=== PATIENT | male | born 1940 | race Two or more races ===

== ENCOUNTER → 2024-05-02 | Outpatient (CLI) | payer OTHER, SELFPAY ==
[2024-05-02 12:16] LABS: Basophils # (Auto) 0.1 Thou/mm3 (0.0-0.2); Basophils % (Auto) 1 % (0-2.5); Eosinophils # (Auto) 0.7 Thou/mm3 (0.0-0.5); Eosinophils % (Auto) 7 % (0-10); Hematocrit 36.4 % (41.0-53.0); Hemoglobin 11.6 g/dL (13.5-16.0); Immature Granulocytes % (Auto) 1 % (0-0); Immature Granulocytes Auto 0.13 Thou/mm3 (0.00-0.00); Lymphocytes # (Auto) 1.7 Thou/mm3 (1.0-4.8); Lymphocytes % (Auto) 17 % (10-50); Mean Corpuscular HGB Conc 31.9 g/dl (31.0-37.0); Mean Corpuscular Volume 91 fL (80-100); Monocytes # (Auto) 0.9 Thou/mm3 (0.0-0.8); Monocytes % (Auto) 9 % (0-12); Neutrophils # (Auto) 6.4 Thou/mm3 (1.8-7.7); Neutrophils % (Auto) 65 % (37-80); Nucleated Red Blood Cell % 0 /100 WBC (0); Platelet Count 256 Thou/mm3 (140-440); RDW Standard Deviation 45.5 fL (35.1-43.9); White Blood Count 9.9 Thou/mm3 (3.8-10.6)
[2024-05-02 12:27] LABS: Glucose Estimated Average 111 mg/dL (80-131); Hemoglobin A1C 5.5 % Hgb (4.8-6.0)
[2024-05-02 12:31] LABS: Albumin, Serum 4.1 gm/dL (3.4-4.8); Anion Gap 7 (7-16); BUN/Creatinine Ratio 12 Ratio (12-20); Blood Urea Nitrogen 46 mg/dL (9-23); Calcium 8.9 mg/dL (8.3-10.6); Calcium (Corrected) 8.9 mg/dL (8.5-10.1); Chloride 112 mMol/L (98-107); Creatinine (Component) 3.8 mg/dL (0.6-1.3); Glucose 121 mg/dL (74-106); Osmolality,Calculated 292 (275-295); Phosphorous 3.7 mg/dL (2.4-5.1); Potassium 5.6 mMol/L (3.4-5.1); Sodium 140 mMol/L (136-145); eGFR 15 See Note
[2024-05-02 13:41] LABS: Collection Type, Urine Clean Catch
[2024-05-02 14:00] LABS: Bacteria,Urine Rare; Bilirubin,Urine Negative (Negative); Blood,Urine Negative (Negative); Clarity,Urine Clear (Clear/Hazy); Color,Urine Lt-Yellow (Lt Yel-Yel); Glucose, Urine Negative (Negative); Ketones,Urine Negative (Negative); Leukocyte Esterase,Urine Positive (Negative); Nitrite,Urine Negative (Negative); PH,Urine 5.5 (5.0-7.0); Protein,Urine 2+ (Neg - Trace); RBC,Urine 10 /hpf (0-3); Squamous Epithelial Cell,Urine < 1 /hpf (0-5); Urobilinogen,Urine Negative mg/dL (0.0-1.0); WBC,Urine 5 /hpf (0-5)
== END | disposition home or self-care (01) ==
LOC: COPL 11:33
PROVIDERS: PCP Family Medicine; Referring Provider Internal Medicine Nephrology; Visit Provider Internal Medicine Nephrology
DX: N18.5 Chronic kidney disease, stage 5 (principal); E11.9 Type 2 diabetes mellitus without complications
CPT/HCPCS: 36415; 80069; 81001; 83036; 85025

== ENCOUNTER → 2024-08-13 | Outpatient (CLI) | payer OTHER, SELFPAY ==
[2024-08-13 09:57] LABS: Collection Type, Urine Clean Catch; Squamous Epithelial Cell,Urine 0 /hpf (0-5)
[2024-08-13 10:54] LABS: Bilirubin,Urine Negative (Negative); Blood,Urine Negative (Negative); Clarity,Urine Clear (Clear/Hazy); Color,Urine Colorless (Lt Yel-Yel); Glucose, Urine Negative (Negative); Ketones,Urine Negative (Negative); Leukocyte Esterase,Urine Negative (Negative); Nitrite,Urine Negative (Negative); Protein,Urine 1+ (Neg - Trace); RBC,Urine 1 /hpf (0-3); Specific Gravity,Urine 1.015 (1.001-1.035); Urobilinogen,Urine Negative mg/dL (0.0-1.0); WBC,Urine 3 /hpf (0-5)
[2024-08-13 10:56] LABS: Basophils # (Auto) 0.1 Thou/mm3 (0.0-0.2); Basophils % (Auto) 1 % (0-2.5); Eosinophils # (Auto) 0.8 Thou/mm3 (0.0-0.5); Eosinophils % (Auto) 7 % (0-10); Hemoglobin 12.2 g/dL (13.5-16.0); Immature Granulocytes % (Auto) 1 % (0-0); Immature Granulocytes Auto 0.14 Thou/mm3 (0.00-0.00); Lymphocytes # (Auto) 1.4 Thou/mm3 (1.0-4.8); Lymphocytes % (Auto) 13 % (10-50); Mean Corpuscular Hemoglobin 29.5 pg (25.0-35.0); Mean Corpuscular Volume 90 fL (80-100); Monocytes # (Auto) 0.9 Thou/mm3 (0.0-0.8); Monocytes % (Auto) 8 % (0-12); Neutrophils # (Auto) 8.1 Thou/mm3 (1.8-7.7); Neutrophils % (Auto) 71 % (37-80); Nucleated Red Blood Cell % 0 /100 WBC (0); Platelet Count 268 Thou/mm3 (140-440); RDW Standard Deviation 44.8 fL (35.1-43.9); Red Blood Count 4.13 Miln/mm3 (4.50-5.90); White Blood Count 11.4 Thou/mm3 (3.8-10.6)
[2024-08-13 11:11] LABS: Anion Gap 10 (7-16); BUN/Creatinine Ratio 14 Ratio (12-20); Blood Urea Nitrogen 53 mg/dL (9-23); Calcium 8.6 mg/dL (8.3-10.6); Calcium (Corrected) 8.6 mg/dL (8.5-10.1); Carbon Dioxide 20.8 mMol/L (20.0-31.0); Chloride 114 mMol/L (98-107); Creatinine (Component) 3.8 mg/dL (0.6-1.3); Glucose 127 mg/dL (74-106); Osmolality,Calculated 305 (275-295); Phosphorous 4.3 mg/dL (2.4-5.1); Potassium 5.4 mMol/L (3.4-5.1); Sodium 145 mMol/L (136-145); eGFR 15 See Note
[2024-08-13 11:13] LABS: Vitamin D 25 Hydroxy Total 18.9 ng/mL (7.3-40.2)
== END | disposition home or self-care (01) ==
LOC: COPL 09:27
PROVIDERS: PCP Family Medicine; Referring Provider Internal Medicine Nephrology; Visit Provider Internal Medicine Nephrology
DX: I12.9 Hypertensive chronic kidney disease with stage 1 through stage 4 chronic kidney disease, or unspecified chronic kidney disease (principal); N18.4 Chronic kidney disease, stage 4 (severe); E55.9 Vitamin D deficiency, unspecified
CPT/HCPCS: 36415; 80069; 81001; 82306; 83970; 85025

== ENCOUNTER 2024-11-08 18:10 | Inpatient (IN) | payer OTHER, SELFPAY ==
[2024-11-08 18:11] VITALS: BMI 21.7
--- NOTE | 2024-11-08 18:15 | EKG_ITS ---
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
[2024-11-08 18:33] VITALS: BP 148/77; PULSE 106; RESP 18; TEMP 36.9; O2SAT 97
--- NOTE | 2024-11-08 19:16 | XR_ITS ---
Examination: PA chest single view Technique upright PA chest single view Date and time: 11/08/2024 1924 hours INDICATIONS: Chest pain 3 days. FINDINGS: Normal heart size. Lungs are clear. Osseous structures are intact IMPRESSION: No active disease
--- NOTE | 2024-11-08 19:17 | PD.EDCHEST ---
ED Chest Pain RME/HPI General Chief Complaint: Chest Pain Stated Complaint: CHEST PAIN X3DAYS, ABN EKG, ELEVATED TROP Time Seen by Provider: 11/08/24 19:16 Arrival date/time: 11/08/24 18:10 84M with history of HTN and CKD presents to ED with 3 days of intermittent chest pressure. Patient denies SOB and URI symptoms. Patient had outpatient trop done about 3 hours ago, which was around a 2. Patient was prescribed nitro and he picked it up, but has not taken any. Limitations: no limitations Related Data Home Medications ?Medication ?Instructions ?Recorded ?Confirmed amlodipine 10 mg tablet 10 mg PO QDAY 02/04/20 11/08/24 losartan 100 mg tablet 100 mg PO QDAY 02/04/20 11/08/24 Held on 01/26/23. Instructions: F/u with PCP tamsulosin 0.4 mg capsule 0.4 mg PO BID 11/08/24 11/08/24 Allergies Allergy/AdvReac Type Severity Reaction Status Date / Time codeine Allergy Vomiting Verified 11/08/24 18:13 Review of Systems Review of Systems Systems Reviewed: All systems reviewed, normal except as documented Constitutional Constitutional: Reports system reviewed and no additional complaints, except as documented, Denies fever(s) and Denies headache(s) ENT Ears, Nose, Mouth, and Throat: Denies disequilibrium and Denies headache(s) Cardiovascular Cardiovascular: Reports system reviewed and no additional complaints, except as documented, Reports as per HPI, Reports chest pain and Denies dyspnea Respiratory Respiratory: Reports system reviewed and no additional complaints, except as documented, Denies cough and Denies dyspnea Gastrointestinal Gastrointestinal: Reports system reviewed and no additional complaints, except as documented, Denies abdominal pain, Denies nausea and Denies vomiting Neurologic Neurologic: Reports system reviewed and no additional complaints, except as documented, Denies confusion, Denies disequilibrium and Denies headache(s) Psychiatric Psychiatric: Denies confusion Past Medical History Past Medical History NEUROLOGIC: Negative Neurological Disorders or Seizures CARDIAC: Positive Cardiac Disorders, Hypercholesterolemia and Hypertension; Negative Congestive Heart Failure RESPIRATORY: Negative Chronic Obstructive Pulmonary Disease (COPD) GASTROINTESTINAL: Negative Gastrointestinal Disorders, Hepatitis, Colitis or Colorectal Cancer GENITOURINARY: Positive Chronic Kidney Disease and Benign Prostatic Hyperplasia; Negative Genitourinary Disorders, Renal Disease, Kidney Stones, Polycystic Kidney Disease, Neurogenic Bladder, Inguinal Hernia or Dialysis REPRODUCTIVE: Negative Breast Cancer MUSCULOSKELETAL: Positive Musculoskeletal Disorders and Arthritis ENT: Positive Cataracts, Macular Degeneration and Deafness (kotlik) ENDOCRINE: Positive Endocrine Disorders and Diabetes Mellitus Type 2; Negative Diabetes Mellitus Type 1 HEMATOLOGIC: Negative Blood Disorders OTHER HISTORY: Negative Hospitalization, Autoimmune Disease, Down Syndrome, Developmental Delay, Shingles, Falls, Blood Transfusions, Blood Transfusion Reaction, Anesthesia Reactions, Organ Transplant, MRSA, VRSA, Vancomycin-Resistant Enterococci, Human Immunodeficiency Virus (HIV), Chicken Pox, Measles, Mumps, Rubella (M[place]ese Measles), Pertussis, Clostridium Difficile, Cancer, Breast Cancer, Cervical Cancer, Colorectal Cancer or Lung Cancer Family History FAMILY HISTORY: Negative Family Psychiatric Problems, Family Respiratory Disorders, Family Cardiac Disorders, Family Gastrointestinal Problems, Family Cancer, Family Surgery or Family Anesthesia Reaction Surgical History SURGICAL: Positive Eye Surgery (cataracts); Negative Cardiac Surgery, Open Heart Surgery, Endocrine Surgery, Ear Surgery, Tympanostomy Tube, Abdominal Surgery, Nephrectomy, Joint Replacement, Neurologic Surgery, Mastectomy, Vasectomy or Organ Transplant Social History SMOKING STATUS: Former smoker SECOND HAND EXPOSURE: No Past Medical History Comments PMH COMMENT: PMH: Patient reports possible stroke several years ago. Hypertension, CKD. PSH: None SH: Quit smoking a few years ago, approximately [id number] history. Denies alcohol or illicit drug use. Allergies:?Codeine Medications: Flomax, amiodarone ED Exam General Limitations: Present no limitations General appearance: Present alert and in no apparent distress Head Head exam: Present atraumatic Eye Eye exam: Present normal appearance, PERRL and EOMI ENT ENT exam: Present normal exam, normal oropharynx and mucous membranes moist Neck Neck exam: Present normal inspection, full ROM and trachea midline Chest Chest inspection: Present normal inspection and symmetric chest wall rise Respiratory Respiratory exam: Present normal lung sounds bilaterally Cardiovascular Cardiovascular exam: Present regular rate, normal rhythm and normal heart sounds Abdominal Exam Abdominal exam: Present soft and normal bowel sounds Extremities Exam Extremities exam: Present normal inspection and full ROM Back Exam Back exam: Present normal inspection and full ROM Neurological Exam Neurological exam: Present alert, oriented X3 and CN II-XII intact Psychiatric Psychiatric exam: Present normal affect and normal mood Skin Skin exam: Present warm, dry, intact and normal color Course Quality Measures none Orders Category Date Time Status COVID-19 Screening Questionnaire NOW Care 11/08/24 19:26 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 Care 11/08/24 20:15 Active Decision to Admit X1 Care 11/08/24 19:25 Completed EKG (ED ONLY) *Do not use* NOW Care 11/08/24 18:15 Completed Insert IV NOW Care 11/08/24 19:16 Active Consult to Cardiology Stat Cons 11/08/24 19:25 Ordered CA echo doppler complete Stat Exams 11/08/24 19:38 Completed EKG (ED Only) Stat Exams 11/08/24 18:15 Draft XR chest 1V portable Stat Exams 11/08/24 19:16 Completed B-Type Natriuretic Peptide Stat Lab 11/08/24 20:10 Completed CBC Stat Lab 11/08/24 20:10 Completed Comprehensive Metabolic Panel Stat Lab 11/08/24 20:10 Completed Magnesium Stat Lab 11/08/24 20:10 Completed Partial Thromboplastin Time Stat Lab 11/08/24 20:10 Completed Prothrombin Time with INR Stat Lab 11/08/24 20:10 Completed Troponin I Stat Lab 11/08/24 20:10 Completed Aspirin Med 11/08/24 19:16 Discontinued 325 mg PO X1 ONE Vital Signs Vital signs: Vital Signs Temperature 98.4 F 11/08/24 18:33 Pulse Rate 106 H 11/08/24 18:33 Respiratory Rate 18 11/08/24 18:33 Blood Pressure 148/77 H 11/08/24 18:33 Pulse Oximetry (%) 97 11/08/24 18:33 Oxygen Delivery Method Room Air 11/08/24 18:33 O2 at 97% on RA and WNLs Chest Pain MDM Narrative MDM Narrative:: 84M with history of HTN and CKD presents to ED with 3 days of intermittent chest pressure. Patient denies SOB and URI symptoms. Patient had outpatient trop done about 3 hours ago, which was around a 2. Patient was prescribed nitro and he picked it up, but has not taken any. Physical exam reveals clear lungs. Normal WOB. Patient is afebrile, calm, and alert. EKG is NSR with 1s degree heart block (seen in last EKG), but has new PVC w/ bigeminy pattern. Trop went down from 2 to 1.9, so patient's late-stage CKD is likely playing a part. Spoke to Dr. Ann cards, who recommends heparin bolus/drop and echo; he will consult. Spoke to Dr. Benson, IM, who will admit. Patient data External records reviewed:: [facility] previous records Clinical information provided by:: patient Social determinants that could affect healthcare access:: none Patient has the following chronic illnesses:: CKD and HTN How is presenting disease/condition affected by chronic disease/condition?: exacerbated by Evaluation data The following diagnostics were reviewed and interpreted by me:: lab results, radiology exam(s) and EKG tracing(s) Lab and/or radiology exams considered but not ordered:: ordered Interpretation Summary: above Medications / Prescriptions Medications or Prescriptions considered but not ordered:: ordered Medication administrations:: Medication Administration History Acetaminophen (Acetaminophen 325 Mg Tablet) 650 mg PO Q6H PRN PRN Reason: Fever >100.4 or pain Stop: 12/08/24 20:20 Aspirin (Aspirin Ec 81 Mg Tabec) 81 mg PO QDAY NAHED Stop: 12/09/24 08:59 Atorvastatin Calcium (Atorvastatin Calcium 20 Mg Tablet) 80 mg PO HS NAHED Stop: 12/09/24 20:59 Docusate Sodium (Docusate Sod 100 Mg Capsule) 100 mg PO QDAY PRN; Protocol PRN Reason: CONSTIPATION Stop: 12/08/24 20:20 Heparin Sodium/Dextrose (Heparin In D5w Ivpb) 25,000 unit in 250 mls @ 8.709 mls/hr IV .Q24H NAHED; Protocol Stop: 11/22/24 20:29 Last Admin: 11/08/24 21:28 Dose: 12 units/kg/hr, 8.709 mls/hr Documented By: CG Co-signed By: JASKARAN Metoprolol Tartrate (Metoprolol Tartrate 25 Mg Tablet) 25 mg PO BID NAHED Stop: 12/09/24 08:59 Nitroglycerin (Nitroglycerin 0.4 Mg Subl Btl #25) 0.4 mg SL Q5MIN PRN PRN Reason: CHEST PAIN Ondansetron HCl (Ondansetron Inj 2 Mg/Ml Inj 2 Ml) 4 mg IVP Q6H PRN; Protocol PRN Reason: NAUSEA OR VOMITING Stop: 12/08/24 20:20 Sennosides (Senna Tablet) 1 tab PO QDAY PRN; Protocol PRN Reason: constipation Stop: 12/08/24 20:20 Discontinued Medications Aspirin (Aspirin 325 Mg Tablet) 325 mg PO X1 ONE Stop: 11/08/24 19:17 Last Admin: 11/08/24 19:24 Dose: 325 mg Documented By: CVL Heparin Sodium (Porcine) (Heparin Sod Inj 5000 Unit/Ml Vial) 4,000 unit IV X1 ONE; Protocol Stop: 11/08/24 20:24 Last Admin: 11/08/24 21:25 Dose: 4,000 unit Documented By: CG Co-signed By: JASKARAN Metoprolol Tartrate (Metoprolol Tartrate 25 Mg Tablet) 25 mg PO X1 ONE Stop: 11/08/24 22:04 Last Admin: 11/08/24 23:28 Dose: 25 mg Documented By: COCO above Consultations Consultation(s) initiated? (list below): Yes Diagnosis Chest Pain Differential Diagnosis: fracture of rib, pneumothorax, stable angina, unstable angina pectoris, st elevation myocardial infarction, costochondritis, chest pain and biliary colic Most likely diagnosis given after review of the tests above:: NSTEMI Admission Indicated Admission indicated?: indicated Admission Request Was there a request for admission?: Yes Admission Attestation Admission request attestation: Discussed case with [Dr. Benson] from Hospitalist service regarding admission. Discussed patients ED course, exam findings, labs, and radiology results. The Hospitalist [agrees] to accept the patient for admission. Disposition Plan Disposition Plan: Admit Discharge Plan Plan Patient Disposition: Admit Acute Care w/in Hospital Problem List Clinical Impression: Non-ST elevation UT (NSTEMI)
[2024-11-08] MEDS: Aspirin 325 MG TABLET PO (19:24)
--- NOTE | 2024-11-08 19:38 | ECHO_ITS ---
Transthoracic Echo Report Ht (in): 72 Wt (lb): 160 Exam Location: Echo Lab Status: Preadmit Speaking Unit Assembler: Shantal Barreto Indications: Procedure Performed: BP: 148 / 77 HR: 106 MEASUREMENTS (Male / Female) Normal Values 2D ECHO LV Diastolic Diameter PLAX 4.6 cm 4.2 - 5.9 / 3.9 - 5.3 cm LV Systolic Diameter PLAX 3.3 cm IVS Diastolic Thickness 1.0 cm 0.6 - 1.0 / 0.6 - 0.9 cm LVPW Diastolic Thickness 1.0 cm 0.6 - 1.0 / 0.6 - 0.9 cm LV Relative Wall Thickness 0.4 LV Ejection Fraction MOD BP 51.4 % >= 55 % LV Cardiac Index MOD BP 3186.4 cm?/min?m? LV Ejection Fraction MOD 4C 46.8 % LV Cardiac Index MOD 4C 2771.5 cm?/min?m? LV Ejection Fraction 4C AL 48.4 % LV Cardiac Index 4C AL 2993.9 cm?/min?m? LV Ejection Fraction MOD 2C 57.1 % LV Cardiac Index MOD 2C 3540.4 cm?/min?m? LV Ejection Fraction 2C AL 56.6 % LV Cardiac Index 2C AL 3533.9 cm?/min?m? LA Volume Index 49.4 cm?/m? 16 - 28 cm?/m? DOPPLER AV Peak Velocity 136.0 cm/s AV Peak Gradient 7.4 mmHg AV Mean Gradient 4.0 mmHg AV Velocity Time Integral 32.6 cm LVOT Peak Velocity 97.5 cm/s LVOT Peak Gradient 3.8 mmHg LVOT Velocity Time Integral 27.0 cm MV Area PHT 5.9 cm? MR Peak Velocity 565.0 cm/s MR Peak Gradient 127.7 mmHg Mitral E Point Velocity 90.7 cm/s Mitral A Point Velocity 121.0 cm/s Mitral E to A Ratio 0.7 LV E' Lateral Velocity 8.8 cm/s Mitral E to LV E' Lateral Ratio 10.3 LV E' Septal Velocity 7.2 cm/s Mitral E to LV E' Septal Ratio 12.6 FINDINGS Left Ventricle Normal left ventricular size, wall thickness, systolic function with no obvious regional wall motion abnormalities. There is grade I diastolic dysfunction of the left ventricle (impaired relaxation pattern). The ejection fraction is visually estimated at 50-55%. Right Ventricle The right ventricle is normal in size and systolic function. Left Atrium The left atrium is normal by two-dimensional, color flow and Doppler imaging with no structural abnormalities, no thrombus formation present. Moderately increased left atrial volume 49.4 mL/m?. Right Atrium The right atrium is normal by two-dimensional imaging, color flow and Doppler imaging with no structural abnormalities, no thrombus formation present. Atrial Septum The interatrial septum appears normal with no evidence of a shunt. Aorta The aorta is normal by two-dimensional, color flow and Doppler interrogation. Mitral Valve [id number] mitral regurgitation. Aortic Valve The aortic valve is trileaflet and normal by two-dimensional, color flow and Doppler interrogation. There is no significant aortic valve regurgitation. Tricuspid Valve The tricuspid valve is normal by two-dimensional, color flow and Doppler interrogation. There is no significant tricuspid valve regurgitation. Pulmonic Valve The pulmonic valve is not well visualized. There is no significant pulmonic valve regurgitation. Vessels Inferior vena cava not well visualized. Pericardium The pericardium is normal by two-dimensional imaging. There is no significant pericardial effusion. CONCLUSIONS Indication: NSTEMI Normal LV size and function. Estimated LVEF is 55 to 60%. Grade 1 diastolic dysfunction. Normal RV size and function. Insufficient TR to measure RVSP. Mild MR trace TR. IVC not well-visualized. Karlo Ann (Electronically Signed) Final Date: 08 Nov 2024 23:56
[2024-11-08 20:13] VITALS: BP 168/76; PULSE 71; RESP 16; O2SAT 99
[2024-11-08 20:16] VITALS: PULSE 76
[2024-11-08 20:20] LABS: Basophils # (Auto) 0.1 Thou/mm3 (0.0-0.2); Basophils % (Auto) 1 % (0-2.5); Eosinophils # (Auto) 0.6 Thou/mm3 (0.0-0.5); Eosinophils % (Auto) 5 % (0-10); Hematocrit 33.8 % (41.0-53.0); Hemoglobin 11.4 g/dL (13.5-16.0); Immature Granulocytes % (Auto) 1 % (0-0); Immature Granulocytes Auto 0.08 Thou/mm3 (0.00-0.00); Lymphocytes # (Auto) 1.7 Thou/mm3 (1.0-4.8); Lymphocytes % (Auto) 13 % (10-50); Mean Corpuscular HGB Conc 33.7 g/dl (31.0-37.0); Mean Corpuscular Hemoglobin 29.4 pg (25.0-35.0); Mean Corpuscular Volume 87 fL (80-100); Monocytes # (Auto) 1.1 Thou/mm3 (0.0-0.8); Monocytes % (Auto) 9 % (0-12); Neutrophils # (Auto) 8.8 Thou/mm3 (1.8-7.7); Neutrophils % (Auto) 72 % (37-80); Nucleated Red Blood Cell % 0 /100 WBC (0); Platelet Count 243 Thou/mm3 (140-440); RDW Standard Deviation 44.8 fL (35.1-43.9); Red Blood Count 3.88 Miln/mm3 (4.50-5.90); White Blood Count 12.3 Thou/mm3 (3.8-10.6)
--- NOTE | 2024-11-08 20:30 | ESCONSULT_ITS ---
HPI Data of Consult Consult date: 11/08/24 Requesting Physician: Emergency department Consult Narrative Reason for consult: Chest pain and elevated troponins History of present illness: 84-year-old male with a past medical history of CKD stage IV baseline creatinine around 3.5-4, mostly secondary to longstanding essential hypertension as well as type 2 diabetes mellitus, diabetic nephropathy, hyperlipidemia,, osteoarthritis, history of TIA versus stroke few years ago, chronic smoker with more than 54-86-lhgc-year smoking history, BPH, mild chronic anemia secondary to CKD presented to the emergency department for further evaluation of chest pain and an elevated troponin that was sent by the primary doctor. Patient apparently has been having chest pain or chest pressure which is substernal and radiating to the neck for the last 3 days and he could not even sleep properly. At the peak it was around 10 out of 10 intensity but is improved has been better now but still has around 5-6/10 in intensity. He never had similar kind of chest pain or chest pressure. Complains of some accompanying shortness of breath but denied any kind of orthopnea or PND. Had some palpitations also. Denied any kind of nausea vomiting or dizziness or syncope or fall. Denies any kind of fever or chills. Given type of symptoms patient did go to his primary care doctor who did order his troponins and sent him to the emergency department for further evaluation. The troponins came back at 2.072 and emergency department call me for further evaluation. Labs sent by the PCP revealed WBC of 12.8 and hemoglobin was 11 point troponin 2.072 and BUN was 53 and creatinine of zero 4.0. Patient baseline creatinine is around 3.5-4.0. Chest x-ray did not show any acute pathology. EKG showed normal sinus rhythm with frequent PACs first-degree AV block. Patient lives alone and is ADL/IADL independent. Still drives around. Quit smoking a few years ago after almost 50 to 60 pack of smoking history. Denies any kind of alcohol or drug abuse. 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 Endorses that he has hypertension and diabetes for many years along with a smoking. Diagnosed chronic kidney disease few years ago and follows with Dr Parra. His kidney function is 14 to 15% as per the patient. Family history significant for heart disease siblings and possibly father. Surgical history not significant. Allergies codeine cc:: cc: Review of Systems Review of Systems Systems Reviewed: All systems reviewed, normal except as documented Narrative Review of Systems: All other 2 systems apart from HPI are reviewed and are Meds Home Medications and Allergies Home Medications ?Medication ?Instructions ?Recorded ?Confirmed ?Type amlodipine 10 mg tablet 10 mg PO QDAY 02/04/2011/08 History losartan 100 mg tablet 100 mg PO QDAY 02/04/2010/12 History Held on 01/26/23. Instructions: F/u with PCP tamsulosin 0.4 mg capsule 0.4 mg PO BID 11/08/2411/08 History Allergies Allergy/AdvReac Type Severity Reaction Status Date / Time codeine Allergy Vomiting Verified 11/08/24 18:13 Exam Vital Signs Temp Pulse Resp BP Pulse Ox O2 Del Method 98.4 F 76 16 168/76 H 99 Room Air 11/08/24 18:33 11/08/24 20:16 11/08/24 20:13 11/08/24 20:13 11/08/24 20:13 11/08/24 20:13 Narrative Exam General: Alert and oriented x3. In no acute distress. Eyes: Pupils are equal and reactive to light bilaterally. HEENT: Atraumatic, normocephalic. No JVD noted. Mucosa moist. Cardiovascular: Normal S1 and S2. Normal rate and regular rhythm. 2/6 systolic murmur heard in the aortic area. No peripheral pitting edema noted. Respiratory: No respiratory distress. Lungs are clear to auscultation bilaterally. No wheezing or crackles heard. Abdomen: Soft, nontender, nondistended. Skin: No rash. Warm to touch. Musculoskeletal: No gross injuries. Able to move all 4 extremities. Neuro: Alert and oriented x3. No focal neuro deficits. Psych: Normal affect and mood Results Labs 11/09/24 03:25 11/09/24 03:25 Assessment and Plan Additional Assessment & Plan Additional Plan: 84-year-old male with a past medical history of CKD stage IV baseline creatinine around 3.5-4, mostly secondary to longstanding essential hypertension as well as type 2 diabetes mellitus, diabetic nephropathy, hyperlipidemia,, osteoarthritis, history of TIA versus stroke few years ago, chronic smoker with more than 04-05-gihb-year smoking history, BPH, mild chronic anemia secondary to CKD presented to the emergency department for further evaluation of chest pain and an elevated troponin that was sent by the primary doctor. Troponin before coming to the hospital was 2.0 so cardiology was consulted for further evaluation Assessment and plan: 1. NSTEMI type I>II -possible late presenting PA given his chest pain for 2 to 3 days. 2. Angina pectoris-rule out acute coronary syndrome 3. CKD stage IV baseline creatinine around 3.5-4, GFR around 14-15 4. Essential hypertension 5. Type 2 diabetes mellitus 6. Diabetic nephropathy 7. Hyperlipidemia 8. Osteoarthritis 9. BPH 10. Former smoker with 50 to 60 pack years smoking history. 11. History of possible TIA in stroke Patient presented with chest pain of 2 to 3 days duration which was not relieved with medications that has typical chest pain symptoms. EKG showed a sinus rhythm with first-degree AV block, frequent PACs and nonspecific ST changes. Troponin was elevated at 2.07. Patient mostly presenting with NSTEMI type I and less likely type II versus late presenting PA given his delayed presentation after 2 to 3 days. Continue to trend troponins every 6 hours Repeat EKG Aspirin 325 mg x 1 and aspirin 81 mg once daily. Heparin bolus with heparin drip as per ACS protocol. High intensity statin Lipitor 80 mg once daily. Stat echocardiogram ordered for the patient to rule out any regional wall motion abnormalities check a LV function RV function as well as diastolic function. Patient continues to complain of pain and will require some pain control. Nitroglycerin sublingual given here in the ED Beta-pardeep if blood pressure is permissible. Patient is increased risk for CAD given his history of longstanding hypertension, diabetes, CKD, age, history of smoking of more than 50 pack years, family history and hence will need further ischemic evaluation with cardiac catheterization. Patient explained clearly the risks benefits and alternatives of performing a left heart cardiac catheter including the risk of bleeding, heart attack, stroke and . Patient also explained that he has CKD stage IV with a creatinine of 3.5-4 and this procedure could lead patient into possible dialysis but could be done with the lower contrast told also. Patient wants to avoid dialysis as much as he can. Discussed with the patient that we will consult his undercutter operator Dr. Shultz and we can further discuss the next course of action over the weekend prior to planning for a cardiac cath on Monday as we do not have the Residential Designer available over the weekend here. Recommend to check A1c TSH and lipid profile for further cardiac restratification. Recommend strict hypertension and diabetes management. Nephrology consult given his CKD stage IV and the need of possible cardiac catheterization. Management of rest of the medical conditions as per primary team and other consultants. Thank you for the consult and allowing me to participate in the care of the patient. Cardiology will continue to follow. Karlo Ann M.D. Interventional Cardiology
[2024-11-08 20:39] LABS: Partial Thromboplastin Time 30.2 Seconds (22.0-36.0); Prothrombin Time 10.9 Seconds (9.0-12.2)
[2024-11-08 20:50] LABS: Albumin, Serum 3.8 gm/dL (3.4-4.8); Albumin/Globulin Ratio 1.4 (1.2-2.2); Alkaline Phosphatase 86 U/L (46-116); Anion Gap 13 (7-16); Aspartate Amino Transferase 16 U/L (0-34); BUN/Creatinine Ratio 13 Ratio (12-20); Bilirubin,Total 0.2 mg/dL (0.3-1.2); Blood Urea Nitrogen 55 mg/dL (9-23); Calcium 8.1 mg/dL (8.3-10.6); Calcium (Corrected) 8.3 mg/dL (8.5-10.1); Carbon Dioxide 20.9 mMol/L (20.0-31.0); Chloride 110 mMol/L (98-107); Creatinine (Component) 4.1 mg/dL (0.6-1.3); Estimated Creatinine Clearance 13.5 mL/min (>60); Globulin 2.8 gm/dL (2.3-3.5); Glucose 237 mg/dL (74-106); Magnesium 2.2 mg/dL (1.6-2.6); Osmolality,Calculated 309 (275-295); Potassium 5.1 mMol/L (3.4-5.1); Sodium 144 mMol/L (136-145); Total Protein 6.6 gm/dL (5.7-8.2); eGFR 14 See Note
[2024-11-08 20:56] LABS: Alanine Aminotransferase < 7 U/L (10-49)
--- NOTE | 2024-11-08 20:57 | PC.NURSE ---
Night Time Nanny assumes care of patient at this time, pt is A/O x 3 with no c/o chest pain at this time, pt reports pressure to chest that started 3 days ago, no report of N/V or S.O.B
[2024-11-08 21:00] VITALS: BP 164/80; PULSE 72; RESP 16; TEMP 37; O2SAT 97
[2024-11-08 21:05] LABS: B-Type Natriuretic Peptide 885 pg/mL (0-100)
[2024-11-08] MEDS: HEPARIN SOD INJ 5000 UNIT/ML VIAL 4000 UNIT IV (21:25)
--- NOTE | 2024-11-08 21:25 | PC.NURSE ---
4000 units of Heparin given over 1 minute to Left forearm IV site, pt tolerated well
--- NOTE | 2024-11-08 21:26 | PD.RESHP ---
Documentation for date of: 11/08/24 HPI History of Present Illness Chief complaint: Chest pain History of present illness: 84 y/o M with PMHx significant for HTN, CKD, possible history of previous stroke presents with chief complaint of chest pain for 3 days. Patient states that he developed pressure-like substernal chest pain without radiation, 3 out of 10, while laying in bed. Pain has been intermittent without progression for past 3 days. Patient saw his primary doctor who reportedly ordered troponin that came back as 2 prior to admission, and sent patient to ED. Patient denies fever, chills, nausea, vomiting, shortness of breath. Patient denies history of similar symptoms in the past. ED COURSE: Labs significant for: WBC 12.8, hemoglobin 12.1, troponin 2.072 downtrended to 1.9, BNP 885. BUN 53, creatinine 4.0, EGFR 14. Imaging significant for: Chest x-ray unremarkable. EKG showed no ST elevations, possible AV block. Patient started on heparin drip with bolus, given loading dose of aspirin in the ED. Cardiology was consulted. PMH: Patient reports possible stroke several years ago. Hypertension, CKD. PSH: None SH: Quit smoking a few years ago, approximately [id number] history. Denies alcohol or illicit drug use. Allergies:?Codeine Medications: Flomax, amiodarone Review of Systems Review of Systems Systems Reviewed: All systems reviewed, normal except as documented Past Medical History Past Medical History Comments PMH COMMENT: PMH: Patient reports possible stroke several years ago. Hypertension, CKD. PSH: None SH: Quit smoking a few years ago, approximately [id number] history. Denies alcohol or illicit drug use. Allergies:?Codeine Medications: Flomax, amiodarone Exam Vital Signs Temp Pulse Resp BP Pulse Ox O2 Del Method 98.4 F 76 16 168/76 H 99 Room Air 11/08/24 18:33 11/08/24 20:16 11/08/24 20:13 11/08/24 20:13 11/08/24 20:13 11/08/24 20:13 Narrative Exam PE: Gen: Well-developed and well-nourished. HEENT: NCAT, PERRLA, EOMI, MMM, anicteric conjunctivae. CVS: normal S1 and S2. RRR. No M/R/G. Resp: CTA B/L. No rhonchi, rales, crackles or wheezing. Abd: soft, non-tender, non-distended. MSK: Good ROM in BUE & BLE. No edema or rash. Neuro: CN II-XII grossly intact. Strength 5/5 in BUE & BLE. Alert and oriented x3. Psych: appropriate mood and affect. Results: Labs 11/08/24 20:10 11/08/24 20:10 Labs: Short CBC 11/08/24 Range/Units 20:10 WBC 12.3 H (3.8-10.6) Thou/mm3 Hgb 11.4 L (13.5-16.0) g/dL Hct 33.8 L (41.0-53.0) % Plt Count 243 (140-440) Thou/mm3 BMP 11/08/24 20:10 Sodium 144 Potassium 5.1 Chloride 110 H Carbon Dioxide 20.9 BUN 55 H Creatinine 4.1 H* Glucose 237 H D Calcium 8.1 L Cardiac Enzymes 11/08/24 Range/Units 20:10 Troponin I 1.900 H* (0.0-0.045) ng/mL Liver Function 11/08/24 Range/Units 20:10 Total Bilirubin 0.2 L (0.3-1.2) mg/dL AST 16 (0-34) U/L ALT < 7 L (10-49) U/L Alkaline Phosphatase 86 (46-116) U/L Albumin 3.8 (3.4-4.8) gm/dL Quality Measures Quality Measures VTE prophylaxis Advance care planning discussed with:: patient Medications Home Medications and Allergies Home Medications ?Medication ?Instructions ?Recorded ?Confirmed ?Type amlodipine 10 mg tablet 10 mg PO QDAY 02/04/20 11/08/24 History losartan 100 mg tablet 100 mg PO QDAY 02/04/20 11/08/24 History Held on 01/26/23. Instructions: F/u with PCP tamsulosin 0.4 mg capsule 0.4 mg PO BID 11/08/24 11/08/24 History Allergies Allergy/AdvReac Type Severity Reaction Status Date / Time codeine Allergy Vomiting Verified 11/08/24 18:13 Visit Medications Acetaminophen (Acetaminophen 325 Mg Tablet) 650 mg PO Q6H PRN PRN Reason: Fever >100.4 or pain Stop: 06/29/25 20:20 Aspirin (Aspirin Ec 81 Mg Tabec) 81 mg PO QDAY NAHED Stop: 12/09/24 08:59 Docusate Sodium (Docusate Sod 100 Mg Capsule) 100 mg PO QDAY PRN; Protocol PRN Reason: CONSTIPATION Stop: 12/08/24 20:20 Heparin Sodium/Dextrose (Heparin In D5w Ivpb) 25,000 unit in 250 mls @ 8.709 mls/hr IV .Q24H NAHED; Protocol Stop: 11/22/24 20:29 Ondansetron HCl (Ondansetron Inj 2 Mg/Ml Inj 2 Ml) 4 mg IVP Q6H PRN; Protocol PRN Reason: NAUSEA OR VOMITING Stop: 12/08/24 20:20 Sennosides (Senna Tablet) 1 tab PO QDAY PRN; Protocol PRN Reason: constipation Stop: 12/08/24 20:20 Discontinued Medications Aspirin (Aspirin 325 Mg Tablet) 325 mg PO X1 ONE Stop: 11/08/24 19:17 Last Admin: 11/08/24 19:24 Dose: 325 mg Heparin Sodium (Porcine) (Heparin Sod Inj 5000 Unit/Ml Vial) 4,000 unit IV X1 ONE; Protocol Stop: 11/08/24 20:24 Assessment & Plan Plan 84 y/o M with PMHx significant for HTN, CKD, possible history of previous stroke presents with chief complaint of chest pain for 3 days, admitted for unstable angina. #Unstable angina #Troponinemia Patient presented with chief complaint of chest pain x [address] elevations on EKG. Troponin 2.0, down trended to 1.9. Possibly related to CKD. Patient states chest pain is been intermittent, present at rest. Has never had similar symptoms in the past. Cardiology consulted by ED. Patient started on heparin drip with bolus, loading dose aspirin. - Echo ordered, follow-up - Telemonitoring - Aspirin 81 mg p.o. daily - Heparin GTT - Cardiology consulted, appreciate recommendations - Metoprolol tartrate 25 mg p.o. twice daily - Atorvastatin 80 mg p.o. at bedtime - Sublingual nitro as needed for chest pain 3 doses max #HTN #CKD Patient history as stated. Patient does not recall his medications at this time. Follows with car whacker Dr. Parra. - Med rec's pending, consider resuming home meds - Renally dose medications - Avoid nephrotoxins - Security Specialist Dr Parra consulted, patient potentially receiving cardiac cath DVT prophylaxis: Heparin GTT GI prophylaxis: None Diet: Cardiac, renal Lines: Peripheral IV Code status: DNR Plan of care discussed with attending Dr. Benson. Zev Drake MD PGY?1 Attending Provider Attestation/Addendum I have examined the patient, reviewed labs and imaging findings, discussed the case with the resident(s), and reviewed entered orders. I agree with the plan of care as outlined in this note, with these additional summaries/recommendations: After examination of the patient and review of the clinical data, I feel that this patient needs admission to the hospital for further treatment and evaluation. Patient is a 84-year-old male with a medical history of primary hypertension, diabetes mellitus type 2, CKD stage IV, renal osteodystrophy, chronic lower back pain, BPH, and dyslipidemia presents to [facility] emergency department on 11/08/2024 with chief complaint of chest pain. Patient seen at bedside. Patient diagnosed with NSTEMI most likely type I versus less likely type II. Presented with chest pain and typical features which is concerning for NSTEMI from ACS or plaque rupture. PADDY score 4 points indicating 20% risk at 14 days of all cause mortality. Andie score 158 points indicating 26% probability of from admission to 6 months. Troponin elevated to 2.072 and EKG demonstrated sinus rhythm with first-degree AV block and nonspecific ST changes, rate 89. Cardiology consulted, recommendations appreciated. Patient will be admitted to telemetry, troponin until downtrending, EKG as needed if chest pain returns, and echocardiogram. CAD risk factor screening with A1c, lipid panel, and TSH. Titrate O2 as needed for symptoms. Patient received antiplatelet loading dose of aspirin 325 mg p.o. x 1. Start aspirin 81 mg p.o. daily. For anticoagulation start heparin gtt and target APTT of 60 to 80 seconds. For plaque stabilization start atorvastatin 80 mg p.o. nightly. For cardiac remodeling prevention we will defer BEN/ARB for now given underlying CKD and start metoprolol. As needed morphine if chest pain returns or nitroglycerin. Patient also has severe underlying CKD stage IV. Will monitor urinary output although no indication for hemodialysis at this time. Mild hypocalcemia present and replacement given. Repeat level in AM. If renal function worsens we will consider cardiology consultation. Patient apparently has history of diabetes mellitus type 2 although has not taken oral hypoglycemics for this. A1c 5.6% leukocytosis present although most likely reactive and no evidence of infection at this time. Repeat hematology panel in AM. Patient updated on the plan and in agreement. All questions answered to satisfaction. Please see residents note for additional details and management. Dr. Marcelino MD
[2024-11-08] MEDS: Heparin/D5w 25K 250 ML Ivpb 25,000 UNIT/250 ML BAG 8.709 UNIT IV (21:28)
--- NOTE | 2024-11-08 22:27 | PC.NURSE ---
Report given to floor nurse, Irma EVANS.
[2024-11-08 23:28] VITALS: BP 158/76; PULSE 69
[2024-11-08] MEDS: METOPROLOL TARTRATE 25 MG TABLET PO (23:28)
[2024-11-09] VITALS (13 sets, daily range): BP systolic 136–165; BP diastolic 52–92; PULSE 52–100; RESP 14–18; TEMP 36.3–36.7; O2SAT 94–99; BMI 21.7
[2024-11-09 03:53] LABS: Basophils # (Auto) 0.1 Thou/mm3 (0.0-0.2); Basophils % (Auto) 1 % (0-2.5); Eosinophils % (Auto) 9 % (0-10); Hematocrit 31.8 % (41.0-53.0); Hemoglobin 10.6 g/dL (13.5-16.0); Immature Granulocytes % (Auto) 1 % (0-0); Immature Granulocytes Auto 0.08 Thou/mm3 (0.00-0.00); Lymphocytes # (Auto) 2.3 Thou/mm3 (1.0-4.8); Lymphocytes % (Auto) 21 % (10-50); Mean Corpuscular HGB Conc 33.3 g/dl (31.0-37.0); Mean Corpuscular Hemoglobin 29.3 pg (25.0-35.0); Mean Corpuscular Volume 88 fL (80-100); Monocytes # (Auto) 1.1 Thou/mm3 (0.0-0.8); Monocytes % (Auto) 10 % (0-12); Neutrophils # (Auto) 6.6 Thou/mm3 (1.8-7.7); Neutrophils % (Auto) 59 % (37-80); Nucleated Red Blood Cell % 0 /100 WBC (0); Platelet Count 246 Thou/mm3 (140-440); RDW Standard Deviation 45.3 fL (35.1-43.9); Red Blood Count 3.62 Miln/mm3 (4.50-5.90); White Blood Count 11.2 Thou/mm3 (3.8-10.6)
[2024-11-09 04:17] LABS: Albumin, Serum 3.5 gm/dL (3.4-4.8); Albumin/Globulin Ratio 1.5 (1.2-2.2); Alkaline Phosphatase 78 U/L (46-116); Anion Gap 9 (7-16); Aspartate Amino Transferase 17 U/L (0-34); BUN/Creatinine Ratio 14 Ratio (12-20); Bilirubin,Total 0.3 mg/dL (0.3-1.2); Blood Urea Nitrogen 54 mg/dL (9-23); Calcium (Corrected) 8.4 mg/dL (8.5-10.1); Carbon Dioxide 21.6 mMol/L (20.0-31.0); Cardiac Risk Estimate 5.1 RATIO (4.0-6.7); Chloride 114 mMol/L (98-107); Cholesterol 142 mg/dL (132-200); Estimated Creatinine Clearance 13.9 mL/min (>60); Globulin 2.3 gm/dL (2.3-3.5); Glucose 93 mg/dL (74-106); HDL Cholesterol 28 mg/dL (40-60); LDL Cholesterol,Calculated 96 mg/dL (0-130); Magnesium 2.2 mg/dL (1.6-2.6); Osmolality,Calculated 303 (275-295); Phosphorous 3.9 mg/dL (2.4-5.1); Potassium 5.2 mMol/L (3.4-5.1); Sodium 145 mMol/L (136-145); Total Protein 5.8 gm/dL (5.7-8.2); Triglycerides 88 mg/dL (30-150); eGFR 14 See Note
[2024-11-09 04:24] LABS: Partial Thromboplastin Time 53.9 Seconds (22.0-36.0)
[2024-11-09 04:25] LABS: Alanine Aminotransferase < 7 U/L (10-49)
--- NOTE | 2024-11-09 05:57 | PC.NURSE ---
notified Dr. Drake of patients heart rhythm going 2nd degree type 2 heart block for 2 short runs. I will monitor patient closely
[2024-11-09] MEDS: ASPIRIN EC 81 MG TABEC PO (09:29)
[2024-11-09] MEDS: METOPROLOL TARTRATE 25 MG TABLET PO ×2 (09:29→20:33)
[2024-11-09] MEDS: LOSARTAN POTASSIUM 25 MG TABLET 50 MG PO (09:59)
[2024-11-09 10:42] LABS: Partial Thromboplastin Time 45.8 Seconds (22.0-36.0)
--- NOTE | 2024-11-09 11:13 | ESPR_ITS ---
Documentation for date of: 11/09/24 Subjective Subjective Interval history: 11/09/2024: Overnight admission for 84-year-old male with past medical history of CKD stage V, hypertension who presented with typical chest pain found to have NSTEMI type I started on heparin drip and admitted for cardiology consultation. Patient seen and assessed in hospital bed reporting improvement in presenting symptoms and denies having any concerning cardiac symptoms at this time such as chest pain, shortness of breath, palpitations, dizziness or new headaches. Patient has tentatively scheduled left heart catheterization possibly on 11/09 versus 11/11; will contact head baggage porter regarding scheduling. Will also contact patient's video game creator, Dr Parra regarding patient's worsening kidney function and need for contrast during left heart catheterization. Exam Vital Signs Temp Pulse Resp BP Pulse Ox O2 Del Method 97.4 F 60 14 151/92 H 98 Room Air 11/09/24 08:00 11/09/24 09:59 11/09/24 08:00 11/09/24 09:59 11/09/24 08:00 11/09/24 08:00 Narrative Exam Physical Exam: GENERAL: Awake, answering questions appropriately, appears stated age, frail appearing HEENT: NC/AT. Moist mucosa. PERRLA/EOMI. CARDIO: Heart RRR but distant, no obvious murmurs, no JVD. PULM: No coughing or visible SOB. Lungs CTA B/L. GI: Abdomen soft, NT/ND, +BS. SKIN/MSK/EXT: No wounds/discoloration/rashes/edema/amputations. +Pedal pulses present B/L. NEURO: Oriented x3, Moves extremities x4, No focal neurologic deficits noted Objective Labs 11/09/24 03:25 11/09/24 03:25 Labs: Laboratory Results - last 24 hr 11/08/24 11/09/24 11/09/24 20:10 03:25 09:42 WBC 12.3 H 11.2 H RBC 3.88 L 3.62 L Hgb 11.4 L 10.6 L Hct 33.8 L 31.8 L MCV 87 88 MCH 29.4 29.3 MCHC 33.7 33.3 RDW Std Deviation 44.8 H 45.3 H Plt Count 243 246 Neut % (Auto) 72 59 Lymph % (Auto) 13 21 Rich % (Auto) 9 10 Eos % (Auto) 5 9 Baso % (Auto) 1 1 Neut # (Auto) 8.8 H 6.6 Lymph # (Auto) 1.7 2.3 Rich # (Auto) 1.1 H 1.1 H Eos # (Auto) 0.6 H 1.0 H Baso # (Auto) 0.1 0.1 Immature Gran # (Auto) 0.08 H 0.08 H Absolute Nucleated RBC 0.00 0.00 Immature Gran % 1 H 1 H Nucleated RBC % 0 0 PT 10.9 INR 1.0 APTT 30.2 53.9 H D 45.8 H Sodium 144 145 Potassium 5.1 5.2 H Chloride 110 H 114 H Carbon Dioxide 20.9 21.6 Anion Gap 13 9 BUN 55 H 54 H Creatinine 4.1 H* 4.0 H Estim Creat Clear Calc 13.5 L 13.9 L eGFR 14 L* 14 L* BUN/Creatinine Ratio 13 14 Glucose 237 H D 93 D Calculated Osmolality 309 H 303 H Calcium 8.1 L 8.0 L Corrected Calcium 8.3 L 8.4 L Phosphorus 3.9 Magnesium 2.2 2.2 Total Bilirubin 0.2 L 0.3 AST 16 17 ALT < 7 L < 7 L Alkaline Phosphatase 86 78 Troponin I 1.900 H* B-Natriuretic Peptide 885 H* Total Protein 6.6 5.8 Albumin 3.8 3.5 Globulin 2.8 2.3 Albumin/Globulin Ratio 1.4 1.5 Triglycerides 88 Cholesterol 142 LDL Cholesterol, Calc 96 HDL Cholesterol 28 L Cholesterol/HDL Ratio 5.1 Quality Measures Quality Measures none Advance care planning discussed with:: patient Assessment & Plan Assessment Current Active Medications: Generic Name Dose Route Start Last Admin Trade Name Freq PRN Reason Stop Dose Admin Acetaminophen 650 mg 11/08/24 20:21 Acetaminophen 325 Mg Tablet PO 12/08/24 20:20 Q6H PRN Fever >100.4 or pain Aspirin 81 mg 11/09/24 09:00 11/09/24 09:29 Aspirin Ec 81 Mg Tabec PO 12/09/24 08:59 81 mg QDAY NAHED Administration Atorvastatin Calcium 80 mg 11/09/24 21:00 Atorvastatin Calcium 20 Mg Tablet PO 12/09/24 20:59 HS NAHED Docusate Sodium 100 mg 11/08/24 20:21 Docusate Sod 100 Mg Capsule PO 12/08/24 20:20 QDAY PRN CONSTIPATION Protocol Heparin Sodium/Dextrose 25,000 unit in 250 mls @ 8.709 mls/hr 11/08/24 20:30 11/09/24 04:49 Heparin In D5w Ivpb IV 11/22/24 20:29 12 units/kg/hr .Q24H NAHED 8.709 mls/hr Titration Protocol 12 UNITS/KG/HR Losartan Potassium 50 mg 11/09/24 09:45 11/09/24 09:59 Losartan Potassium 25 Mg Tablet PO 12/09/24 09:44 50 mg QDAY NAHED Administration Metoprolol Tartrate 25 mg 11/09/24 09:00 11/09/24 09:29 Metoprolol Tartrate 25 Mg Tablet PO 12/09/24 08:59 25 mg BID NAHED Administration Nitroglycerin 0.4 mg 11/08/24 22:03 Nitroglycerin 0.4 Mg Subl Btl #25 SL Q5MIN PRN CHEST PAIN Ondansetron HCl 4 mg 11/08/24 20:21 Ondansetron Inj 2 Mg/Ml Inj 2 Ml IVP 12/08/24 20:20 Q6H PRN NAUSEA OR VOMITING Protocol Sennosides 1 tab 11/08/24 20:21 Senna Tablet PO 12/08/24 20:20 QDAY PRN constipation Protocol Plan 84 y/o M with PMHx significant for HTN, CKD, possible history of previous stroke presents with chief complaint of chest pain for 3 days, admitted for unstable angina. #NSTEMI type I Patient presented with chief complaint of chest pain x 3 days. Typical presentation with substernal pressure radiating to left arm No ST elevations on EKG. Troponin 2.0, down trended to 1.9. Patient states chest pain is been intermittent, present at rest. Has never had similar symptoms in the past. Cardiology consulted by ED. Patient started on heparin drip with bolus, loading dose aspirin. Plan: Left heart catheterization is tentatively planned Echo ordered, follow-up Telemonitoring Aspirin 81 mg p.o. daily Heparin GTT Cardiology consulted, appreciate recommendations Metoprolol tartrate 25 mg p.o. twice daily Atorvastatin 80 mg p.o. at bedtime Sublingual nitro as needed for chest pain 3 doses max #Hypertension #CKD stage V Patient history as stated. Patient does not recall his medications at this time. Follows with video game creator Dr. Parra. States that CKD has been stable for the past 6 months - 1 year with a GFR in the 14?15 range Plan: Resume patient's losartan but at 50 mg p.o. daily Renally dose medications Avoid nephrotoxins District Plant Superintendent Dr Parra consulted, patient potentially receiving cardiac cath Will discuss need for contrast during left heart catheterization and possible need for dialysis #Leukocytosis Likely reactive in the setting of NSTEMI type I Patient denies having any signs of cough, sick contacts, abdominal symptoms (nausea/vomiting/diarrhea), urinary symptoms Chest x-ray showed no active disease Urinalysis largely negative On exam patient does not have any new skin rashes or wounds Plan: Will monitor with morning labs #Normocytic anemia #Likely anemia of chronic disease Patient does have history of CKD stage V which could be contributing factor to his anemia Other differentials include iron deficiency anemia, vitamin deficiency, less likely to be myelosuppression or hemolytic anemia Plan: Follow-up on iron panel in the morning along with ferritin and reticulocyte count #BPH Chronic medical condition, patient appears to be on tamsulosin 0.4 mg p.o. twice daily Plan: Will restart home medication Health Maintenance: Lines: PIV Diet: Cardiac, renal Bowel: Senna as needed GI prophylaxis: Not needed DVT prophylaxis: On heparin drip Dispo: Pending left heart catheterization with cardiology, on heparin drip Code: DNR Patient seen and assessed with attending Dr. Peter Desir, PGY-1 Internal Medicine - GME Attending Provider Attestation/Addendum I attest that I was physically present for the evaluation, physical examination, lab and imaging review of the patient with the residents. I discussed the case with the residents and agree with the findings and plans of care as documented above. Patient is an 84 years old male with past medical history of hypertension, CKD, possible stroke who presented to the ED with complaint of chest pain for 3 days. He was found to have elevated troponin but no ST elevation, BNP was also 885, advanced CKD and was admitted overnight for management of unstable angina/NSTEMI. At bedside today, patient is states that his chest pain has resolved. He denies any shortness of breath or palpitation. Blood pressure noted to be on the higher side, we will resume his home losartan. Continues to be on heparin drip, aspirin and metoprolol. WBC improved to 11.2 today. Patient has BUN/creatinine of 54/4.0 today. Potassium went up to 5.2, we will obtain follow-up renal panel in the afternoon. Nephrology has been consulted. Cardiology Following, patient is planned for cardiac catheterization likely on Monday. Skyler Green MD
[2024-11-09] MEDS: HEPARIN SOD INJ 5000 UNIT/ML VIAL 2000 UNIT IV (11:26)
--- NOTE | 2024-11-09 14:24 | ESPR_ITS ---
Documentation for date of: 11/09/24 Subjective Subjective Interval history: Patient was seen and examined at bedside. No acute overnight events. He remains on heparin drip. His troponin last reading showed 1.9 down from 2.072. Will repeat another troponin I today. Echo from yesterday showed Normal LV size and function. Estimated LVEF is 55 to 60%. Grade 1 diastolic dysfunction. Normal RV size and function. Insufficient TR to measure RVSP. Mild MR trace TR. IVC not well-visualized. Continue current management on heparin drip, anticipate cardiac catheterization on Monday. Exam Vital Signs Temp Pulse Resp BP Pulse Ox O2 Del Method 97.8 F 62 16 152/72 H 97 Room Air 11/09/24 12:00 11/09/24 12:11/09/24 12:11/09/24 12:11/09/24 12:11/09/24 12:00 Narrative Exam Gen: Well-developed and well-nourished. HEENT: NCAT, PERRLA, EOMI, MMM, anicteric conjunctivae. CVS: normal S1 and S2. RRR. Mild systolic murmur over aortic area. Resp: CTA B/L. No rhonchi, rales, crackles or wheezing. Abd: soft, non-tender, non-distended. BS+ in all 4 quadrants. MSK: Good ROM in BUE & BLE. No edema or rash. Neuro: CN II-XII grossly intact. Strength 5/5 in BUE & BLE. Alert and oriented x3. Psych: appropriate mood and affect. Objective Labs 11/09/24 03:25 11/09/24 14:10 Labs: Laboratory Results - last 24 hr 11/08/24 11/09/24 11/09/24 20:10 03: 09:42 WBC 12.3 H 11.2 H RBC 3.88 L 3.62 L Hgb 11.4 L 10.6 L Hct 33.8 L 31.8 L MCV 87 88 MCH 29.4 29.3 MCHC 33.7 33.3 RDW Std Deviation 44.8 H 45.3 H Plt Count 243 246 Neut % (Auto) 72 59 Lymph % (Auto) 13 21 [place] % (Auto) 9 10 Eos % (Auto) 5 9 Baso % (Auto) 1 1 Neut # (Auto) 8.8 H 6.6 Lymph # (Auto) 1.7 2.3 [place] # (Auto) 1.1 H 1.1 H Eos # (Auto) 0.6 H 1.0 H Baso # (Auto) 0.1 0.1 Immature Gran # (Auto) 0.08 H 0.08 H Absolute Nucleated RBC 0.00 0.00 Immature Gran % 1 H 1 H Nucleated RBC % 0 0 PT 10.9 INR 1.0 APTT 30.2 53.9 H D 45.8 H Sodium 144 145 Potassium 5.1 5.2 H Chloride 110 H 114 H Carbon Dioxide 20.9 21.6 Anion Gap 13 9 BUN 55 H 54 H Creatinine 4.1 H* 4.0 H Estim Creat Clear Calc 13.5 L 13.9 L eGFR 14 L* 14 L* BUN/Creatinine Ratio 13 14 Glucose 237 H D 93 D Calculated Osmolality 309 H 303 H Calcium 8.1 L 8.0 L Corrected Calcium 8.3 L 8.4 L Phosphorus 3.9 Magnesium 2.2 2.2 Total Bilirubin 0.2 L 0.3 AST 16 17 ALT < 7 L < 7 L Alkaline Phosphatase 86 78 Troponin I 1.900 H* B-Natriuretic Peptide 885 H* Total Protein 6.6 5.8 Albumin 3.8 3.5 Globulin 2.8 2.3 Albumin/Globulin Ratio 1.4 1.5 Triglycerides 88 Cholesterol 142 LDL Cholesterol, Calc 96 HDL Cholesterol 28 L Cholesterol/HDL Ratio 5.1 Quality Measures Quality Measures none Advance care planning discussed with:: patient Assessment & Plan Assessment Current Active Medications: Generic Name Dose Route Start Last Admin Trade Name Freq PRN Reason Stop Dose Admin Acetaminophen 650 mg 11/08/24 20:21 Acetaminophen 325 Mg Tablet PO 12/08/24 20:20 Q6H PRN Fever >100.4 or pain Aspirin 81 mg 11/09/24 09:00 11/09/24 09:29 Aspirin Ec 81 Mg Tabec PO 12/09/24 08:59 81 mg QDAY NAHED Administration Atorvastatin Calcium 80 mg 11/09/24 21:00 Atorvastatin Calcium 20 Mg Tablet PO 12/09/24 20:59 HS NAHED Docusate Sodium 100 mg 11/08/24 20:21 Docusate Sod 100 Mg Capsule PO 12/08/24 20:20 QDAY PRN CONSTIPATION Protocol Heparin Sodium/Dextrose 25,000 unit in 250 mls @ 8.709 mls/hr 11/08/24 20:30 11/09/24 11:27 Heparin In D5w Ivpb IV 11/22/24 20:29 14 units/kg/hr .Q24H NAHED 10.161 mls/hr Titration Protocol 12 UNITS/KG/HR Losartan Potassium 50 mg 11/09/24 09:45 11/09/24 09:59 Losartan Potassium 25 Mg Tablet PO 12/09/24 09:44 50 mg QDAY NAHED Administration Metoprolol Tartrate 25 mg 11/09/24 09:00 11/09/24 09:29 Metoprolol Tartrate 25 Mg Tablet PO 12/09/24 08:59 25 mg BID NAHED Administration Nitroglycerin 0.4 mg 11/08/24 22:03 Nitroglycerin 0.4 Mg Subl Btl #25 SL Q5MIN PRN CHEST PAIN Ondansetron HCl 4 mg 11/08/24 20:21 Ondansetron Inj 2 Mg/Ml Inj 2 Ml IVP 12/08/24 20:20 Q6H PRN NAUSEA OR VOMITING Protocol Sennosides 1 tab 11/08/24 20:21 Senna Tablet PO 12/08/24 20:20 QDAY PRN constipation Protocol Tamsulosin HCl 0.4 mg 11/09/24 21:00 Tamsulosin Hcl 0.4 Mg Capsule PO 12/09/24 20:59 BID NAHED Plan 84-year-old male with a past medical history of CKD stage IV baseline creatinine around 3.5-4, mostly secondary to longstanding essential hypertension as well as type 2 diabetes mellitus, diabetic nephropathy, hyperlipidemia,, osteoarthritis, history of TIA versus stroke few years ago, chronic smoker with more than 60-84-ieun-year smoking history, BPH, mild chronic anemia secondary to CKD presented to the emergency department for further evaluation of chest pain and an elevated troponin that was sent by the primary doctor. Troponin before coming to the hospital was 2.0 so cardiology was consulted for further evaluation. Assessment and plan: 1. NSTEMI type I>II -possible late presenting AL given his chest pain for 2 to 3 days. 2. Angina pectoris-rule out acute coronary syndrome 3. CKD stage IV baseline creatinine around 3.5-4, GFR around 14-15 4. Essential hypertension 5. Type 2 diabetes mellitus 6. Diabetic nephropathy 7. Hyperlipidemia 8. Osteoarthritis 9. BPH 10. Former smoker with 50 to 60 pack years smoking history. 11. History of possible TIA in stroke Patient presented with chest pain of 2 to 3 days duration which was not relieved with medications that has typical chest pain symptoms. EKG showed a sinus rhythm with first-degree AV block, frequent PACs and nonspecific ST changes. Troponin was elevated at 2.07. Patient mostly presenting with NSTEMI type I and less likely type II versus late presenting AL given his delayed presentation after 2 to 3 days. Continue to trend troponins every 6 hours. Repeat EKG Aspirin 325 mg x 1 and aspirin 81 mg once daily. Heparin bolus with heparin drip as per ACS protocol. High intensity statin Lipitor 80 mg once daily. Patient continues to complain of pain and will require some pain control. Nitroglycerin sublingual given here in the ED Beta-pardeep if blood pressure is permissible. Patient is increased risk for CAD given his history of longstanding hypertension, diabetes, CKD, age, history of smoking of more than 50 pack years, family history and hence will need further ischemic evaluation with cardiac catheterization. Echo showed Normal LV size and function. Estimated LVEF is 55 to 60%. Grade 1 diastolic dysfunction. Normal RV size and function. Insufficient TR to measure RVSP. Mild MR trace TR. IVC not well-visualized. Patient explained clearly the risks benefits and alternatives of performing a left heart cardiac catheter including the risk of bleeding, heart attack, stroke and . Patient also explained that he has CKD stage IV with a creatinine of 3.5-4 and this procedure could lead patient into possible dialysis but could be done with the lower contrast told also. Patient wants to avoid dialysis as much as he can. Called his international tax manager Dr. Fields but apparently she is on vacation but was able to discuss about the patient with me and she apparently had full length conversation with him multiple times regarding the dialysis but patient did not appear to be interested at that point of time and CAROLEE CKD stage V with a creatinine clearance of 10 to 15 only. She agrees that the patient does need cardiac catheterization first and if he needs hemodialysis then he should be able to get with the help of a tunneled dialysis catheter for now and recommended not to stop the cardiac workup given the high risk of cardiac for this patient given his comorbidities. On-call international tax manager Dr. Dimas was consulted today by the primary team Plan for a cardiac cath on Prakash morning as we do not have the Cart[employer] Machine Operator available over the weekend here. Recommend strict hypertension and diabetes management. Nephrology consult given his CKD stage IV and the need of possible cardiac catheterization. Management of rest of the medical conditions as per primary team and other consultants. Thank you for the consult and allowing me to participate in the care of the patient. Cardiology will continue to follow. Karlo Ann M.D. Interventional Cardiology
[2024-11-09 14:49] LABS: Albumin, Serum 3.4 gm/dL (3.4-4.8); Anion Gap 9 (7-16); BUN/Creatinine Ratio 14 Ratio (12-20); Blood Urea Nitrogen 50 mg/dL (9-23); Calcium (Corrected) 8.5 mg/dL (8.5-10.1); Carbon Dioxide 22.6 mMol/L (20.0-31.0); Chloride 109 mMol/L (98-107); Creatinine (Component) 3.7 mg/dL (0.6-1.3); Glucose 146 mg/dL (74-106); Osmolality,Calculated 297 (275-295); Phosphorous 3.6 mg/dL (2.4-5.1); Potassium 4.9 mMol/L (3.4-5.1); Sodium 141 mMol/L (136-145); eGFR 15 See Note
[2024-11-09 14:52] LABS: Troponin I 2.774 ng/mL (0.0-0.045)
--- NOTE | 2024-11-09 15:24 | PD.NEPHCONS ---
History of Present Illness Data of Consult Consult date: 11/09/24 Requesting Physician: Adiel Benson MD Primary Care Provider: Physician No Primary/Family Consult Narrative Reason for consult: FERDINAND on CKD History of present illness: Covering Dr Parra. Mr. Fall is a 84 y/o gentleman with PMHx significant for HTN, CKD IV (under Dr Parra), possible history of previous stroke, anemia, BPH presented to the emergency department with 3-day history of chest pain associated with shortness of breath. Patient stated that pressure is like substernal without any radiation 3 out of 10 especially while lying in bed. Has been intermittent. Primary care physician dated troponin and was elevated and sent him to the emergency department. Patient currently seen in telemetry. Dr. Cheng Fan saw the patient and recommended angiogram on Monday. Renal consultation requested for clearance prior to cardiac catheterization as patient has CKD stage IV. The emergency department WBC 12.8, hemoglobin 12.1, troponin 1.9, BNP 885, BUN 53, creatinine 4, GFR 14, chest x-ray negative, EKG mild AV block. Patient was started on heparin drip, aspirin and was transferred to telemetry. Medications: Flomax, amlodipine, tamsulosin cc:: cc: Adiel Benson MD Review of Systems Review of Systems Narrative Review of Systems: CONSTITUTIONAL: Patient denies any fever, chills. HEENT: Denies any visual disturbances or hearing problems. CARDIOVASCULAR: Patient complaining chest pain.denies any shortness of breath, swelling in the lower extremities. PULMONARY: Patient denies any shortness of breath, cough. GASTROINTESTINAL: Patient denies any abdominal pain, constipation, nausea, vomiting, diarrhea. Patient complaining of acid reflux GENITOURINARY: Patient denies any urinary symptoms of burning or frequency or hematuria, denies any form in the urine. SKIN: Denies any rash. MUSCULOSKELETAL: Denies any muscular skeletal problems of joint pains. NEUROLOGICAL: Denies any neurological problems of strokes, seizures or confusion. Denies any memory problems. PSYCHIATRIC: Denies any depression or anxiety. LYMPHATICS : No lymphadenopathy Past Medical History Past Medical History NEUROLOGIC: Negative Neurological Disorders or Seizures CARDIAC: Positive Cardiac Disorders, Hypercholesterolemia and Hypertension; Negative Congestive Heart Failure RESPIRATORY: Negative Chronic Obstructive Pulmonary Disease (COPD) GASTROINTESTINAL: Negative Gastrointestinal Disorders, Hepatitis, Colitis or Colorectal Cancer GENITOURINARY: Positive Chronic Kidney Disease and Benign Prostatic Hyperplasia; Negative Genitourinary Disorders, Renal Disease, Kidney Stones, Polycystic Kidney Disease, Neurogenic Bladder, Inguinal Hernia or Dialysis REPRODUCTIVE: Negative Breast Cancer MUSCULOSKELETAL: Positive Musculoskeletal Disorders and Arthritis ENT: Positive Cataracts, Macular Degeneration and Deafness ([place]) ENDOCRINE: Positive Endocrine Disorders and Diabetes Mellitus Type 2; Negative Diabetes Mellitus Type 1 HEMATOLOGIC: Negative Blood Disorders OTHER HISTORY: Negative Hospitalization, Autoimmune Disease, Down Syndrome, Developmental Delay, Shingles, Falls, Blood Transfusions, Blood Transfusion Reaction, Anesthesia Reactions, Organ Transplant, MRSA, VRSA, Vancomycin-Resistant Enterococci, Human Immunodeficiency Virus (HIV), Chicken Pox, Measles, Mumps, Rubella ([place] Measles), Pertussis, Clostridium Difficile, Cancer, Breast Cancer, Cervical Cancer, Colorectal Cancer or Lung Cancer Family History FAMILY HISTORY: Negative Family Psychiatric Problems, Family Respiratory Disorders, Family Cardiac Disorders, Family Gastrointestinal Problems, Family Cancer, Family Surgery or Family Anesthesia Reaction Surgical History SURGICAL: Positive Eye Surgery (cataracts); Negative Cardiac Surgery, Open Heart Surgery, Endocrine Surgery, Ear Surgery, Tympanostomy Tube, Abdominal Surgery, Nephrectomy, Joint Replacement, Neurologic Surgery, Mastectomy, Vasectomy or Organ Transplant Social History SMOKING STATUS: Former smoker SECOND HAND EXPOSURE: No Past Medical History Comments PMH COMMENT: PMH: Patient reports possible stroke several years ago. Hypertension, CKD. PSH: None SH: Quit smoking a few years ago, approximately [id number] history. Denies alcohol or illicit drug use. Allergies:?Codeine Medications: Flomax, amiodarone Meds Home Medications and Allergies Home Medications ?Medication ?Instructions ?Recorded ?Confirmed ?Type amlodipine 10 mg tablet 10 mg PO QDAY 02/04/20 11/08/24 History losartan 100 mg tablet 100 mg PO QDAY 02/04/20 11/08/24 History Held on 01/26/23. Instructions: F/u with PCP tamsulosin 0.4 mg capsule 0.4 mg PO BID 11/08/24 11/08/24 History Allergies Allergy/AdvReac Type Severity Reaction Status Date / Time codeine Allergy Vomiting Verified 11/08/24 18:13 Exam Vital Signs Temp Pulse Resp BP Pulse Ox O2 Del Method 36.6 C 62 16 152/72 H 97 Room Air 11/09/24 12:00 11/09/24 12:00 11/09/24 12:00 11/09/24 12:00 11/09/24 12:00 11/09/24 12:00 Narrative Exam GENERAL APPEARANCE: Patient seems to be comfortable, adequately hydrated and nourished. HEENT: EOMI, PERRLA NECK: Neck supple, no JVD or bruit CARDIOVASCULAR: Heart regular, no murmurs LUNGS/CHEST: Chest clear to auscultation. No rales, rhonchi, wheezing ABDOMEN: Soft, nontender, nondistended. No masses. Normal bowel sounds. EXTREMITIES: No edema, clubbing or cyanosis. SKIN: Skin exam normal without any rashes MUSCULOSKELETAL: Musculoskeletal exam normal PSYCHIATRIC: Normal mood, affect LYMPHATICS: No lymphadenopathy noted NEUROLOGICAL : No neurological deficits Results Labs 11/10/24 05:07 11/10/24 05:07 Labs: Short CBC 11/08/24 11/09/24 Range/Units 20:10 03:25 WBC 12.3 H 11.2 H (3.8-10.6) Thou/mm3 Hgb 11.4 L 10.6 L (13.5-16.0) g/dL Hct 33.8 L 31.8 L (41.0-53.0) % Plt Count 243 246 (140-440) Thou/mm3 BMP 11/08/24 11/09/24 11/09/24 20:10 03: 14:10 Sodium 144 145 141 Potassium 5.1 5.2 H 4.9 Chloride 110 H 114 H 109 H Carbon Dioxide 20.9 21.6 22.6 BUN 55 H 54 H 50 H Creatinine 4.1 H* 4.0 H 3.7 H Glucose 237 H D 93 D 146 H D Calcium 8.1 L 8.0 L 8.0 L Cardiac Enzymes 11/08/24 11/09/24 11/09/24 Range/Units 20:10 14:10 14:10 Troponin I 1.900 H* 2.774 H* D Cancelled (0.0-0.045) ng/mL Liver Function 11/08/24 11/09/24 11/09/24 Range/Units 20:10 03:25 14:10 Total Bilirubin 0.2 L 0.3 (0.3-1.2) mg/dL AST 16 17 (0-34) U/L ALT < 7 L < 7 L (10-49) U/L Alkaline Phosphatase 86 78 (46-116) U/L Albumin 3.8 3.5 3.4 (3.4-4.8) gm/dL Assessment & Plan Assessment and plan (1) Acute kidney injury: Status: Acute Assessment and plan: Acute renal failure secondary to prerenal azotemia. Patient presented with chest pain and decreased p.o. intake. Clinically looks rather dehydrated. Will give him 1 L of fluids and follow the creatinine closely. Renal ultrasound ordered. Urinalysis was completely bland. Had a long conversation with patient regarding the need for angiogram due to his angina and risk of contrast nephropathy and decline in the kidney function and possible need for dialysis. Patient absolutely declines dialysis. Stated his family was on dialysis and did not have a good outcome. Will continue with gentle IV fluids. 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 Renal ultrasound ordered to look for the size of the kidneys/rule out hydro (3) Non-ST elevation MO (NSTEMI): Status: Acute Assessment and plan: Patient with NSTE MO-currently on aspirin, heparin, beta-pardeep.Losartan held due to worsening renal function. (4) Anemia: Status: Acute Assessment and plan: Iron, Procrit ordered suspect patient has anemia of chronic kidney disease (5) Hypertension: Status: Acute Assessment and plan: On metoprolol. Losartan held for now. Add amlodipine Additional Assessment & Plan Additional Plan: Thank you Skyler for allowing me to participate in the care of Mr. Fall..
--- NOTE | 2024-11-09 15:27 | XR_ITS ---
Examination: Retroperitoneal ultrasound, complete Technique: Multiple high resolution grayscale images of the retroperitoneum obtained, including kidneys and bladder. Exam date and time:November 09, 2024, 1555 hours INDICATIONS: Acute renal insufficiency on laboratory examination this week FINDINGS: Right kidney 9.5 cm cortex 1.0 cm Lower pole 16 mm cyst Left kidney 8.9 cm cortex 1.3 cm Lateral 13 mm cyst Multiple left renal calculi, the largest in the mid left kidney 5 mm Moderate renal parenchymal scar formation No hydronephrosis No bladder mass or bladder calculi Bladder prevoid volume 164 cc Prostate 3.5 x 3.6 x 4.6 cm no prostate nodules IMPRESSION: Small kidneys with bilateral renal cortical thinning Moderate bilateral renal parenchymal scar formation Multiple left renal calculi, the largest 5 mm
[2024-11-09] MEDS: RINGERS LACTATED 1000 ML 1,000 ML 90 ML IV (15:53)
[2024-11-09] MEDS: NITROGLYCERIN 0.4 MG SUBL BTL #25 SL ×2 (18:35→18:40)
[2024-11-09 19:03] LABS: Partial Thromboplastin Time 56.3 Seconds (22.0-36.0)
--- NOTE | 2024-11-09 19:07 | PC.NURSE ---
Resident doctor was made aware of pt having chest pressure, was relieved with nitro x2 and 4 L oxygen NC. Pt stated that he felt better, VSS. Pt aware to notify nurse immediately if pressure comes back.
[2024-11-09] MEDS: ATORVASTATIN CALCIUM 20 MG TABLET 80 MG PO (20:32)
[2024-11-09] MEDS: Heparin/D5w 25K 250 ML Ivpb 25,000 UNIT/250 ML BAG 10.161 UNIT IV (20:33)
[2024-11-09] MEDS: TAMSULOSIN HCL 0.4 MG CAPSULE PO (20:33)
--- NOTE | 2024-11-09 20:40 | PC.NURSE ---
patient feeling some substernal chest pressure mildly relieved by pushing on area, notified Dr Wahl and he will come see patient
[2024-11-09] MEDS: MELATONIN 3 MG TABLET 6 MG PO (21:09)
[2024-11-09] MEDS: PANTOPRAZOLE INJ 40 MG VIAL IVP (21:09)
[2024-11-09] MEDS: MG HYD/AL HYD/SIME (Maalox Reg) SUSP 30 ML UDC PO (21:09)
[2024-11-10 01:18] LABS: Partial Thromboplastin Time 62.6 Seconds (22.0-36.0)
[2024-11-10 04:00] VITALS: BP 130/59; PULSE 52; RESP 19; TEMP 36.6; O2SAT 97
[2024-11-10 06:00] VITALS: BMI 21.7
[2024-11-10 06:27] LABS: Collection Type, Urine Catheter
[2024-11-10 06:34] LABS: Basophils # (Auto) 0.1 Thou/mm3 (0.0-0.2); Basophils % (Auto) 1 % (0-2.5); Eosinophils # (Auto) 0.9 Thou/mm3 (0.0-0.5); Eosinophils % (Auto) 8 % (0-10); Hematocrit 30.3 % (41.0-53.0); Hemoglobin 9.8 g/dL (13.5-16.0); Immature Granulocytes % (Auto) 1 % (0-0); Immature Granulocytes Auto 0.08 Thou/mm3 (0.00-0.00); Immature Reticulocyte Fraction 13.3 % (2.3-13.4); Lymphocytes # (Auto) 2.1 Thou/mm3 (1.0-4.8); Lymphocytes % (Auto) 20 % (10-50); Mean Corpuscular HGB Conc 32.3 g/dl (31.0-37.0); Mean Corpuscular Hemoglobin 29.2 pg (25.0-35.0); Mean Corpuscular Volume 90 fL (80-100); Monocytes % (Auto) 9 % (0-12); Neutrophils # (Auto) 6.6 Thou/mm3 (1.8-7.7); Neutrophils % (Auto) 61 % (37-80); Nucleated Red Blood Cell % 0 /100 WBC (0); Platelet Count 213 Thou/mm3 (140-440); RDW Standard Deviation 45.8 fL (35.1-43.9); Red Blood Count 3.36 Miln/mm3 (4.50-5.90); Reticulocyte % (Auto) 1.6 % (0.5-1.5); Reticulocyte Absolute Auto 54.4 Biln/L (25.0-75.0); Reticulocyte Hgb Content 31.3 pg (28.0-35.0); White Blood Count 10.7 Thou/mm3 (3.8-10.6)
[2024-11-10 06:59] LABS: Partial Thromboplastin Time 61.2 Seconds (22.0-36.0); Prothrombin Time 11.2 Seconds (9.0-12.2)
[2024-11-10 07:13] LABS: Bilirubin,Urine Negative (Negative); Blood,Urine Negative (Negative); Clarity,Urine Clear (Clear/Hazy); Color,Urine Colorless (Lt Yel-Yel); Glucose, Urine Negative (Negative); Ketones,Urine Negative (Negative); Leukocyte Esterase,Urine Positive (Negative); Nitrite,Urine Negative (Negative); Protein,Urine Negative (Neg - Trace); RBC,Urine 3 /hpf (0-3); Specific Gravity,Urine 1.008 (1.001-1.035); Squamous Epithelial Cell,Urine < 1 /hpf (0-5); Urobilinogen,Urine Negative mg/dL (0.0-1.0); WBC,Urine 2 /hpf (0-5)
[2024-11-10 07:16] LABS: Ferritin 111 ng/mL (10.5-307.3); Iron 56 mcg/dL (65-175); Percent Iron Saturation 26 % (20-55); Total Iron Binding Capacity 209 mcg/dL (250-425); Unsaturated Iron Binding 153 (225-295)
[2024-11-10 07:16] LABS: Sperm,Urine Present
[2024-11-10 07:18] LABS: Alanine Aminotransferase < 7 U/L (10-49); Albumin, Serum 3.1 gm/dL (3.4-4.8); Albumin/Globulin Ratio 1.4 (1.2-2.2); Alkaline Phosphatase 69 U/L (46-116); Anion Gap 12 (7-16); Aspartate Amino Transferase 14 U/L (0-34); BUN/Creatinine Ratio 13 Ratio (12-20); Bilirubin,Total 0.4 mg/dL (0.3-1.2); Blood Urea Nitrogen 49 mg/dL (9-23); Calcium 7.9 mg/dL (8.3-10.6); Calcium (Corrected) 8.6 mg/dL (8.5-10.1); Carbon Dioxide 21.3 mMol/L (20.0-31.0); Chloride 108 mMol/L (98-107); Creatinine (Component) 3.7 mg/dL (0.6-1.3); Globulin 2.2 gm/dL (2.3-3.5); Glucose 96 mg/dL (74-106); Magnesium 2.2 mg/dL (1.6-2.6); Osmolality,Calculated 294 (275-295); Phosphorous 3.5 mg/dL (2.4-5.1); Potassium 4.9 mMol/L (3.4-5.1); Sodium 141 mMol/L (136-145); Total Protein 5.3 gm/dL (5.7-8.2); eGFR 15 See Note
--- NOTE | 2024-11-10 07:38 | ESPR_ITS ---
<Statement entered by Josue Bauer MD - 11/11/24 07:26> I discussed with and supervised the healthcare administration internship physician involved in the care of this patient. Patient assessment and plan was discussed with entire medicine team, including my attending. I agree with the assessment and plan as documented by healthcare administration internship doctor. Patient care was discussed with my attending physician Dr.Bishwakarma Josue Bauer, PGY-2 Documentation for date of: 11/10/24 Subjective Subjective Interval history: No acute overnight events. Examined at bedside. Feels well today. Denies fever, chills, headaches, chest pain, sob, cough, GI or urinary symptoms. Able to walk to the bathroom without chest pain, shortness of breath or dizziness. Troponins uptrending 2.7 > 2.9, continued on HEPARIN drip, ASPIRIN, METOPROLOL, remains asymptomatic without chest pain. Cardiology following closely, planning cath tomorrow 11/11/24. BP slightly elevated, HR 64. Creatinine remains elevated at 3.7, BUN 49, nephrology following closely, recommended additional 1 L LR at 80 cc. Exam Vital Signs Temp Pulse Resp BP Pulse Ox O2 Del Method O2 Flow Rate 97.8 F 52 L 19 130/59 L 97 Room Air 3 11/10/24 04:00 11/10/24 04:00 11/10/24 04:00 11/10/24 04:00 11/10/24 04:00 11/10/24 04:00 11/09/24 20:00 Narrative Exam GENERAL * Normal appearing adult male, NAD. HEENT * NCAT.?[place]ON[place]A. Oral mucosa is moist. Patent Nares NECK * Supple, nontender, no thyromegaly, no meningismus, no JVD, no step offs CHEST * RRR, no m/g/r * CTAB, no w/r/r. Symmetrical chest rise. No intercostal subcostal retraction * Atraumatic, nontender, no crepitus, symmetrical expansion. ABDOMEN * Soft, flat, nontender. No guarding/rebound tenderness/masses. * Bowel sounds presents EXTREMITIES * No edema/cyanosis.? SKIN * Warm and dry, no jaundice/rashes. NEUROMUSCULAR * No lumbar or midline, no CVA, no paraspinal muscle spasm or tenderness. * Moves all 4 extremities well, with full ROM and good CSM. * RIZVI x4, CN II-XII grossly intact. * No focal neurologic deficits. PSYCHIATRY * Normal mood and affect, cooperative, no SI or HI or hallucinations. Objective Labs 11/10/24 05:07 11/10/24 05:07 Labs: Laboratory Results - last 24 hr 11/09/24 11/09/24 11/09/24 09:42 14:10 14:10 WBC RBC Hgb Hct MCV MCH MCHC RDW Std Deviation Plt Count Neut % (Auto) Lymph % (Auto) [place] % (Auto) Eos % (Auto) Baso % (Auto) Neut # (Auto) Lymph # (Auto) [place] # (Auto) Eos # (Auto) Baso # (Auto) Immature Gran # (Auto) Absolute Nucleated RBC Immature Gran % Nucleated RBC % Retic Count (auto) Absolute Retic Immature Retic Fraction Retic Hgb Content CHr PT INR APTT 45.8 H Sodium 141 Potassium 4.9 Chloride 109 H Carbon Dioxide 22.6 Anion Gap 9 BUN 50 H Creatinine 3.7 H Estim Creat Clear Calc 15.0 L eGFR 15 L BUN/Creatinine Ratio 14 Glucose 146 H D Calculated Osmolality 297 H Calcium 8.0 L Corrected Calcium 8.5 Phosphorus 3.6 Magnesium Iron TIBC Iron Saturation Unsat Iron Binding Ferritin Total Bilirubin AST ALT Alkaline Phosphatase Troponin I 2.774 H* D Cancelled Total Protein Albumin 3.4 Globulin Albumin/Globulin Ratio Ur Collection Type Urine Color Urine Clarity Urine pH Ur Specific [place] Urine Protein Urine Glucose (UA) Urine Ketones Urine Blood Urine Nitrite Urine Bilirubin Urine Urobilinogen (Auto) Ur Leukocyte Esterase Urine RBC Urine WBC Ur Squamous Epith Cells Urine Bacteria Urine Sperm 11/09/24 11/10/24 11/10/24 17:55 00:20 05:07 WBC 10.7 H RBC 3.36 L Hgb 9.8 L Hct 30.3 L MCV 90 MCH 29.2 MCHC 32.3 RDW Std Deviation 45.8 H Plt Count 213 D Neut % (Auto) 61 Lymph % (Auto) 20 [place] % (Auto) 9 Eos % (Auto) 8 Baso % (Auto) 1 Neut # (Auto) 6.6 Lymph # (Auto) 2.1 [place] # (Auto) 1.0 H Eos # (Auto) 0.9 H Baso # (Auto) 0.1 Immature Gran # (Auto) 0.08 H Absolute Nucleated RBC 0.00 Immature Gran % 1 H Nucleated RBC % 0 Retic Count (auto) 1.6 H Absolute Retic 54.4 Immature Retic Fraction 13.3 Retic Hgb Content CHr 31.3 PT 11.2 INR 1.0 APTT 56.3 H D 62.6 H 61.2 H Sodium 141 Potassium 4.9 Chloride 108 H Carbon Dioxide 21.3 Anion Gap 12 BUN 49 H Creatinine 3.7 H Estim Creat Clear Calc 15.0 L eGFR 15 L BUN/Creatinine Ratio 13 Glucose 96 D Calculated Osmolality 294 Calcium 7.9 L Corrected Calcium 8.6 Phosphorus 3.5 Magnesium 2.2 Iron 56 L TIBC 209 L Iron Saturation 26 Unsat Iron Binding 153 L Ferritin 111 Total Bilirubin 0.4 AST 14 ALT < 7 L Alkaline Phosphatase 69 Troponin I Total Protein 5.3 L Albumin 3.1 L Globulin 2.2 L Albumin/Globulin Ratio 1.4 Ur Collection Type Urine Color Urine Clarity Urine pH Ur Specific [place] Urine Protein Urine Glucose (UA) Urine Ketones Urine Blood Urine Nitrite Urine Bilirubin Urine Urobilinogen (Auto) Ur Leukocyte Esterase Urine RBC Urine WBC Ur Squamous Epith Cells Urine Bacteria Urine Sperm 11/10/24 06:00 WBC RBC Hgb Hct MCV MCH MCHC RDW Std Deviation Plt Count Neut % (Auto) Lymph % (Auto) [place] % (Auto) Eos % (Auto) Baso % (Auto) Neut # (Auto) Lymph # (Auto) [place] # (Auto) Eos # (Auto) Baso # (Auto) Immature Gran # (Auto) Absolute Nucleated RBC Immature Gran % Nucleated RBC % Retic Count (auto) Absolute Retic Immature Retic Fraction Retic Hgb Content CHr PT INR APTT Sodium Potassium Chloride Carbon Dioxide Anion Gap BUN Creatinine Estim Creat Clear Calc eGFR BUN/Creatinine Ratio Glucose Calculated Osmolality Calcium Corrected Calcium Phosphorus Magnesium Iron TIBC Iron Saturation Unsat Iron Binding Ferritin Total Bilirubin AST ALT Alkaline Phosphatase Troponin I Total Protein Albumin Globulin Albumin/Globulin Ratio Ur Collection Type Catheter Urine Color Colorless A Urine Clarity Clear Urine pH 6.0 Ur Specific [place] 1.008 Urine Protein Negative Urine Glucose (UA) Negative Urine Ketones Negative Urine Blood Negative Urine Nitrite Negative Urine Bilirubin Negative Urine Urobilinogen (Auto) Negative Ur Leukocyte Esterase Positive Urine RBC 3 Urine WBC 2 Ur Squamous Epith Cells < 1 Urine Bacteria None Urine Sperm Present A Quality Measures Quality Measures none Advance care planning discussed with:: patient Assessment & Plan Assessment Current Active Medications: Generic Name Dose Route Start Last Admin Trade Name Freq PRN Reason Stop Dose Admin Acetaminophen 650 mg 11/08/24 20:21 Acetaminophen 325 Mg Tablet PO 12/08/24 20:20 Q6H PRN Fever >100.4 or pain Aspirin 81 mg 11/09/24 09:00 11/09/24 09:29 Aspirin Ec 81 Mg Tabec PO 12/09/24 08:59 81 mg QDAY NAHED Administration Atorvastatin Calcium 80 mg 11/09/24 21:00 11/09/24 20:32 Atorvastatin Calcium 20 Mg Tablet PO 12/09/24 20:59 80 mg HS NAHED Administration Docusate Sodium 100 mg 11/08/24 20:21 Docusate Sod 100 Mg Capsule PO 12/08/24 20:20 QDAY PRN CONSTIPATION Protocol Heparin Sodium/Dextrose 25,000 unit in 250 mls @ 8.709 mls/hr 11/08/24 20:30 11/10/24 01:37 Heparin In D5w Ivpb IV 11/22/24 20:29 14 units/kg/hr .Q24H NAHED 10.161 mls/hr Titration Protocol 12 UNITS/KG/HR Losartan Potassium 50 mg 11/09/24 09:45 11/09/24 09:59 Losartan Potassium 25 Mg Tablet PO 12/09/24 09:44 50 mg QDAY NAHED Administration Melatonin 6 mg 11/09/24 21:00 11/09/24 21:09 Melatonin 3 Mg Tablet PO 12/09/24 20:59 6 mg HS NAHED Administration Metoprolol Tartrate 25 mg 11/09/24 09:00 11/09/24 20:33 Metoprolol Tartrate 25 Mg Tablet PO 12/09/24 08:59 25 mg BID NAHED Administration Nitroglycerin 0.4 mg 11/08/24 22:03 11/09/24 18:40 Nitroglycerin 0.4 Mg Subl Btl #25 SL 1 dose Q5MIN PRN Administration CHEST PAIN Ondansetron HCl 4 mg 11/08/24 20:21 Ondansetron Inj 2 Mg/Ml Inj 2 Ml IVP 12/08/24 20:20 Q6H PRN NAUSEA OR VOMITING Protocol Pantoprazole Sodium 40 mg 11/09/24 21:00 11/09/24 21:09 Pantoprazole Inj 40 Mg Vial IVP 12/09/24 20:59 40 mg QDAY NAHED Administration Sennosides 1 tab 11/08/24 20:21 Senna Tablet PO 12/08/24 20:20 QDAY PRN constipation Protocol Tamsulosin HCl 0.4 mg 11/09/24 21:00 11/09/24 20:33 Tamsulosin Hcl 0.4 Mg Capsule PO 12/09/24 20:59 0.4 mg BID NAHED Administration Plan 84 y/o M with PMHx significant for HTN, CKD, possible history of previous stroke presents with chief complaint of chest pain for 3 days, admitted for unstable angina and FERDINAND on CKD. NSTEMI type I Presented with typical substernal, radiating chest pain x 3 days. Admission troponin 2.0, initially down trended but uptrending again. EKG showed a sinus rhythm with first-degree AV block, frequent PACs and nonspecific ST changes. Continued on HEPARIN drip and ASPIRIN and METOPROLOL. Repeat EKG relatively unchanged, remains asymptomatic without chest pain or shortness of breath. ? Cardiology following closely, pending Cath tomorrow 11/11/24. ? Continue HEPARIN drip ? Continue ASPIRIN daily ? Continue METOPROLOL 25 mg BID ? Continue high-dose statin ? Sublingual NITRO on board HTN BP 142/65, HR 64. ? Holding home LOSARTAN 50 mg daily ? HYDRALAZINE PRN on board CKD stage V Admission CR 4.1, improved with fluids, currently 3.7. Urine output adequate. Follows with photogrammetrist Dr. Parra. Dr. Dimas following, recommended additional 1L LR prior to cath. Ultrasound showed small kidneys, moderate bilateral parenchymal scarring with cortical thinning. ? Renally dose meds, avoid overdiuresis and NEPHROTOXINS ? Daily CMP ? Started LR at 80 cc/80 Reactive leukocytosis (improving) Likely in settings of NSTEMI, asymptomatic, remains afebrile. No obvious source of infection, no history of previous illness or sick exposure ? Continue monitoring Anemia of chronic disease (CKD) Admission Hgb 10.6 around baseline. Low iron stores, iron 56, low, TIBC 209 low, iron saturation 26. Reticulocyte count 1.6 high, although low suspicion for active bleed. ? Started oral FERROUS SULFATE ? Transfuse if Hgb less than 8 BPH Renal calculi Renal ultrasound showed multiple left renal calculi, largest 5 mm ? Continue home TAMSULOSIN ? Follow-up with urology outpatient for renal stones Health maintenance Diet: Cardiorenal GI prophylaxis: PROTONIX DVT prophylaxis: HEPARIN GGT Antibiotics: Not indicated CODE STATUS: DNR Disposition: Pending manager lab 11/11/24 Case was discussed with attending physician and senior resident. Bill Mcconnell DO PGYI Attending Provider Attestation/Addendum I attest that I was physically present for the evaluation, physical examination, lab and imaging review of the patient with the residents. I discussed the case with the residents and agree with the findings and plans of care as documented above. At bedside today, patient is states he is feeling well and does not have any complaints. Denies any chest pain, shortness of breath or palpitations. Vital signs are stable except for mild hypertension. Lab results show downtrending WBC. Kidney function is stable, BUN/creatinine of 49/3.7 today. Discussed with nephrology, stated no indication for hemodialysis currently, will start patient on gentle IV hydration. Also started on iron tablets for level. Overnight, patient had an episode of chest pain which has now resolved. Troponins was trended, peaked at 2.951. Patient also noted to have renal calculi on ultrasound. Patient is planned for cardiac catheterization tomorrow. We will keep him n.p.o. after midnight. Continues to be on aspirin and atorvastatin along with heparin drip. Skyler Green MD
--- NOTE | 2024-11-10 07:39 | EKG_ITS ---
[facility] Test Date: 2024-11-10 Pat Name: SRINI STEPHENS [facility] Gender: Male Side Laster Tack: RAMYA : 1940 Requested By: Bill Mcconnell Order Number: [id number] Reading MD: Bill Mcconnell Measurements Intervals [place] Rate: 56 P: 29 VT: 256 QRS: 28 QRSD: 94 T: 218 QT: 469 QTc: 454 Interpretive Statements SINUS BRADYCARDIA WITH FIRST DEGREE AV BLOCK WITH OCCASIONAL SUPRAVENTRICULAR PREMATURE COMPLEXES ST DEVIATION AND MODERATE T-WAVE ABNORMALITY, CONSIDER INFERIOR ISCHEMIA Compared to ECG 11/08/2024 18:22:26 Possible ischemia now present Sinus rhythm no longer present T-wave abnormality still present /store/S0/[id number]
[2024-11-10 08:00] VITALS: BP 141/80; PULSE 60; PULSE 70; RESP 19; TEMP 36.5; O2SAT 96
[2024-11-10] MEDS: PANTOPRAZOLE INJ 40 MG VIAL IVP (08:00)
[2024-11-10] MEDS: ASPIRIN EC 81 MG TABEC PO (08:00)
[2024-11-10] MEDS: TAMSULOSIN HCL 0.4 MG CAPSULE PO ×2 (08:00→20:42)
[2024-11-10] MEDS: METOPROLOL TARTRATE 25 MG TABLET PO (08:00)
[2024-11-10 08:06] LABS: Troponin I 2.951 ng/mL (0.0-0.045)
--- NOTE | 2024-11-10 10:22 | PC.SS ---
ENT PHYSICIAN conducted bedside contact with the patient to conduct initial assessment and to discuss discharge planning.? Patient resides alone at home.? Patient is a [employer] .? Patient is aligned with [employer].? Patient does not utilize DME to assist with ambulation.? Patient does not utilize home oxygen.? Patient describes ability to complete ADL?s independently.? Patient identified brother, Kevin Osman ; as surrogate medical decision maker.? Patient?s PCP is Dr. Witt at [facility].? Dr. Parra is olericulture teacher.? Patient does not participate with dialysis.? Patient utilizes both [facility] and [facility]) for prescribed medications.? Plan is for the patient to return home at the time of discharge.? Family will provide transportation on behalf of the patient. ?No further discharge needs identified by the patient.? No further intervention required at this time, public health social worker will be available to address any further concerns.? Next of Kin: Kevin Dawson D/C Plan: Home
[2024-11-10] MEDS: FERROUS SULF 325 MG TABLET PO (10:38)
[2024-11-10] MEDS: RINGERS LACTATED 1000 ML 1,000 ML 80 ML IV (10:38)
[2024-11-10 12:00] VITALS: BP 142/65; PULSE 60; PULSE 64; RESP 16; TEMP 36.3; O2SAT 94
[2024-11-10 15:04] LABS: Troponin I 2.727 ng/mL (0.0-0.045)
--- NOTE | 2024-11-10 15:52 | PD.NEPHPROG ---
Documentation for date of: 11/10/24 Subjective Subjective Interval history: Covering Dr Parra. Mr. Fall is a 84 y/o gentleman with PMHx significant for HTN, CKD IV (under Dr Parra), possible history of previous stroke, anemia, BPH presented to the emergency department with 3-day history of chest pain associated with shortness of breath. Patient stated that pressure is like substernal without any radiation 3 out of 10 especially while lying in bed. Has been intermittent. Primary care physician dated troponin and was elevated and sent him to the emergency department. Patient currently seen in telemetry. Dr. Cheng Fan saw the patient and recommended angiogram on Monday. Renal consultation requested for clearance prior to cardiac catheterization as patient has CKD stage IV. The emergency department WBC 12.8, hemoglobin 12.1, troponin 1.9, BNP 885, BUN 53, creatinine 4, GFR 14, chest x-ray negative, EKG mild AV block. Patient was started on heparin drip, aspirin and was transferred to telemetry. Medications: Flomax, amlodipine, tamsulosin 11/10/2024 patient currently seen in telemetry. Had minimal chest pain while moving. Also complaining of acid reflux. Protonix did help. I gave him Maalox. Currently on lactated Ringer at 80 mL/h. Blood pressure 157/76, heart rate 61. WBC 10.7, hemoglobin 9.8, platelets 213. Sodium 141, potassium 4.9, bicarbonate 21.3, BUN 49, creatinine 3.7, GFR 15, calcium 8.6, phosphorus 3.5, magnesium 2.2, iron saturation 26, ferritin 111, LFTs normal, albumin 3.1, troponin 2.7, urinalysis completely bland. Renal ultrasound showed CKD changes with a significant cortical thinning. Echocardiogram showed ejection fraction 55 to 60% and diastolic dysfunction. Review of Systems Review of Systems Narrative Review of Systems: CONSTITUTIONAL: Patient denies any fever, chills. HEENT: Denies any visual disturbances or hearing problems. CARDIOVASCULAR: Patient complaining chest pain.denies any shortness of breath, swelling in the lower extremities. PULMONARY: Patient denies any shortness of breath, cough. GASTROINTESTINAL: Patient denies any abdominal pain, constipation, nausea, vomiting, diarrhea. Patient complaining of acid reflux GENITOURINARY: Patient denies any urinary symptoms of burning or frequency or hematuria, denies any form in the urine. SKIN: Denies any rash. MUSCULOSKELETAL: Denies any muscular skeletal problems of joint pains. NEUROLOGICAL: Denies any neurological problems of strokes, seizures or confusion. Denies any memory problems. PSYCHIATRIC: Denies any depression or anxiety. LYMPHATICS : No lymphadenopathy Exam Vital Signs Temp Pulse Resp BP Pulse Ox O2 Del Method O2 Flow Rate 36.4 C 61 19 157/76 H 95 Room Air 3 11/10/24 16:11/10/24 16:11/10/24 16:11/10/24 16:11/10/24 16:11/10/24 16:11/09/24 20:00 Narrative Exam GENERAL APPEARANCE: Patient seems to be comfortable, adequately hydrated and nourished. HEENT: EOMI, PERRLA NECK: Neck supple, no JVD or bruit CARDIOVASCULAR: Heart regular, no murmurs LUNGS/CHEST: Chest clear to auscultation. No rales, rhonchi, wheezing ABDOMEN: Soft, nontender, nondistended. No masses. Normal bowel sounds. EXTREMITIES: No edema, clubbing or cyanosis. SKIN: Skin exam normal without any rashes MUSCULOSKELETAL: Musculoskeletal exam normal PSYCHIATRIC: Normal mood, affect LYMPHATICS: No lymphadenopathy noted NEUROLOGICAL : No neurological deficits Objective Labs 11/10/24 05:07 11/10/24 05:07 Labs: Laboratory Results - last 24 hr 11/09/24 11/10/24 11/10/24 17:55 00:20 05:07 WBC 10.7 H RBC 3.36 L Hgb 9.8 L Hct 30.3 L MCV 90 MCH 29.2 MCHC 32.3 RDW Std Deviation 45.8 H Plt Count 213 D Neut % (Auto) 61 Lymph % (Auto) 20 [place] % (Auto) 9 Eos % (Auto) 8 Baso % (Auto) 1 Neut # (Auto) 6.6 Lymph # (Auto) 2.1 [place] # (Auto) 1.0 H Eos # (Auto) 0.9 H Baso # (Auto) 0.1 Immature Gran # (Auto) 0.08 H Absolute Nucleated RBC 0.00 Immature Gran % 1 H Nucleated RBC % 0 Retic Count (auto) 1.6 H Absolute Retic 54.4 Immature Retic Fraction 13.3 Retic Hgb Content CHr 31.3 PT 11.2 INR 1.0 APTT 56.3 H D 62.6 H 61.2 H Sodium 141 Potassium 4.9 Chloride 108 H Carbon Dioxide 21.3 Anion Gap 12 BUN 49 H Creatinine 3.7 H Estim Creat Clear Calc 15.0 L eGFR 15 L BUN/Creatinine Ratio 13 Glucose 96 D Calculated Osmolality 294 Calcium 7.9 L Corrected Calcium 8.6 Phosphorus 3.5 Magnesium 2.2 Iron 56 L TIBC 209 L Iron Saturation 26 Unsat Iron Binding 153 L Ferritin 111 Total Bilirubin 0.4 AST 14 ALT < 7 L Alkaline Phosphatase 69 Troponin I 2.951 H* Total Protein 5.3 L Albumin 3.1 L Globulin 2.2 L Albumin/Globulin Ratio 1.4 Ur Collection Type Urine Color Urine Clarity Urine pH Ur Specific [place] Urine Protein Urine Glucose (UA) Urine Ketones Urine Blood Urine Nitrite Urine Bilirubin Urine Urobilinogen (Auto) Ur Leukocyte Esterase Urine RBC Urine WBC Ur Squamous Epith Cells Urine Bacteria Urine Sperm 11/10/24 11/10/24 06:00 14:00 WBC RBC Hgb Hct MCV MCH MCHC RDW Std Deviation Plt Count Neut % (Auto) Lymph % (Auto) [place] % (Auto) Eos % (Auto) Baso % (Auto) Neut # (Auto) Lymph # (Auto) [place] # (Auto) Eos # (Auto) Baso # (Auto) Immature Gran # (Auto) Absolute Nucleated RBC Immature Gran % Nucleated RBC % Retic Count (auto) Absolute Retic Immature Retic Fraction Retic Hgb Content CHr PT INR APTT Sodium Potassium Chloride Carbon Dioxide Anion Gap BUN Creatinine Estim Creat Clear Calc eGFR BUN/Creatinine Ratio Glucose Calculated Osmolality Calcium Corrected Calcium Phosphorus Magnesium Iron TIBC Iron Saturation Unsat Iron Binding Ferritin Total Bilirubin AST ALT Alkaline Phosphatase Troponin I 2.727 H* D Total Protein Albumin Globulin Albumin/Globulin Ratio Ur Collection Type Catheter Urine Color Colorless A Urine Clarity Clear Urine pH 6.0 Ur Specific [place] 1.008 Urine Protein Negative Urine Glucose (UA) Negative Urine Ketones Negative Urine Blood Negative Urine Nitrite Negative Urine Bilirubin Negative Urine Urobilinogen (Auto) Negative Ur Leukocyte Esterase Positive Urine RBC 3 Urine WBC 2 Ur Squamous Epith Cells < 1 Urine Bacteria None Urine Sperm Present A Assessment & Plan Assessment and plan (1) Acute kidney injury: Status: Acute Assessment and plan: Acute renal failure secondary to prerenal azotemia. Patient presented with chest pain and decreased p.o. intake. Clinically looks rather dehydrated. Will give him 1 L of fluids and follow the creatinine closely. Renal ultrasound Showed advanced CKD with severe cortical thinning. Urinalysis was completely bland. Despite 1 L IV fluids-GFR 15. Had a long conversation with patient regarding the need for angiogram due to his angina and risk of contrast nephropathy and decline in the kidney function and possible need for dialysis. Patient absolutely declines dialysis. Stated his family was on dialysis and did not have a good outcome. Will continue with gentle IV fluids. Dr Parra will be taking over the care starting tomorrow. 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 Renal ultrasound Showed no hydronephrosis-cortical thinning (3) Non-ST elevation [place] (NSTEMI): Status: Acute Assessment and plan: Patient with NSTE [place]-currently on aspirin, heparin, beta-pardeep.Losartan held due to worsening renal function. (4) Anemia: Status: Acute Assessment and plan: Iron, Procrit ordered suspect patient has anemia of chronic kidney disease (5) Hypertension: Status: Acute Assessment and plan: On metoprolol. Losartan held for now. Add amlodipine Additional Assessment & Plan Additional Plan: Thank you Skyler for allowing me to participate in the care of Mr. Fall..
[2024-11-10 16:00] VITALS: BP 157/76; PULSE 61; PULSE 67; RESP 19; TEMP 36.4; O2SAT 95
--- NOTE | 2024-11-10 16:36 | ESPR_ITS ---
Documentation for date of: 11/10/24 Subjective Subjective Interval history: Patient is a 84 year old male with past medical history of hypertension, diabetes mellitus type II (no medication currently) CKD IV (GFR 15), and stroke who was admitted on 11/08/2024 for typical chest pain on 11/08/2024. 11/10/2024: Patient examined this morning at bedside. Patient denied chest pain. Patient denied shortness of breath. Denied history of lower pedal edema. Exam Vital Signs Temp Pulse Resp BP Pulse Ox O2 Del Method O2 Flow Rate 97.3 F 64 16 142/65 H 94 L Room Air 3 11/10/24 12:00 11/10/24 12:00 11/10/24 12:00 11/10/24 12:11/10/24 12:11/10/24 12:11/09/24 20:00 Narrative Exam General Appearance: Alert & Oriented X3, well-nourished male who is lying in bed in no acute distress HEENT: Skull symmetrical and atraumatic. Conjunctivae pin and moist. Pupils equal, round, reactive to light and accommodation (PERRL). External ear without lesion or discharge. Straight, nares patient, mucosa pink, no discharge. Cardio: Normal Rate and Rhythm with S1 and S2 heart sounds. No murmurs or extra heart sounds auscultated. No bruits on carotid auscultation. No peripheral edema or cyanosis. Lungs: Symmetric with good expansion. Chest and back non-tender. Breath sounds vesicular without crackles, wheezing or rhonchi Abdomen: Non-tender, Non-distended, Normal Reactive Bowel Sounds Neuro: Alert, cooperative, oriented to person, place, and time. Speech clear. CN grossly intact. Upper motor strength 5/5 and Lower motor strength 5/5. Sensation intact. Objective Labs 11/10/24 05:07 11/10/24 05:07 Labs: Laboratory Results - last 24 hr 11/09/24 11/10/24 11/10/24 17:55 00:20 05:07 WBC 10.7 H RBC 3.36 L Hgb 9.8 L Hct 30.3 L MCV 90 MCH 29.2 MCHC 32.3 RDW Std Deviation 45.8 H Plt Count 213 D Neut % (Auto) 61 Lymph % (Auto) 20 [place] % (Auto) 9 Eos % (Auto) 8 Baso % (Auto) 1 Neut # (Auto) 6.6 Lymph # (Auto) 2.1 [place] # (Auto) 1.0 H Eos # (Auto) 0.9 H Baso # (Auto) 0.1 Immature Gran # (Auto) 0.08 H Absolute Nucleated RBC 0.00 Immature Gran % 1 H Nucleated RBC % 0 Retic Count (auto) 1.6 H Absolute Retic 54.4 Immature Retic Fraction 13.3 Retic Hgb Content CHr 31.3 PT 11.2 INR 1.0 APTT 56.3 H D 62.6 H 61.2 H Sodium 141 Potassium 4.9 Chloride 108 H Carbon Dioxide 21.3 Anion Gap 12 BUN 49 H Creatinine 3.7 H Estim Creat Clear Calc 15.0 L eGFR 15 L BUN/Creatinine Ratio 13 Glucose 96 D Calculated Osmolality 294 Calcium 7.9 L Corrected Calcium 8.6 Phosphorus 3.5 Magnesium 2.2 Iron 56 L TIBC 209 L Iron Saturation 26 Unsat Iron Binding 153 L Ferritin 111 Total Bilirubin 0.4 AST 14 ALT < 7 L Alkaline Phosphatase 69 Troponin I 2.951 H* Total Protein 5.3 L Albumin 3.1 L Globulin 2.2 L Albumin/Globulin Ratio 1.4 Ur Collection Type Urine Color Urine Clarity Urine pH Ur Specific [place] Urine Protein Urine Glucose (UA) Urine Ketones Urine Blood Urine Nitrite Urine Bilirubin Urine Urobilinogen (Auto) Ur Leukocyte Esterase Urine RBC Urine WBC Ur Squamous Epith Cells Urine Bacteria Urine Sperm 11/10/24 11/10/24 06:00 14:00 WBC RBC Hgb Hct MCV MCH MCHC RDW Std Deviation Plt Count Neut % (Auto) Lymph % (Auto) [place] % (Auto) Eos % (Auto) Baso % (Auto) Neut # (Auto) Lymph # (Auto) [place] # (Auto) Eos # (Auto) Baso # (Auto) Immature Gran # (Auto) Absolute Nucleated RBC Immature Gran % Nucleated RBC % Retic Count (auto) Absolute Retic Immature Retic Fraction Retic Hgb Content CHr PT INR APTT Sodium Potassium Chloride Carbon Dioxide Anion Gap BUN Creatinine Estim Creat Clear Calc eGFR BUN/Creatinine Ratio Glucose Calculated Osmolality Calcium Corrected Calcium Phosphorus Magnesium Iron TIBC Iron Saturation Unsat Iron Binding Ferritin Total Bilirubin AST ALT Alkaline Phosphatase Troponin I 2.727 H* D Total Protein Albumin Globulin Albumin/Globulin Ratio Ur Collection Type Catheter Urine Color Colorless A Urine Clarity Clear Urine pH 6.0 Ur Specific [place] 1.008 Urine Protein Negative Urine Glucose (UA) Negative Urine Ketones Negative Urine Blood Negative Urine Nitrite Negative Urine Bilirubin Negative Urine Urobilinogen (Auto) Negative Ur Leukocyte Esterase Positive Urine RBC 3 Urine WBC 2 Ur Squamous Epith Cells < 1 Urine Bacteria None Urine Sperm Present A Quality Measures Quality Measures none Advance care planning discussed with:: significant other Assessment & Plan Assessment Current Active Medications: Generic Name Dose Route Start Last Admin Trade Name Freq PRN Reason Stop Dose Admin Acetaminophen 650 mg 11/08/24 20:21 Acetaminophen 325 Mg Tablet PO 12/08/24 20:20 Q6H PRN Fever >100.4 or pain Aspirin 81 mg 11/09/24 09:00 11/10/24 08:00 Aspirin Ec 81 Mg Tabec PO 12/09/24 08:59 81 mg QDAY NAHED Administration Atorvastatin Calcium 80 mg 11/09/24 21:00 11/09/24 20:32 Atorvastatin Calcium 20 Mg Tablet PO 12/09/24 20:59 80 mg HS NAHED Administration Docusate Sodium 100 mg 11/08/24 20:21 Docusate Sod 100 Mg Capsule PO 12/08/24 20:20 QDAY PRN CONSTIPATION Protocol Ferrous Sulfate 325 mg 11/10/24 10:00 11/10/24 10:38 Ferrous Sulf 325 Mg Tablet PO 12/10/24 09:59 325 mg QOD NAHED Administration Hydralazine HCl 10 mg 11/10/24 22:14 Hydralazine Inj 20 Mg/Ml Vial IVP 12/10/24 16:05 Q6H PRN SBP >170, hr<100 Heparin Sodium/Dextrose 25,000 unit in 250 mls @ 8.709 mls/hr 11/08/24 20:30 11/10/24 08:00 Heparin In D5w Ivpb IV 11/22/24 20:29 14 units/kg/hr .Q24H NAHED 10.161 mls/hr Titration Protocol 12 UNITS/KG/HR Lactated Ringer's 1,000 mls @ 80 mls/hr 11/10/24 10:01 11/10/24 10:38 Lactated Ringers IV 11/10/24 22:30 80 mls/hr .[id number] NAHED Administration Losartan Potassium 50 mg 11/09/24 09:45 11/09/24 09:59 Losartan Potassium 25 Mg Tablet PO 12/09/24 09:44 50 mg QDAY NAHED Administration Melatonin 6 mg 11/09/24 21:00 11/09/24 21:09 Melatonin 3 Mg Tablet PO 12/09/24 20:59 6 mg HS NAHED Administration Metoprolol Tartrate 25 mg 11/09/24 09:00 11/10/24 08:00 Metoprolol Tartrate 25 Mg Tablet PO 12/09/24 08:59 25 mg BID NAHED Administration Nitroglycerin 0.4 mg 11/08/24 22:03 11/09/24 18:40 Nitroglycerin 0.4 Mg Subl Btl #25 SL 1 dose Q5MIN PRN Administration CHEST PAIN Ondansetron HCl 4 mg 11/08/24 20:21 Ondansetron Inj 2 Mg/Ml Inj 2 Ml IVP 12/08/24 20:20 Q6H PRN NAUSEA OR VOMITING Protocol Pantoprazole Sodium 40 mg 11/09/24 21:00 11/10/24 08:00 Pantoprazole Inj 40 Mg Vial IVP 12/09/24 20:59 40 mg QDAY NAHED Administration Sennosides 1 tab 11/08/24 20:21 Senna Tablet PO 12/08/24 20:20 QDAY PRN constipation Protocol Tamsulosin HCl 0.4 mg 11/09/24 21:00 11/10/24 08:00 Tamsulosin Hcl 0.4 Mg Capsule PO 12/09/24 20:59 0.4 mg BID NAHED Administration Plan Patient is a 84 year old male with past medical history of hypertension, diabetes mellitus type II (no medication currentlY) CKD IV (GFR 15), and stroke who was admitted on 11/08/2024 for typical chest pain on 11/08/2024. #Troponemia #AV Block, type I NSTEMI type I with elevated troponin, typical chest pain, and no ST elveation noted on EKG vs NSTEMI II demand ischemia vs STEMI less likley. Plan for Cath on Monday. NPO aftermight. Metoprolol Tartrate discontinued on 11/10/2024. Echo: Normal LV size and function. Estimated LVEF is 55 to 60%. Grade 1 diastolic dysfunction. PADDY 4 points, 20% risk at 14 days of all cause mortality Plan -NPO after midnight -Cath Tomorrow -PT/PTT AM -Continue to trend Troponin -Coreg 3.125 mg PO BIDWM -Asprin 81 mg Qday -Atorvasting 80 mg HS -Heparin Drip Per ACS #Sinus Bradycardia, Asymptomatic Reported bradycardia overnight, continue to monitor given the use of Beta blockers #FERDINAND on CKD stage IV (GFR 15) Likely secondary to diabetic nephrophathy, GFR appears to range from 14-15 for the past several reads. On admission, worsening Cr greater than baseline at 3.8 which would be increase >0.3. Likely in the setting of pre-renal FERDINAND vs obstructive given history of BPH vs worsnening CKD Plan -LR 80 cc -Avoid nephrotoxins -Renally dose medicaiton -Monitor urine output and Cr -nephrology consulted, Dr. Dimas, appreciate recommendations. #Hypertension Past medical history of hypertension with home medication of Amlodipine 10 mg PO Qday and Losartan 100 mg QDay -Plan -Consider restarting home medication of Amlodpine -->Amlodipine 5 mg Qday -Losartan 100 mg qday, on hold #Diabetes Mellitus Type 2 Past medical history of diabetes, current a1c of 5.9 with fasting glucose of 96 and on admission glucose of 237. Plan -Consider sliding scale if fasting glucose worsens. #BNP Tamsulosin #Normocytic Anemia Likely secondary to anemia of chronic disease, consider Ferritin vs CKD low EPO vs iron deficiency Dx: Hgb 9.8 hct 30.3. MCV 90, Iron panel: iron 56, TIBC 209 (L), Iron saturation 26, and unsat iron binding 153 Plan -Ferrous Sulfate 325 PO QOD #Leukocytosis Likely reactive in the setting of NSTEMI vs less likely infectious cause as no pyrexia, no active disease noted on chest x-ray, and UA negative. Plan -Continue to monitor Health Maintenance: Disp: Pt is currently admitted to floors for further management of NSTEMI , awaiting Cath FEN: NPO after midnight DVT: Heparin ACS Code: DNR - The patient's plan was discussed with attending Dr. Seth Mcneil MD PGY1 Internal Medicine Attending Provider Attestation/Addendum 84-year-old male with a past medical history of CKD stage IV baseline creatinine around 3.5-4, mostly secondary to longstanding essential hypertension as well as type 2 diabetes mellitus, diabetic nephropathy, hyperlipidemia,, osteoarthritis, history of TIA versus stroke few years ago, chronic smoker with more than 08-24-frzt-year smoking history, BPH, mild chronic anemia secondary to CKD presented to the emergency department for further evaluation of chest pain and an elevated troponin that was sent by the primary doctor. Troponin before coming to the hospital was 2.0 so cardiology was consulted for further evaluation. Assessment and plan: 1. NSTEMI type I>II -possible late presenting MT given his chest pain for 2 to 3 days. 2. Angina pectoris-rule out acute coronary syndrome 3. CKD stage IV baseline creatinine around 3.5-4, GFR around 14-15 4. Essential hypertension 5. Type 2 diabetes mellitus 6. Diabetic nephropathy 7. Hyperlipidemia 8. Osteoarthritis 9. BPH 10. Former smoker with 50 to 60 pack years smoking history. 11. History of possible TIA in stroke Patient presented with chest pain of 2 to 3 days duration which was not relieved with medications that has typical chest pain symptoms. EKG showed a sinus rhythm with first-degree AV block, frequent PACs and nonspecific ST changes. Troponin was elevated at 2.07. Patient mostly presenting with NSTEMI type I and less likely type II versus late presenting MT given his delayed presentation after 2 to 3 days. Continue to trend troponins every 6 hours. Repeat EKG Aspirin 325 mg x 1 and aspirin 81 mg once daily. Heparin bolus with heparin drip as per ACS protocol. High intensity statin Lipitor 80 mg once daily. Patient continues to complain of pain and will require some pain control. Nitroglycerin sublingual given here in the ED Beta-pardeep if blood pressure is permissible. Patient is increased risk for CAD given his history of longstanding hypertension, diabetes, CKD, age, history of smoking of more than 50 pack years, family history and hence will need further ischemic evaluation with cardiac catheterization. Echo showed Normal LV size and function. Estimated LVEF is 55 to 60%. Grade 1 diastolic dysfunction. Normal RV size and function. Insufficient TR to measure RVSP. Mild MR trace TR. IVC not well-visualized. Patient explained clearly the risks benefits and alternatives of performing a left heart cardiac catheter including the risk of bleeding, heart attack, stroke and . Patient also explained that he has CKD stage IV with a creatinine of 3.5-4 and this procedure could lead patient into possible dialysis but could be done with the lower contrast told also. Patient wants to avoid dialysis as much as he can. Called his die lay out worker Dr. Fields but apparently she is on vacation but was able to discuss about the patient with me and she apparently had full length conversation with him multiple times regarding the dialysis but patient did not appear to be interested at that point of time and CAROLEE CKD stage V with a creatinine clearance of 10 to 15 only. She agrees that the patient does need cardiac catheterization first and if he needs hemodialysis then he should be able to get with the help of a tunneled dialysis catheter for now and recommended not to stop the cardiac workup given the high risk of cardiac for this patient given his comorbidities. On-call die lay out worker Dr. Dimas was consulted today by the primary team Plan for a cardiac cath tomorrow morning and will keep n.p.o. after midnight. Patient explained that his benefits and alternatives of performing a left heart catheterization including the risk of bleeding, heart rate, stroke and along with the risk of dialysis given CKD stage V. Patient understands that he might need dialysis and he is agreeable for the procedure and provided the consent for the same. Recommend strict hypertension and diabetes management. Amlodipine and Coreg for blood pressure control Nephrology consult given his CKD stage IV and the need of possible cardiac catheterization. Management of rest of the medical conditions as per primary team and other consultants. Thank you for the consult and allowing me to participate in the care of the patient. Cardiology will continue to follow. Karlo Ann M.D. Interventional Cardiology
[2024-11-10 17:22] LABS: Phosphorous 3.4 mg/dL (2.4-5.1); Uric Acid 7.7 mg/dL (3.7-9.2)
[2024-11-10 17:32] VITALS: BP 157/76; PULSE 61
[2024-11-10] MEDS: amLODIPine BESYLATE 5 MG TABLET PO (17:32)
[2024-11-10] MEDS: ferumoxytoL (NON-ESRD) 510 MG in SODIUM CHLORIDE 0.9% 100 ML 234 MG IV (17:39)
[2024-11-10] MEDS: EPOETIN ALFA-EPBX INJ 10,000 UNIT/ML VIAL (NON-ESRD) 10000 UNIT SC (17:39)
[2024-11-10 20:00] VITALS: BP 153/69; PULSE 60; RESP 19; TEMP 37.1; O2SAT 94
[2024-11-10 20:19] LABS: Troponin I 2.282 ng/mL (0.0-0.045)
[2024-11-10] MEDS: ATORVASTATIN CALCIUM 20 MG TABLET 80 MG PO (20:42)
[2024-11-10] MEDS: MELATONIN 3 MG TABLET 6 MG PO (20:42)
[2024-11-10] MEDS: Heparin/D5w 25K 250 ML Ivpb 25,000 UNIT/250 ML BAG 10.161 UNIT IV (20:42)
[2024-11-10] MEDS: MG HYD/AL HYD/SIME (Maalox Reg) SUSP 30 ML UDC PO (21:09)
[2024-11-10 23:14] LABS: Parathyroid Hormone Intact 204.7 pg/ml (18.5-88.0)
[2024-11-11] VITALS (22 sets, daily range): BP systolic 131–173; BP diastolic 63–99; PULSE 54–77; RESP 12–28; TEMP 36.2–36.9; O2SAT 93–99; BMI 23.1
[2024-11-11 05:26] LABS: Basophils # (Auto) 0.1 Thou/mm3 (0.0-0.2); Basophils % (Auto) 1 % (0-2.5); Eosinophils # (Auto) 0.6 Thou/mm3 (0.0-0.5); Eosinophils % (Auto) 6 % (0-10); Hematocrit 31.1 % (41.0-53.0); Hemoglobin 10.5 g/dL (13.5-16.0); Immature Granulocytes % (Auto) 1 % (0-0); Immature Granulocytes Auto 0.09 Thou/mm3 (0.00-0.00); Lymphocytes # (Auto) 1.6 Thou/mm3 (1.0-4.8); Lymphocytes % (Auto) 15 % (10-50); Mean Corpuscular HGB Conc 33.8 g/dl (31.0-37.0); Mean Corpuscular Hemoglobin 29.4 pg (25.0-35.0); Mean Corpuscular Volume 87 fL (80-100); Monocytes # (Auto) 1.1 Thou/mm3 (0.0-0.8); Monocytes % (Auto) 10 % (0-12); Neutrophils % (Auto) 67 % (37-80); Nucleated Red Blood Cell % 0 /100 WBC (0); Platelet Count 228 Thou/mm3 (140-440); Red Blood Count 3.57 Miln/mm3 (4.50-5.90); White Blood Count 10.4 Thou/mm3 (3.8-10.6)
[2024-11-11 05:55] LABS: Prothrombin Time 10.9 Seconds (9.0-12.2)
[2024-11-11 06:08] LABS: Alanine Aminotransferase < 7 U/L (10-49); Albumin, Serum 3.3 gm/dL (3.4-4.8); Albumin/Globulin Ratio 1.4 (1.2-2.2); Alkaline Phosphatase 75 U/L (46-116); Anion Gap 11 (7-16); Aspartate Amino Transferase 13 U/L (0-34); BUN/Creatinine Ratio 13 Ratio (12-20); Bilirubin,Total 0.3 mg/dL (0.3-1.2); Blood Urea Nitrogen 49 mg/dL (9-23); Calcium 8.3 mg/dL (8.3-10.6); Calcium (Corrected) 8.9 mg/dL (8.5-10.1); Carbon Dioxide 22.8 mMol/L (20.0-31.0); Chloride 109 mMol/L (98-107); Creatinine (Component) 3.7 mg/dL (0.6-1.3); Globulin 2.3 gm/dL (2.3-3.5); Glucose 104 mg/dL (74-106); Magnesium 2.2 mg/dL (1.6-2.6); Osmolality,Calculated 297 (275-295); Phosphorous 3.3 mg/dL (2.4-5.1); Potassium 5.4 mMol/L (3.4-5.1); Sodium 143 mMol/L (136-145); Total Protein 5.6 gm/dL (5.7-8.2); eGFR 15 See Note
[2024-11-11] MEDS: ASPIRIN EC 81 MG TABEC PO (07:46)
--- NOTE | 2024-11-11 07:51 | ESPR_ITS ---
<Statement entered by Josue Bauer MD - 11/12/24 07:24> I discussed with and supervised the physician internist physician involved in the care of this patient. Patient assessment and plan was discussed with entire medicine team, including my attending. I agree with the assessment and plan as documented by physician internist doctor. Patient care was discussed with my attending physician Dr. Shanna Bauer, PGY-2 Documentation for date of: 11/11/24 Subjective Subjective Interval history: No acute overnight events. Completed left heart cath today showing severe double vessel CAD significant stenosis, and successful PCI of mid LCx (see cath report reviewed). Denies fever, chills, headaches, chest pain, sob, cough, GI or urinary symptoms. Vitals are stable. Exam Vital Signs Temp Pulse Resp BP Pulse Ox O2 Del Method O2 Flow Rate 97.9 F 77 14 131/63 H 95 Room Air 3 11/11/24 04:00 11/11/24 04:00 11/11/24 04:00 11/11/24 04:00 11/11/24 04:00 11/11/24 04:00 11/09/24 20:00 Narrative Exam GENERAL * Normal appearing adult male, NAD. HEENT * NCAT.?LEONORA. Oral mucosa is moist. Patent Nares NECK * Supple, nontender, no thyromegaly, no meningismus, no JVD, no step offs CHEST * RRR, no m/g/r * CTAB, no w/r/r. Symmetrical chest rise. No intercostal subcostal retraction * Atraumatic, nontender, no crepitus, symmetrical expansion. ABDOMEN * Soft, flat, nontender. No guarding/rebound tenderness/masses. * Bowel sounds presents EXTREMITIES * No edema/cyanosis.? SKIN * Warm and dry, no jaundice/rashes. NEUROMUSCULAR * No lumbar or midline, no CVA, no paraspinal muscle spasm or tenderness. * Moves all 4 extremities well, with full ROM and good CSM. * RIZVI x4, CN II-XII grossly intact. * No focal neurologic deficits. PSYCHIATRY * Normal mood and affect, cooperative, no SI or HI or hallucinations. Objective Labs 11/11/24 04:58 11/11/24 15:27 Labs: Laboratory Results - last 24 hr 11/10/24 11/10/24 11/10/24 05:07 14:00 19:42 WBC RBC Hgb Hct MCV MCH MCHC RDW Std Deviation Plt Count Neut % (Auto) Lymph % (Auto) [place] % (Auto) Eos % (Auto) Baso % (Auto) Neut # (Auto) Lymph # (Auto) [place] # (Auto) Eos # (Auto) Baso # (Auto) Immature Gran # (Auto) Absolute Nucleated RBC Immature Gran % Nucleated RBC % PT INR APTT Sodium Potassium Chloride Carbon Dioxide Anion Gap BUN Creatinine Estim Creat Clear Calc eGFR BUN/Creatinine Ratio Glucose Calculated Osmolality Uric Acid 7.7 Calcium Corrected Calcium Phosphorus 3.4 Magnesium Total Bilirubin AST ALT Alkaline Phosphatase Troponin I 2.951 H* 2.727 H* D 2.282 H* D Total Protein Albumin Globulin Albumin/Globulin Ratio PTH Intact 204.7 H 11/11/24 04:58 WBC 10.4 RBC 3.57 L Hgb 10.5 L Hct 31.1 L MCV 87 MCH 29.4 MCHC 33.8 RDW Std Deviation 44.0 H Plt Count 228 Neut % (Auto) 67 Lymph % (Auto) 15 [place] % (Auto) 10 Eos % (Auto) 6 Baso % (Auto) 1 Neut # (Auto) 7.0 Lymph # (Auto) 1.6 [place] # (Auto) 1.1 H Eos # (Auto) 0.6 H Baso # (Auto) 0.1 Immature Gran # (Auto) 0.09 H Absolute Nucleated RBC 0.00 Immature Gran % 1 H Nucleated RBC % 0 PT 10.9 INR 1.0 APTT 62.0 H Sodium 143 Potassium 5.4 H D Chloride 109 H Carbon Dioxide 22.8 Anion Gap 11 BUN 49 H Creatinine 3.7 H Estim Creat Clear Calc 16.0 L eGFR 15 L BUN/Creatinine Ratio 13 Glucose 104 Calculated Osmolality 297 H Uric Acid Calcium 8.3 Corrected Calcium 8.9 Phosphorus 3.3 Magnesium 2.2 Total Bilirubin 0.3 AST 13 ALT < 7 L Alkaline Phosphatase 75 Troponin I Total Protein 5.6 L Albumin 3.3 L Globulin 2.3 Albumin/Globulin Ratio 1.4 PTH Intact Quality Measures Quality Measures none Advance care planning discussed with:: patient Assessment & Plan Assessment Current Active Medications: Generic Name Dose Route Start Last Admin Trade Name Freq PRN Reason Stop Dose Admin Acetaminophen 650 mg 11/08/24 20:21 Acetaminophen 325 Mg Tablet PO 12/08/24 20:20 Q6H PRN Fever >100.4 or pain Al Hydrox/Mg Hydrox/Simethicone 15 ml 11/10/24 16:46 Mg Hyd/Al Hyd/[place] (Maalox Reg) Susp 30 Ml Udc PO 12/10/24 16:45 QID PRN HEARTBURN Amlodipine Besylate 5 mg 11/10/24 17:00 11/10/24 17:32 Amlodipine Besylate 5 Mg Tablet PO 12/10/24 16:59 5 mg QDAY NAHED Administration Aspirin 81 mg 11/09/24 09:00 11/11/24 07:46 Aspirin Ec 81 Mg Tabec PO 12/09/24 08:59 81 mg QDAY NAHED Administration Atorvastatin Calcium 80 mg 11/09/24 21:00 11/10/24 20:42 Atorvastatin Calcium 20 Mg Tablet PO 12/09/24 20:59 80 mg HS NAHED Administration Carvedilol 3.125 mg 11/11/24 08:00 Carvedilol 3.125 Mg Tablet PO 12/11/24 07:59 BIDWM NAHED Docusate Sodium 100 mg 11/08/24 20:21 Docusate Sod 100 Mg Capsule PO 12/08/24 20:20 QDAY PRN CONSTIPATION Protocol Ferrous Sulfate 325 mg 11/10/24 10:00 11/10/24 10:38 Ferrous Sulf 325 Mg Tablet PO 12/10/24 09:59 325 mg QOD NAHED Administration Hydralazine HCl 10 mg 11/10/24 22:14 Hydralazine Inj 20 Mg/Ml Vial IVP 12/10/24 16:05 Q6H PRN SBP >170, hr<100 Heparin Sodium/Dextrose 25,000 unit in 250 mls @ 8.709 mls/hr 11/08/24 20:30 11/11/24 06:08 Heparin In D5w Ivpb IV 11/22/24 20:29 14 units/kg/hr .Q24H NAHED 10.161 mls/hr Titration Protocol 12 UNITS/KG/HR Losartan Potassium 50 mg 11/09/24 09:45 11/09/24 09:59 Losartan Potassium 25 Mg Tablet PO 12/09/24 09:44 50 mg QDAY NAHED Administration Melatonin 6 mg 11/09/24 21:00 11/10/24 20:42 Melatonin 3 Mg Tablet PO 12/09/24 20:59 6 mg HS NAHED Administration Nitroglycerin 0.4 mg 11/08/24 22:03 11/09/24 18:40 Nitroglycerin 0.4 Mg Subl Btl #25 SL 1 dose Q5MIN PRN Administration CHEST PAIN Ondansetron HCl 4 mg 11/08/24 20:21 Ondansetron Inj 2 Mg/Ml Inj 2 Ml IVP 12/08/24 20:20 Q6H PRN NAUSEA OR VOMITING Protocol Pantoprazole Sodium 40 mg 11/09/24 21:00 11/10/24 08:00 Pantoprazole Inj 40 Mg Vial IVP 12/09/24 20:59 40 mg QDAY NAHED Administration Sennosides 1 tab 11/08/24 20:21 Senna Tablet PO 12/08/24 20:20 QDAY PRN constipation Protocol Tamsulosin HCl 0.4 mg 11/09/24 21:00 11/10/24 20:42 Tamsulosin Hcl 0.4 Mg Capsule PO 12/09/24 20:59 0.4 mg BID NAHED Administration Plan 84 y/o M with PMHx significant for HTN, CKD, possible history of previous stroke presents with chief complaint of chest pain for 3 days, admitted for unstable angina and FERDINAND on CKD. Vitals ok, trops down, K 5.4, mag 2.2, renal function imporved slightly CR 3.7, NSTEMI type I Presented with typical substernal, radiating chest pain x 3 days. Admission troponin 2.0, initially down trended but uptrending again. EKG showed a sinus rhythm with first-degree AV block, frequent PACs and nonspecific ST changes. Initially on HEPARIN drip and ASPIRIN and METOPROLOL, and was discontinued after cath. Repeat EKG relatively unchanged, remains asymptomatic without chest pain or shortness of breath. LHC showed severe double vessel CAD with subtotal occlusion 99% stenosis of the mid LCx with PADDY II flow in the OM 2, severe diffuse disease from the proximal to the distal RCA with multiple tandem lesions, moderate 40 to 50% stenosis of the proximal LAD as well as the proximal LCx. Rest of the coronary artery segments) showed only mild disease. He underwent successful PCI of the mid LCx with 3.0 x 12 mm Jaylan CHERIE stent with excellent results, no complications and PADDY-3 flow. Cardiology recommendations as below: ? Continue COREG 3.125 mg BID ? Continue ASPIRIN 81 mg q. day ? Continue BRILINTA 90 mg BID ? Continue ATORVASTATIN 80 mg HS ? Maintain K > 4.0 and Mg > 2.0 ? NITROGLYCERIN PRN for pain HTN BP 142/65, HR 64. ? Holding home LOSARTAN 50 mg daily ? HYDRALAZINE PRN on board ? Continue AMLODIPINE 5 mg daily CKD stage V Admission CR 4.1, improved with fluids, currently 3.7. Urine output adequate. Follows with lode miner Dr. Parra. Dr. Dimas following, recommended additional 1L LR prior to cath. Ultrasound showed small kidneys, moderate bilateral parenchymal scarring with cortical thinning. Continue on IV fluids, had 2.2 L urine output, creatinine currently at baseline of 3.7. ? Renally dose meds, avoid overdiuresis and NEPHROTOXINS ? Daily CMP ? Monitor for worsening renal function after angiogram Mild hyperkalemia (resolved) Likely 2/2, potassium supplement ? Daily labs Reactive leukocytosis (resolved) Likely in settings of NSTEMI, asymptomatic, remains afebrile. No obvious source of infection, no history of previous illness or sick exposure ? Continue monitoring Anemia of chronic disease (CKD) Admission Hgb 10.6 around baseline. Low iron stores, iron 56, low, TIBC 209 low, iron saturation 26. Reticulocyte count 1.6 high, although low suspicion for active bleed. ? Holding oral FERROUS SULFATE ? Transfuse if Hgb less than 8 BPH Renal calculi Renal ultrasound showed multiple left renal calculi, largest 5 mm ? Continue home TAMSULOSIN ? Follow-up with urology outpatient for renal stones Health maintenance Diet: Cardiorenal GI prophylaxis: PROTONIX DVT prophylaxis: HEPARIN GGT Antibiotics: Not indicated CODE STATUS: DNR Disposition: Pending micro lab analyst 11/11/24 Case was discussed with attending physician and senior resident. Bill Mcconnell DO PGYI Attending Provider Attestation/Addendum I have discussed and was present for the essential components of the history, physical examination, diagnosis, and treatment plan with the resident. I agree with the patient's care as documented by the resident and amended herein by me. Nicholas Otero DO. Although this document has been carefully reviewed, there may still be some phonetic and other typographical errors. These errors are purely grammatical due to imperfections in the software program and should not be construed in any way to compromise the substance of the patient's medical care during this visit.
--- NOTE | 2024-11-11 09:29 | ESPR_ITS ---
Documentation for date of: 11/11/24 Subjective Subjective Interval history: Interval history: Covering Dr Parra. Mr. Fall is a 84 y/o gentleman with PMHx significant for HTN, CKD IV (under Dr Parra), possible history of previous stroke, anemia, BPH presented to the emergency department with 3-day history of chest pain associated with shortness of breath. Patient stated that pressure is like substernal without any radiation 3 out of 10 especially while lying in bed. Has been intermittent. Primary care physician dated troponin and was elevated and sent him to the emergency department. Patient currently seen in telemetry. Dr. Cheng Fan saw the patient and recommended angiogram on Monday. Renal consultation requested for clearance prior to cardiac catheterization as patient has CKD stage IV. The emergency department WBC 12.8, hemoglobin 12.1, troponin 1.9, BNP 885, BUN 53, creatinine 4, GFR 14, chest x-ray negative, EKG mild AV block. Patient was started on heparin drip, aspirin and was transferred to telemetry. Medications: Flomax, amlodipine, tamsulosin 11/10/2024 patient currently seen in telemetry. Had minimal chest pain while moving. Also complaining of acid reflux. Protonix did help. I gave him Maalox. Currently on lactated Ringer at 80 mL/h. Blood pressure 157/76, heart rate 61. WBC 10.7, hemoglobin 9.8, platelets 213. Sodium 141, potassium 4.9, bicarbonate 21.3, BUN 49, creatinine 3.7, GFR 15, calcium 8.6, phosphorus 3.5, magnesium 2.2, iron saturation 26, ferritin 111, LFTs normal, albumin 3.1, troponin 2.7, urinalysis completely bland. Renal ultrasound showed CKD changes with a significant cortical thinning. Echocardiogram showed ejection fraction 55 to 60% and diastolic dysfunction. 11/11/2024 patient currently seen in [employer], pending scheduled coronary angiogram. Reported no acute discomfort, vitally stable, patient had refused hemodialysis during previous discussion. Current labs sodium 143, potassium 5.4, BUN 49, creatinine 3.7, EGFR 15. Exam Vital Signs Temp Pulse Resp BP Pulse Ox O2 Del Method O2 Flow Rate 98.5 F 66 19 158/85 H 95 Room Air 3 11/11/24 07:47 11/11/24 07:47 11/11/24 07:47 11/11/24 07:47 11/11/24 07:47 11/11/24 07:47 11/09/24 20:00 Narrative Exam GENERAL APPEARANCE: Patient seen in [employer] prior to procedure, patient seems to be comfortable, adequately hydrated and nourished. HEENT: EOMI, PERRLA NECK: Neck supple, no JVD or bruit CARDIOVASCULAR: Heart regular, no murmurs LUNGS/CHEST: Chest clear to auscultation. No rales, rhonchi, wheezing ABDOMEN: Soft, nontender, nondistended. No masses. Normal bowel sounds. EXTREMITIES: No edema, clubbing or cyanosis. SKIN: Skin exam normal without any rashes MUSCULOSKELETAL: Musculoskeletal exam normal PSYCHIATRIC: Normal mood, affect LYMPHATICS: No lymphadenopathy noted NEUROLOGICAL : No neurological deficits Objective Labs 11/11/24 04:58 11/11/24 15:27 Labs: Laboratory Results - last 24 hr 11/10/24 11/10/24 11/11/24 14:00 19:42 04:58 WBC 10.4 RBC 3.57 L Hgb 10.5 L Hct 31.1 L MCV 87 MCH 29.4 MCHC 33.8 RDW Std Deviation 44.0 H Plt Count 228 Neut % (Auto) 67 Lymph % (Auto) 15 Treasure % (Auto) 10 Eos % (Auto) 6 Baso % (Auto) 1 Neut # (Auto) 7.0 Lymph # (Auto) 1.6 Treasure # (Auto) 1.1 H Eos # (Auto) 0.6 H Baso # (Auto) 0.1 Immature Gran # (Auto) 0.09 H Absolute Nucleated RBC 0.00 Immature Gran % 1 H Nucleated RBC % 0 PT 10.9 INR 1.0 APTT 62.0 H Sodium 143 Potassium 5.4 H D Chloride 109 H Carbon Dioxide 22.8 Anion Gap 11 BUN 49 H Creatinine 3.7 H Estim Creat Clear Calc 16.0 L eGFR 15 L BUN/Creatinine Ratio 13 Glucose 104 Calculated Osmolality 297 H Uric Acid 7.7 Calcium 8.3 Corrected Calcium 8.9 Phosphorus 3.4 3.3 Magnesium 2.2 Total Bilirubin 0.3 AST 13 ALT < 7 L Alkaline Phosphatase 75 Troponin I 2.727 H* D 2.282 H* D Total Protein 5.6 L Albumin 3.3 L Globulin 2.3 Albumin/Globulin Ratio 1.4 PTH Intact 204.7 H Quality Measures Quality Measures none Advance care planning discussed with:: patient Assessment & Plan Assessment Current Active Medications: Generic Name Dose Route Start Last Admin Trade Name Freq PRN Reason Stop Dose Admin Acetaminophen 650 mg 11/08/24 20:21 Acetaminophen 325 Mg Tablet PO 12/08/24 20:20 Q6H PRN Fever >100.4 or pain Al Hydrox/Mg Hydrox/Simethicone 15 ml 11/10/24 16:46 Mg Hyd/Al Hyd/Tortio (Maalox Reg) Susp 30 Ml Udc PO 12/10/24 16:45 QID PRN HEARTBURN Amlodipine Besylate 5 mg 11/10/24 17:00 11/10/24 17:32 Amlodipine Besylate 5 Mg Tablet PO 12/10/24 16:59 5 mg QDAY NAHED Administration Aspirin 81 mg 11/09/24 09:00 11/11/24 07:46 Aspirin Ec 81 Mg Tabec PO 12/09/24 08:59 81 mg QDAY NAHED Administration Atorvastatin Calcium 80 mg 11/09/24 21:00 11/10/24 20:42 Atorvastatin Calcium 20 Mg Tablet PO 12/09/24 20:59 80 mg HS NAHED Administration Carvedilol 3.125 mg 11/11/24 08:00 Carvedilol 3.125 Mg Tablet PO 12/11/24 07:59 BIDWM NAHED Docusate Sodium 100 mg 11/08/24 20:21 Docusate Sod 100 Mg Capsule PO 12/08/24 20:20 QDAY PRN CONSTIPATION Protocol Ferrous Sulfate 325 mg 11/10/24 10:00 11/10/24 10:38 Ferrous Sulf 325 Mg Tablet PO 12/10/24 09:59 325 mg QOD NAHED Administration Hydralazine HCl 10 mg 11/10/24 22:14 Hydralazine Inj 20 Mg/Ml Vial IVP 12/10/24 16:05 Q6H PRN SBP >170, hr<100 Heparin Sodium/Dextrose 25,000 unit in 250 mls @ 8.709 mls/hr 11/08/24 20:30 11/11/24 06:08 Heparin In D5w Ivpb IV 11/22/24 20:29 14 units/kg/hr .Q24H NAHED 10.161 mls/hr Titration Protocol 12 UNITS/KG/HR Losartan Potassium 50 mg 11/09/24 09:45 11/09/24 09:59 Losartan Potassium 25 Mg Tablet PO 12/09/24 09:44 50 mg QDAY NAHED Administration Melatonin 6 mg 11/09/24 21:00 11/10/24 20:42 Melatonin 3 Mg Tablet PO 12/09/24 20:59 6 mg HS NAHED Administration Nitroglycerin 0.4 mg 11/08/24 22:03 11/09/24 18:40 Nitroglycerin 0.4 Mg Subl Btl #25 SL 1 dose Q5MIN PRN Administration CHEST PAIN Ondansetron HCl 4 mg 11/08/24 20:21 Ondansetron Inj 2 Mg/Ml Inj 2 Ml IVP 12/08/24 20:20 Q6H PRN NAUSEA OR VOMITING Protocol Pantoprazole Sodium 40 mg 11/09/24 21:00 11/10/24 08:00 Pantoprazole Inj 40 Mg Vial IVP 12/09/24 20:59 40 mg QDAY NAHED Administration Sennosides 1 tab 11/08/24 20:21 Senna Tablet PO 12/08/24 20:20 QDAY PRN constipation Protocol Tamsulosin HCl 0.4 mg 11/09/24 21:00 11/10/24 20:42 Tamsulosin Hcl 0.4 Mg Capsule PO 12/09/24 20:59 0.4 mg BID NAHED Administration Plan Assessment and plan (1) Acute kidney injury: Status: Acute Assessment and plan: Acute renal failure secondary to prerenal azotemia. Patient presented with chest pain and decreased p.o. intake. Clinically looks rather dehydrated. Will give him 1 L of fluids and follow the creatinine closely. Renal ultrasound Showed advanced CKD with severe cortical thinning. Urinalysis was completely bland. Despite 1 L IV fluids-GFR 15. Had a long conversation with patient regarding the need for angiogram due to his angina and risk of contrast nephropathy and decline in the kidney function and possible need for dialysis. Patient absolutely declines dialysis. Stated his family was on dialysis and did not have a good outcome. Will continue with gentle IV fluids. Dr Parra will be taking over the care starting tomorrow. 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 Renal ultrasound Showed no hydronephrosis-cortical thinning (3) Non-ST elevation TX (NSTEMI): Status: Acute Assessment and plan: Patient with NSTE TX-currently on aspirin, heparin, beta-pardeep.Losartan held due to worsening renal function. (4) Anemia: Status: Acute Assessment and plan: Iron, Procrit ordered suspect patient has anemia of chronic kidney disease (5) Hypertension: Status: Acute Assessment and plan: On metoprolol. Losartan held for now. Add amlodipine Plan of care discussed with Dr. Judie Walh PGY2 Attending Provider Attestation/Addendum Patient seen and examined with resident physician Dr. Wahl. Note reviewed, agree with findings and recommendations. Patient had a cardiac catheterization which showed multivessel disease. Low dose contrast was used during angiogram. Patient absolutely declined dialysis. Will monitor renal function closely. No need for emergency dialysis at this point.
[2024-11-11] MEDS: SODIUM CHLORIDE 0.45 % 500 ML 100 ML IV (10:48)
[2024-11-11] MEDS: hydrALAZINE INJ 20 MG/ML VIAL 10 MG IVP (13:02)
--- NOTE | 2024-11-11 15:05 | PC.NURSE ---
1034 patient is awake, alert, breathing unlabored, s/p LHC by Dr. Ann, TR band present to right wrist, no bleeding or hematoma noted. Report received from Sandy EVANS, patient to recover in phlebotomy lab assistant until TR band removed, will wait 2hrs to remove air from TR band since pt had PCI. 1125 Report given to Yennifer EVANS 1157 Report received from Yennifer EVANS 1230 1ml air removed from right wrist TR band since hemostasis 1030. 1302 hydralazine 10mg given IVP 1320 patient sitting in [facility] eating lunch tray 1325 TR band removed, no bleeding or hematoma noted, site covered with tegaderm and coban. 1407 patient is awake, alert, breathing unlabored dressing to right wrist dry with no bleeding or hematoma, patient able to tolerate food tray with no nausea or vomiting, able to void x3 times in urinal, report given to Odalys EVANS, patient transferred back to room 274 with tele box.
--- NOTE | 2024-11-11 15:51 | PC.SS ---
Rounding Note: Patient received cardiac catherizaiton today. Possible d/c home in 1 day.
--- NOTE | 2024-11-11 15:53 | PC.SS ---
NURSE PRACTITIONER ADULT confirmed with bedside nurse that patient will not be participating with dialysis.
[2024-11-11 16:18] LABS: Magnesium 2.2 mg/dL (1.6-2.6); Potassium 4.4 mMol/L (3.4-5.1)
--- NOTE | 2024-11-11 17:11 | ESPR_ITS ---
Documentation for date of: 11/11/24 Subjective Subjective Interval history: Patient is a 84 year old male with past medical history of hypertension, diabetes mellitus type II (no medication currently) CKD IV (GFR 15), and stroke who was admitted on 11/08/2024 for typical chest pain on 11/08/2024. 11/10/2024: Patient examined this morning at bedside. Patient denied chest pain. Patient denied shortness of breath. Denied history of lower pedal edema. 11/11/2024: Patient examinded at bedside. Patient denied chest pain or shortness of breath overnight. Denied chills or pyrexia orvernight. Scheduled for Cath today. Patient follows Dr. Parra for nephrology, stated if he ever requires dialysis, he will refuse. LHC and Ultralow contrast PCI of mid LCX performed to minimize kidney injury: T otal contrast used: 45 to 50 mL Exam Vital Signs Temp Pulse Resp BP Pulse Ox O2 Del Method O2 Flow Rate 97.3 F 64 16 165/75 H 99 Room Air 3 11/11/24 14:00 11/11/24 14:00 11/11/24 14:11/11/24 14:00 11/11/24 14:00 11/11/24 14:00 11/09/24 20:00 Narrative Exam General Appearance: Alert & Oriented X3, well-nourished male who is lying in bed in no acute distress HEENT: Skull symmetrical and atraumatic. Conjunctivae pin and moist. Pupils equal, round, reactive to light and accommodation (PERRL). External ear without lesion or discharge. Straight, nares patient, mucosa pink, no discharge. Cardio: Normal Rate and Rhythm with S1 and S2 heart sounds. No murmurs or extra heart sounds auscultated. No bruits on carotid auscultation. No peripheral edema or cyanosis. Lungs: Symmetric with good expansion. Chest and back non-tender. Breath sounds vesicular without crackles, wheezing or rhonchi Abdomen: Non-tender, Non-distended, Normal Reactive Bowel Sounds Neuro: Alert, cooperative, oriented to person, place, and time. Speech clear. CN grossly intact. Upper motor strength 5/5 and Lower motor strength 5/5. Sensation intact. Objective Labs 11/11/24 04:58 11/11/24 15:27 Labs: Laboratory Results - last 24 hr 11/10/24 11/10/24 11/11/24 14:00 19:42 04:58 WBC 10.4 RBC 3.57 L Hgb 10.5 L Hct 31.1 L MCV 87 MCH 29.4 MCHC 33.8 RDW Std Deviation 44.0 H Plt Count 228 Neut % (Auto) 67 Lymph % (Auto) 15 Summers % (Auto) 10 Eos % (Auto) 6 Baso % (Auto) 1 Neut # (Auto) 7.0 Lymph # (Auto) 1.6 Summers # (Auto) 1.1 H Eos # (Auto) 0.6 H Baso # (Auto) 0.1 Immature Gran # (Auto) 0.09 H Absolute Nucleated RBC 0.00 Immature Gran % 1 H Nucleated RBC % 0 PT 10.9 INR 1.0 APTT 62.0 H Activated Clotting Time Sodium 143 Potassium 5.4 H D Chloride 109 H Carbon Dioxide 22.8 Anion Gap 11 BUN 49 H Creatinine 3.7 H Estim Creat Clear Calc 16.0 L eGFR 15 L BUN/Creatinine Ratio 13 Glucose 104 Calculated Osmolality 297 H Uric Acid 7.7 Calcium 8.3 Corrected Calcium 8.9 Phosphorus 3.4 3.3 Magnesium 2.2 Total Bilirubin 0.3 AST 13 ALT < 7 L Alkaline Phosphatase 75 Troponin I 2.282 H* D Total Protein 5.6 L Albumin 3.3 L Globulin 2.3 Albumin/Globulin Ratio 1.4 PTH Intact 204.7 H 11/11/24 11/11/24 10:11 15:27 WBC RBC Hgb Hct MCV MCH MCHC RDW Std Deviation Plt Count Neut % (Auto) Lymph % (Auto) Summers % (Auto) Eos % (Auto) Baso % (Auto) Neut # (Auto) Lymph # (Auto) Summers # (Auto) Eos # (Auto) Baso # (Auto) Immature Gran # (Auto) Absolute Nucleated RBC Immature Gran % Nucleated RBC % PT INR APTT Activated Clotting Time 243.0 H Sodium Potassium 4.4 D Chloride Carbon Dioxide Anion Gap BUN Creatinine Estim Creat Clear Calc eGFR BUN/Creatinine Ratio Glucose Calculated Osmolality Uric Acid Calcium Corrected Calcium Phosphorus Magnesium 2.2 Total Bilirubin AST ALT Alkaline Phosphatase Troponin I Total Protein Albumin Globulin Albumin/Globulin Ratio PTH Intact Quality Measures Quality Measures none Advance care planning discussed with:: patient Assessment & Plan Assessment Current Active Medications: Generic Name Dose Route Start Last Admin Trade Name Freq PRN Reason Stop Dose Admin Acetaminophen 650 mg 11/08/24 20:21 Acetaminophen 325 Mg Tablet PO 12/08/24 20:20 Q6H PRN Fever >100.4 or pain Al Hydrox/Mg Hydrox/Simethicone 15 ml 11/10/24 16:46 Mg Hyd/Al Hyd/[place] (Maalox Reg) Susp 30 Ml Udc PO 12/10/24 16:45 QID PRN HEARTBURN Amlodipine Besylate 5 mg 11/10/24 17:00 11/10/24 17:32 Amlodipine Besylate 5 Mg Tablet PO 12/10/24 16:59 5 mg QDAY NAHED Administration Aspirin 81 mg 11/09/24 09:00 11/11/24 07:46 Aspirin Ec 81 Mg Tabec PO 12/09/24 08:59 81 mg QDAY NAHED Administration Atorvastatin Calcium 80 mg 11/09/24 21:00 11/10/24 20:42 Atorvastatin Calcium 20 Mg Tablet PO 12/09/24 20:59 80 mg HS NAHED Administration Carvedilol 3.125 mg 11/11/24 08:00 11/11/24 16:43 Carvedilol 3.125 Mg Tablet PO 12/11/24 07:59 Not Given BIDWM NAHED Docusate Sodium 100 mg 11/08/24 20:21 Docusate Sod 100 Mg Capsule PO 12/08/24 20:20 QDAY PRN CONSTIPATION Protocol Ferrous Sulfate 325 mg 11/10/24 10:00 11/10/24 10:38 Ferrous Sulf 325 Mg Tablet PO 12/10/24 09:59 325 mg QOD NAEHD Administration Hydralazine HCl 10 mg 11/10/24 22:14 11/11/24 13:02 Hydralazine Inj 20 Mg/Ml Vial IVP 12/10/24 16:05 10 mg Q6H PRN Administration SBP >170, hr<100 Losartan Potassium 50 mg 11/09/24 09:45 11/09/24 09:59 Losartan Potassium 25 Mg Tablet PO 12/09/24 09:44 50 mg QDAY NAHED Administration Melatonin 6 mg 11/09/24 21:00 11/10/24 20:42 Melatonin 3 Mg Tablet PO 12/09/24 20:59 6 mg HS NAHED Administration Nitroglycerin 0.4 mg 11/08/24 22:03 11/09/24 18:40 Nitroglycerin 0.4 Mg Subl Btl #25 SL 1 dose Q5MIN PRN Administration CHEST PAIN Ondansetron HCl 4 mg 11/08/24 20:21 Ondansetron Inj 2 Mg/Ml Inj 2 Ml IVP 12/08/24 20:20 Q6H PRN NAUSEA OR VOMITING Protocol Pantoprazole Sodium 40 mg 11/09/24 21:00 11/11/24 16:43 Pantoprazole Inj 40 Mg Vial IVP 12/09/24 20:59 Not Given QDAY NAHED Sennosides 1 tab 11/08/24 20:21 Senna Tablet PO 12/08/24 20:20 QDAY PRN constipation Protocol Tamsulosin HCl 0.4 mg 11/09/24 21:00 11/11/24 16:43 Tamsulosin Hcl 0.4 Mg Capsule PO 12/09/24 20:59 Not Given BID NAHED Ticagrelor 90 mg 11/11/24 21:00 Ticagrelor 90 Mg Tablet PO 12/11/24 20:59 BID NAHED Plan Patient is a 84 year old male with past medical history of hypertension, diabetes mellitus type II (no medication currentlY) CKD IV (GFR 15), and stroke who was admitted on 11/08/2024 for typical chest pain on 11/08/2024. #CAD s/p mid LCx stent #Troponemia, likely NSTEMI I #AV Block, type I NSTEMI type I with elevated troponin, typical chest pain, and no ST elveation noted on EKG vs NSTEMI II demand ischemia vs STEMI less likley. Plan for Cath on Monday. NPO aftermight. Metoprolol Tartrate discontinued on 11/10/2024. 11/11/2024: LHC and Ultralow contrast PCI of mid LCX performed to minimize kidney injury: Total contrast used: 45 to 50 mL Acute coronary syndrome: NSTEMI-peak troponin of 2.9 - Successful PCI of the mid LCx with 3.0 x 12 mm Jaylan CHERIE stent with excellent results, no complications and PADDY-3 flow. LHC showed severe double vessel CAD with subtotal occlusion 99% stenosis of the mid LCx with PADDY II flow in the OM 2, severe diffuse disease from the proximal to the distal RCA with multiple tandem lesions, moderate 40 to 50% stenosis of the proximal LAD as well as the proximal LCx. Rest of the coronary artery segments) showed only mild disease. 1. Recommend aggressive medical therapy as well as aggressive risk factor modification for the severe residual disease of the small to medium RCA along with a moderate disease in the proximal LAD and LCx. 2. Patient wanted to avoid dialysis even though he knows that he is CKD stage V and hence low contrast cath and PCI was performed with less than 50 cc of contrast. Only treated the culprit vessel LCx with severe 99% stenosis and PADDY II flow. Continue IV fluids for tonight and monitor kidney function closely. Nephrology is on board. Plan for RCA PCI only if patient has severe symptoms and will need a complex PCI with multiple long stents that will require more contrast usage and will increase his risk for dialysis also 3. Recommended dual antiplatelet therapy with aspirin 81 mg once daily lifetime and Brilinta 90 mg twice daily for at least 1 year. High intensity statin on Lipitor 80 mg once daily. Beta-pardeep if BP and HR are permissible Echo: Normal LV size and function. Estimated LVEF is 55 to 60%. Grade 1 diastolic dysfunction. 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 On admission, worsening Cr greater than baseline at 3.8 which would be increase >0.3. Likely in the setting of pre-renal FERDINAND vs obstructive given history of BPH vs worsnening CKD Plan -LR 80 cc x1 11/10/2024, NS @100 cc X1 s/p cath -Avoid nephrotoxins -Renally dose medicaiton -Monitor urine output and Cr -nephrology consulted, Dr. Dimas, appreciate recommendations. #Hypertension Past medical history of hypertension with home medication of Amlodipine 10 mg PO Qday and Losartan 100 mg QDay -Plan -Consider restarting home medication of Amlodpine -->Amlodipine 5 mg Qday -Losartan 100 mg qday, on hold #Diabetes Mellitus Type 2 Past medical history of diabetes, current a1c of 5.9 with fasting glucose of 96 and on admission glucose of 237. Plan -Consider sliding scale if fasting glucose worsens. #Normocytic Anemia Likely secondary to anemia of chronic disease, consider Ferritin vs CKD low EPO vs iron deficiency Dx: Hgb 9.8 hct 30.3. MCV 90, Iron panel: iron 56, TIBC 209 (L), Iron saturation 26, and unsat iron binding 153 Plan -Ferrous Sulfate 325 PO QOD #Leukocytosis, improving Likely reactive in the setting of NSTEMI vs less likely infectious cause as no pyrexia, no active disease noted on chest x-ray, and UA negative. Plan -Continue to monitor #BNP Tamsulosin #Sinus Bradycardia, resolved Health Maintenance: Disp: Pt is currently admitted to floors for further management of NSTEMI , awaiting Cath FEN: NPO after midnight DVT: Heparin ACS Code: DNR - The patient's plan was discussed with attending Dr. Seth Mcneil MD PGY1 Internal Medicine Attending Provider Attestation/Addendum I have personally seen and examined the patient separately on the above date of service and discussed the plan of care with the resident. I reviewed the resident Dr. Marge Mcneil consultation progress note and agree with the resident findings and plan in the note above and have also edited the documentation to reflect my findings and plan. Karlo Ann M.D. Interventional Cardiology
[2024-11-11] MEDS: carVEDILOL 3.125 MG TABLET PO (17:30)
[2024-11-11] MEDS: TAMSULOSIN HCL 0.4 MG CAPSULE 0.8 MG PO (17:46)
--- NOTE | 2024-11-11 18:40 | ESOP_ITS ---
Cardiac Cath Procedure Procedure Name DATE OF OPERATION: 11/11/2024 PROCEDURE PERFORMED: 1. Successful PCI of the mid LCx with 3.0 x 12 mm Mccaskill CHERIE stent with excellent results, no complications and PADDY-3 flow. 2. Left heart cardiac catheterization including left and right coronary angiograms 2. Ultrasound-guided access of the right radial artery 3. Conscious sedation for 30 minutes CONFERENCE DIRECTOR: Karlo Ann MD Procedure Narrative HISTORY AND INDICATIONS: A 84-year-old male with a past medical history of CKD stage IV baseline creatinine around 3.5-4, mostly secondary to longstanding essential hypertension as well as type 2 diabetes mellitus, diabetic nephro jo-ann, hyperlipidemia,, osteoarthritis, history of TIA versus stroke few years ago, chronic smoker with more than 65-87-mnck-year smoking history, BPH, mild chronic anemia secondary to CKD presented to the emergency department for further evaluation of chest pain and an elevated troponin that was sent by the primary doctor. Troponin before coming to the hospital was 2.0 so cardiology was consulted for further evaluation. Troponins peaked 2.9 and patient continued to have chest pain and was recommended at the left heart cardiac catheterization. All risk benefits and alternatives of cardiac catheterization were explained to the patient in detail including the risk of bleeding, stroke, heart attack and . Patient agreeable for the procedure and provided consent for the same. Patient brought to the cardiac catheterization lab for further evaluation with [facility] and possible PCI. DESCRIPTION OF PROCEDURE: The patient was brought to the cardiac catheterization lab analysis the precautions were followed. Patient was given 1 Mg of Versed and 50 mcg of fentanyl for moderate conscious sedation. 2 mL of lidocaine was given in the right wrist. The right radial artery was accessed via the ultrasound guidance as well as micropuncture technique. A 6 [place] glide sheath was introduced. We then used a 6 [place] TIG 4 catheter to perform the left and right coronary angiogram as well as a left ventriculogram which showed the following findings. 1. Left main was a large-caliber vessel with mild calcification as well as only mild disease. 2. Co-dominant circumflex circulation 3. LAD is a large sized artery with mild calcification of moderate 40 to 50% stenosis in the proximal LAD but rest of the LAD with only minimal disease. Small diagonals with mild disease. 4. LCx is a large sized artery and codominant vessel with mild calcification. There was severe 99% stenosis of the mid LCx immediately after the bifurcation of the OM1 with PADDY II flow to the OM 2. Mild disease noted of the OM1 and OM 2. 5. RCA is a small to medium sized artery with severe diffuse disease from the proximal to the distal RCA with multiple tandem lesions. Small RPDA and RPL with mild disease. INTERVENTION: A 6 [place] EBU 3.5 was used to engage the left main artery. Patient was given weight-based heparin and ACT was greater than 250 although the procedure. Run-through guidewire was used to cross the lesion in the mid LCx without any complications. We then used an 2.5 x 15 mm semicompliant balloon and predilated the mid LCx at 8 and 10 estela. We then deployed a 3.0 x 12 mm Mccaskill CHERIE stent in the mid LCx close to the ostium of the OM1 at 12 estela and postdilated with again 12 estela with excellent results and return of PADDY-3 flow. There were no complications. Patient was already on aspirin 81 mg once daily but was given additional aspirin 81 mg and Brilinta 180 mg prior to the PCI. A radial band was used to achieve the hemostasis of the right radial artery access. Patient will be monitored in the cardiac Video Game Programmer for the next 2 to 3 hours and will be transferred to the telemetry floor. Complications: None Specimens: None Blood loss: Estimated 10 ML Total contrast used: 45 to 50 mL Summary/findings: 1. Acute coronary syndrome: NSTEMI-peak troponin of 2.9 LHC showed severe double vessel CAD with subtotal occlusion 99% stenosis of the mid LCx with PADDY II flow in the OM 2, severe diffuse disease from the proximal to the distal RCA with multiple tandem lesions, moderate 40 to 50% stenosis of the proximal LAD as well as the proximal LCx. Rest of the coronary artery segments) showed only mild disease. 2. Successful PCI of the mid LCx with 3.0 x 12 mm Mccaskill CHERIE stent with excellent results, no complications and PADDY-3 flow. Recommendations: 1. Recommend aggressive medical therapy as well as aggressive risk factor modification for the severe residual disease of the small to medium RCA along with a moderate disease in the proximal LAD and LCx. 2. Patient wanted to avoid dialysis even though he knows that he is CKD stage V and hence low contrast cath and PCI was performed with less than 50 cc of contrast. Only treated the culprit vessel LCx with severe 99% stenosis and PADDY II flow. Continue IV fluids for tonight and monitor kidney function closely. Nephrology is on board. Plan for RCA PCI only if patient has severe symptoms and will need a complex PCI with multiple long stents that will require more contrast usage and will increase his risk for dialysis also 3. Recommended dual antiplatelet therapy with aspirin 81 mg once daily lifetime and Brilinta 90 mg twice daily for at least 1 year. High intensity statin on Lipitor 80 mg once daily. Beta-pardeep if BP and HR are permissible 4. Patient recommended not to lift any weight more than 5 to 10 pounds for the next 7 days. Karlo Ann MD Interventional Cardiology.
[2024-11-11] MEDS: ATORVASTATIN CALCIUM 20 MG TABLET 80 MG PO (20:27)
[2024-11-11] MEDS: MELATONIN 3 MG TABLET 6 MG PO (20:27)
[2024-11-11] MEDS: TICAGRELOR 90 MG TABLET PO (20:29)
[2024-11-12] VITALS (9 sets, daily range): BP systolic 134–151; BP diastolic 66–88; PULSE 61–86; RESP 12–19; TEMP 36.4–37.1; O2SAT 96–98; BMI 22.8
[2024-11-12 08:16] LABS: Albumin, Serum 3.8 gm/dL (3.4-4.8); Anion Gap 10 (7-16); BUN/Creatinine Ratio 12 Ratio (12-20); Blood Urea Nitrogen 47 mg/dL (9-23); Calcium 8.4 mg/dL (8.3-10.6); Calcium (Corrected) 8.6 mg/dL (8.5-10.1); Carbon Dioxide 22.9 mMol/L (20.0-31.0); Chloride 108 mMol/L (98-107); Creatinine (Component) 3.8 mg/dL (0.6-1.3); Estimated Creatinine Clearance 15.3 mL/min (>60); Glucose 108 mg/dL (74-106); Osmolality,Calculated 294 (275-295); Sodium 141 mMol/L (136-145); eGFR 15 See Note
[2024-11-12 08:19] LABS: Basophils # (Auto) 0.1 Thou/mm3 (0.0-0.2); Basophils % (Auto) 1 % (0-2.5); Eosinophils # (Auto) 0.5 Thou/mm3 (0.0-0.5); Eosinophils % (Auto) 4 % (0-10); Hematocrit 36.7 % (41.0-53.0); Hemoglobin 12.1 g/dL (13.5-16.0); Immature Granulocytes % (Auto) 2 % (0-0); Immature Granulocytes Auto 0.19 Thou/mm3 (0.00-0.00); Lymphocytes # (Auto) 1.3 Thou/mm3 (1.0-4.8); Lymphocytes % (Auto) 11 % (10-50); Mean Corpuscular Hemoglobin 29.6 pg (25.0-35.0); Mean Corpuscular Volume 90 fL (80-100); Monocytes # (Auto) 1.3 Thou/mm3 (0.0-0.8); Monocytes % (Auto) 11 % (0-12); Neutrophils # (Auto) 8.8 Thou/mm3 (1.8-7.7); Neutrophils % (Auto) 72 % (37-80); Nucleated Red Blood Cell % 0 /100 WBC (0); Platelet Count 252 Thou/mm3 (140-440); RDW Standard Deviation 45.6 fL (35.1-43.9); Red Blood Count 4.09 Miln/mm3 (4.50-5.90); White Blood Count 12.1 Thou/mm3 (3.8-10.6)
[2024-11-12] MEDS: TICAGRELOR 90 MG TABLET PO ×2 (08:27→20:50)
[2024-11-12] MEDS: ASPIRIN EC 81 MG TABEC PO (08:27)
[2024-11-12] MEDS: amLODIPine BESYLATE 5 MG TABLET PO (08:27)
[2024-11-12] MEDS: PANTOPRAZOLE INJ 40 MG VIAL IVP (08:27)
[2024-11-12] MEDS: carVEDILOL 3.125 MG TABLET 6.25 MG PO ×2 (08:28→18:25)
--- NOTE | 2024-11-12 09:28 | PD.RESPRO ---
Documentation for date of: 11/12/24 Subjective Subjective Interval history: Patient is a 84 year old male with past medical history of hypertension, diabetes mellitus type II (no medication currently) CKD IV (GFR 15), and stroke who was admitted on 11/08/2024 for typical chest pain on 11/08/2024. 11/10/2024: Patient examined this morning at bedside. Patient denied chest pain. Patient denied shortness of breath. Denied history of lower pedal edema. 11/11/2024: Patient examinded at bedside. Patient denied chest pain or shortness of breath overnight. Denied chills or pyrexia orvernight. Scheduled for Cath today. Patient follows Dr. Parra for nephrology, stated if he ever requires dialysis, he will refuse. LHC and Ultralow contrast PCI of mid LCX performed to minimize kidney injury: Total contrast used: 45 to 50 mL 11/12/2024: Patinet examinded at bedside. Patient denied chest pain or shortness of breath. No afebrile overnight. 1 bowel movement on 11/11/2024. Patient off nasal cannula and saturating well at 98%. No increased work of breathing noted. No arrythmias noted overnight. No bradycardia. Brilinta and Asirin. Pateint tolerated increase in Coreg 6.25 mg PO BIDWM, vitals stable. Exam Vital Signs Temp Pulse Resp BP Pulse Ox O2 Del Method O2 Flow Rate 97.6 F 79 19 148/74 H 97 Nasal Cannula 1 11/12/24 08:00 11/12/24 08:28 11/12/24 08:00 11/12/24 08:28 11/12/24 04:00 11/12/24 04:00 11/12/24 04:00 Narrative Exam General Appearance: Alert & Oriented X3, well-nourished male who is lying in bed in no acute distress HEENT: Skull symmetrical and atraumatic. Conjunctivae pink and moist. Pupils equal, round, reactive to light and accommodation (PERRL). External ear without lesion or discharge. Straight, nares patient, mucosa pink, no discharge. Cardio: Normal Rate and Rhythm with S1 and S2 heart sounds. No murmurs or extra heart sounds auscultated. No bruits on carotid auscultation. No peripheral edema or cyanosis. Lungs: Symmetric with good expansion. Chest and back non-tender. Breath sounds vesicular without crackles, wheezing or rhonchi Abdomen: Non-tender, Non-distended, Normal Reactive Bowel Sounds Neuro: Alert, cooperative, oriented to person, place, and time. Speech clear. CN grossly intact. Upper motor strength 5/5 and Lower motor strength 5/5. Sensation intact. Objective Labs 11/12/24 07:14 11/12/24 07:14 Labs: Laboratory Results - last 24 hr 11/11/24 11/11/24 11/12/24 10:11 15:27 07:14 WBC 12.1 H RBC 4.09 L Hgb 12.1 L Hct 36.7 L MCV 90 MCH 29.6 MCHC 33.0 RDW Std Deviation 45.6 H Plt Count 252 Neut % (Auto) 72 Lymph % (Auto) 11 [place] % (Auto) 11 Eos % (Auto) 4 Baso % (Auto) 1 Neut # (Auto) 8.8 H Lymph # (Auto) 1.3 [place] # (Auto) 1.3 H Eos # (Auto) 0.5 Baso # (Auto) 0.1 Immature Gran # (Auto) 0.19 H Absolute Nucleated RBC 0.00 Immature Gran % 2 H Nucleated RBC % 0 Activated Clotting Time 243.0 H Sodium 141 Potassium 4.4 D 5.0 D Chloride 108 H Carbon Dioxide 22.9 Anion Gap 10 BUN 47 H Creatinine 3.8 H Estim Creat Clear Calc 15.3 L eGFR 15 L BUN/Creatinine Ratio 12 Glucose 108 H Calculated Osmolality 294 Calcium 8.4 Corrected Calcium 8.6 Phosphorus 3.0 Magnesium 2.2 Albumin 3.8 D Quality Measures Quality Measures none Advance care planning discussed with:: patient Assessment & Plan Assessment Current Active Medications: Generic Name Dose Route Start Last Admin Trade Name Freq PRN Reason Stop Dose Admin Acetaminophen 650 mg 11/08/24 20:21 Acetaminophen 325 Mg Tablet PO 12/08/24 20:20 Q6H PRN Fever >100.4 or pain Al Hydrox/Mg Hydrox/Simethicone 15 ml 11/10/24 16:46 Mg Hyd/Al Hyd/[place] (Maalox Reg) Susp 30 Ml Udc PO 12/10/24 16:45 QID PRN HEARTBURN Amlodipine Besylate 5 mg 11/10/24 17:00 11/12/24 08:27 Amlodipine Besylate 5 Mg Tablet PO 12/10/24 16:59 5 mg QDAY NAHED Administration Aspirin 81 mg 11/09/24 09:00 11/12/24 08:27 Aspirin Ec 81 Mg Tabec PO 12/09/24 08:59 81 mg QDAY NAHED Administration Atorvastatin Calcium 80 mg 11/09/24 21:00 11/11/24 20:27 Atorvastatin Calcium 20 Mg Tablet PO 12/09/24 20:59 80 mg HS NAHED Administration Carvedilol 6.25 mg 11/12/24 08:00 11/12/24 08:28 Carvedilol 3.125 Mg Tablet PO 12/12/24 07:59 6.25 mg BIDWM NAHED Administration Docusate Sodium 100 mg 11/08/24 20:21 Docusate Sod 100 Mg Capsule PO 12/08/24 20:20 QDAY PRN CONSTIPATION Protocol Ferrous Sulfate 325 mg 11/10/24 10:00 11/10/24 10:38 Ferrous Sulf 325 Mg Tablet PO 12/10/24 09:59 325 mg QOD NAHED Administration Hydralazine HCl 10 mg 11/10/24 22:14 11/11/24 13:02 Hydralazine Inj 20 Mg/Ml Vial IVP 12/10/24 16:05 10 mg Q6H PRN Administration SBP >170, hr<100 Losartan Potassium 50 mg 11/09/24 09:45 11/09/24 09:59 Losartan Potassium 25 Mg Tablet PO 12/09/24 09:44 50 mg QDAY NAHED Administration Melatonin 6 mg 11/09/24 21:00 11/11/24 20:27 Melatonin 3 Mg Tablet PO 12/09/24 20:59 6 mg HS NAHED Administration Nitroglycerin 0.4 mg 11/08/24 22:03 11/09/24 18:40 Nitroglycerin 0.4 Mg Subl Btl #25 SL 1 dose Q5MIN PRN Administration CHEST PAIN Ondansetron HCl 4 mg 11/08/24 20:21 Ondansetron Inj 2 Mg/Ml Inj 2 Ml IVP 12/08/24 20:20 Q6H PRN NAUSEA OR VOMITING Protocol Pantoprazole Sodium 40 mg 11/09/24 21:00 11/12/24 08:27 Pantoprazole Inj 40 Mg Vial IVP 12/09/24 20:59 40 mg QDAY NAHED Administration Sennosides 1 tab 11/08/24 20:21 Senna Tablet PO 12/08/24 20:20 QDAY PRN constipation Protocol Tamsulosin HCl 0.8 mg 11/11/24 17:41 11/11/24 17:46 Tamsulosin Hcl 0.4 Mg Capsule PO 12/11/24 17:40 0.8 mg QDAY@1700 NAHED Administration Ticagrelor 90 mg 11/11/24 21:00 11/12/24 08:27 Ticagrelor 90 Mg Tablet PO 12/11/24 20:59 90 mg BID NAHED Administration Plan Patient is a 84 year old male with past medical history of hypertension, diabetes mellitus type II (no medication currentlY) CKD IV (GFR 15), and stroke who was admitted on 11/08/2024 for typical chest pain on 11/08/2024. #CAD s/p mid LCx stent #Troponemia, likely NSTEMI I #AV Block, type I NSTEMI type I with elevated troponin, typical chest pain, and no ST elveation noted on EKG vs NSTEMI II demand ischemia vs STEMI emilia likley. Plan for Cath on Monday. NPO aftermight. Metoprolol Tartrate discontinued on 11/10/2024. 11/11/2024: LHC and Ultralow contrast PCI of mid LCX performed to minimize kidney injury: Total contrast used: 45 to 50 mL Acute coronary syndrome: NSTEMI-peak troponin of 2.9 - Successful PCI of the mid LCx with 3.0 x 12 mm Jaylan CHERIE stent with excellent results, no complications and PADDY-3 flow. LHC showed severe double vessel CAD with subtotal occlusion 99% stenosis of the mid LCx with PADDY II flow in the OM 2, severe diffuse disease from the proximal to the distal RCA with multiple tandem lesions, moderate 40 to 50% stenosis of the proximal LAD as well as the proximal LCx. Rest of the coronary artery segments showed only mild disease. 1. Recommend aggressive medical therapy as well as aggressive risk factor modification for the severe residual disease of the small to medium RCA along with a moderate disease in the proximal LAD and LCx. 2. Patient wanted to avoid dialysis even though he knows that he is CKD stage V and hence low contrast cath and PCI was performed with less than 50 cc of contrast. Only treated the culprit vessel LCx with severe 99% stenosis and PADDY II flow. Continue IV fluids for tonight and monitor kidney function closely. Nephrology is on board. Plan for RCA PCI only if patient has severe symptoms and will need a complex PCI with multiple long stents that will require more contrast usage and will increase his risk for dialysis also 3. Recommended dual antiplatelet therapy with aspirin 81 mg once daily lifetime and Brilinta 90 mg twice daily for at least 1 year. High intensity statin on Lipitor 80 mg once daily. Beta-pardeep if BP and HR are permissible Echo: Normal LV size and function. Estimated LVEF is 55 to 60%. Grade 1 diastolic dysfunction. Cath report: PADDY 3 points Plan -Coreg 6.25 mg BID -Asprin 81 mg Qday-11/11/2025 -Brilinta 90 mg PO BID-11/11/2025 -Atorvasting 80 mg HS - No BEN or ARB due to the stage IV-V 20 disease or CKD - #FERDINAND on CKD stage IV (GFR 15) Likely secondary to diabetic nephrophathy, GFR appears to range from 14-15 for the past several reads. On admission, worsening Cr greater than baseline at 3.8 which would be increase >0.3. Likely in the setting of pre-renal FERDINAND vs obstructive given history of BPH vs worsnening CKD Plan -Avoid nephrotoxins -Renally dose medicaiton -Monitor urine output and Cr -nephrology consulted, Dr. Dimas, appreciate recommendations. #Hypertension Past medical history of hypertension with home medication of Amlodipine 10 mg PO Qday and Losartan 100 mg QDay -Plan -Amlodipine 5 mg Qday -Losartan 100 mg qday, on hold #Diabetes Mellitus Type 2 Past medical history of diabetes, current a1c of 5.9 with fasting glucose of 96 and on admission glucose of 237. Plan -Consider sliding scale if fasting glucose worsens. #Normocytic Anemia Likely secondary to anemia of chronic disease, consider Ferritin vs CKD low EPO vs iron deficiency Dx: Hgb 9.8 hct 30.3. MCV 90, Iron panel: iron 56, TIBC 209 (L), Iron saturation 26, and unsat iron binding 153 Plan -Ferrous Sulfate 325 PO QOD #Leukocytosis Likely reactive in the setting of NSTEMI type I and reactive secondary to recent cath s/p stent vs less likely infectious cause as no pyrexia, no active disease noted on chest x-ray, and UA negative. WBC 10.4-->12.1 (11/12/2024) Plan -Continue to monitor #BNP -Continue home medication of Tamsulosin #Sinus Bradycardia, resolved Health Maintenance: Disp: Pt is currently admitted to floors for further management of NSTEMI and now CAD s/p PCI and management of renal function. FEN: NPO after midnight DVT: Heparin ACS Code: DNR - The patient's plan was discussed with attending Dr. Seth Mcneil MD PGY1 Internal Medicine Attending Provider Attestation/Addendum I have personally seen and examined the patient separately on the above date of service and discussed the plan of care with the resident. I reviewed the resident Dr. Marge Mcneil consultation progress note and agree with the resident findings and plan in the note above and have also edited the documentation to reflect my findings and plan. Patient seen and examined at bedside. No new cardiac complaints and no chest pain and is doing well. Right radial site appears clean without any evidence of bruising hematoma or bleeding. 2+ radial pulses. Patient initially presented with an NSTEMI with a peak troponin of 2.9. Patient has stage chest for chronic knee disease but did not want to have any kind of dialysis but patient was having acute coronary syndrome and hence left heart cardiac assessment was recommended. Nephrology was consulted for further evaluation given his CKD stage V and the need for coronary angiogram. On 11/11/2024 LHC and low contrast PCI of mid LCX performed to minimize kidney injury: Total contrast used only 45 to 50 mL for both the LHC as well as PCI. LHC showed severe double vessel CAD with subtotal occlusion 99% stenosis of the mid LCx with PADDY II flow in the OM 2, severe diffuse disease from the proximal to the distal RCA with multiple tandem lesions, moderate 40 to 50% stenosis of the proximal LAD as well as the proximal LCx. Rest of the coronary artery segments showed only mild disease. Successful PCI of the mid LCx with 3.0 x 12 mm Jaylan CHERIE stent with excellent results, no complications and PADDY-3 flow. Recommend aggressive medical therapy as well as aggressive risk factor modification for the severe residual disease of the small to medium RCA along with a moderate disease in the proximal LAD and LCx. Continue aspirin 81 mg once daily for lifetime and Brilinta 90 mg twice daily for at least 10 years. High intensity statin Lipitor 80 mg once daily and Coreg 6.25 mg twice daily. No BEN or ARB because of the CKD stage V. Kidney function appears to be stable after the cardiac catheterization and only less than 50 cc of dye was used.Today BUN is 47 and creatinine is 3.8 which is his baseline. Will monitor for another 24 hours to monitor for any contrast-induced nephropathy. If the patient's kidney function remains stable and urine output is adequate then patient can be discharged home tomorrow morning. Blood pressure was high and increased Coreg to 6.25 mg twice daily. If blood pressure continues to be elevated then patient should be started on amlodipine or hydralazine. Recommended patient to follow-up with me in the clinic in the next 7 days. Karlo Ann M.D. Interventional Cardiology
--- NOTE | 2024-11-12 11:08 | PC.SS ---
PRODUCT DEVELOPMENT ASSISTANT conducted bedside contact with the patient to confirm d/c plan. Patient confirmed plan to d/c home. Patient declined SNF placement. Patient receptive to home health, no preferred agency identified.
--- NOTE | 2024-11-12 11:31 | ESPR_ITS ---
Documentation for date of: 11/12/24 Subjective Subjective Interval history: Interval history: Covering Dr Parra. Mr. Fall is a 84 y/o gentleman with PMHx significant for HTN, CKD IV (under Dr Parra), possible history of previous stroke, anemia, BPH presented to the emergency department with 3-day history of chest pain associated with shortness of breath. Patient stated that pressure is like substernal without any radiation 3 out of 10 especially while lying in bed. Has been intermittent. Primary care physician dated troponin and was elevated and sent him to the emergency department. Patient currently seen in telemetry. Dr. Cheng Fan saw the patient and recommended angiogram on Monday. Renal consultation requested for clearance prior to cardiac catheterization as patient has CKD stage IV. The emergency department WBC 12.8, hemoglobin 12.1, troponin 1.9, BNP 885, BUN 53, creatinine 4, GFR 14, chest x-ray negative, EKG mild AV block. Patient was started on heparin drip, aspirin and was transferred to telemetry. Medications: Flomax, amlodipine, tamsulosin 11/10/2024 patient currently seen in telemetry. Had minimal chest pain while moving. Also complaining of acid reflux. Protonix did help. I gave him Maalox. Currently on lactated Ringer at 80 mL/h. Blood pressure 157/76, heart rate 61. WBC 10.7, hemoglobin 9.8, platelets 213. Sodium 141, potassium 4.9, bicarbonate 21.3, BUN 49, creatinine 3.7, GFR 15, calcium 8.6, phosphorus 3.5, magnesium 2.2, iron saturation 26, ferritin 111, LFTs normal, albumin 3.1, troponin 2.7, urinalysis completely bland. Renal ultrasound showed CKD changes with a significant cortical thinning. Echocardiogram showed ejection fraction 55 to 60% and diastolic dysfunction. 11/11/2024 patient currently seen in [employer], pending scheduled coronary angiogram. Reported no acute discomfort, vitally stable, patient had refused hemodialysis during previous discussion. Current labs sodium 143, potassium 5.4, BUN 49, creatinine 3.7, EGFR 15. 11/12/2024: Patient seen and examined at bedside this morning. No acute overnight events. Patient is s/p cardiac cath on 11/11. PCI of left circumflex with severe 99% stenosis. Cardio recommends RCA PCI only if patient has severe symptoms. Continue 81 mg aspirin, 90 mg Brilinta twice daily, high intensity statin and beta-pardeep if BP and HR permissible. He is in good spirits. Vitals stable, labs reviewed. Renal function stable, and patient does not want HD at this time. Exam Vital Signs Temp Pulse Resp BP Pulse Ox O2 Del Method O2 Flow Rate 97.6 F 79 19 148/74 H 97 Nasal Cannula 1 11/12/24 08:00 11/12/24 08:28 11/12/24 08:00 11/12/24 08:28 11/12/24 04:00 11/12/24 04:00 11/12/24 04:00 Narrative Exam Gen: AAOx3, pleasant to speak with HEENT: NCAT, PERRLA, EOMI, MMM CVS: normal S1, S2. RRR. No MRG Resp: CTA B/L. No rhonchi, rales, crackles or wheezing Abd: soft, non-tender, non-distended. BS+ in all 4 quadrants MSK: Good ROM in BUE & BLE. No edema or rash. Neuro: CN II-XII grossly intact. No focal deficits Objective Labs 11/13/24 05:22 11/12/24 07:14 Labs: Laboratory Results - last 24 hr 11/11/24 11/11/24 11/12/24 10:11 15:27 07:14 WBC 12.1 H RBC 4.09 L Hgb 12.1 L Hct 36.7 L MCV 90 MCH 29.6 MCHC 33.0 RDW Std Deviation 45.6 H Plt Count 252 Neut % (Auto) 72 Lymph % (Auto) 11 [place] % (Auto) 11 Eos % (Auto) 4 Baso % (Auto) 1 Neut # (Auto) 8.8 H Lymph # (Auto) 1.3 [place] # (Auto) 1.3 H Eos # (Auto) 0.5 Baso # (Auto) 0.1 Immature Gran # (Auto) 0.19 H Absolute Nucleated RBC 0.00 Immature Gran % 2 H Nucleated RBC % 0 Activated Clotting Time 243.0 H Sodium 141 Potassium 4.4 D 5.0 D Chloride 108 H Carbon Dioxide 22.9 Anion Gap 10 BUN 47 H Creatinine 3.8 H Estim Creat Clear Calc 15.3 L eGFR 15 L BUN/Creatinine Ratio 12 Glucose 108 H Calculated Osmolality 294 Calcium 8.4 Corrected Calcium 8.6 Phosphorus 3.0 Magnesium 2.2 Albumin 3.8 D Quality Measures Quality Measures none Advance care planning discussed with:: patient Assessment & Plan Assessment Current Active Medications: Generic Name Dose Route Start Last Admin Trade Name Freq PRN Reason Stop Dose Admin Acetaminophen 650 mg 11/08/24 20:21 Acetaminophen 325 Mg Tablet PO 12/08/24 20:20 Q6H PRN Fever >100.4 or pain Al Hydrox/Mg Hydrox/Simethicone 15 ml 11/10/24 16:46 Mg Hyd/Al Hyd/[place] (Maalox Reg) Susp 30 Ml Udc PO 12/10/24 16:45 QID PRN HEARTBURN Amlodipine Besylate 5 mg 11/10/24 17:00 11/12/24 08:27 Amlodipine Besylate 5 Mg Tablet PO 12/10/24 16:59 5 mg QDAY NAHED Administration Aspirin 81 mg 11/09/24 09:00 11/12/24 08:27 Aspirin Ec 81 Mg Tabec PO 12/09/24 08:59 81 mg QDAY NAHED Administration Atorvastatin Calcium 80 mg 11/09/24 21:00 11/11/24 20:27 Atorvastatin Calcium 20 Mg Tablet PO 12/09/24 20:59 80 mg HS NAHED Administration Carvedilol 6.25 mg 11/12/24 08:00 11/12/24 08:28 Carvedilol 3.125 Mg Tablet PO 12/12/24 07:59 6.25 mg BIDWM NAHED Administration Docusate Sodium 100 mg 11/08/24 20:21 Docusate Sod 100 Mg Capsule PO 12/08/24 20:20 QDAY PRN CONSTIPATION Protocol Ferrous Sulfate 325 mg 11/10/24 10:00 11/10/24 10:38 Ferrous Sulf 325 Mg Tablet PO 12/10/24 09:59 325 mg QOD NAHED Administration Hydralazine HCl 10 mg 11/10/24 22:14 11/11/24 13:02 Hydralazine Inj 20 Mg/Ml Vial IVP 12/10/24 16:05 10 mg Q6H PRN Administration SBP >170, hr<100 Losartan Potassium 50 mg 11/09/24 09:45 11/09/24 09:59 Losartan Potassium 25 Mg Tablet PO 12/09/24 09:44 50 mg QDAY NAHED Administration Melatonin 6 mg 11/09/24 21:00 11/11/24 20:27 Melatonin 3 Mg Tablet PO 12/09/24 20:59 6 mg HS NAHED Administration Nitroglycerin 0.4 mg 11/08/24 22:03 11/09/24 18:40 Nitroglycerin 0.4 Mg Subl Btl #25 SL 1 dose Q5MIN PRN Administration CHEST PAIN Ondansetron HCl 4 mg 11/08/24 20:21 Ondansetron Inj 2 Mg/Ml Inj 2 Ml IVP 12/08/24 20:20 Q6H PRN NAUSEA OR VOMITING Protocol Pantoprazole Sodium 40 mg 11/09/24 21:00 11/12/24 08:27 Pantoprazole Inj 40 Mg Vial IVP 12/09/24 20:59 40 mg QDAY NAHED Administration Sennosides 1 tab 11/08/24 20:21 Senna Tablet PO 12/08/24 20:20 QDAY PRN constipation Protocol Tamsulosin HCl 0.8 mg 11/11/24 17:41 11/11/24 17:46 Tamsulosin Hcl 0.4 Mg Capsule PO 12/11/24 17:40 0.8 mg QDAY@1700 NAHED Administration Ticagrelor 90 mg 11/11/24 21:00 11/12/24 08:27 Ticagrelor 90 Mg Tablet PO 12/11/24 20:59 90 mg BID NAHED Administration Plan #FERDINAND on CKD 4/5 Patient is progressing towards ESRD however has expressed that he did hemodialysis not want Continue to monitor renal function and continue gentle fluids #NSTEMI, with multivessel disease, s/p PCI #Hypertension Patient underwent cardiac cath on 11/11 with PCI in left circumflex => RCA to be treated with medical management Aspirin, Plavix, statin Coreg and amlodipine with as needed hydralazine; losartan held #Chronic normocytic anemia Appears chronic in the setting of chronic kidney disease Continue to monitor; consider Procrit to maintain hemoglobin >10 Patient seen and care discussed with my attending Dr. Dimas. Lesley Garcia MD PGY-3 Attending Provider Attestation/Addendum Patient seen and examined with resident physician Dr. Wahl. Note reviewed, agree with findings and recommendations. Patient had a cardiac catheterization which showed multivessel disease. Low dose contrast was used during angiogram. Patient absolutely declined dialysis. Renal fx stable- ok for dc. No need for emergency dialysis at this point.
--- NOTE | 2024-11-12 13:32 | PC.PT ---
PT eval received for SNF referral. But as per SW, patient declined SNF and wants to be dc to home. Will cancel PT evaluation.
--- NOTE | 2024-11-12 14:37 | PC.SS ---
Rounding Note: Cardiac cath conducted yesterday. Pending cardiology recommendations. Plan will be to d/c patient home. Possible d/c today.
--- NOTE | 2024-11-12 15:22 | PD.RESDS ---
Planned Discharge Date 11/12/24 DS: Providers Provider Date of admission: 11/08/24 20:21 Primary care physician: Physician No Primary/Family Admitting Provider: Adiel Benson MD Attending Provider on Admission: Glynn Otero DO Consults: 11/08/24 19:25 Consult to Cardiology Stat Comment: Consulting Provider: Karlo Ann 11/08/24 21:57 Consult to Nephrology Routine Comment: CKD, possibly requires cardiac cath Consulting Provider: Ness Parra 11/09/24 13:23 Consult to Nephrology Routine Comment: Consulting Provider: Trever Dimas Attending Provider on DC: Tanner Andrews MD Discharging Provider: Tanner Andrews MD Hospital Course Hospital Course Hospital course: 84 y/o M with PMHx significant for HTN, CKD, possible history of previous stroke presents with chief complaint of chest pain for 3 days. Labs at the time of admission are significant for WBC 12.8, hemoglobin 12.1, troponin 2.072 later downtrended to 1.9, BNP 885, BUN 53, creatinine 4. EKG at that time of admission showed sinus rhythm with first-degree AV block with frequent PVCs with no ST elevations. Echo showedNormal LV size and function. Estimated LVEF is 55 to 60%. Grade 1 diastolic dysfunction. Normal RV size and function. Insufficient TR to measure RVSP. Mild MR trace TR. IVC not well-visualized. blending operator, Dr. Ann is consulted in view of elevated troponins and chest pain. Memory Care Program Director, Dr. Dimas is consulted in view of CKD. Patient was started on heparin drip and underwent cardiac cath on 11/11/2024 Cardiac cath report and recommendations per blending operator include Summary/findings: 1. Acute coronary syndrome: NSTEMI-peak troponin of 2.9 [facility] showed severe double vessel CAD with subtotal occlusion 99% stenosis of the mid LCx with PADDY II flow in the OM 2, severe diffuse disease from the proximal to the distal RCA with multiple tandem lesions, moderate 40 to 50% stenosis of the proximal LAD as well as the proximal LCx. Rest of the coronary artery segments) showed only mild disease. 2. Successful PCI of the mid LCx with 3.0 x 12 mm [place] CHERIE stent with excellent results, no complications and PADDY-3 flow. Recommendations: 1. Recommend aggressive medical therapy as well as aggressive risk factor modification for the severe residual disease of the small to medium RCA along with a moderate disease in the proximal LAD and LCx. 2. Patient wanted to avoid dialysis even though he knows that he is CKD stage V and hence low contrast cath and PCI was performed with less than 50 cc of contrast. Only treated the culprit vessel LCx with severe 99% stenosis and PADDY II flow. Continue IV fluids for tonight and monitor kidney function closely. Nephrology is on board. Plan for RCA PCI only if patient has severe symptoms and will need a complex PCI with multiple long stents that will require more contrast usage and will increase his risk for dialysis also 3. Recommended dual antiplatelet therapy with aspirin 81 mg once daily lifetime and Brilinta 90 mg twice daily for at least 1 year. High intensity statin on Lipitor 80 mg once daily. Beta-pardeep if BP and HR are permissible 4. Patient recommended not to lift any weight more than 5 to 10 pounds for the next 7 days. Patient was recommended HD during hospitalization but patient denied HD and patient was informed about the risks and prognosis of not getting HD and patient understood the risks and consequences. Time Spent with Patient Time attestation: Total time spent providing and/or coordinating discharge services: Exam Vital Signs Temp Pulse Resp BP Pulse Ox O2 Del Method O2 Flow Rate 97.8 F 61 15 140/66 H 97 Room Air 1 11/12/24 12:00 11/12/24 12:11/12/24 12:11/12/24 12:11/12/24 12:11/12/24 12:11/12/24 04:00 Discharge Plan Prescriptions/Referrals Prescriptions/Med Rec: No Action amlodipine 10 mg Tablet 10 mg PO QDAY losartan 100 mg Tablet 100 mg PO QDAY tamsulosin 0.4 mg capsule 0.4 mg PO BID Referrals: No Primary/Family,Physician [Primary Care Provider] - Patient/Caregiver Discharge Instructions Print Language: Luxembourgish
--- NOTE | 2024-11-12 15:24 | ESPR_ITS ---
<Statement entered by Josue Bauer MD - 11/13/24 07:18> I discussed with and supervised the corporate communications intern physician involved in the care of this patient. Patient assessment and plan was discussed with entire medicine team, including my attending. I agree with the assessment and plan as documented by corporate communications intern doctor. Patient care was discussed with my attending physician Dr. Shanna Bauer, PGY-2 Documentation for date of: 11/12/24 Subjective Subjective Interval history: Patient is seen and examined at bedside No acute overnight events. Denies any other complaints Patient underwent cardiac cath yesterday and PCI to LCx was placed Patient was started on dual antiplatelets and high-dose statin by the community manager Vitals are stable. Physical examination remains unremarkable. Labs showed mildly elevated WBC and renal functions remained stable. Change Number Operator, Dr. Ann recommended to keep the patient in hospital for today for observation. Exam Vital Signs Temp Pulse Resp BP Pulse Ox O2 Del Method O2 Flow Rate 97.8 F 61 15 140/66 H 97 Room Air 1 11/12/24 12:11/12/24 12:11/12/24 12:11/12/24 12:11/12/24 12:11/12/24 12:11/12/24 04:00 Narrative Exam General: Awake. HEENT: Normocephalic, atraumatic, mucous membranes moist. Heart: Regular rate and rhythm, no murmurs. Lungs: Clear to auscultation with no wheezing or crackles. Abdomen: Soft, nondistended, nontender, positive bowel sounds. ?No guarding or rebound tenderness. Neurologic: Alert and oriented x3, no gross neurological deficit, and patient able to move all 4 extremities. Extremities: No edema. Skin: No rash or ecchymoses. Objective Labs 11/13/24 05:22 11/13/24 05:22 Labs: Laboratory Results - last 24 hr 11/11/24 11/12/24 15:27 07:14 WBC 12.1 H RBC 4.09 L Hgb 12.1 L Hct 36.7 L MCV 90 MCH 29.6 MCHC 33.0 RDW Std Deviation 45.6 H Plt Count 252 Neut % (Auto) 72 Lymph % (Auto) 11 [place] % (Auto) 11 Eos % (Auto) 4 Baso % (Auto) 1 Neut # (Auto) 8.8 H Lymph # (Auto) 1.3 [place] # (Auto) 1.3 H Eos # (Auto) 0.5 Baso # (Auto) 0.1 Immature Gran # (Auto) 0.19 H Absolute Nucleated RBC 0.00 Immature Gran % 2 H Nucleated RBC % 0 Sodium 141 Potassium 4.4 D 5.0 D Chloride 108 H Carbon Dioxide 22.9 Anion Gap 10 BUN 47 H Creatinine 3.8 H Estim Creat Clear Calc 15.3 L eGFR 15 L BUN/Creatinine Ratio 12 Glucose 108 H Calculated Osmolality 294 Calcium 8.4 Corrected Calcium 8.6 Phosphorus 3.0 Magnesium 2.2 Albumin 3.8 D Quality Measures Quality Measures none Advance care planning discussed with:: patient Assessment & Plan Assessment Current Active Medications: Generic Name Dose Route Start Last Admin Trade Name Freq PRN Reason Stop Dose Admin Acetaminophen 650 mg 11/08/24 20:21 Acetaminophen 325 Mg Tablet PO 12/08/24 20:20 Q6H PRN Fever >100.4 or pain Al Hydrox/Mg Hydrox/Simethicone 15 ml 11/10/24 16:46 Mg Hyd/Al Hyd/[place] (Maalox Reg) Susp 30 Ml Udc PO 12/10/24 16:45 QID PRN HEARTBURN Amlodipine Besylate 5 mg 11/10/24 17:00 11/12/24 08:27 Amlodipine Besylate 5 Mg Tablet PO 12/10/24 16:59 5 mg QDAY NAHED Administration Aspirin 81 mg 11/09/24 09:00 11/12/24 08:27 Aspirin Ec 81 Mg Tabec PO 12/09/24 08:59 81 mg QDAY NAHED Administration Atorvastatin Calcium 80 mg 11/09/24 21:00 11/11/24 20:27 Atorvastatin Calcium 20 Mg Tablet PO 12/09/24 20:59 80 mg HS NAHED Administration Carvedilol 6.25 mg 11/12/24 08:00 11/12/24 08:28 Carvedilol 3.125 Mg Tablet PO 12/12/24 07:59 6.25 mg BIDWM NAHED Administration Docusate Sodium 100 mg 11/08/24 20:21 Docusate Sod 100 Mg Capsule PO 12/08/24 20:20 QDAY PRN CONSTIPATION Protocol Ferrous Sulfate 325 mg 11/10/24 10:00 11/10/24 10:38 Ferrous Sulf 325 Mg Tablet PO 12/10/24 09:59 325 mg QOD NAHED Administration Hydralazine HCl 10 mg 11/10/24 22:14 11/11/24 13:02 Hydralazine Inj 20 Mg/Ml Vial IVP 12/10/24 16:05 10 mg Q6H PRN Administration SBP >170, hr<100 Losartan Potassium 50 mg 11/09/24 09:45 11/09/24 09:59 Losartan Potassium 25 Mg Tablet PO 12/09/24 09:44 50 mg QDAY NAHED Administration Melatonin 6 mg 11/09/24 21:00 11/11/24 20:27 Melatonin 3 Mg Tablet PO 12/09/24 20:59 6 mg HS NAHED Administration Nitroglycerin 0.4 mg 11/08/24 22:03 11/09/24 18:40 Nitroglycerin 0.4 Mg Subl Btl #25 SL 1 dose Q5MIN PRN Administration CHEST PAIN Ondansetron HCl 4 mg 11/08/24 20:21 Ondansetron Inj 2 Mg/Ml Inj 2 Ml IVP 12/08/24 20:20 Q6H PRN NAUSEA OR VOMITING Protocol Pantoprazole Sodium 40 mg 11/09/24 21:00 11/12/24 08:27 Pantoprazole Inj 40 Mg Vial IVP 12/09/24 20:59 40 mg QDAY NAHED Administration Sennosides 1 tab 11/08/24 20:21 Senna Tablet PO 12/08/24 20:20 QDAY PRN constipation Protocol Tamsulosin HCl 0.8 mg 11/11/24 17:41 11/11/24 17:46 Tamsulosin Hcl 0.4 Mg Capsule PO 12/11/24 17:40 0.8 mg QDAY@1700 NAHED Administration Ticagrelor 90 mg 11/11/24 21:00 11/12/24 08:27 Ticagrelor 90 Mg Tablet PO 12/11/24 20:59 90 mg BID NAHED Administration Plan 84 y/o M with PMHx significant for HTN, CKD, possible history of previous stroke presents with chief complaint of chest pain for 3 days, admitted for unstable angina and FERDINAND on CKD. NSTEMI type I Presented with typical substernal, radiating chest pain x 3 days. Admission troponin 2.0, initially down trended but uptrending again. EKG showed a sinus rhythm with first-degree AV block, frequent PACs and nonspecific ST changes. Initially on HEPARIN drip and ASPIRIN and METOPROLOL, and was discontinued after cath. Repeat EKG relatively unchanged, remains asymptomatic without chest pain or shortness of breath. [facility] showed severe double vessel CAD with subtotal occlusion 99% stenosis of the mid LCx with PADDY II flow in the OM 2, severe diffuse disease from the proximal to the distal RCA with multiple tandem lesions, moderate 40 to 50% stenosis of the proximal LAD as well as the proximal LCx. Rest of the coronary artery segments) showed only mild disease. He underwent successful PCI of the mid LCx with 3.0 x 12 mm [place] CHERIE stent with excellent results, no complications and PADDY-3 flow. Cardiology recommendations as below: ? Continue COREG 3.125 mg BID ? Continue ASPIRIN 81 mg q. day ? Continue BRILINTA 90 mg BID ? Continue ATORVASTATIN 80 mg HS ? Maintain K > 4.0 and Mg > 2.0 ? NITROGLYCERIN PRN for pain HTN BP 142/65, HR 64. ? Holding home LOSARTAN 50 mg daily ? HYDRALAZINE PRN on board ? Continue AMLODIPINE 5 mg daily CKD stage V Admission CR 4.1, improved with fluids, currently 3.8. Urine output adequate. Follows with orthopedic brace maker Dr. Parra. Dr. Dimas following, recommended additional 1L LR prior to cath. Ultrasound showed small kidneys, moderate bilateral parenchymal scarring with cortical thinning. ? Renally dose meds, avoid overdiuresis and NEPHROTOXINS ? Daily CMP Mild hyperkalemia (resolved) Likely 2/2, potassium supplement ? Daily labs Reactive leukocytosis Likely in settings of cardiac cath No obvious source of infection, no history of previous illness or sick exposure ? Continue monitoring Anemia of chronic disease (CKD) Admission Hgb 10.6 around baseline. Low iron stores, iron 56, low, TIBC 209 low, iron saturation 26. Reticulocyte count 1.6 high, although low suspicion for active bleed. ? Holding oral FERROUS SULFATE ? Transfuse if Hgb less than 8 BPH Renal calculi Renal ultrasound showed multiple left renal calculi, largest 5 mm ? Continue home TAMSULOSIN ? Follow-up with urology outpatient for renal stones Health maintenance Diet: Cardiorenal GI prophylaxis: PROTONIX DVT prophylaxis: Heparin Antibiotics: Not indicated CODE STATUS: DNR Patient plan of care was discussed with the attending physician, Dr. Otero and senior resident Dr. Juancarlos Andrews, PGY1 Attending Provider Attestation/Addendum I have discussed and was present for the essential components of the history, physical examination, diagnosis, and treatment plan with the resident. I agree with the patient's care as documented by the resident and amended herein by me. Nicholas Otero, DO. Although this document has been carefully reviewed, there may still be some phonetic and other typographical errors. These errors are purely grammatical due to imperfections in the software program and should not be construed in any way to compromise the substance of the patient's medical care during this visit.
[2024-11-12] MEDS: TAMSULOSIN HCL 0.4 MG CAPSULE 0.8 MG PO (18:25)
[2024-11-12] MEDS: ATORVASTATIN CALCIUM 20 MG TABLET 80 MG PO (20:49)
[2024-11-12] MEDS: MELATONIN 3 MG TABLET 6 MG PO (20:50)
[2024-11-13] VITALS (7 sets, daily range): BP systolic 95–147; BP diastolic 56–76; PULSE 54–67; RESP 13–20; TEMP 36.3–37.6; O2SAT 97; BMI 22.9; BMI 22.8
[2024-11-13 05:33] LABS: Basophils # (Auto) 0.1 Thou/mm3 (0.0-0.2); Basophils % (Auto) 1 % (0-2.5); Eosinophils # (Auto) 0.8 Thou/mm3 (0.0-0.5); Eosinophils % (Auto) 7 % (0-10); Hematocrit 33.1 % (41.0-53.0); Hemoglobin 10.6 g/dL (13.5-16.0); Immature Granulocytes % (Auto) 1 % (0-0); Immature Granulocytes Auto 0.16 Thou/mm3 (0.00-0.00); Lymphocytes # (Auto) 1.6 Thou/mm3 (1.0-4.8); Lymphocytes % (Auto) 14 % (10-50); Mean Corpuscular Hemoglobin 29.3 pg (25.0-35.0); Mean Corpuscular Volume 91 fL (80-100); Monocytes # (Auto) 1.3 Thou/mm3 (0.0-0.8); Monocytes % (Auto) 11 % (0-12); Neutrophils # (Auto) 7.6 Thou/mm3 (1.8-7.7); Neutrophils % (Auto) 66 % (37-80); Nucleated Red Blood Cell # 0.03 Thou/mm3 (0.00-0.00); Nucleated Red Blood Cell % 0 /100 WBC (0); Platelet Count 231 Thou/mm3 (140-440); RDW Standard Deviation 46.6 fL (35.1-43.9); Red Blood Count 3.62 Miln/mm3 (4.50-5.90); White Blood Count 11.5 Thou/mm3 (3.8-10.6)
[2024-11-13 06:36] LABS: Alanine Aminotransferase < 7 U/L (10-49); Albumin, Serum 3.5 gm/dL (3.4-4.8); Albumin/Globulin Ratio 1.4 (1.2-2.2); Alkaline Phosphatase 83 U/L (46-116); Anion Gap 13 (7-16); Aspartate Amino Transferase 12 U/L (0-34); BUN/Creatinine Ratio 12 Ratio (12-20); Bilirubin,Total 0.5 mg/dL (0.3-1.2); Blood Urea Nitrogen 48 mg/dL (9-23); Calcium 8.3 mg/dL (8.3-10.6); Calcium (Corrected) 8.7 mg/dL (8.5-10.1); Carbon Dioxide 20.5 mMol/L (20.0-31.0); Chloride 108 mMol/L (98-107); Creatinine (Component) 4.1 mg/dL (0.6-1.3); Estimated Creatinine Clearance 14.3 mL/min (>60); Globulin 2.5 gm/dL (2.3-3.5); Glucose 104 mg/dL (74-106); Osmolality,Calculated 293 (275-295); Potassium 5.2 mMol/L (3.4-5.1); Sodium 141 mMol/L (136-145); eGFR 14 See Note
--- NOTE | 2024-11-13 07:11 | PD.RESPRO ---
Documentation for date of: 11/13/24 Subjective Subjective Interval history: Interval history: Covering Dr Parra. Mr. Fall is a 84 y/o gentleman with PMHx significant for HTN, CKD IV (under Dr Parra), possible history of previous stroke, anemia, BPH presented to the emergency department with 3-day history of chest pain associated with shortness of breath. Patient stated that pressure is like substernal without any radiation 3 out of 10 especially while lying in bed. Has been intermittent. Primary care physician dated troponin and was elevated and sent him to the emergency department. Patient currently seen in telemetry. Dr. Cheng Fan saw the patient and recommended angiogram on Monday. Renal consultation requested for clearance prior to cardiac catheterization as patient has CKD stage IV. The emergency department WBC 12.8, hemoglobin 12.1, troponin 1.9, BNP 885, BUN 53, creatinine 4, GFR 14, chest x-ray negative, EKG mild AV block. Patient was started on heparin drip, aspirin and was transferred to telemetry. Medications: Flomax, amlodipine, tamsulosin 11/10/2024 patient currently seen in telemetry. Had minimal chest pain while moving. Also complaining of acid reflux. Protonix did help. I gave him Maalox. Currently on lactated Ringer at 80 mL/h. Blood pressure 157/76, heart rate 61. WBC 10.7, hemoglobin 9.8, platelets 213. Sodium 141, potassium 4.9, bicarbonate 21.3, BUN 49, creatinine 3.7, GFR 15, calcium 8.6, phosphorus 3.5, magnesium 2.2, iron saturation 26, ferritin 111, LFTs normal, albumin 3.1, troponin 2.7, urinalysis completely bland. Renal ultrasound showed CKD changes with a significant cortical thinning. Echocardiogram showed ejection fraction 55 to 60% and diastolic dysfunction. 11/11/2024 patient currently seen in [employer], pending scheduled coronary angiogram. Reported no acute discomfort, vitally stable, patient had refused hemodialysis during previous discussion. Current labs sodium 143, potassium 5.4, BUN 49, creatinine 3.7, EGFR 15. 11/12/2024: Patient seen and examined at bedside this morning. No acute overnight events. Patient is s/p cardiac cath on 11/11. PCI of left circumflex with severe 99% stenosis. Cardio recommends RCA PCI only if patient has severe symptoms. Continue 81 mg aspirin, 90 mg Brilinta twice daily, high intensity statin and beta-pardeep if BP and HR permissible. He is in good spirits. Vitals stable, labs reviewed. Renal function stable, and patient does not want HD at this time. 11/13/2024: Patient seen and examined at bedside this morning. No acute overnight events. ~300cc urine output. Vitals stable, labs reviewed. Potassium 5.2, Cr increased to 4.1, GFR 14. Patient continues to refuse hemodialysis. 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 Parra, within 1 week of discharge. Patient understood. Exam Vital Signs Temp Pulse Resp BP Pulse Ox O2 Del Method O2 Flow Rate 97.4 F 59 L 13 131/65 H 97 Room Air 1 11/13/24 05:44 11/13/24 05:44 11/13/24 04:00 11/13/24 05:44 11/13/24 05:44 11/13/24 05:44 11/12/24 04:00 Narrative Exam Gen: AAOx3, pleasant to speak with HEENT: NCAT, PERRLA, EOMI, MMM CVS: normal S1, S2. RRR. No MRG Resp: CTA B/L. No rhonchi, rales, crackles or wheezing Abd: soft, non-tender, non-distended. BS+ in all 4 quadrants MSK: Good ROM in BUE & BLE. No edema or rash. Neuro: CN II-XII grossly intact. No focal deficits Objective Labs 11/13/24 05:22 11/13/24 05:22 Labs: Laboratory Results - last 24 hr 11/12/24 11/13/24 07:14 05:22 WBC 12.1 H 11.5 H RBC 4.09 L 3.62 L Hgb 12.1 L 10.6 L Hct 36.7 L 33.1 L MCV 90 91 MCH 29.6 29.3 MCHC 33.0 32.0 RDW Std Deviation 45.6 H 46.6 H Plt Count 252 231 Neut % (Auto) 72 66 Lymph % (Auto) 11 14 [place] % (Auto) 11 11 Eos % (Auto) 4 7 Baso % (Auto) 1 1 Neut # (Auto) 8.8 H 7.6 Lymph # (Auto) 1.3 1.6 [place] # (Auto) 1.3 H 1.3 H Eos # (Auto) 0.5 0.8 H Baso # (Auto) 0.1 0.1 Immature Gran # (Auto) 0.19 H 0.16 H Absolute Nucleated RBC 0.00 0.03 H Immature Gran % 2 H 1 H Nucleated RBC % 0 0 Sodium 141 141 Potassium 5.0 D 5.2 H Chloride 108 H 108 H Carbon Dioxide 22.9 20.5 Anion Gap 10 13 BUN 47 H 48 H Creatinine 3.8 H 4.1 H* Estim Creat Clear Calc 15.3 L 14.3 L eGFR 15 L 14 L* BUN/Creatinine Ratio 12 12 Glucose 108 H 104 Calculated Osmolality 294 293 Calcium 8.4 8.3 Corrected Calcium 8.6 8.7 Phosphorus 3.0 Total Bilirubin 0.5 AST 12 ALT < 7 L Alkaline Phosphatase 83 Total Protein 6.0 Albumin 3.8 D 3.5 Globulin 2.5 Albumin/Globulin Ratio 1.4 Quality Measures Quality Measures none Advance care planning discussed with:: patient Assessment & Plan Assessment Current Active Medications: Generic Name Dose Route Start Last Admin Trade Name Freq PRN Reason Stop Dose Admin Acetaminophen 650 mg 11/08/24 20:21 Acetaminophen 325 Mg Tablet PO 12/08/24 20:20 Q6H PRN Fever >100.4 or pain Al Hydrox/Mg Hydrox/Simethicone 15 ml 11/10/24 16:46 Mg Hyd/Al Hyd/[place] (Maalox Reg) Susp 30 Ml Udc PO 12/10/24 16:45 QID PRN HEARTBURN Amlodipine Besylate 5 mg 11/10/24 17:00 11/12/24 08:27 Amlodipine Besylate 5 Mg Tablet PO 12/10/24 16:59 5 mg QDAY NAHED Administration Aspirin 81 mg 11/09/24 09:00 11/12/24 08:27 Aspirin Ec 81 Mg Tabec PO 12/09/24 08:59 81 mg QDAY NAHED Administration Atorvastatin Calcium 80 mg 11/09/24 21:00 11/12/24 20:49 Atorvastatin Calcium 20 Mg Tablet PO 12/09/24 20:59 80 mg HS NAHED Administration Carvedilol 6.25 mg 11/12/24 08:00 11/12/24 18:25 Carvedilol 3.125 Mg Tablet PO 12/12/24 07:59 6.25 mg BIDWM NAHED Administration Docusate Sodium 100 mg 11/08/24 20:21 Docusate Sod 100 Mg Capsule PO 12/08/24 20:20 QDAY PRN CONSTIPATION Protocol Ferrous Sulfate 325 mg 11/10/24 10:00 11/10/24 10:38 Ferrous Sulf 325 Mg Tablet PO 12/10/24 09:59 325 mg QOD NAHED Administration Hydralazine HCl 10 mg 11/10/24 22:14 11/11/24 13:02 Hydralazine Inj 20 Mg/Ml Vial IVP 12/10/24 16:05 10 mg Q6H PRN Administration SBP >170, hr<100 Losartan Potassium 50 mg 11/09/24 09:45 11/09/24 09:59 Losartan Potassium 25 Mg Tablet PO 12/09/24 09:44 50 mg QDAY NAHED Administration Melatonin 6 mg 11/09/24 21:00 11/12/24 20:50 Melatonin 3 Mg Tablet PO 12/09/24 20:59 6 mg HS NAHED Administration Nitroglycerin 0.4 mg 11/08/24 22:03 11/09/24 18:40 Nitroglycerin 0.4 Mg Subl Btl #25 SL 1 dose Q5MIN PRN Administration CHEST PAIN Ondansetron HCl 4 mg 11/08/24 20:21 Ondansetron Inj 2 Mg/Ml Inj 2 Ml IVP 12/08/24 20:20 Q6H PRN NAUSEA OR VOMITING Protocol Pantoprazole Sodium 40 mg 11/09/24 21:00 11/12/24 08:27 Pantoprazole Inj 40 Mg Vial IVP 12/09/24 20:59 40 mg QDAY NAHED Administration Sennosides 1 tab 11/08/24 20:21 Senna Tablet PO 12/08/24 20:20 QDAY PRN constipation Protocol Tamsulosin HCl 0.8 mg 11/11/24 17:41 11/12/24 18:25 Tamsulosin Hcl 0.4 Mg Capsule PO 12/11/24 17:40 0.8 mg QDAY@1700 NAHED Administration Ticagrelor 90 mg 11/11/24 21:00 11/12/24 20:50 Ticagrelor 90 Mg Tablet PO 12/11/24 20:59 90 mg BID NAHED Administration Plan #FERDINAND on CKD 4/5 Patient is progressing towards ESRD however has expressed that he did not want hemodialysis Continue to monitor renal function and continue gentle fluids as tolerated GFR fluctuating 14-15; patient understands current need for HD but continues to refuse Advised close follow up outpatient #NSTEMI, with multivessel disease, s/p PCI #Hypertension Patient underwent cardiac cath on 11/11 with PCI in left circumflex => RCA to be treated with medical management Aspirin, Plavix, statin Coreg and amlodipine with as needed hydralazine; losartan held #Chronic normocytic anemia Appears chronic in the setting of chronic kidney disease Continue to monitor; consider Procrit to maintain hemoglobin >10 Patient seen and care discussed with my attending Dr. Dimas. Lesley Garcia MD PGY-3 Attending Provider Attestation/Addendum Patient seen and examined with resident physician Dr. Garcia. Note reviewed, agree with findings and recommendations. Patient resting comfortably. Creatinine elevated. GFR 14. Patient absolutely declines dialysis. His potassium was 5.2. Kayexalate was given. Renal talamantes no further recommendations. Suggested to follow-up with Dr Parra in the outpatient setting. Patient agreed..
--- NOTE | 2024-11-13 07:44 | PD.RESPRO ---
Documentation for date of: 11/13/24 Subjective Subjective Interval history: Patient is a 84 year old male with past medical history of hypertension, diabetes mellitus type II (no medication currently) CKD IV (GFR 15), and stroke who was admitted on 11/08/2024 for typical chest pain on 11/08/2024. 11/10/2024: Patient examined this morning at bedside. Patient denied chest pain. Patient denied shortness of breath. Denied history of lower pedal edema. 11/11/2024: Patient examinded at bedside. Patient denied chest pain or shortness of breath overnight. Denied chills or pyrexia orvernight. Scheduled for Cath today. Patient follows Dr. Parra for nephrology, stated if he ever requires dialysis, he will refuse. LHC and Ultralow contrast PCI of mid LCX performed to minimize kidney injury: Total contrast used: 45 to 50 mL 11/12/2024: Patinet examinded at bedside. Patient denied chest pain or shortness of breath. No afebrile overnight. 1 bowel movement on 11/11/2024. Patient off nasal cannula and saturating well at 98%. No increased work of breathing noted. No arrythmias noted overnight. No bradycardia. Brilinta and Asirin. Pateint tolerated increase in Coreg 6.25 mg PO BIDWM, vitals stable. 11/13/2024: Patient examinded at bedside. No complains. Plan to discharge patient today and have patient follow up with cardiology within 1 week of discharge. Exam Vital Signs Temp Pulse Resp BP Pulse Ox O2 Del Method O2 Flow Rate 97.4 F 59 L 13 131/65 H 97 Room Air 1 11/13/24 05:44 11/13/24 05:44 11/13/24 04:00 11/13/24 05:44 11/13/24 05:44 11/13/24 05:44 11/12/24 04:00 Narrative Exam General Appearance: Alert & Oriented X3, well-nourished male who is lying in bed in no acute distress HEENT: Skull symmetrical and atraumatic. Conjunctivae pink and moist. Pupils equal, round, reactive to light and accommodation (PERRL). External ear without lesion or discharge. Straight, nares patient, mucosa pink, no discharge. Cardio: Normal Rate and Rhythm with S1 and S2 heart sounds. No murmurs or extra heart sounds auscultated. No bruits on carotid auscultation. No peripheral edema or cyanosis. Lungs: Symmetric with good expansion. Chest and back non-tender. Breath sounds vesicular without crackles, wheezing or rhonchi Abdomen: Non-tender, Non-distended, Normal Reactive Bowel Sounds Neuro: Alert, cooperative, oriented to person, place, and time. Speech clear. CN grossly intact. Upper motor strength 5/5 and Lower motor strength 5/5. Sensation intact. Objective Labs 11/13/24 05:22 11/13/24 05:22 Labs: Laboratory Results - last 24 hr 11/12/24 11/13/24 07:14 05:22 WBC 12.1 H 11.5 H RBC 4.09 L 3.62 L Hgb 12.1 L 10.6 L Hct 36.7 L 33.1 L MCV 90 91 MCH 29.6 29.3 MCHC 33.0 32.0 RDW Std Deviation 45.6 H 46.6 H Plt Count 252 231 Neut % (Auto) 72 66 Lymph % (Auto) 11 14 [place] % (Auto) 11 11 Eos % (Auto) 4 7 Baso % (Auto) 1 1 Neut # (Auto) 8.8 H 7.6 Lymph # (Auto) 1.3 1.6 [place] # (Auto) 1.3 H 1.3 H Eos # (Auto) 0.5 0.8 H Baso # (Auto) 0.1 0.1 Immature Gran # (Auto) 0.19 H 0.16 H Absolute Nucleated RBC 0.00 0.03 H Immature Gran % 2 H 1 H Nucleated RBC % 0 0 Sodium 141 141 Potassium 5.0 D 5.2 H Chloride 108 H 108 H Carbon Dioxide 22.9 20.5 Anion Gap 10 13 BUN 47 H 48 H Creatinine 3.8 H 4.1 H* Estim Creat Clear Calc 15.3 L 14.3 L eGFR 15 L 14 L* BUN/Creatinine Ratio 12 12 Glucose 108 H 104 Calculated Osmolality 294 293 Calcium 8.4 8.3 Corrected Calcium 8.6 8.7 Phosphorus 3.0 Total Bilirubin 0.5 AST 12 ALT < 7 L Alkaline Phosphatase 83 Total Protein 6.0 Albumin 3.8 D 3.5 Globulin 2.5 Albumin/Globulin Ratio 1.4 Quality Measures Quality Measures none Advance care planning discussed with:: patient Assessment & Plan Assessment Current Active Medications: Generic Name Dose Route Start Last Admin Trade Name Freq PRN Reason Stop Dose Admin Acetaminophen 650 mg 11/08/24 20:21 Acetaminophen 325 Mg Tablet PO 12/08/24 20:20 Q6H PRN Fever >100.4 or pain Al Hydrox/Mg Hydrox/Simethicone 15 ml 11/10/24 16:46 Mg Hyd/Al Hyd/[place] (Maalox Reg) Susp 30 Ml Udc PO 12/10/24 16:45 QID PRN HEARTBURN Amlodipine Besylate 5 mg 11/10/24 17:00 11/12/24 08:27 Amlodipine Besylate 5 Mg Tablet PO 12/10/24 16:59 5 mg QDAY NAHED Administration Aspirin 81 mg 11/09/24 09:00 11/12/24 08:27 Aspirin Ec 81 Mg Tabec PO 12/09/24 08:59 81 mg QDAY NAHED Administration Atorvastatin Calcium 80 mg 11/09/24 21:00 11/12/24 20:49 Atorvastatin Calcium 20 Mg Tablet PO 12/09/24 20:59 80 mg HS NAHED Administration Carvedilol 6.25 mg 11/12/24 08:00 11/12/24 18:25 Carvedilol 3.125 Mg Tablet PO 12/12/24 07:59 6.25 mg BIDWM NAHED Administration Docusate Sodium 100 mg 11/08/24 20:21 Docusate Sod 100 Mg Capsule PO 12/08/24 20:20 QDAY PRN CONSTIPATION Protocol Ferrous Sulfate 325 mg 11/10/24 10:00 11/10/24 10:38 Ferrous Sulf 325 Mg Tablet PO 12/10/24 09:59 325 mg QOD NAHED Administration Hydralazine HCl 10 mg 11/10/24 22:14 11/11/24 13:02 Hydralazine Inj 20 Mg/Ml Vial IVP 12/10/24 16:05 10 mg Q6H PRN Administration SBP >170, hr<100 Melatonin 6 mg 11/09/24 21:00 11/12/24 20:50 Melatonin 3 Mg Tablet PO 12/09/24 20:59 6 mg HS NAHED Administration Nitroglycerin 0.4 mg 11/08/24 22:03 11/09/24 18:40 Nitroglycerin 0.4 Mg Subl Btl #25 SL 1 dose Q5MIN PRN Administration CHEST PAIN Ondansetron HCl 4 mg 11/08/24 20:21 Ondansetron Inj 2 Mg/Ml Inj 2 Ml IVP 12/08/24 20:20 Q6H PRN NAUSEA OR VOMITING Protocol Sennosides 1 tab 11/08/24 20:21 Senna Tablet PO 12/08/24 20:20 QDAY PRN constipation Protocol Tamsulosin HCl 0.8 mg 11/11/24 17:41 11/12/24 18:25 Tamsulosin Hcl 0.4 Mg Capsule PO 12/11/24 17:40 0.8 mg QDAY@1700 NAHED Administration Ticagrelor 90 mg 11/11/24 21:00 11/12/24 20:50 Ticagrelor 90 Mg Tablet PO 12/11/24 20:59 90 mg BID NAHED Administration Plan Patient is a 84 year old male with past medical history of hypertension, diabetes mellitus type II (no medication currentlY) CKD IV (GFR 15), and stroke who was admitted on 11/08/2024 for typical chest pain on 11/08/2024. #CAD s/p mid LCx stent #Troponemia, likely NSTEMI I #AV Block, type I NSTEMI type I with elevated troponin, typical chest pain, and no ST elveation noted on EKG vs NSTEMI II demand ischemia vs STEMI emilia likley. Plan for Cath on Monday. NPO aftermight. Metoprolol Tartrate discontinued on 11/10/2024. 11/11/2024: LHC and Ultralow contrast PCI of mid LCX performed to minimize kidney injury: Total contrast used: 45 to 50 mL Acute coronary syndrome: NSTEMI-peak troponin of 2.9 - Successful PCI of the mid LCx with 3.0 x 12 mm Jaylan CHERIE stent with excellent results, no complications and PADDY-3 flow. LHC showed severe double vessel CAD with subtotal occlusion 99% stenosis of the mid LCx with PADDY II flow in the OM 2, severe diffuse disease from the proximal to the distal RCA with multiple tandem lesions, moderate 40 to 50% stenosis of the proximal LAD as well as the proximal LCx. Rest of the coronary artery segments showed only mild disease. 1. Recommend aggressive medical therapy as well as aggressive risk factor modification for the severe residual disease of the small to medium RCA along with a moderate disease in the proximal LAD and LCx. 2. Patient wanted to avoid dialysis even though he knows that he is CKD stage V and hence low contrast cath and PCI was performed with less than 50 cc of contrast. Only treated the culprit vessel LCx with severe 99% stenosis and PADDY II flow. Continue IV fluids for tonight and monitor kidney function closely. Nephrology is on board. Plan for RCA PCI only if patient has severe symptoms and will need a complex PCI with multiple long stents that will require more contrast usage and will increase his risk for dialysis also 3. Recommended dual antiplatelet therapy with aspirin 81 mg once daily lifetime and Brilinta 90 mg twice daily for at least 1 year. High intensity statin on Lipitor 80 mg once daily. Beta-pardeep if BP and HR are permissible Echo: Normal LV size and function. Estimated LVEF is 55 to 60%. Grade 1 diastolic dysfunction. Cath report: PADDY 3 points Plan -PLEASE FOLLOW UP WITH CARDIOLOGY WITHIN ONE WEEK OF DISCHARGE. 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 On admission, worsening Cr greater than baseline at 3.8 which would be increase >0.3. Likely in the setting of pre-renal FERDINAND vs obstructive given history of BPH vs worsnening CKD Plan -Give 500 cc X 1 (11/13/2024) -Avoid nephrotoxins -Renally dose medicaiton -Monitor urine output and Cr -nephrology consulted, Dr. Dimas, appreciate recommendations. #Hypertension Past medical history of hypertension with home medication of Amlodipine 10 mg PO Qday and Losartan 100 mg QDay -Plan -Amlodipine 5 mg Qday -Losartan 100 mg qday, consider D/C upon discharge #Diabetes Mellitus Type 2 Past medical history of diabetes, current a1c of 5.9 with fasting glucose of 96 and on admission glucose of 237. Plan -Consider sliding scale if fasting glucose worsens. #Normocytic Anemia Likely secondary to anemia of chronic disease, consider Ferritin vs CKD low EPO vs iron deficiency Dx: Hgb 9.8 hct 30.3. MCV 90, Iron panel: iron 56, TIBC 209 (L), Iron saturation 26, and unsat iron binding 153 Plan -Ferrous Sulfate 325 PO QOD #Leukocytosis, improving Likely reactive in the setting of NSTEMI type I and reactive secondary to recent cath s/p stent vs less likely infectious cause as no pyrexia, no active disease noted on chest x-ray, and UA negative. WBC 10.4-->11.5 (11/13/2024) Plan -Continue to monitor #BNP -Continue home medication of Tamsulosin #Sinus Bradycardia, resolved Health Maintenance: Disp: Pt is currently admitted to floors for further management of NSTEMI and now CAD s/p PCI and management of renal function. FEN: low carb consistent DVT: subq heparin Code: DNR - The patient's plan was discussed with attending Dr. Seth Mcneil MD PGY1 Internal Medicine
[2024-11-13] MEDS: SOD POLYSTYRENE SULFON SUSP 15 GM/60 ML BTL 30 GM PO (08:10)
[2024-11-13] MEDS: ASPIRIN EC 81 MG TABEC PO (08:11)
[2024-11-13] MEDS: carVEDILOL 3.125 MG TABLET 6.25 MG PO (08:11)
[2024-11-13] MEDS: amLODIPine BESYLATE 5 MG TABLET PO (08:12)
[2024-11-13] MEDS: PANTOPRAZOLE 40 MG TABLET PO (08:12)
[2024-11-13] MEDS: TICAGRELOR 90 MG TABLET PO (08:12)
[2024-11-13] MEDS: SODIUM CHLORIDE 0.9% 1000 ML 1,000 ML 80 ML IV (08:22)
--- NOTE | 2024-11-13 10:16 | PC.SS ---
Addendum entered by JC Osuna 11/13/24 10:21: Updated resident Dr. Bauer on request for home health orders. Addendum entered by JC Osuna 11/13/24 10:19: Patient informs his brother will transport him home at time of discharge and community resources handout provided to the patient. Original Note: SS follow up: met with patient to confirm the d/c plan. Patient wants to return home, he declined SNF. Patient is agreeable to home health services. No preferred agency. Patient infroms he has a walker at home.
--- NOTE | 2024-11-13 13:18 | ESDS_ITS ---
<Statement entered by Josue Bauer MD - 11/14/24 07:13> I discussed with and supervised the internal control analyst physician involved in the care of this patient. Patient assessment and plan was discussed with entire medicine team, including my attending. I agree with the assessment and plan as documented by internal control analyst doctor. Patient care was discussed with my attending physician Dr. Shanna Bauer, PGY-2 Planned Discharge Date 11/13/24 DS: Providers Provider Date of admission: 11/08/24 20:21 Primary care physician: Physician Nan Primary/Family Admitting Provider: Adiel Benson MD Attending Provider on Admission: Glynn Otero DO Consults: 11/08/24 19:25 Consult to Cardiology Stat Comment: Consulting Provider: Karlo Ann 11/08/24 21:57 Consult to Nephrology Routine Comment: CKD, possibly requires cardiac cath Consulting Provider: Ness Parra 11/09/24 13:23 Consult to Nephrology Routine Comment: Consulting Provider: Trever Dimas 11/13/24 08:01 Referral Physical Therapy Stat Comment: Physician Instructions: Instructions: dc pending Attending Provider on DC: Tanner Andrews MD Discharging Provider: Tanner Andrews MD DS: Diagnosis Problem List Completed Was Problem List Reviewed/Reconciled?: Yes Hospital Course Hospital Course Hospital course: 84 y/o M with PMHx significant for HTN, CKD, possible history of previous stroke presents with chief complaint of chest pain for 3 days. Labs at the time of admission are significant for WBC 12.8, hemoglobin 12.1, troponin 2.072 later downtrended to 1.9, BNP 885, BUN 53, creatinine 4. EKG at that time of admission showed sinus rhythm with first-degree AV block with frequent PVCs with no ST elevations. Echo showedNormal LV size and function. Estimated LVEF is 55 to 60%. Grade 1 diastolic dysfunction. Normal RV size and function. Insufficient TR to measure RVSP. Mild MR trace TR. IVC not well-visualized. lead loader, Dr. Ann is consulted in view of elevated troponins and chest pain. Stave Bolt Equalizer, Dr. Dimas is consulted in view of CKD. Patient was started on heparin drip and underwent cardiac cath on 11/11/2024 Cardiac cath report and recommendations per lead loader include Summary/findings: 1. Acute coronary syndrome: NSTEMI-peak troponin of 2.9 C showed severe double vessel CAD with subtotal occlusion 99% stenosis of the mid LCx with PADDY II flow in the OM 2, severe diffuse disease from the proximal to the distal RCA with multiple tandem lesions, moderate 40 to 50% stenosis of the proximal LAD as well as the proximal LCx. Rest of the coronary artery segments) showed only mild disease. 2. Successful PCI of the mid LCx with 3.0 x 12 mm Climax CHERIE stent with excellent results, no complications and PADDY-3 flow. Recommendations: 1. Recommend aggressive medical therapy as well as aggressive risk factor modification for the severe residual disease of the small to medium RCA along with a moderate disease in the proximal LAD and LCx. 2. Patient wanted to avoid dialysis even though he knows that he is CKD stage V and hence low contrast cath and PCI was performed with less than 50 cc of contrast. Only treated the culprit vessel LCx with severe 99% stenosis and PADDY II flow. Continue IV fluids for tonight and monitor kidney function closely. Nephrology is on board. Plan for RCA PCI only if patient has severe symptoms and will need a complex PCI with multiple long stents that will require more contrast usage and will increase his risk for dialysis also 3. Recommended dual antiplatelet therapy with aspirin 81 mg once daily lifetime and Brilinta 90 mg twice daily for at least 1 year. High intensity statin on Lipitor 80 mg once daily. Beta-pardeep if BP and HR are permissible 4. Patient recommended not to lift any weight more than 5 to 10 pounds for the next 7 days. Patient developed acute on chronic kidney disease 2 days after cardiac catheterization. Patient was recommended HD during hospitalization but patient denied HD and patient was informed about the risks and prognosis of not getting HD and patient understood the risks and consequences. Patient is being discharged to home with home health with following medications and recommendations -Follow-up with PCP within 1 week of discharge. If you do not have appointment, please follow-up with [facility] with Dr. Andrews. Call [phone] to make an appointment. -Follow up with Dr. Ann within 1 week of discharge. [address] [place] [address], -Recommended to follow-up with Dr. Parra within 1 week of discharge -Recommended to start aspirin 81 Mg p.o. daily for the rest of the life, Brilinta claudia 90 Mg p.o. twice daily for 1 year, Atorvastatin 80mg at bedtime daily, carvedilol 6.25 Mg p.o. twice daily, nitroglycerin 0.4 Mg sublingual tablet as needed for chest pain, senna 8.6 mg p.o. daily as needed for constipation -Recommended to continue tamsulosin 0.4 Mg p.o. twice daily -Recommended to take amlodipine 5 Mg instead of 10 Mg p.o. daily - Recommended to stop losartan in view of kidney disease -Recommended salt and fluid restriction. Recommended to restrict potassium rich foods like avocados, potatoes, tomatoes, oranges, beet root -Return to ED if symptoms persist or return Patient plan of care was discussed with the attending physician, Dr. Otero and senior resident Dr. Juancarlos Andrews, PGY1 Time Spent with Patient Time attestation: Total time spent providing and/or coordinating discharge services: Time spent: Greater than 30 minutes Home Health Home Health Referral Orders: 11/13/24 10:36 Home Health Referral Routine Reason For Exam: debility Home-Bound The patient must either because of illness or injury, need the aid of supportive devices such as crutches, canes, wheelchairs, and walkers; the use of special transportation; or the assistance of another person in order to leave their place of residence; OR have a condition such that leaving his or her home is medically contraindicated. In addition, the patient also meets the following criteria: patient is normally unable to leave the home and leaving home requires considerable taxing effort. Addendum to Home Health Certification Practitioner's Certification: I certify that the patient has been under my care in the hospital and the care of attending physician (see below). We had a [id number] encounter on (see date below). My clinical findings indicate that the patient is home bound per the above criteria and the Home Health Services noted in these orders are medically necessary. The primary reason for the [id number] encounter is related to the fact that the patient requires home health services. Date Certifying [id number] Physician Encounter: 11/08/24 Physician's Name who will Assume Oversight for HH Services: Physician No Primary/Family CUSTOMS COMPLIANCE ANALYST - Community Resources: No PT to Evaluate: Yes PT to evaluate and provide a treatmnet plan to increase patient's mobility and strength. Wound Care: No IV Therapy: No Discontinue PICC Line Once Treatment Complete: No RN Safety Evaluation: Yes RN to evaluate and create a plan of care that will produce positive outcomes. Palliative Treatment: No Palliative treatment and evaluate the need for hospice. Home Health Aide - Personal Care: No Home Health Aide to assist with any ADL's. Exam Vital Signs Temp Pulse Resp BP Pulse Ox O2 Del Method O2 Flow Rate 98.2 F 67 15 131/65 H 97 Room Air 1 11/13/24 08:00 11/13/24 08:12 11/13/24 08:00 11/13/24 08:12 11/13/24 08:00 11/13/24 08:00 11/12/24 04:00 Narrative Exam General: Awake. HEENT: Normocephalic, atraumatic, mucous membranes moist. Heart: Regular rate and rhythm, no murmurs. Lungs: Clear to auscultation with no wheezing or crackles. Abdomen: Soft, nondistended, nontender, positive bowel sounds. ?No guarding or rebound tenderness. Neurologic: Alert and oriented x3, no gross neurological deficit, and patient a ble to move all 4 extremities. Extremities: No edema. Skin: No rash or ecchymoses. Discharge Plan Plan Patient Disposition: Home w/HOME HEALTH Patient condition on transfer: Stable Care Plan Goals: -Follow-up with PCP within 1 week of discharge. If you do not have appointment, please follow-[facility] with Dr. Andrews. Call [phone] to make an appointment. -Follow up with Dr. Ann within 1 week of discharge. [address] [place] [address], -Recommended to follow-up with Dr. Parra within 1 week of discharge -Recommended to start aspirin 81 Mg p.o. daily for the rest of the life, Brilinta claudia 90 Mg p.o. twice daily for 1 year, Atorvastatin 80mg at bedtime daily, carvedilol 6.25 Mg p.o. twice daily, nitroglycerin 0.4 Mg sublingual tablet as needed for chest pain, senna 8.6 mg p.o. daily as needed for constipation -Recommended to continue tamsulosin 0.4 Mg p.o. twice daily -Recommended to take amlodipine 5 Mg instead of 10 Mg p.o. daily - Recommended to stop losartan in view of kidney disease -Recommended salt and fluid restriction. Recommended to restrict potassium rich foods like avocados, potatoes, tomatoes, oranges, beet root -Return to ED if symptoms persist or return Prescriptions/Referrals Prescriptions/Med Rec: New sennosides [senna] 8.6 mg Tablet 8.6 mg PO QDAY PRN (Reason: constipation) Qty: 30 0RF atorvastatin 20 mg Tablet 80 mg PO HS Qty: 30 1RF aspirin [Ecotrin Low Strength] 81 mg Tablet,Delayed Release (Dr/Ec) 81 mg PO QDAY Qty: 30 1RF carvedilol 3.125 mg Tablet 6.25 mg PO BIDWM Qty: 60 1RF nitroglycerin 0.4 mg Tablet, Sublingual 0.4 mg SL Q5MIN PRN (Reason: Chest Pain) Qty: 30 0RF alum-mag hydroxide-simeth [Mag-Al Plus] 200-200-20 mg/5 mL Suspension 15 ml PO QID PRN (Reason: Heartburn) Qty: 1 1RF ticagrelor [Brilinta] 90 mg Tablet 90 mg PO BID Qty: 60 1RF Continued tamsulosin 0.4 mg capsule 0.4 mg PO BID Qty: 30 1RF Changed amlodipine 10 mg Tablet 5 mg PO QDAY Qty: 30 1RF Discontinued losartan 100 mg Tablet 100 mg PO QDAY Referrals: Karlo Ann MD [Physician] - 11/19/24 (For follow up on PCI) Ness Parra MD [Physician] - (For follow up on CKD V) No Primary/Family,Physician [Primary Care Provider] - Patient/Caregiver Discharge Instructions Education Materials: Coping with Kidney Failure, Cardiac Rehab Getting Started, Heart Attack Meds Print Language: Indonesian Stand Alone Forms: Johanna Award Info., Patient Portal Info Letter Discharge Order Discharge Orders: Discharge (Routine); Ordered 06/04/25 Ordered By: Tanner Andrews Quality Discharge Quality Measures VTE prophylaxis Attestestation Attestation I have discussed and was present for the essential components of the discharge history, physical examination, diagnosis, and discharge treatment plan with the resident. I agree with the patient's discharge care as documented by the resident and amended herein by me. Nicholas Otero, DO. The patient understood all discharge instructions, all questions were answered satisfactorily. The patient was instructed to return to the Emergency Department is symptoms worsened or persisted. Patient was stable, afebrile, tolerating p.o. intake and afebrile at time of discharge home. Home health is also been ordered for physical therapy. Creatinine slightly elevated at 4.1 on day of discharge, likely from the contrast due to coronary angiogram however cleared for discharge from a cardiology standpoint and nephrology is also cleared the patient for discharge. Patient will be discharged on aspirin and Brilinta per cardiology recommendations as well as statin and Coreg. All questions were answered satisfactorily prior to discharge. Although this document has been carefully reviewed, there may still be some phonetic and other typographical errors. These errors are purely grammatical due to imperfections in the software program and should not be construed in any way to compromise the substance of the patient's medical care during this visit.
--- NOTE | 2024-11-13 15:51 | PC.CC ---
Home Health referral and complete orders sent via [employer], awaiting responses at this time.
--- NOTE | 2024-11-14 09:07 | PC.CC ---
Pt has [facility] insurance. Essie from [facility] declined the pt and stated to send the referral to [facility]. [facility] accepted the pt and I booked them. Pending start of care date.
--- NOTE | 2024-11-16 11:02 | PC.CC ---
Patient refered to [facility], start of care date was 11/15/24.
== END 2024-11-13 12:01 | disposition home health service (06) | DRG 322 ==
LOC: SERX 20:48 → SERHOLD 20:52 → S2NX 22:51
PROVIDERS: Internal Medicine; Internal Medicine Cardiovascular Disease; Physician Assistant; Student in an Organized Health Care Education/Training Program; Admitting Provider Student in an Organized Health Care Education/Training Program; Emergency Provider Emergency Medicine; Visit Provider Student in an Organized Health Care Education/Training Program
PROC: 027034Z Dilation of Coronary Artery, One Artery with Drug-eluting Intraluminal Device, Percutaneous Approach (ICD-10-PCS; principal; 2024-11-11 08:30)
DX: I21.4 Non-ST elevation (NSTEMI) myocardial infarction (principal); I12.0 Hypertensive chronic kidney disease with stage 5 chronic kidney disease or end stage renal disease; N18.5 Chronic kidney disease, stage 5; N17.9 Acute kidney failure, unspecified; Z66 Do not resuscitate; E11.22 Type 2 diabetes mellitus with diabetic chronic kidney disease; N25.0 Renal osteodystrophy; N40.0 Benign prostatic hyperplasia without lower urinary tract symptoms; E78.5 Hyperlipidemia, unspecified; G89.29 Other chronic pain; E83.51 Hypocalcemia; N27.1 Small kidney, bilateral; Z86.73 Personal history of transient ischemic attack (TIA), and cerebral infarction without residual deficits; N20.0 Calculus of kidney; Z87.891 Personal history of nicotine dependence; D63.1 Anemia in chronic kidney disease; E86.0 Dehydration; E87.5 Hyperkalemia; I25.10 Atherosclerotic heart disease of native coronary artery without angina pectoris; I49.3 Ventricular premature depolarization; I44.1 Atrioventricular block, second degree; Z79.02 Long term (current) use of antithrombotics/antiplatelets; Z79.82 Long term (current) use of aspirin; Z79.899 Other long term (current) drug therapy; Z88.5 Allergy status to narcotic agent; M19.90 Unspecified osteoarthritis, unspecified site
CPT/HCPCS: 36415; 71045; 76770; 80053; 80061; 80069; 81001; 82728; 83540; 83550; 83735; 83880; 83970; 84100; 84132; 84484; 84550; 85025; 85046; 85347; 85610; 85730; 87811; 93005; 93306; 99152; 99153; 99285; A4649; C1725; C1769; C1874; C1887; C1894; J0360; J0461; J1643; J1644; J2250; J2310; J2371; J2470; J3010; J3490; J7030; J7050; J7120; Q0138; Q5106; A9270; J2305

== ENCOUNTER → 2024-11-08 | Outpatient (CLI) | payer OTHER, SELFPAY ==
[2024-11-08 15:59] LABS: Basophils # (Auto) 0.1 Thou/mm3 (0.0-0.2); Basophils % (Auto) 1 % (0-2.5); Eosinophils # (Auto) 0.6 Thou/mm3 (0.0-0.5); Eosinophils % (Auto) 5 % (0-10); Hematocrit 36.8 % (41.0-53.0); Hemoglobin 12.1 g/dL (13.5-16.0); Immature Granulocytes % (Auto) 1 % (0-0); Immature Granulocytes Auto 0.09 Thou/mm3 (0.00-0.00); Lymphocytes # (Auto) 1.9 Thou/mm3 (1.0-4.8); Lymphocytes % (Auto) 15 % (10-50); Mean Corpuscular HGB Conc 32.9 g/dl (31.0-37.0); Mean Corpuscular Hemoglobin 29.7 pg (25.0-35.0); Mean Corpuscular Volume 90 fL (80-100); Monocytes # (Auto) 1.3 Thou/mm3 (0.0-0.8); Monocytes % (Auto) 10 % (0-12); Neutrophils # (Auto) 8.9 Thou/mm3 (1.8-7.7); Neutrophils % (Auto) 69 % (37-80); Nucleated Red Blood Cell % 0 /100 WBC (0); Platelet Count 262 Thou/mm3 (140-440); RDW Standard Deviation 46.5 fL (35.1-43.9); Red Blood Count 4.07 Miln/mm3 (4.50-5.90); White Blood Count 12.8 Thou/mm3 (3.8-10.6)
[2024-11-08 16:08] LABS: Glucose Estimated Average 114 mg/dL (80-131); Hemoglobin A1C 5.6 % Hgb (4.8-6.0)
[2024-11-08 16:33] LABS: Alanine Aminotransferase < 7 U/L (10-49); Albumin/Globulin Ratio 1.5 (1.2-2.2); Alkaline Phosphatase 89 U/L (46-116); Anion Gap 12 (7-16); Aspartate Amino Transferase 18 U/L (0-34); BUN/Creatinine Ratio 13 Ratio (12-20); Bilirubin,Total 0.3 mg/dL (0.3-1.2); Blood Urea Nitrogen 53 mg/dL (9-23); Calcium 8.1 mg/dL (8.3-10.6); Calcium (Corrected) 8.1 mg/dL (8.5-10.1); Carbon Dioxide 21.4 mMol/L (20.0-31.0); Chloride 110 mMol/L (98-107); Globulin 2.6 gm/dL (2.3-3.5); Glucose 125 mg/dL (74-106); Osmolality,Calculated 300 (275-295); Potassium 4.7 mMol/L (3.4-5.1); Sodium 143 mMol/L (136-145); Total Protein 6.6 gm/dL (5.7-8.2); eGFR 14 See Note
[2024-11-08 16:35] LABS: Troponin I 2.072 ng/mL (0.0-0.045)
== END | disposition home or self-care (01) ==
LOC: COPL 15:34
PROVIDERS: PCP Student in an Organized Health Care Education/Training Program; Referring Provider Student in an Organized Health Care Education/Training Program; Visit Provider Student in an Organized Health Care Education/Training Program
DX: R07.9 Chest pain, unspecified (principal); E11.9 Type 2 diabetes mellitus without complications; I10 Essential (primary) hypertension
CPT/HCPCS: 36415; 80053; 83036; 84484; 85025

== ENCOUNTER → 2024-11-25 | Outpatient (CLI) | payer OTHER, SELFPAY ==
[2024-11-25 14:06] LABS: Basophils # (Auto) 0.1 Thou/mm3 (0.0-0.2); Basophils % (Auto) 1 % (0-2.5); Eosinophils # (Auto) 0.7 Thou/mm3 (0.0-0.5); Eosinophils % (Auto) 6 % (0-10); Hematocrit 32.8 % (41.0-53.0); Hemoglobin 10.6 g/dL (13.5-16.0); Immature Granulocytes % (Auto) 1 % (0-0); Immature Granulocytes Auto 0.07 Thou/mm3 (0.00-0.00); Lymphocytes # (Auto) 1.4 Thou/mm3 (1.0-4.8); Lymphocytes % (Auto) 11 % (10-50); Mean Corpuscular HGB Conc 32.3 g/dl (31.0-37.0); Mean Corpuscular Hemoglobin 29.4 pg (25.0-35.0); Mean Corpuscular Volume 91 fL (80-100); Monocytes % (Auto) 8 % (0-12); Neutrophils # (Auto) 9.2 Thou/mm3 (1.8-7.7); Neutrophils % (Auto) 74 % (37-80); Nucleated Red Blood Cell % 0 /100 WBC (0); Platelet Count 283 Thou/mm3 (140-440); RDW Standard Deviation 46.8 fL (35.1-43.9); White Blood Count 12.4 Thou/mm3 (3.8-10.6)
[2024-11-25 14:27] LABS: Albumin, Serum 3.8 gm/dL (3.4-4.8); Anion Gap 13 (7-16); BUN/Creatinine Ratio 13 Ratio (12-20); Blood Urea Nitrogen 55 mg/dL (9-23); Calcium 8.2 mg/dL (8.3-10.6); Calcium (Corrected) 8.4 mg/dL (8.5-10.1); Carbon Dioxide 20.5 mMol/L (20.0-31.0); Chloride 110 mMol/L (98-107); Creatinine (Component) 4.2 mg/dL (0.6-1.3); Glucose 121 mg/dL (74-106); Osmolality,Calculated 301 (275-295); Phosphorous 3.5 mg/dL (2.4-5.1); Sodium 143 mMol/L (136-145); eGFR 13 See Note
[2024-11-25 14:44] LABS: Collection Type, Urine Clean Catch; Squamous Epithelial Cell,Urine 0 /hpf (0-5)
[2024-11-25 16:18] LABS: Bilirubin,Urine Negative (Negative); Blood,Urine Negative (Negative); Clarity,Urine Clear (Clear/Hazy); Color,Urine Lt-Yellow (Lt Yel-Yel); Glucose, Urine Negative (Negative); Ketones,Urine Negative (Negative); Leukocyte Esterase,Urine Negative (Negative); Nitrite,Urine Negative (Negative); Protein,Urine 1+ (Neg - Trace); RBC,Urine 2 /hpf (0-3); Specific Gravity,Urine 1.015 (1.001-1.035); Urobilinogen,Urine Negative mg/dL (0.0-1.0); WBC,Urine 5 /hpf (0-5)
== END | disposition home or self-care (01) ==
PROVIDERS: Referring Provider Internal Medicine Nephrology; Visit Provider Internal Medicine Nephrology
DX: N18.4 Chronic kidney disease, stage 4 (severe) (principal)
CPT/HCPCS: 36415; 80069; 81001; 85025

== ENCOUNTER 2024-12-14 09:02 | Inpatient (IN) | payer OTHER, SELFPAY ==
[2024-12-14] VITALS (16 sets, daily range): BP systolic 166–192; BP diastolic 83–99; PULSE 67–94; RESP 18–34; TEMP 36.1–36.9; O2SAT 93–98; BMI 22.9
--- NOTE | 2024-12-14 09:14 | PD.EDSOB ---
ED SOB =RME/HPI General Chief Complaint: Shortness of Breath/Dyspnea Stated Complaint: SOB when he lays down Time Seen by Provider: 12/14/24 09:36 Arrival date/time: 12/14/24 09:02 RME / HPI RME / HPI Narrative: DR. TEIXEIRA MAIN ED EVALUATION: This section includes all my notes and documentations, including HPI, PE, and ED course.? Farhat Teixeira MD HPI: 84 year old male with past medical history significant for HTN, CAD, and ESRD here with several days of worsening dyspnea and orthopnea. No chest pain. No fever. No other complaints. ROS: All negative except as documented in HPI. Physical Exam: General:? Alert and oriented.? In moderate respiratory distress. Hypoxia noted. Eyes:? Conjunctivae and lids clear. ENT:? No nasal congestion.? ? Neck:? Supple. Heart:? RRR. Lungs:? Moderate respiratory distress. Decreased air movement with rales. Abdomen:? Soft and nontender.? Legs:? No clubbing, cyanosis, edema. Skin:? Warm and dry.? Neuro:? Alert and oriented X 3.? I reviewed all diagnostic test results. My interpretation of the EKG is: Sinus rhythm (84 bpm) with first-degree AV block and PACs and nonspecific ST-T changes. My interpretation of the chest x-ray is infiltrates. Blood tests remarkable for WBC 14.1, Cr 4.0, and BNP 3129. At this point, diagnoses include acute respiratory failure with hypoxia, pneumonia, and CHF. Treatment here included oxygen, Lasix, morphine, topical NTG, Rocephin, and Zithromax. Some improvement noted. I discussed the case with our hospitalist.? About the presentation and exam and diagnostics and treatments here.? And need of further care in the hospital. Will accept the patient. Farhat Teixeira MD Related Data Previous Rx's ?Medication ?Instructions ?Recorded aluminum-mag hydroxide-simethicone 15 ml PO QID PRN Heartburn #1 mL 11/13/24 200 mg-200 mg-20 mg/5 mL oral susp (Mag-Al Plus) amlodipine 10 mg tablet 5 mg (1/2 x 10 mg) PO QDAY #30 tabs 11/13/24 aspirin 81 mg tablet,delayed 81 mg PO QDAY #30 tabs 11/13/24 release (Ecotrin Low Strength) atorvastatin 20 mg tablet 80 mg (4 x 20 mg) PO HS #30 tabs 11/13/24 carvedilol 3.125 mg tablet 6.25 mg (2 x 3.125 mg) PO BIDWM 11/13/24 #60 tabs nitroglycerin 0.4 mg sublingual 0.4 mg SL Q5MIN PRN Chest Pain #30 11/13/24 tablet tabs sennosides 8.6 mg tablet (senna) 8.6 mg PO QDAY PRN constipation 11/13/24 #30 tabs tamsulosin 0.4 mg capsule 0.4 mg PO BID #30 caps 11/13/24 ticagrelor 90 mg tablet (Brilinta) 90 mg PO BID #60 tabs 11/13/24 Allergies Allergy/AdvReac Type Severity Reaction Status Date / Time codeine Allergy Vomiting Verified 12/14/24 09:06 Course Quality Measures none Orders Category Date Time Status Bedside COVID-19 Antigen Test NOW Care 12/14/24 09:31 Active Bedside Influenza A&B Antigen Test NOW Care 12/14/24 09:31 Active COVID-19 Screening Questionnaire NOW Care 12/14/24 11:49 Active Decision to Admit X1 Care 12/14/24 11:49 Active EKG (ED ONLY) *Do not use* NOW Care 12/14/24 09:07 Completed Saline [Insert IV] NOW Care 12/14/24 09:31 Active EKG (ED Only) Stat Exams 12/14/24 09:07 Ordered XR chest 1V portable Stat Exams 12/14/24 09:33 Completed ABG [Arterial Blood Gas] Stat Lab 12/14/24 10:19 Completed BNP [B-Type Natriuretic Peptide] Stat Lab 12/14/24 10:05 Completed Bilirubin,Direct Stat Lab 12/14/24 10:05 Completed CBC Stat Lab 12/14/24 10:05 Completed CMP [Comprehensive Metabolic Panel] Stat Lab 12/14/24 10:05 Completed D-Dimer Stat Lab 12/14/24 10:05 Completed Free T4 (Free Thyroxine) Stat Lab 12/14/24 10:05 Completed Magnesium Stat Lab 12/14/24 10:05 Completed PT [Prothrombin Time with INR] Stat Lab 12/14/24 10:05 Completed PTT [Partial Thromboplastin Time] Stat Lab 12/14/24 10:05 Completed TSH [Thyroid Stimulating Hormone] Stat Lab 12/14/24 10:05 Completed Troponin I Stat Lab 12/14/24 10:05 Completed UA, C/S IF [Urinalysis, C/S if Indicated] Stat Lab 12/14/24 09:34 Ordered Azithromycin Inj [Zithromax Inj] 500 mg Med 12/14/24 10:12 Discontinued Sodium Chloride 0.9% 250 ml [Ns] 250 ml IV X1 Furosemide Inj [Lasix Inj] Med 12/14/24 09:32 Discontinued 40 mg IVP X1 ONE Morphine Inj Med 12/14/24 09:32 Discontinued 2 mg IVP X1 ONE Nitroglycerin Oint 2% [Nitro-paste Oint 2%] Med 12/14/24 09:32 Discontinued 1 inch TOP X1 ONE cefTRIAXone/D5w 1gm IV premix [Rocephin/D5w 1gm IV Med 12/14/24 10:12 Discontinued premix] 1 gm in 50 ml IV X1 Vital Signs Vital signs: Vital Signs Temperature 98.5 F 12/14/24 09:10 Pulse Rate 80 12/14/24 09:10 Respiratory Rate 18 12/14/24 09:10 Blood Pressure 189/83 H 12/14/24 09:10 Pulse Oximetry (%) 96 12/14/24 09:10 Oxygen Delivery Method Room Air 12/14/24 09:10 Shortness of Breath / Dyspnea MDM Narrative MDM Narrative:: IJes am scribing for and in the presence of Dr. Teixeiar. 84 year old male with past medical history significant for HTN, CAD, and ESRD here with several days of worsening dyspnea and orthopnea. No chest pain. No fever. No other complaints. Patient data External records reviewed:: [facility] previous records Clinical information provided by:: patient and friend Social determinants that could affect healthcare access:: none Patient has the following chronic illnesses:: HTN, CKD IV, anemia, and BPH. Patient was recently admitted for NSTEMI and CAD followed by Dr. Fan, discharged on 11/13/24. How is presenting disease/condition affected by chronic disease/condition?: exacerbated by Evaluation data The following diagnostics were reviewed and interpreted by me:: EKG tracing(s) (My interpretation of the EKG is: Sinus rhythm (84 bpm) with first-degree AV block and PACs and nonspecific ST-T changes. Farhat Teixeira MD) Lab and/or radiology exams considered but not ordered:: none Interpretation Summary: I reviewed all diagnostic test results. My interpretation of the EKG is: Sinus rhythm (84 bpm) with first-degree AV block and PACs and nonspecific ST-T changes. My interpretation of the chest x-ray is infiltrates. Blood tests remarkable for WBC 14.1, Cr 4.0, and BNP 3129. Medications / Prescriptions Medications or Prescriptions considered but not ordered:: none Medication administrations:: Medication Administration History Discontinued Medications Furosemide (Furosemide Inj 10 Mg/Ml 4ml Vial) 40 mg IVP X1 ONE Stop: 12/14/24 09:33 Last Admin: 12/14/24 10:19 Dose: 40 mg Documented By: DO Azithromycin 500 mg/ Sodium (Chloride) 250 mls @ 250 mls/hr IV X1 ONE Stop: 12/14/24 11:11 Last Admin: 12/14/24 11:22 Dose: 250 mls/hr Documented By: DO Ceftriaxone Sodium/Dextrose (Rocephin/D5w 1gm Iv Premix) 1 gm in 50 mls @ 100 mls/hr IV X1 ONE Stop: 12/14/24 10:41 Last Admin: 12/14/24 10:27 Dose: 100 mls/hr Documented By: DO Morphine Sulfate (Morphine Sulf Inj 10 Mg/Ml Vial) 2 mg IVP X1 ONE Stop: 12/14/24 09:33 Last Admin: 12/14/24 10:11 Dose: Not Given Documented By: DO Non-Admin Reason: Patient Refused Nitroglycerin (Nitroglycerin Oint 2% 1 Inch Packet) 1 inch TOP X1 ONE Stop: 12/14/24 09:33 Last Admin: 12/14/24 10:18 Dose: 1 inch Documented By: DO Treatment here included oxygen, Lasix, morphine, topical NTG, Rocephin, and Zithromax. Consultations Consultation(s) initiated? (list below): Yes Consultation #1 (Physician, Specialty, Details): I discussed the case with our hospitalist.? About the presentation and exam and diagnostics and treatments here.? And need of further care in the hospital. Will accept the patient. Diagnosis Shortness of Breath Differential Diagnosis: acute exacerbation of chronic obstructive airways disease, congestive heart failure, community acquired pneumonia, asthma with exacerbation and pulmonary embolism Most likely diagnosis given after review of the tests above:: At this point, diagnoses include acute respiratory failure with hypoxia, pneumonia, and CHF. Admission Indicated Admission indicated?: indicated Explain why admission is indicated or not indicated:: Respiratory failure Admission Request Was there a request for admission?: Yes Admission Attestation Admission request attestation: Discussed case with Hospitalist service regarding admission. Discussed patients ED course, exam findings, labs, and radiology results. Agreed to accept the patient for admission. Disposition Plan Disposition Plan: Admit Discharge Plan Plan Patient Disposition: HOME (Self Care) Prescriptions/Referrals Prescriptions/Med Rec: No Action sennosides [senna] 8.6 mg Tablet 8.6 mg PO QDAY PRN (Reason: constipation) Qty: 30 0RF atorvastatin 20 mg Tablet 80 mg PO HS Qty: 30 1RF aspirin [Ecotrin Low Strength] 81 mg Tablet,Delayed Release (Dr/Ec) 81 mg PO QDAY Qty: 30 1RF carvedilol 3.125 mg Tablet 6.25 mg PO BIDWM Qty: 60 1RF nitroglycerin 0.4 mg Tablet, Sublingual 0.4 mg SL Q5MIN PRN (Reason: Chest Pain) Qty: 30 0RF alum-mag hydroxide-simeth [Mag-Al Plus] 200-200-20 mg/5 mL Suspension 15 ml PO QID PRN (Reason: Heartburn) Qty: 1 1RF ticagrelor [Brilinta] 90 mg Tablet 90 mg PO BID Qty: 60 1RF tamsulosin 0.4 mg capsule 0.4 mg PO BID Qty: 30 1RF amlodipine 10 mg Tablet 5 mg PO QDAY Qty: 30 1RF Referrals: Eduar Haines PA-C [Primary Care Provider] - In 1 week Problem List Clinical Impression: Acute respiratory failure with hypoxia, Pneumonia, ESRD on dialysis, CHF (congestive heart failure) Patient/Caregiver Discharge Instructions Print Language: Urdu Stand Alone Forms: Johanna Award Info., Patient Portal Info Letter
--- NOTE | 2024-12-14 09:33 | XR_ITS ---
Examination: AP chest single view Technique one AP portable upright chest single view Date and time: December 14, 2024 0943 hrs. Comparison November 08, 2024 Indications: Chest pain this morning Findings: Significant pneumonia left base Mild prominence cardiac contour Mild vascular congestion. Significant osteopenia Impression: Significant pneumonia left base
--- NOTE | 2024-12-14 10:00 | PC.NURSE ---
PT CAME IN WITH C/O DIFFICULTY BREATHING FOR A FEW DAYS WITH INCREASE DIFFICULTY WHILE LAYING FLAT. PT DENIES CHEST PAIN. RESPIRATIONS SLIGHTLY LABORED AT THIS TIME. PT PLACED ON CC MONITOR. PT 02 SATS 95% ROOM AIR. PT WAS PLACED ON 02 3L FOR PT COMFORT. PT REPORTS FEELING BETTER WITH 02.
[2024-12-14] MEDS: NITROGLYCERIN OINT 2% 1 INCH PACKET TOP (10:18)
[2024-12-14] MEDS: FUROSEMIDE INJ 10 MG/ML 4ML VIAL 40 MG IVP ×2 (10:19→17:45)
[2024-12-14 10:24] LABS: Base Excess -7 (-3-3); HCO3 17 mEq/L (20-26); Inspired Oxygen, FIO2 21 %; PCO2 29 mmHg (32.0-48.0); PO2 69 mmHg (83-108); pH, Arterial 7.38 (7.35-7.45)
--- NOTE | 2024-12-14 10:25 | PC.NURSE ---
per dr grady. blood cultures are not needed. per dr ysabel machado to start antibiotics
[2024-12-14 10:26] LABS: Allen Test Performed/OK; O2 Saturation 97 % (91-98); Puncture Site Right Radial
[2024-12-14] MEDS: cefTRIAXone/D5w 1gm IV premix 1 GM/50 ML BAG IV (10:27)
[2024-12-14 10:35] LABS: Basophils # (Auto) 0.1 Thou/mm3 (0.0-0.2); Basophils % (Auto) 1 % (0-2.5); Eosinophils # (Auto) 0.5 Thou/mm3 (0.0-0.5); Eosinophils % (Auto) 4 % (0-10); Hematocrit 34.3 % (41.0-53.0); Hemoglobin 10.8 g/dL (13.5-16.0); Immature Granulocytes Auto 0.08 Thou/mm3 (0.00-0.00); Lymphocytes # (Auto) 1.0 Thou/mm3 (1.0-4.8); Lymphocytes % (Auto) 7 % (10-50); Mean Corpuscular HGB Conc 31.5 g/dl (31.0-37.0); Mean Corpuscular Hemoglobin 28.7 pg (25.0-35.0); Mean Corpuscular Volume 91 fL (80-100); Monocytes # (Auto) 1.2 Thou/mm3 (0.0-0.8); Monocytes % (Auto) 9 % (0-12); Neutrophils # (Auto) 11.2 Thou/mm3 (1.8-7.7); Neutrophils % (Auto) 79 % (37-80); Nucleated Red Blood Cell # 0.00 Thou/mm3 (0.00-0.00); Nucleated Red Blood Cell % 0 /100 WBC (0); Platelet Count 240 Thou/mm3 (140-440); RDW Standard Deviation 48.1 fL (35.1-43.9); Red Blood Count 3.76 Miln/mm3 (4.50-5.90); White Blood Count 14.1 Thou/mm3 (3.8-10.6)
[2024-12-14 10:51] LABS: INR 1.1 (0.9-1.3); Partial Thromboplastin Time 34.4 Seconds (22.0-36.0); Prothrombin Time 12.0 Seconds (9.0-12.2)
[2024-12-14 10:54] LABS: D-Dimer 789 ng/mL (<600)
[2024-12-14 11:04] LABS: Alanine Aminotransferase 16 U/L (10-49); Albumin, Serum 4.0 gm/dL (3.4-4.8); Albumin/Globulin Ratio 1.3 (1.2-2.2); Alkaline Phosphatase 118 U/L (46-116); Anion Gap 14 (7-16); Aspartate Amino Transferase 14 U/L (0-34); BUN/Creatinine Ratio 8 Ratio (12-20); Bilirubin,Direct 0.2 mg/dL (0.0-0.3); Bilirubin,Total 0.8 mg/dL (0.3-1.2); Blood Urea Nitrogen 33 mg/dL (9-23); Calcium 8.6 mg/dL (8.3-10.6); Calcium (Corrected) 8.6 mg/dL (8.5-10.1); Carbon Dioxide 16.6 mMol/L (20.0-31.0); Chloride 112 mMol/L (98-107); Creatinine (Component) 4.0 mg/dL (0.6-1.3); Estimated Creatinine Clearance 13.9 mL/min (>60); Free T4 (Free Thyroxine) 1.20 ng/dL (0.89-1.76); Globulin 3.1 gm/dL (2.3-3.5); Glucose 131 mg/dL (74-106); Magnesium 2.4 mg/dL (1.6-2.6); Osmolality,Calculated 294 (275-295); Potassium 4.8 mMol/L (3.4-5.1); Sodium 143 mMol/L (136-145); Thyroid Stimulating Hormone 6.65 uIU/mL (0.55-4.78); Total Protein 7.1 gm/dL (5.7-8.2); Troponin I 0.033 ng/mL (0.0-0.045); eGFR 14 See Note
[2024-12-14 11:09] LABS: B-Type Natriuretic Peptide 3129 pg/mL (0-100)
[2024-12-14] MEDS: AZITHROMYCIN INJ 500 MG in SODIUM CHLORIDE 0.9% 250 ML 250 ML 250 MG IV (11:22)
[2024-12-14 12:04] LABS: Collection Type, Urine Clean Catch; Squamous Epithelial Cell,Urine 0 /hpf (0-5)
[2024-12-14 12:12] LABS: Bilirubin,Urine Negative (Negative); Blood,Urine Negative (Negative); Clarity,Urine Clear (Clear/Hazy); Color,Urine Colorless (Lt Yel-Yel); Culture Indicated,Urine Not Indicated; Glucose, Urine Negative (Negative); Ketones,Urine Negative (Negative); Leukocyte Esterase,Urine Negative (Negative); Nitrite,Urine Negative (Negative); PH,Urine 6.0 (5.0-7.0); Protein,Urine 1+ (Neg - Trace); RBC,Urine 1 /hpf (0-3); Specific Gravity,Urine 1.010 (1.001-1.035); Urobilinogen,Urine Negative mg/dL (0.0-1.0); WBC,Urine 1 /hpf (0-5)
--- NOTE | 2024-12-14 14:15 | PC.NURSE ---
DR PEÑA AT BEDSIDE TO SEE PT
--- NOTE | 2024-12-14 15:50 | PC.NURSE ---
REPOSITIONED PT IN BED. PT DOES REPORT FEELING SOB BUT STATES THAT IT IS EASIER TO BREATH NOW THEN WHEN HE FIRST CAME IN. PILLOW PROVIDER FOR PT. CALL LIGHT WITHIN REACH. WILL CONTINUE TO MONITOR
--- NOTE | 2024-12-14 16:08 | PC.NURSE ---
HOSPITALIST AT BEDSIDE TO SEE PT
--- NOTE | 2024-12-14 16:46 | PD.RESHP ---
Documentation for date of: 12/14/24 HPI History of Present Illness History of present illness: 84 year old male with PHx significant for HTN, CAD, CKD stage IV and ESRD, recently admitted for NSTEMI with placement of 1 stent. Patient presented to ED with worsening dyspnea and orthopnea x1 day. Patient endoses generalized fatigue since cardiac stenting x1 month. No chest pain. No fever. No swelling noticed by patient. Insomnia for past 2 days. 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 CXR showed significant pneumonia left base. Blood tests remarkable for WBC 14.1, Cr 4.0, and BNP 3129. Treatment given included oxygen, Lasix, morphine, topical NTG, Rocephin, and Zithromax. Review of Systems Constitutional Constitutional: Reports difficulty sleeping, Reports fatigue and Reports lethargy Eyes Eyes: Reports system reviewed and no additional complaints, except as documented ENT Ears, Nose, Mouth, and Throat: Reports system reviewed and no additional complaints, except as documented Cardiovascular Cardiovascular: Denies chest pain, Reports dyspnea and Reports orthopnea Respiratory Respiratory: Reports dyspnea Gastrointestinal Gastrointestinal: Reports system reviewed and no additional complaints, except as documented Genitourinary Genitourinary: Reports system reviewed and no additional complaints, except as documented Musculoskeletal Musculoskeletal: Reports system reviewed and no additional complaints, except as documented Neurologic Neurologic: Reports system reviewed and no additional complaints, except as documented Psychiatric Psychiatric: Reports system reviewed and no additional complaints, except as documented Endocrine Endocrine: Reports fatigue Past Medical History Past Medical History NEUROLOGIC: Positive Cerebrovascular Accident CARDIAC: Positive Hypertension GENITOURINARY: Positive Chronic Kidney Disease (stage 4 - but does not wish to be on dialysis) ENDOCRINE: Positive Diabetes Mellitus Type 2 (On no home meds) Surgical History OTHER SURGICAL HX: None Social History SOCIAL: Quit smoking years ago, approximately 54-pvig-evnx history. Denies alcohol or illicit drug use. Exam Vital Signs Temp Pulse Resp BP Pulse Ox O2 Del Method O2 Flow Rate 97.8 F 80 18 179/87 H 96 Nasal Cannula 3 12/14/24 13:54 12/14/24 14:30 12/14/24 14:30 12/14/24 14:30 12/14/24 13:54 12/14/24 13:54 12/14/24 13:54 Narrative Exam General: Alert and oriented. In moderate respiratory distress. Hypoxia noted. HEENT: Conjunctivae and lids clear. No nasal congestion.Supple. Cardio: RRR. S1+S2. No murmurs/rubs/gallops. JVP distended with hepatojugular reflex. Lungs: Moderate respiratory distress. Decreased air movement with bilat rales. Abdo: Soft and nontender. BS present. Legs: No peripheral edema. Skin: Warm and dry. Neuro: No focal neuro deficits. No motor/sensory deficits of upper and lower extremeties Results: Labs 12/15/24 04:51 12/15/24 04:51 Labs: Short CBC 12/14/24 Range/Units 10:05 WBC 14.1 H (3.8-10.6) Thou/mm3 Hgb 10.8 L (13.5-16.0) g/dL Hct 34.3 L (41.0-53.0) % Plt Count 240 D (140-440) Thou/mm3 BMP 12/14/24 10:05 Sodium 143 Potassium 4.8 Chloride 112 H Carbon Dioxide 16.6 L BUN 33 H Creatinine 4.0 H Glucose 131 H Calcium 8.6 Cardiac Enzymes 12/14/24 Range/Units 10:05 Troponin I 0.033 (0.0-0.045) ng/mL Liver Function 12/14/24 Range/Units 10:05 Total Bilirubin 0.8 (0.3-1.2) mg/dL Direct Bilirubin 0.2 (0.0-0.3) mg/dL AST 14 (0-34) U/L ALT 16 (10-49) U/L Alkaline Phosphatase 118 H (46-116) U/L Albumin 4.0 (3.4-4.8) gm/dL Urine 12/14/24 Range/Units 11:49 Urine Color Colorless A (Lt Yel-Yel) Urine Clarity Clear (Clear/Hazy) Urine pH 6.0 (5.0-7.0) Ur Specific [place] 1.010 (1.001-1.035) Urine Protein 1+ A (Neg - Trace) Urine Glucose (UA) Negative (Negative) ABG Interpretation ABG results: 12/14/24 10:19 ABG pH 7.38 ABG pCO2 29 L ABG pO2 69 L ABG HCO3 17 L ABG O2 Saturation 97 ABG Base Excess -7 L Quality Measures Quality Measures none Advance care planning discussed with:: patient Medications Home Medications and Allergies Home Medications ?Medication ?Instructions ?Recorded ?Confirmed ?Type amlodipine 5 mg tablet 5 mg PO QDAY 12/14/24 12/14/24 History carvedilol 3.125 mg tablet 6.25 mg PO BID 12/14/24 12/14/24 History clopidogrel 75 mg tablet 75 mg PO QDAY 12/14/24 12/14/24 History tamsulosin 0.4 mg capsule 0.8 mg PO BID 12/15/24 12/15/24 History Allergies Allergy/AdvReac Type Severity Reaction Status Date / Time codeine Allergy Vomiting Verified 12/14/24 09:06 Visit Medications Acetaminophen (Acetaminophen 325 Mg Tablet) 650 mg PO Q6H PRN PRN Reason: PAIN SCALE 1-3 (mild Stop: 01/13/25 16:23 Furosemide (Furosemide Inj 10 Mg/Ml 4ml Vial) 40 mg IVP X1 ONE Stop: 12/14/24 16:30 Levalbuterol HCl (Levalbuterol Rt 0.63 Mg/3 Ml Nebu) 0.63 mg INH Q6HRRT NAHED Stop: 01/13/25 18:59 Pantoprazole Sodium (Pantoprazole 40 Mg Tablet) 40 mg PO QDAY NAHED Stop: 01/14/25 08:59 Discontinued Medications Furosemide (Furosemide Inj 10 Mg/Ml 4ml Vial) 40 mg IVP X1 ONE Stop: 12/14/24 09:33 Last Admin: 12/14/24 10:19 Dose: 40 mg Azithromycin 500 mg/ Sodium (Chloride) 250 mls @ 250 mls/hr IV X1 ONE Stop: 12/14/24 11:11 Last Infusion: 12/14/24 12:45 Dose: Infused Ceftriaxone Sodium/Dextrose (Rocephin/D5w 1gm Iv Premix) 1 gm in 50 mls @ 100 mls/hr IV X1 ONE Stop: 12/14/24 10:41 Last Infusion: 12/14/24 11:10 Dose: Infused Morphine Sulfate (Morphine Sulf Inj 10 Mg/Ml Vial) 2 mg IVP X1 ONE Stop: 12/14/24 09:33 Last Admin: 12/14/24 10:11 Dose: Not Given Nitroglycerin (Nitroglycerin Oint 2% 1 Inch Packet) 1 inch TOP X1 ONE Stop: 12/14/24 09:33 Last Admin: 12/14/24 10:18 Dose: 1 inch Assessment & Plan Plan Assessment: 84y M with PHx significant for HTN, CAD, ESRD, and recent admission for NSTEMI with stent placement admitted for acute on chronic respiratory failure with hypoxia and excerbation of CHF. #Acute on chronic resp failure w/ hypoxia #Community acquired PNA #Flu A positive CXR - Significant pneumonia left base ABG: pH 7.38, pCO2 29, pO2 69, HCO3 Plan Patient recived 1 dose of ceftriazone and azithromycin in ED We will continue Ceftriaxone given CXR finding Tamiflu 30mg BID x 5 days (renal dosing) #Congestive Heart Failure #Stage 1 diastolic dysfunction New onset of orthopnea. Bilat rales on resp exam. No peripheral leg swelling. JVP distended with hepatojugular reflex BNP 3129 Trop WNL TSH 6.65, fT4 1.2 LFT WML EKG: sinus rythym 84bpm w/ 1st degree AV block and PAC Echo (11/08/24) showed grade 1 diastolic dysfunction. LVEF is 55 to 60%. Plan Cardio consult, see recs Recieved 1x Lasix 40mg IV today. We will diuresis patient for now 40mg IV. We may go up to 80mg IV based on Cr function. Follow daily weights Strict I/Os Restrict Na Restrict fluid 1.5L Cardiac diet #HTN BP in hospital has been very high (in ED 192/99) Plan Started on Amlodipine 10mg daily #CAD #Hx of NSTEMI w/ 1 stent placement Prev hospitalization 11/08/2024 Operative note (11/11/2024) 1. Acute coronary syndrome: NSTEMI-peak troponin of 2.9 C showed severe double vessel CAD with subtotal occlusion 99% stenosis of the mid LCx with PADDY II flow in the OM 2, severe diffuse disease from the proximal to the distal RCA with multiple tandem lesions, moderate 40 to 50% stenosis of the proximal LAD as well as the proximal LCx. Rest of the coronary artery segments) showed only mild disease. 2. Successful PCI of the mid LCx with 3.0 x 12 mm [place] CHERIE stent with excellent results, no complications and PADDY-3 flow. Plan Continue home meds: ASA 81mg, Ticagrelor 90mg BID, Atorvastatin 80mg daily, Carvedilol 6.25mg daily #CKD - stage 4 #ESRD Cr 4, BUN 33 Patient mentions does not want dialysis because of adverse event experienced by fam member. Plan Renal dosing of meds #T2DM A1c on 11/08/24 5.6% Plan Insulin SS Health Maintenance: Diet: cardiac GI prophylaxis: protonix DVT prophylaxis: Antibiotics: Rocephin CODE STATUS: DNR Disposition: Telemetry Case discussed with my attending Dr. Yumiko Huber MD PGY-1 Attending Provider Attestation/Addendum Patient was seen here at specially when he lays flat. Patient has no increased leg edema. He has minimal abdominal distention. He had weight gain. Patient has CKD. Blood pressure is elevated currently denies chest pain however he is symptomatic with dyspnea with minimal activity. He has PND and orthopnea. The patient will receive IV diuretic treatment. Will address CKD, he probably has cardiorenal syndrome patient said that he had CAD with with 1 stent currently on Plavix. I discussed with and supervised the resident physician who took care of this patient. I agree with the assessment and plan as above.
[2024-12-14] MEDS: OSELTAMIVIR 30 MG CAPSULE PO (17:43)
[2024-12-14] MEDS: LEVALBUTEROL RT 0.63 MG/3 ML NEBU INH (18:04)
[2024-12-14] MEDS: ASPIRIN EC 81 MG TABEC PO (18:35)
[2024-12-14] MEDS: LABETALOL INJ 5 MG/ML VIAL 20 ML 10 MG IVP (18:38)
--- NOTE | 2024-12-14 19:23 | PC.NURSE ---
REPORT GIVEN TO PAULINE ON TELE FLOOR. PT TO GO TO ROOM 363
--- NOTE | 2024-12-14 20:00 | PD.IMCONS ---
HPI Data of Consult Patient: known to practice within the last 3 years Consult date: 12/14/24 Requesting Physician: David Calderon MD Primary Care Provider: Eduar Haines PA-C Consult Narrative Reason for consult: Shortness of breath and possible CHF exacerbation History of present illness: A 84-year-old male with a past medical history of CAD status post PCI to the LCx on 11/11/2024, residual CAD of the RCA severe and moderate LAD being managed medically, CKD stage IV-V, with baseline creatinine of around 4, hypertension, type 2 diabetes mellitus, diabetic nephropathy, hyperlipidemia, osteoarthritis, history of TIA versus stroke 2 years ago, chronic smoker with more than 25-81-vagv-year smoking history, BPH, mild chronic anemia secondary to CKD presented to the emergency department for further evaluation of shortness of breath. Patient was recently admitted to the hospital for an NSTEMI and was diagnosed with the severe 99% LCx stenosis for which he had a PCI performed with low contrast given his CKD stage V. Patient at that time did not want any dialysis and was absolutely against it. Patient did follow-up with me in the clinic after the procedure and he was doing well without any major cardiac complaints. Patient was recommended to follow-up in 1 month. Apparently patient has been having worsening shortness of breath over the last couple of days and has not been able to lie flat and sleep. Complains of significant orthopnea has only trace minimal leg swelling on examination has significant crackles bibasilar. Patient unable to walk even a few steps and at baseline could walk around without shortness of breath. Denies any current chest pain chest pressure or palpitations or dizziness or syncope or fall. Patient denies any kind of fever or chills. Patient lives alone and is ADL/IADL independent. Still drives around. Quit smoking a few years ago after almost 50 to 60 pack of smoking history. Denies any kind of alcohol or drug abuse. 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 Endorses that he has hypertension and diabetes for many years along with a smoking. Diagnosed chronic kidney disease few years ago and follows with Dr Parra. His kidney function is 14 to 15% as per the patient. Family history significant for heart disease siblings and possibly father. Surgical history not significant. Allergies codeine Full note to follow cc:: cc: David Calderon MD Review of Systems Review of Systems Systems Reviewed: All systems reviewed, normal except as documented Past Medical History Past Medical History NEUROLOGIC: Negative Neurological Disorders or Seizures CARDIAC: Positive Cardiac Disorders, Hypercholesterolemia and Hypertension; Negative Congestive Heart Failure RESPIRATORY: Negative Chronic Obstructive Pulmonary Disease (COPD) GASTROINTESTINAL: Negative Gastrointestinal Disorders, Hepatitis, Colitis or Colorectal Cancer GENITOURINARY: Positive Chronic Kidney Disease and Benign Prostatic Hyperplasia; Negative Genitourinary Disorders, Renal Disease, Kidney Stones, Polycystic Kidney Disease, Neurogenic Bladder, Inguinal Hernia or Dialysis REPRODUCTIVE: Negative Breast Cancer MUSCULOSKELETAL: Positive Musculoskeletal Disorders and Arthritis ENT: Positive Cataracts, Macular Degeneration and Deafness (robinson) ENDOCRINE: Positive Endocrine Disorders and Diabetes Mellitus Type 2; Negative Diabetes Mellitus Type 1 HEMATOLOGIC: Negative Blood Disorders OTHER HISTORY: Negative Hospitalization, Autoimmune Disease, Down Syndrome, Developmental Delay, Shingles, Falls, Blood Transfusions, Blood Transfusion Reaction, Anesthesia Reactions, Organ Transplant, MRSA, VRSA, Vancomycin-Resistant Enterococci, Human Immunodeficiency Virus (HIV), Chicken Pox, Measles, Mumps, Rubella (Citizen [place] Measles), Pertussis, Clostridium Difficile, Cancer, Breast Cancer, Cervical Cancer, Colorectal Cancer or Lung Cancer Family History FAMILY HISTORY: Negative Family Psychiatric Problems, Family Respiratory Disorders, Family Cardiac Disorders, Family Gastrointestinal Problems, Family Cancer, Family Surgery or Family Anesthesia Reaction Surgical History SURGICAL: Positive Eye Surgery (cataracts); Negative Cardiac Surgery, Open Heart Surgery, Endocrine Surgery, Ear Surgery, Tympanostomy Tube, Abdominal Surgery, Nephrectomy, Joint Replacement, Neurologic Surgery, Mastectomy, Vasectomy or Organ Transplant Social History SMOKING STATUS: Former smoker SECOND HAND EXPOSURE: No Past Medical History Comments PMH COMMENT: PMH: Patient reports possible stroke several years ago. Hypertension, CKD. PSH: None SH: Quit smoking a few years ago, approximately 58-gfyf-noan history. Denies alcohol or illicit drug use. Allergies:?Codeine Medications: Flomax, amiodarone Meds Home Medications and Allergies Home Medications ?Medication ?Instructions ?Recorded ?Confirmed ?Type amlodipine 5 mg tablet 5 mg PO QDAY 12/14/24 12/14/24 History carvedilol 3.125 mg tablet 6.25 mg PO BID 12/14/24 12/14/24 History clopidogrel 75 mg tablet 75 mg PO QDAY 12/14/24 12/14/24 History tamsulosin 0.4 mg capsule 0.8 mg PO BID 12/15/24 12/15/24 History Allergies Allergy/AdvReac Type Severity Reaction Status Date / Time codeine Allergy Vomiting Verified 12/14/24 09:06 Exam Vital Signs Temp Pulse Resp BP Pulse Ox O2 Del Method O2 Flow Rate 97.3 F 94 28 H 169/90 H 96 Nasal Cannula 3 12/14/24 20:50 12/14/24 22:04 12/14/24 22:04 12/14/24 20:50 12/14/24 22:04 12/14/24 20:50 12/14/24 22:04 Narrative Exam General: Alert and oriented x3. In no acute distress. Eyes: Pupils are equal and reactive to light bilaterally. HEENT: Atraumatic, normocephalic. No JVD noted. Mucosa moist. Cardiovascular: Normal S1 and S2. Normal rate and regular rhythm. No murmurs appreciated. Trace to 1+ peripheral pitting edema noted. Respiratory: No respiratory distress. Bilateral air entry present with significant crackles up to the mid. No wheezing. Abdomen: Soft, nontender, nondistended. Skin: No rash. Warm to touch. Musculoskeletal: No gross injuries. Able to move all 4 extremities. Neuro: Alert and oriented x3. No focal neuro deficits. Psych: Normal affect and mood Results Labs 12/15/24 04:51 12/15/24 04:51 Labs: Short CBC 12/14/24 Range/Units 10:05 WBC 14.1 H (3.8-10.6) Thou/mm3 Hgb 10.8 L (13.5-16.0) g/dL Hct 34.3 L (41.0-53.0) % Plt Count 240 D (140-440) Thou/mm3 BMP 12/14/24 10:05 Sodium 143 Potassium 4.8 Chloride 112 H Carbon Dioxide 16.6 L BUN 33 H Creatinine 4.0 H Glucose 131 H Calcium 8.6 Cardiac Enzymes 12/14/24 Range/Units 10:05 Troponin I 0.033 (0.0-0.045) ng/mL Liver Function 12/14/24 Range/Units 10:05 Total Bilirubin 0.8 (0.3-1.2) mg/dL Direct Bilirubin 0.2 (0.0-0.3) mg/dL AST 14 (0-34) U/L ALT 16 (10-49) U/L Alkaline Phosphatase 118 H (46-116) U/L Albumin 4.0 (3.4-4.8) gm/dL Urine 12/14/24 Range/Units 11:49 Urine Color Colorless A (Lt Yel-Yel) Urine Clarity Clear (Clear/Hazy) Urine pH 6.0 (5.0-7.0) Ur Specific [place] 1.010 (1.001-1.035) Urine Protein 1+ A (Neg - Trace) Urine Glucose (UA) Negative (Negative) ABG Interpretation ABG results: 12/14/24 10:19 ABG pH 7.38 ABG pCO2 29 L ABG pO2 69 L ABG HCO3 17 L ABG O2 Saturation 97 ABG Base Excess -7 L Assessment and Plan Additional Assessment & Plan Additional Plan: A 84-year-old male with a past medical history of CAD status post PCI to the LCx on 11/11/2024, residual CAD of the RCA severe and moderate LAD being managed medically, CKD stage IV-V, with baseline creatinine of around 4, hypertension, type 2 diabetes mellitus, diabetic nephropathy, hyperlipidemia, osteoarthritis, history of TIA versus stroke 2 years ago, chronic smoker with more than 10-90-vyzk-year smoking history, BPH, mild chronic anemia secondary to CKD presented to the emergency department for further evaluation of shortness of breath. Cardiology consulted for further evaluation of the shortness of breath and to rule out CHF exacerbation. 1. Acute hypoxic respiratory failure in the setting of volume overload from the CKD stage V as well as the diastolic CHF. 2. CKD stage V with baseline creatinine of around 4 3. Diastolic congestive heart failure exacerbation 4. CAD status post PCI to LCx on 11/11/2024 with residual disease of the RCA as well as LCx. 5. Essential hypertension 6. Type 2 diabetes mellitus 7. Diabetic nephropathy and hypertensive nephropathy 8. Hyperlipidemia 9. Osteoarthritis 10. History of TIA versus stroke 2 years ago 1. Chronic smoker with more than 99-axbq-msjk smoking history 12. BPH. Patient has been having worsening shortness of breath since yesterday and is unable to lie flat-complains of significant orthopnea. On examination patient was only trace peripheral edema but has bilateral significant bilateral crackles up to mid lung. Patient is not fluid overloaded state from his CKD stage V along with diastolic dysfunction noted on the echo. Patient also has a history of CKD stage V but he does not want any kind of dialysis, this was even discussed in length during the last admission. Recommend to consult nephrology to discuss with patient regarding the option for dialysis. Patient is Dr Parra's patient and follows with her for many years. His creatinine is 4.0 today. Recommend to start and diuresis with Lasix 80 mg IV x 1 Strict input output, daily weights and 2 g sodium diet. Will evaluate his input output in the morning and reduce his Lasix and will continue to uptitrate it based on his clinical status. Keep potassium between 4 and 5 and magnesium greater than 2 at all times. Recommend to check ESR and CRP along with the BNP. Initial BNP is 3280. Patient does have a history of CAD status post PCI to LCx in November 2024 and does have residual moderate disease of the LAD, severe disease of the RCA which is being managed medically. EKG shows sinus rhythm without any acute ST-T changes history of ischemia. Troponin was also negative at 0.033. Recommend no further troponins for now. Unlikely ACS. Recommend to continue with aspirin, Brilinta, high intensity statin and beta-pardeep Recommend to repeat the echocardiogram to rule out any new systolic dysfunction and to evaluate for any regional wall motion abnormalities. His blood pressure is also elevated on admission and is mostly secondary to his fluid overloaded state At home patient was on amlodipine 5 mg twice daily along with Coreg 6.25 mg twice daily and recommend to continue to uptitrate the Coreg for now as heart rate is in the normal range. Continue amlodipine. No ARB or BEN inhibitor or Entresto given his CKD stage IV none this patient started dialysis but cannot start the medications given the CKD stage IV-V. Nephrology to discuss with the patient again regarding the dialysis. Management of rest of the medical conditions as per primary team and other consultants. Thank you for the consult and allowing me to participate in the care of the patient. Cardiology will continue to follow. Karlo Ann M.D. Interventional Cardiology
[2024-12-14] MEDS: ATORVASTATIN CALCIUM 20 MG TABLET 80 MG PO (20:27)
[2024-12-14] MEDS: TAMSULOSIN HCL 0.4 MG CAPSULE PO (20:27)
[2024-12-14] MEDS: ALBUTEROL/IPRATROPIUM (Duoneb) RT SOL 3 ML NEBU INH (21:58)
[2024-12-15] VITALS (22 sets, daily range): BP systolic 161–171; BP diastolic 69–89; PULSE 62–108; RESP 16–28; TEMP 36.1–36.7; O2SAT 91–98; BMI 24.0
[2024-12-15] MEDS: ALBUTEROL/IPRATROPIUM (Duoneb) RT SOL 3 ML NEBU INH ×6 (02:53→23:32)
[2024-12-15] MEDS: FUROSEMIDE INJ 10 MG/ML 4ML VIAL 40 MG IVP ×3 (05:19→17:07)
[2024-12-15 05:46] LABS: Basophils # (Auto) 0.1 Thou/mm3 (0.0-0.2); Basophils % (Auto) 1 % (0-2.5); Eosinophils # (Auto) 0.6 Thou/mm3 (0.0-0.5); Eosinophils % (Auto) 5 % (0-10); Hematocrit 31.2 % (41.0-53.0); Hemoglobin 10.0 g/dL (13.5-16.0); Immature Granulocytes Auto 0.06 Thou/mm3 (0.00-0.00); Lymphocytes # (Auto) 1.0 Thou/mm3 (1.0-4.8); Lymphocytes % (Auto) 8 % (10-50); Mean Corpuscular HGB Conc 32.1 g/dl (31.0-37.0); Mean Corpuscular Hemoglobin 28.2 pg (25.0-35.0); Mean Corpuscular Volume 88 fL (80-100); Monocytes # (Auto) 1.4 Thou/mm3 (0.0-0.8); Monocytes % (Auto) 11 % (0-12); Neutrophils # (Auto) 9.2 Thou/mm3 (1.8-7.7); Neutrophils % (Auto) 75 % (37-80); Nucleated Red Blood Cell # 0.00 Thou/mm3 (0.00-0.00); Nucleated Red Blood Cell % 0 /100 WBC (0); Platelet Count 242 Thou/mm3 (140-440); RDW Standard Deviation 45.9 fL (35.1-43.9); Red Blood Count 3.54 Miln/mm3 (4.50-5.90); White Blood Count 12.3 Thou/mm3 (3.8-10.6)
[2024-12-15 06:04] LABS: INR 1.1 (0.9-1.3); Partial Thromboplastin Time 35.0 Seconds (22.0-36.0); Prothrombin Time 12.0 Seconds (9.0-12.2)
[2024-12-15 06:08] LABS: Sed Rate (ESR) 72 mm/hr (0-20)
[2024-12-15 06:27] LABS: Alanine Aminotransferase 17 U/L (10-49); Albumin, Serum 3.6 gm/dL (3.4-4.8); Albumin/Globulin Ratio 1.2 (1.2-2.2); Alkaline Phosphatase 110 U/L (46-116); Anion Gap 14 (7-16); Aspartate Amino Transferase 16 U/L (0-34); BUN/Creatinine Ratio 10 Ratio (12-20); Bilirubin,Total 0.5 mg/dL (0.3-1.2); Blood Urea Nitrogen 42 mg/dL (9-23); C-Reactive Protein 8.5 mg/dL (0.0-0.9); Calcium 8.4 mg/dL (8.3-10.6); Calcium (Corrected) 8.7 mg/dL (8.5-10.1); Carbon Dioxide 19.8 mMol/L (20.0-31.0); Cardiac Risk Estimate 2.7 RATIO (4.0-6.7); Chloride 110 mMol/L (98-107); Cholesterol 71 mg/dL (132-200); Creatinine (Component) 4.2 mg/dL (0.6-1.3); Estimated Creatinine Clearance 13.2 mL/min (>60); Globulin 3.1 gm/dL (2.3-3.5); Glucose 115 mg/dL (74-106); HDL Cholesterol 26 mg/dL (40-60); LDL Cholesterol,Calculated 28 mg/dL (0-130); Magnesium 2.3 mg/dL (1.6-2.6); Osmolality,Calculated 298 (275-295); Phosphorous 4.3 mg/dL (2.4-5.1); Potassium 4.9 mMol/L (3.4-5.1); Sodium 144 mMol/L (136-145); Total Protein 6.7 gm/dL (5.7-8.2); Triglycerides 83 mg/dL (30-150); eGFR 13 See Note
[2024-12-15 06:32] LABS: B-Type Natriuretic Peptide 2483 pg/mL (0-100)
[2024-12-15] MEDS: HEPARIN SOD INJ 5000 UNIT/ML VIAL SC ×2 (08:57→20:31)
[2024-12-15] MEDS: PANTOPRAZOLE 40 MG TABLET PO (08:59)
[2024-12-15] MEDS: ASPIRIN EC 81 MG TABEC PO (08:59)
[2024-12-15] MEDS: OSELTAMIVIR 30 MG CAPSULE PO (08:59)
[2024-12-15] MEDS: cefTRIAXone/D5w 1gm IV premix 1 GM/50 ML BAG IV (09:32)
--- NOTE | 2024-12-15 14:00 | ESPR_ITS ---
Documentation for date of: 12/15/24 Subjective Subjective Interval history: Patient seen and examined at bedside. No new cardiac complaints. Denies any chest pain or chest pressure but has some shortness of breath. Still on oxygen via nasal cannula but his oxygen requirements are decreasing. Shortness of breath is improving as per patient with the diuresis. Unfortunately strict input output has been not measured accurately. Unfortunately the daily weights also not been accurate. Renal function stable and now BUN is 42 and creatinine is 4.2. His baseline creatinine is around 4.0. Recommend to continue Lasix 80 mg IV once daily for now and strict input output along with accurate daily weights. Continue to monitor renal function closely. Nephrology has been consulted. Patient does not want dialysis and nephrology to continue to discuss with him. Exam Vital Signs Temp Pulse Resp BP Pulse Ox O2 Del Method O2 Flow Rate 98.3 F 74 17 167/82 H 98 Nasal Cannula 2 12/16/24 04:00 12/16/24 05:22 12/16/24 04:00 12/16/24 05:22 12/16/24 04:00 12/16/24 04:00 12/16/24 04:00 Objective Labs 12/15/24 04:51 12/15/24 04:51 Labs: Laboratory Results - last 24 hr 12/15/24 12/15/24 04:50 04:51 WBC 12.3 H RBC 3.54 L Hgb 10.0 L Hct 31.2 L MCV 88 MCH 28.2 MCHC 32.1 RDW Std Deviation 45.9 H Plt Count 242 Neut % (Auto) 75 Lymph % (Auto) 8 L [place] % (Auto) 11 Eos % (Auto) 5 Baso % (Auto) 1 Neut # (Auto) 9.2 H Lymph # (Auto) 1.0 [place] # (Auto) 1.4 H Eos # (Auto) 0.6 H Baso # (Auto) 0.1 Immature Gran # (Auto) 0.06 H Absolute Nucleated RBC 0.00 Immature Gran % 1 H Nucleated RBC % 0 ESR 72 H PT 12.0 INR 1.1 APTT 35.0 Sodium 144 Potassium 4.9 Chloride 110 H Carbon Dioxide 19.8 L Anion Gap 14 BUN 42 H Creatinine 4.2 H* Estim Creat Clear Calc 13.2 L eGFR 13 L* BUN/Creatinine Ratio 10 L Glucose 115 H Calculated Osmolality 298 H Calcium 8.4 Corrected Calcium 8.7 Phosphorus 4.3 Magnesium 2.3 Total Bilirubin 0.5 AST 16 ALT 17 Alkaline Phosphatase 110 C-Reactive Prot, Quant 8.5 H B-Natriuretic Peptide 2483 H* Total Protein 6.7 Albumin 3.6 Globulin 3.1 Albumin/Globulin Ratio 1.2 Triglycerides 83 Cholesterol 71 L LDL Cholesterol, Calc 28 HDL Cholesterol 26 L Cholesterol/HDL Ratio 2.7 L Procalcitonin 0.22 ABG Interpretation ABG results: 12/14/24 10:19 ABG pH 7.38 ABG pCO2 29 L ABG pO2 69 L ABG HCO3 17 L ABG O2 Saturation 97 ABG Base Excess -7 L Assessment & Plan A&P Narrative A 84-year-old male with a past medical history of CAD status post PCI to the LCx on 11/11/2024, residual CAD of the RCA severe and moderate LAD being managed medically, CKD stage IV-V, with baseline creatinine of around 4, hypertension, type 2 diabetes mellitus, diabetic nephropathy, hyperlipidemia, osteoarthritis, history of TIA versus stroke 2 years ago, chronic smoker with more than 62-81-hjns-year smoking history, BPH, mild chronic anemia secondary to CKD presented to the emergency department for further evaluation of shortness of breath. Cardiology consulted for further evaluation of the shortness of breath and to rule out CHF exacerbation. 1. Acute hypoxic respiratory failure in the setting of volume overload from the CKD stage V as well as the diastolic CHF. 2. CKD stage V with baseline creatinine of around 4 3. Diastolic congestive heart failure exacerbation 4. CAD status post PCI to LCx on 11/11/2024 with residual disease of the RCA as well as LCx. 5. Essential hypertension 6. Type 2 diabetes mellitus 7. Diabetic nephropathy and hypertensive nephropathy 8. Hyperlipidemia 9. Osteoarthritis 10. History of TIA versus stroke 2 years ago 1. Chronic smoker with more than 30-yyft-hafj smoking history 12. BPH. Patient has been having worsening shortness of breath since yesterday and is unable to lie flat-complains of significant orthopnea. On examination patient was only trace peripheral edema but has bilateral significant bilateral crackles up to mid lung. Patient is not fluid overloaded state from his CKD stage V along with diastolic dysfunction noted on the echo. Patient also has a history of CKD stage V but he does not want any kind of dialysis, this was even discussed in length during the last admission. Recommend to consult nephrology to discuss with patient regarding the option for dialysis. Patient is Dr Parra's patient and follows with her for many years. His creatinine is 4.0 today. Recommend to start and diuresis with Lasix 80 mg IV x 1 Strict input output, daily weights and 2 g sodium diet. Will evaluate his input output in the morning and reduce his Lasix and will continue to uptitrate it based on his clinical status. Keep potassium between 4 and 5 and magnesium greater than 2 at all times. Recommend to check ESR and CRP along with the BNP. Initial BNP is 3280. Patient does have a history of CAD status post PCI to LCx in November 2024 and does have residual moderate disease of the LAD, severe disease of the RCA which is being managed medically. EKG shows sinus rhythm without any acute ST-T changes history of ischemia. Troponin was also negative at 0.033. Recommend no further troponins for now. Unlikely ACS. Recommend to continue with aspirin, Brilinta, high intensity statin and beta- pardeep Recommend to repeat the echocardiogram to rule out any new systolic dysfunction and to evaluate for any regional wall motion abnormalities. His blood pressure is also elevated on admission and is mostly secondary to his fluid overloaded state At home patient was on amlodipine 5 mg twice daily along with Coreg 6.25 mg twice daily and recommend to continue to uptitrate the Coreg for now as heart rate is in the normal range. Continue amlodipine. No ARB or BEN inhibitor or Entresto given his CKD stage IV none this patient started dialysis but cannot start the medications given the CKD stage IV-V. Nephrology to discuss with the patient again regarding the dialysis. 12/15/2024: Still on oxygen via nasal cannula but his oxygen requirements are decreasing. Shortness of breath is improving as per patient with the diuresis. Unfortunately strict input output has been not measured accurately. Unfortunately the daily weights also not been accurate. Renal function stable and now BUN is 42 and creatinine is 4.2. His baseline creatinine is around 4.0. Recommend to continue Lasix 80 mg IV once daily for now and strict input output along with accurate daily weights. Continue to monitor renal function closely. Nephrology has been consulted. Patient does not want dialysis and nephrology to continue to discuss with him. Management of rest of the medical conditions as per primary team and other consultants. Thank you for the consult and allowing me to participate in the care of the patient. Cardiology will continue to follow. Karlo Ann M.D. Interventional Cardiology Time Spent With Patient Time: Total time spent is greater than 50% in coordination of care (as documented) at patient's floor/unit and/or counseling patient:
[2024-12-15 14:01] LABS: Procalcitonin 0.22 ng/ml (0.0-0.49)
--- NOTE | 2024-12-15 14:05 | PD.RESPRO ---
Documentation for date of: 12/15/24 Subjective Subjective Interval history: Patient seen at bedside. No overnight events. Patient reports to feeling better today. Says that the oxymask overnight was very helpful. No worsening SOB. Eating minimally due to food not tasting good. No chest pain. No abdominal pain. No nausea or vomiting. On 2L O2 via CIDER PRESS OPERATOR Exam Vital Signs Temp Pulse Resp BP Pulse Ox O2 Del Method O2 Flow Rate 97.3 F 80 20 168/69 H 94 L Nasal Cannula 2 12/15/24 12:00 12/15/24 13:47 12/15/24 12:00 12/15/24 13:47 12/15/24 12:00 12/15/24 12:00 12/15/24 12:00 Narrative Exam General: Alert and oriented x3. Laying upright in bed. No distress. On 2L CIDER PRESS OPERATOR HEENT: Conjunctivae and lids clear. No nasal congestion.Supple. Cardio: RRR. S1+S2. No murmurs/rubs/gallops. JVP distended with hepatojugular reflex. Lungs: No resp distress. Decreased air movement with bilat rales. Abdo: Soft and nontender. BS present. Legs: No peripheral edema. Skin: Warm and dry. Neuro: No focal neuro deficits. No motor/sensory deficits of upper and lower extremeties Objective Labs 12/15/24 04:51 12/15/24 04:51 Labs: Laboratory Results - last 24 hr 12/15/24 12/15/24 04:50 04:51 WBC 12.3 H RBC 3.54 L Hgb 10.0 L Hct 31.2 L MCV 88 MCH 28.2 MCHC 32.1 RDW Std Deviation 45.9 H Plt Count 242 Neut % (Auto) 75 Lymph % (Auto) 8 L [place] % (Auto) 11 Eos % (Auto) 5 Baso % (Auto) 1 Neut # (Auto) 9.2 H Lymph # (Auto) 1.0 [place] # (Auto) 1.4 H Eos # (Auto) 0.6 H Baso # (Auto) 0.1 Immature Gran # (Auto) 0.06 H Absolute Nucleated RBC 0.00 Immature Gran % 1 H Nucleated RBC % 0 ESR 72 H PT 12.0 INR 1.1 APTT 35.0 Sodium 144 Potassium 4.9 Chloride 110 H Carbon Dioxide 19.8 L Anion Gap 14 BUN 42 H Creatinine 4.2 H* Estim Creat Clear Calc 13.2 L eGFR 13 L* BUN/Creatinine Ratio 10 L Glucose 115 H Calculated Osmolality 298 H Calcium 8.4 Corrected Calcium 8.7 Phosphorus 4.3 Magnesium 2.3 Total Bilirubin 0.5 AST 16 ALT 17 Alkaline Phosphatase 110 C-Reactive Prot, Quant 8.5 H B-Natriuretic Peptide 2483 H* Total Protein 6.7 Albumin 3.6 Globulin 3.1 Albumin/Globulin Ratio 1.2 Triglycerides 83 Cholesterol 71 L LDL Cholesterol, Calc 28 HDL Cholesterol 26 L Cholesterol/HDL Ratio 2.7 L Procalcitonin 0.22 ABG Interpretation ABG results: 12/14/24 10:19 ABG pH 7.38 ABG pCO2 29 L ABG pO2 69 L ABG HCO3 17 L ABG O2 Saturation 97 ABG Base Excess -7 L Quality Measures Quality Measures none Advance care planning discussed with:: patient Assessment & Plan Assessment Current Active Medications: Generic Name Dose Route Start Last Admin Trade Name Freq PRN Reason Stop Dose Admin Acetaminophen 650 mg 12/14/24 16:24 Acetaminophen 325 Mg Tablet PO 01/13/25 16:23 Q6H PRN PAIN SCALE 1-3 (mild Albuterol/Ipratropium 3 ml 12/14/24 23:00 12/15/24 10:53 Albuterol/Ipratropium (Duoneb) Rt Yary 3 Ml Nebu INH 01/13/25 22:59 3 ml Q4HRRT NAHED Administration Amlodipine Besylate 10 mg 12/15/24 09:00 12/15/24 08:58 Amlodipine Besylate 5 Mg Tablet PO 01/14/25 08:59 10 mg QDAY NAHED Administration Aspirin 81 mg 12/14/24 18:30 12/15/24 08:59 Aspirin Ec 81 Mg Tabec PO 01/13/25 18:29 81 mg QDAY NAHED Administration Atorvastatin Calcium 80 mg 12/14/24 21:00 12/14/24 20:27 Atorvastatin Calcium 20 Mg Tablet PO 01/13/25 20:59 80 mg HS NAHED Administration Carvedilol 3.125 mg 12/14/24 21:00 12/15/24 08:59 Carvedilol 3.125 Mg Tablet PO 01/13/25 20:59 3.125 mg BID NAHED Administration Furosemide 40 mg 12/15/24 06:00 12/15/24 05:19 Furosemide Inj 10 Mg/Ml 4ml Vial IVP 01/14/25 05:59 40 mg BIDD NAHED Administration Heparin Sodium (Porcine) 5,000 unit 12/14/24 21:15 12/15/24 08:57 Heparin Sod Inj 5000 Unit/Ml Vial SC 12/28/24 21:14 5,000 unit Q12H NAHED Administration Ceftriaxone Sodium/Dextrose 1 gm in 50 mls @ 100 mls/hr 12/15/24 09:15 12/15/24 09:32 Rocephin/D5w 1gm Iv Premix IV 12/22/24 09:14 100 mls/hr QDAY NAHED Administration Oseltamivir Phosphate 30 mg 12/14/24 17:15 12/15/24 08:59 Oseltamivir 30 Mg Capsule PO 12/21/24 17:14 30 mg DAILY NAHED Administration Pantoprazole Sodium 40 mg 12/15/24 09:00 12/15/24 08:59 Pantoprazole 40 Mg Tablet PO 01/14/25 08:59 40 mg QDAY NAHED Administration Tamsulosin HCl 0.4 mg 12/14/24 21:00 12/14/24 20:27 Tamsulosin Hcl 0.4 Mg Capsule PO 01/13/25 20:59 0.4 mg HS NAHED Administration Ticagrelor 90 mg 12/14/24 21:00 12/15/24 08:58 Ticagrelor 90 Mg Tablet PO 01/13/25 20:59 Not Given BID NAHED Plan Assessment: 84y M with PHx significant for HTN, CAD, ESRD, and recent admission for NSTEMI with stent placement admitted for acute respiratory failure with hypoxia and excerbation of CHF. #Acute respiratory failure with hypoxia #Community acquired PNA #Flu A positive CXR - Significant pneumonia left base ABG: pH 7.38, pCO2 29, pO2 69, HCO3 Plan Patient received 1 dose of ceftriazone and azithromycin in ED We will continue Ceftriaxone given CXR finding Tamiflu 30mg BID x 5 days (renal dosing) #Congestive Heart Failure #Stage 1 diastolic dysfunction New onset of orthopnea. Bilat rales on resp exam. No peripheral leg swelling. JVP distended with hepatojugular reflex BNP 3129 -> 2483 Trop WNL TSH 6.65, fT4 1.2 LFT WML EKG: sinus rythym 84bpm w/ 1st degree AV block and PAC Echo (11/08/24) showed grade 1 diastolic dysfunction. LVEF is 55 to 60%. Plan Cardio consult, see recs ECHO ordered today Lasix 40mg IV daily and recieved 1x dose of lasix IV 40mg on top Follow daily weights 75.9 -> 76.2kg Strict I/Os Restrict Na Restrict fluid 1.5L Cardiac diet #HTN BP in hospital has been high BP today 162/86 Plan Started on Amlodipine 10mg daily Home med Carvedilol 6.25mg daily #CAD #Hx of NSTEMI w/ 1 stent placement Prev hospitalization 11/08/2024 Operative note (11/11/2024) 1. Acute coronary syndrome: NSTEMI-peak troponin of 2.9 C showed severe double vessel CAD with subtotal occlusion 99% stenosis of the mid LCx with PADDY II flow in the OM 2, severe diffuse disease from the proximal to the distal RCA with multiple tandem lesions, moderate 40 to 50% stenosis of the proximal LAD as well as the proximal LCx. Rest of the coronary artery segments) showed only mild disease. 2. Successful PCI of the mid LCx with 3.0 x 12 mm Clyo CHERIE stent with excellent results, no complications and PADDY-3 flow. Plan Continue home meds: ASA 81mg, Ticagrelor 90mg BID, Atorvastatin 80mg daily, Carvedilol 6.25mg daily #CKD - stage 4 Cr 4.2 (baseline 4), BUN 33 Patient mentions does not want dialysis because of adverse event experienced by fam member. Plan Nephrology consulted - Dr. Parra Renal dosing of meds #T2DM A1c on 11/08/24 5.6% Glu 115 Plan Monitor #Subclinical Hypothyroidism TSH 6.65, fT4 1.2 Plan F/U with PCP Health Maintenance: Diet: cardiac GI prophylaxis: protonix DVT prophylaxis: Antibiotics: Rocephin CODE STATUS: DNR Disposition: Telemetry Case discussed with my attending Dr. Yumiko Huber MD PGY-1 Attending Provider Attestation/Addendum I discussed with and supervised the resident physician who took care of this patient. I agree with the assessment and plan as above. Continue treatment for CHF. Monitor body weight. Monitor BUN and creatinine. Patient will need low-salt diet and fluid restriction.
[2024-12-15] MEDS: ATORVASTATIN CALCIUM 20 MG TABLET 80 MG PO (20:31)
[2024-12-15] MEDS: TAMSULOSIN HCL 0.4 MG CAPSULE PO (20:32)
[2024-12-16] VITALS (19 sets, daily range): BP systolic 151–168; BP diastolic 78–105; PULSE 72–88; RESP 16–24; TEMP 36.1–36.8; O2SAT 93–100; BMI 24.0; BMI 23.9
[2024-12-16] MEDS: FUROSEMIDE INJ 10 MG/ML 4ML VIAL 40 MG IVP ×2 (05:22→18:02)
[2024-12-16 06:23] LABS: Basophils # (Auto) 0.1 Thou/mm3 (0.0-0.2); Basophils % (Auto) 1 % (0-2.5); Eosinophils # (Auto) 1.1 Thou/mm3 (0.0-0.5); Eosinophils % (Auto) 10 % (0-10); Hematocrit 33.1 % (41.0-53.0); Hemoglobin 10.8 g/dL (13.5-16.0); Immature Granulocytes Auto 0.09 Thou/mm3 (0.00-0.00); Lymphocytes # (Auto) 1.3 Thou/mm3 (1.0-4.8); Lymphocytes % (Auto) 11 % (10-50); Mean Corpuscular HGB Conc 32.6 g/dl (31.0-37.0); Mean Corpuscular Hemoglobin 28.9 pg (25.0-35.0); Mean Corpuscular Volume 89 fL (80-100); Monocytes # (Auto) 1.2 Thou/mm3 (0.0-0.8); Monocytes % (Auto) 11 % (0-12); Neutrophils # (Auto) 7.4 Thou/mm3 (1.8-7.7); Neutrophils % (Auto) 67 % (37-80); Nucleated Red Blood Cell # 0.00 Thou/mm3 (0.00-0.00); Nucleated Red Blood Cell % 0 /100 WBC (0); Platelet Count 227 Thou/mm3 (140-440); RDW Standard Deviation 45.7 fL (35.1-43.9); Red Blood Count 3.74 Miln/mm3 (4.50-5.90); White Blood Count 11.1 Thou/mm3 (3.8-10.6)
[2024-12-16 07:01] LABS: Alanine Aminotransferase 16 U/L (10-49); Albumin, Serum 3.8 gm/dL (3.4-4.8); Albumin/Globulin Ratio 1.2 (1.2-2.2); Alkaline Phosphatase 110 U/L (46-116); Anion Gap 15 (7-16); Aspartate Amino Transferase 14 U/L (0-34); BUN/Creatinine Ratio 11 Ratio (12-20); Bilirubin,Total 0.4 mg/dL (0.3-1.2); Blood Urea Nitrogen 51 mg/dL (9-23); Calcium 8.2 mg/dL (8.3-10.6); Calcium (Corrected) 8.4 mg/dL (8.5-10.1); Carbon Dioxide 20.8 mMol/L (20.0-31.0); Chloride 107 mMol/L (98-107); Creatinine (Component) 4.6 mg/dL (0.6-1.3); Estimated Creatinine Clearance 12.1 mL/min (>60); Globulin 3.1 gm/dL (2.3-3.5); Glucose 125 mg/dL (74-106); Magnesium 2.3 mg/dL (1.6-2.6); Osmolality,Calculated 299 (275-295); Phosphorous 4.7 mg/dL (2.4-5.1); Potassium 4.2 mMol/L (3.4-5.1); Sodium 143 mMol/L (136-145); Total Protein 6.9 gm/dL (5.7-8.2); eGFR 12 See Note
[2024-12-16] MEDS: ALBUTEROL/IPRATROPIUM (Duoneb) RT SOL 3 ML NEBU INH ×5 (07:45→22:31)
[2024-12-16] MEDS: ASPIRIN EC 81 MG TABEC PO (08:13)
[2024-12-16] MEDS: cefTRIAXone/D5w 1gm IV premix 1 GM/50 ML BAG IV (08:13)
[2024-12-16] MEDS: TICAGRELOR 90 MG TABLET PO (08:14)
[2024-12-16] MEDS: OSELTAMIVIR 30 MG CAPSULE PO (08:14)
[2024-12-16] MEDS: PANTOPRAZOLE 40 MG TABLET PO (08:14)
[2024-12-16] MEDS: HEPARIN SOD INJ 5000 UNIT/ML VIAL SC ×2 (08:17→20:15)
--- NOTE | 2024-12-16 11:48 | PC.SS ---
Alfredo Fall is a 84-year-old male admitted to [facility] for [facility]. SS conducted bedside contact with the patient to complete initial assessment and to discuss discharge planning. SS utilized all necessary precautions. Role and reason explained. Patient confirmed demographic information. Patient identifies his brother Kevin Osman [phone] as his surrogate decision maker. Pt states he is able to complete all ADL?s independently. Pt reports bother is his load checker and assist him with needs on daily basis. Pt utilizes a walker and scooter. Pts PCP is Dr. Eduar Haines in Dr. Brower office. Pharmacy of choice is [facility] on [address]. Discharge options discussed and the pt wishes to return home.? Pt brother will transport him at the time of DC. No further intervention required at this time, social media editor would be available to address any further concerns. DC Plan: Home Contact: Kevin Ron Address: Confirmed on face sheet PCP: Eduar Haines
--- NOTE | 2024-12-16 13:33 | ESPR_ITS ---
<Statement entered by Duyen Ann MD - 12/16/24 21:27> I have reviewed the note and agree with the resident's assessment & plan with exceptions as below. I have personally reviewed labs, imaging, home meds/prior records, examined the patient, formulated and discussed management plan with the IM team. Pt continues to improve, however Cr 4.6 (worsening from 4.2 yesterday). Pending further cardio recs, however will d/c on 80 Lasix PO at home which we will start tomorrow. UOP 2L. Will uptitrate Coreg to 12.5 mg BID as BP remains to be elevated SBP 150s and 160s. Pt's Fasting BG was 125, A1c 5.6, will hold on sugar checks at this time. Anticipate d/c w/in next 24-48 hrs. Repeat hematology and chemistry in AM. Duyen Ann, PGY-2 Internal Medicine Documentation for date of: 12/16/24 Subjective Subjective Interval history: Patient seen at bedside. No overnight events. Patient reports breathing better today. Says that the oxymask overnight was very helpful and would like to continue. No worsening SOB. Eating minimally due to food not tasting good. No chest pain. No abdominal pain. No nausea or vomiting. On 2L O2 via ACCOUNTS RECEIVABLE COLLECTOR. Patient returned from echo today. Exam Vital Signs Temp Pulse Resp BP Pulse Ox O2 Del Method O2 Flow Rate 97.6 F 82 18 151/99 H 98 Nasal Cannula 1 12/16/24 08:00 12/16/24 11:06 12/16/24 10:55 12/16/24 11:06 12/16/24 10:55 12/16/24 08:00 12/16/24 10:55 Narrative Exam General: Alert and oriented x3. Laying upright in bed. No distress. On 2L ACCOUNTS RECEIVABLE COLLECTOR HEENT: Conjunctivae and lids clear. No nasal congestion.Supple. Cardio: RRR. S1+S2. No murmurs/rubs/gallops. JVP distended with hepatojugular reflex. Lungs: No resp distress. Decreased air movement with bilat rales. Abdo: Soft and nontender. BS present. Legs: No peripheral edema. Skin: Warm and dry. Neuro: No focal neuro deficits. No motor/sensory deficits of upper and lower extremeties Objective Labs 12/16/24 05:08 12/16/24 05:08 Labs: Laboratory Results - last 24 hr 12/15/24 12/16/24 04:50 05:08 WBC 11.1 H RBC 3.74 L Hgb 10.8 L Hct 33.1 L MCV 89 MCH 28.9 MCHC 32.6 RDW Std Deviation 45.7 H Plt Count 227 Neut % (Auto) 67 Lymph % (Auto) 11 [place] % (Auto) 11 Eos % (Auto) 10 Baso % (Auto) 1 Neut # (Auto) 7.4 Lymph # (Auto) 1.3 [place] # (Auto) 1.2 H Eos # (Auto) 1.1 H Baso # (Auto) 0.1 Immature Gran # (Auto) 0.09 H Absolute Nucleated RBC 0.00 Immature Gran % 1 H Nucleated RBC % 0 Sodium 143 Potassium 4.2 D Chloride 107 Carbon Dioxide 20.8 Anion Gap 15 BUN 51 H Creatinine 4.6 H* Estim Creat Clear Calc 12.1 L eGFR 12 L* BUN/Creatinine Ratio 11 L Glucose 125 H Calculated Osmolality 299 H Calcium 8.2 L Corrected Calcium 8.4 L Phosphorus 4.7 Magnesium 2.3 Total Bilirubin 0.4 AST 14 ALT 16 Alkaline Phosphatase 110 Total Protein 6.9 Albumin 3.8 Globulin 3.1 Albumin/Globulin Ratio 1.2 Procalcitonin 0.22 ABG Interpretation ABG results: 12/14/24 10:19 ABG pH 7.38 ABG pCO2 29 L ABG pO2 69 L ABG HCO3 17 L ABG O2 Saturation 97 ABG Base Excess -7 L Quality Measures Quality Measures none Advance care planning discussed with:: patient Assessment & Plan Assessment Current Active Medications: Generic Name Dose Route Start Last Admin Trade Name Freq PRN Reason Stop Dose Admin Acetaminophen 650 mg 12/14/24 16:24 Acetaminophen 325 Mg Tablet PO 01/13/25 16:23 Q6H PRN PAIN SCALE 1-3 (mild Albuterol/Ipratropium 3 ml 12/14/24 23:00 12/16/24 10:54 Albuterol/Ipratropium (Duoneb) Rt Yary 3 Ml Nebu INH 01/13/25 22:59 3 ml Q4HRRT NAHED Administration Amlodipine Besylate 10 mg 12/15/24 09:00 12/16/24 08:13 Amlodipine Besylate 5 Mg Tablet PO 01/14/25 08:59 10 mg QDAY NAHED Administration Aspirin 81 mg 12/14/24 18:30 12/16/24 08:13 Aspirin Ec 81 Mg Tabec PO 01/13/25 18:29 81 mg QDAY NAHED Administration Atorvastatin Calcium 80 mg 12/14/24 21:00 12/15/24 20:31 Atorvastatin Calcium 20 Mg Tablet PO 01/13/25 20:59 80 mg HS NAHED Administration Carvedilol 6.25 mg 12/16/24 21:00 Carvedilol 3.125 Mg Tablet PO 01/15/25 20:59 BID NAHED Furosemide 40 mg 12/15/24 06:00 12/16/24 05:22 Furosemide Inj 10 Mg/Ml 4ml Vial IVP 01/14/25 05:59 40 mg BIDD NAHED Administration Heparin Sodium (Porcine) 5,000 unit 12/14/24 21:15 12/16/24 08:17 Heparin Sod Inj 5000 Unit/Ml Vial SC 12/28/24 21:14 5,000 unit Q12H NAHED Administration Hydralazine HCl 10 mg 12/15/24 18:13 Hydralazine Inj 20 Mg/Ml Vial IVP 01/14/25 18:12 Q6H PRN BP >160/100 and HR <80 Ceftriaxone Sodium/Dextrose 1 gm in 50 mls @ 100 mls/hr 12/15/24 09:15 12/16/24 08:13 Rocephin/D5w 1gm Iv Premix IV 12/22/24 09:14 100 mls/hr QDAY NAHED Administration Labetalol HCl 10 mg 12/15/24 18:13 Labetalol Inj 5 Mg/Ml Vial 20 Ml IVP 01/14/25 18:12 Q1H PRN BP >160/100 and HR >80 Oseltamivir Phosphate 30 mg 12/14/24 17:15 12/16/24 08:14 Oseltamivir 30 Mg Capsule PO 12/21/24 17:14 30 mg DAILY NAHED Administration Pantoprazole Sodium 40 mg 12/15/24 09:00 12/16/24 08:14 Pantoprazole 40 Mg Tablet PO 01/14/25 08:59 40 mg QDAY NAHED Administration Tamsulosin HCl 0.4 mg 12/14/24 21:00 12/15/24 20:32 Tamsulosin Hcl 0.4 Mg Capsule PO 01/13/25 20:59 0.4 mg HS NAHED Administration Ticagrelor 90 mg 12/14/24 21:00 12/16/24 08:14 Ticagrelor 90 Mg Tablet PO 01/13/25 20:59 90 mg BID NAHED Administration Plan Assessment: 84y M with PHx significant for HTN, CAD, ESRD, and recent admission for NSTEMI with stent placement admitted for acute respiratory failure with hypoxia and excerbation of CHF. #Acute respiratory failure with hypoxia #Community acquired PNA #Flu A positive CXR - Significant pneumonia left base ABG: pH 7.38, pCO2 29, pO2 69, HCO3 Plan Continue Ceftriaxone given CXR finding of suspicion of pneumonia Tamiflu 30mg BID x 5 days (renal dosing) Albuterol/ipratropium inhaler as needed #Congestive Heart Failure #Stage 1 diastolic dysfunction New onset of orthopnea. Bilat rales on resp exam. No peripheral leg swelling. JVP distended with hepatojugular reflex BNP 3129 -> 2483 Trop WNL TSH 6.65, fT4 1.2 LFT WML EKG: sinus rythym 84bpm w/ 1st degree AV block and PAC Echo (11/08/24) showed grade 1 diastolic dysfunction. LVEF is 55 to 60%. Plan Patient like to be discharged tomorrow with Lasix 80 mg PO Cardio consult, see recs Patient had echo today follow-up on results Lasix 40mg IV daily Follow daily weights 76.2kg ->78.90 Strict I/Os Restrict Na Restrict fluid 1.5L Cardiac diet #HTN BP in hospital has been high BP today 152/87 Plan Started on Amlodipine 10mg in hospital Home med Carvedilol 6.25mg daily resumed #CAD #Hx of NSTEMI w/ 1 stent placement Prev hospitalization 11/08/2024 Operative note (11/11/2024) 1. Acute coronary syndrome: NSTEMI-peak troponin of 2.9 [facility] showed severe double vessel CAD with subtotal occlusion 99% stenosis of the mid LCx with PADDY II flow in the OM 2, severe diffuse disease from the proximal to the distal RCA with multiple tandem lesions, moderate 40 to 50% stenosis of the proximal LAD as well as the proximal LCx. Rest of the coronary artery segments) showed only mild disease. 2. Successful PCI of the mid LCx with 3.0 x 12 mm Jaylan CHERIE stent with excellent results, no complications and PADDY-3 flow. Plan ASA 81mg Ticagrelor 90mg BID for 1 year Atorvastatin 80mg daily Carvedilol 6.25mg daily #CKD - stage 4 Cr 4.6 (baseline 4), BUN 51 Patient mentions does not want dialysis because of adverse event experienced by family member. Plan Nephrology consulted - Dr. Parra Renal dosing of meds #T2DM A1c on 11/08/24 5.6% Glu 125 It seems that the patient is not on any diabetes medicines at this time, will hold on sugar checks Plan Monitor #Subclinical Hypothyroidism TSH 6.65, fT4 1.2 Plan F/U with PCP Health Maintenance: Diet: cardiac GI prophylaxis: protonix DVT prophylaxis: Heparin Antibiotics: Rocephin CODE STATUS: DNR Disposition: Telemetry Case discussed with my attending Dr. Calderon and senior resident Dr. Marissa Huber MD PGY-1 Attending Provider Attestation/Addendum 84-year-old male patient with community-acquired pneumonia, influenza A admitted for respiratory failure. Patient has CAD status post stent. He has acute CHF. He improved with Lasix. Patient will need to continue current treatment. Monitor body weight, monitor BUN and creatinine. The patient has chronic kidney disease. Discussed with housestaff
--- NOTE | 2024-12-16 14:30 | PC.SS ---
Rounding: pending workup new pt, DC plan Home with HH
--- NOTE | 2024-12-16 14:30 | PC.SS ---
Rounding:Pending EGD with Dr. Bonifacio DC plan Home with HH
--- NOTE | 2024-12-16 14:37 | PC.NURSE ---
Sp02 resting RA 97% Sp02 with activity RA 94%
--- NOTE | 2024-12-16 15:18 | PD.RESPRO ---
Documentation for date of: 12/16/24 Subjective Subjective Interval history: Patient seen and examined at bedside. No new cardiac complaints. Denies any chest pain or chest pressure. Saturating on room air, NC discontinued. Shortness of breath is improving as per patient with the diuresis. Negative by 820 cc in last 24-hour. Renal function worsened from BUN is 42 and creatinine is 4.2 yesterday, today 51 and 4.6 respectively today. His baseline creatinine is around 4.0. Recommend to continue Lasix 80 mg IV once daily for now and strict input output along with accurate daily weights. TTE completed official read pending. Continue to monitor renal function closely. Nephrology has been consulted. Patient does not want dialysis and nephrology to continue to discuss with him. Exam Vital Signs Temp Pulse Resp BP Pulse Ox O2 Del Method O2 Flow Rate 97.6 F 74 18 160/95 H 94 L Room Air 1 12/16/24 12:00 12/16/24 12:00 12/16/24 12:12/16/24 12:12/16/24 12:00 12/16/24 12:12/16/24 10:55 Narrative Exam General: Alert and oriented x3. In no acute distress. Eyes: Pupils are equal and reactive to light bilaterally. HEENT: Atraumatic, normocephalic. No JVD noted. Mucosa moist. Cardiovascular: Normal S1 and S2. Normal rate and regular rhythm. No murmurs appreciated. Trace to 1+ peripheral pitting edema noted. Respiratory: No respiratory distress. Bilateral air entry present with significant crackles up to the mid. No wheezing. Abdomen: Soft, nontender, nondistended. Skin: No rash. Warm to touch. Musculoskeletal: No gross injuries. Able to move all 4 extremities. Neuro: Alert and oriented x3. No focal neuro deficits. Psych: Normal affect and mood Objective Labs 12/16/24 05:08 12/16/24 05:08 Labs: Laboratory Results - last 24 hr 12/16/24 05:08 WBC 11.1 H RBC 3.74 L Hgb 10.8 L Hct 33.1 L MCV 89 MCH 28.9 MCHC 32.6 RDW Std Deviation 45.7 H Plt Count 227 Neut % (Auto) 67 Lymph % (Auto) 11 [place] % (Auto) 11 Eos % (Auto) 10 Baso % (Auto) 1 Neut # (Auto) 7.4 Lymph # (Auto) 1.3 [place] # (Auto) 1.2 H Eos # (Auto) 1.1 H Baso # (Auto) 0.1 Immature Gran # (Auto) 0.09 H Absolute Nucleated RBC 0.00 Immature Gran % 1 H Nucleated RBC % 0 Sodium 143 Potassium 4.2 D Chloride 107 Carbon Dioxide 20.8 Anion Gap 15 BUN 51 H Creatinine 4.6 H* Estim Creat Clear Calc 12.1 L eGFR 12 L* BUN/Creatinine Ratio 11 L Glucose 125 H Calculated Osmolality 299 H Calcium 8.2 L Corrected Calcium 8.4 L Phosphorus 4.7 Magnesium 2.3 Total Bilirubin 0.4 AST 14 ALT 16 Alkaline Phosphatase 110 Total Protein 6.9 Albumin 3.8 Globulin 3.1 Albumin/Globulin Ratio 1.2 ABG Interpretation ABG results: 12/14/24 10:19 ABG pH 7.38 ABG pCO2 29 L ABG pO2 69 L ABG HCO3 17 L ABG O2 Saturation 97 ABG Base Excess -7 L Quality Measures Quality Measures none Advance care planning discussed with:: patient Assessment & Plan Assessment Current Active Medications: Generic Name Dose Route Start Last Admin Trade Name Freq PRN Reason Stop Dose Admin Acetaminophen 650 mg 12/14/24 16:24 Acetaminophen 325 Mg Tablet PO 01/13/25 16:23 Q6H PRN PAIN SCALE 1-3 (mild Albuterol/Ipratropium 3 ml 12/14/24 23:00 12/16/24 15:09 Albuterol/Ipratropium (Duoneb) Rt Yary 3 Ml Nebu INH 01/13/25 22:59 3 ml Q4HRRT NAHED Administration Amlodipine Besylate 10 mg 12/15/24 09:00 12/16/24 08:13 Amlodipine Besylate 5 Mg Tablet PO 01/14/25 08:59 10 mg QDAY NAHED Administration Aspirin 81 mg 12/14/24 18:30 12/16/24 08:13 Aspirin Ec 81 Mg Tabec PO 01/13/25 18:29 81 mg QDAY NAHED Administration Atorvastatin Calcium 80 mg 12/14/24 21:00 12/15/24 20:31 Atorvastatin Calcium 20 Mg Tablet PO 01/13/25 20:59 80 mg HS NAHED Administration Carvedilol 6.25 mg 12/16/24 21:00 Carvedilol 3.125 Mg Tablet PO 01/15/25 20:59 BID NAHED Furosemide 40 mg 12/15/24 06:00 12/16/24 05:22 Furosemide Inj 10 Mg/Ml 4ml Vial IVP 01/14/25 05:59 40 mg BIDD NAHED Administration Heparin Sodium (Porcine) 5,000 unit 12/14/24 21:15 12/16/24 08:17 Heparin Sod Inj 5000 Unit/Ml Vial SC 12/28/24 21:14 5,000 unit Q12H NAHED Administration Hydralazine HCl 10 mg 12/15/24 18:13 Hydralazine Inj 20 Mg/Ml Vial IVP 01/14/25 18:12 Q6H PRN BP >160/100 and HR <80 Ceftriaxone Sodium/Dextrose 1 gm in 50 mls @ 100 mls/hr 12/15/24 09:15 12/16/24 08:13 Rocephin/D5w 1gm Iv Premix IV 12/22/24 09:14 100 mls/hr QDAY NAHED Administration Labetalol HCl 10 mg 12/15/24 18:13 Labetalol Inj 5 Mg/Ml Vial 20 Ml IVP 01/14/25 18:12 Q1H PRN BP >160/100 and HR >80 Oseltamivir Phosphate 30 mg 12/14/24 17:15 12/16/24 08:14 Oseltamivir 30 Mg Capsule PO 12/21/24 17:14 30 mg DAILY NAHED Administration Pantoprazole Sodium 40 mg 12/15/24 09:00 12/16/24 08:14 Pantoprazole 40 Mg Tablet PO 01/14/25 08:59 40 mg QDAY NAHED Administration Tamsulosin HCl 0.4 mg 12/14/24 21:00 12/15/24 20:32 Tamsulosin Hcl 0.4 Mg Capsule PO 01/13/25 20:59 0.4 mg HS NAHED Administration Ticagrelor 90 mg 12/14/24 21:00 12/16/24 08:14 Ticagrelor 90 Mg Tablet PO 01/13/25 20:59 90 mg BID NAHED Administration Plan A 84-year-old male with a past medical history of CAD status post PCI to the LCx on 11/11/2024, residual CAD of the RCA severe and moderate LAD being managed medically, CKD stage IV-V, with baseline creatinine of around 4, hypertension, type 2 diabetes mellitus, diabetic nephropathy, hyperlipidemia, osteoarthritis, history of TIA versus stroke 2 years ago, chronic smoker with more than [id number]-year smoking history, BPH, mild chronic anemia secondary to CKD presented to the emergency department for further evaluation of shortness of breath. Cardiology consulted for further evaluation of the shortness of breath and to rule out CHF exacerbation. 1. Acute hypoxic respiratory failure in the setting of volume overload from the CKD stage V as well as the diastolic CHF. 2. CKD stage V with baseline creatinine of around 4 3. Diastolic congestive heart failure exacerbation 4. CAD status post PCI to LCx on 11/11/2024 with residual disease of the RCA as well as LCx. 5. Essential hypertension 6. Type 2 diabetes mellitus 7. Diabetic nephropathy and hypertensive nephropathy 8. Hyperlipidemia 9. Osteoarthritis 10. History of TIA versus stroke 2 years ago 1. Chronic smoker with more than [id number] smoking history 12. BPH. Patient has been having worsening shortness of breath since yesterday and is unable to lie flat-complains of significant orthopnea. On examination patient was only trace peripheral edema but has bilateral significant bilateral crackles up to mid lung. Patient is not fluid overloaded state from his CKD stage V along with diastolic dysfunction noted on the echo. Patient also has a history of CKD stage V but he does not want any kind of dialysis, this was even discussed in length during the last admission. Recommend to consult nephrology to discuss with patient regarding the option for dialysis. Patient is Dr Parra's patient and follows with her for many years. His creatinine is 4.0 today. Recommend to start and diuresis with Lasix 80 mg IV x 1 Strict input output, daily weights and 2 g sodium diet. Will evaluate his input output in the morning and reduce his Lasix and will continue to uptitrate it based on his clinical status. Keep potassium between 4 and 5 and magnesium greater than 2 at all times. Recommend to check ESR and CRP along with the BNP. Initial BNP is 3280. Patient does have a history of CAD status post PCI to LCx in November 2024 and does have residual moderate disease of the LAD, severe disease of the RCA which is being managed medically. EKG shows sinus rhythm without any acute ST-T changes history of ischemia. Troponin was also negative at 0.033. Recommend no further troponins for now. Unlikely ACS. Recommend to continue with aspirin, Brilinta, high intensity statin and beta-pardeep Recommend to repeat the echocardiogram to rule out any new systolic dysfunction and to evaluate for any regional wall motion abnormalities. His blood pressure is also elevated on admission and is mostly secondary to his fluid overloaded state At home patient was on amlodipine 5 mg twice daily along with Coreg 6.25 mg twice daily and recommend to continue to uptitrate the Coreg for now as heart rate is in the normal range. Continue amlodipine. No ARB or BEN inhibitor or Entresto given his CKD stage IV none this patient started dialysis but cannot start the medications given the CKD stage IV-V. Nephrology to discuss with the patient again regarding the dialysis. 12/16:2024 Patient seen and examined at bedside. No new cardiac complaints. Denies any chest pain or chest pressure. Saturating on room air, NC discontinued. Shortness of breath is improving as per patient with the diuresis. Negative by 820 cc in last 24-hour. Renal function worsened from BUN is 42 and creatinine is 4.2 yesterday, today 51 and 4.6 respectively today. His baseline creatinine is around 4.0. Recommend to continue Lasix 80 mg IV once daily for now and strict input output along with accurate daily weights. TTE completed official read pending. Continue to monitor renal function closely. Nephrology has been consulted. Patient does not want dialysis and nephrology to continue to discuss with him. Management of rest of the medical conditions as per primary team and other consultants. Thank you for the consult and allowing me to participate in the care of the patient. Cardiology will continue to follow. The patient's management plan was discussed with my attending physician MD Salvador Funes MD, PGY3 Attending Provider Attestation/Addendum I have personally seen and examined the patient separately on the above date of service and discussed the plan of care with the resident. I reviewed the resident Dr. Salvador Lau consultation progress note and agree with the resident findings and plan in the note above and have also edited the documentation to reflect my findings and plan. Karlo Ann M.D. Interventional Cardiology
[2024-12-16] MEDS: DOCUSATE SOD 100 MG CAPSULE PO (17:02)
--- NOTE | 2024-12-16 17:11 | PC.PT ---
Patient is safe to ambulate to the bathroom with 1 staff assist and no AD. RN made aware.
--- NOTE | 2024-12-16 19:16 | ECHO_ITS ---
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 16 - 28 cm?/m? DOPPLER AV Peak Velocity 97.5 cm/s AV Peak Gradient 3.8 mmHg LVOT Peak Velocity 66.7 cm/s LVOT Peak Gradient 1.8 mmHg AV Area Cont Eq pk 2.4 cm? FINDINGS Left Ventricle The left ventricular cavity size is mildly increased. The left ventricular wall thickness is mildly increased. The left ventricular ejection fraction is moderately decreased, estimated at 30-35%. Unable to determine diastology due to atrial fibrillation. Right Ventricle The right ventricle is normal in size and systolic function. The estimated right ventricular systolic pressure can not be determined due to innadequate tricuspid signal. Left Atrium The left atrial cavity size is moderately increased. Right Atrium The right atrium is normal by two-dimensional imaging, color flow and Doppler imaging with no structural abnormalities, no thrombus formation present. Atrial Septum The interatrial septum appears normal with no evidence of a shunt. Aorta The aorta is normal by two-dimensional, color flow and Doppler interrogation. Mitral Valve The mitral valve is normal by two-dimensional, color flow and Doppler interrogation. There is mild mitral regurgitation. Aortic Valve The aortic valve is trileaflet and normal by two-dimensional, color flow and Doppler interrogation. There is no significant aortic valve regurgitation. Tricuspid Valve The tricuspid valve is normal by two-dimensional, color flow and Doppler interrogation. There is no significant tricuspid valve regurgitation. Pulmonic Valve The pulmonic valve is not well visualized. There is no significant pulmonic valve regurgitation. Vessels The pulmonary artery appears normal. The inferior vena cava pulmonary and hepatic veins appear normal. Pericardium The pericardium is normal by two-dimensional imaging. There is no significant pericardial effusion. CONCLUSIONS Indications: Acute Respiratory Failure, SOB Normal LV size. Mild LV systolic dysfunction with an EF of 40 to 45%. Mild global hypokinesis. Diastolic dysfunction indeterminate. Mild MR. Normal RV size and function. RVSP normal. Insufficient TR to measure RVSP. Trace TR, and mild MR. No pericardial Effusion. IVC not well-visualized. Karlo Mccallumankelley (Electronically Signed) Final Date: 17 December 2024 21:47
[2024-12-16] MEDS: TAMSULOSIN HCL 0.4 MG CAPSULE PO (20:14)
[2024-12-16] MEDS: ATORVASTATIN CALCIUM 20 MG TABLET 80 MG PO (20:14)
[2024-12-17] VITALS (12 sets, daily range): BP systolic 134–163; BP diastolic 75–97; PULSE 73–102; RESP 16–20; TEMP 36.1–36.7; O2SAT 94–100
[2024-12-17] MEDS: ALBUTEROL/IPRATROPIUM (Duoneb) RT SOL 3 ML NEBU INH ×4 (02:59→14:43)
[2024-12-17 06:23] LABS: Basophils # (Auto) 0.1 Thou/mm3 (0.0-0.2); Basophils % (Auto) 1 % (0-2.5); Eosinophils # (Auto) 1.4 Thou/mm3 (0.0-0.5); Eosinophils % (Auto) 11 % (0-10); Hematocrit 36.8 % (41.0-53.0); Hemoglobin 12.1 g/dL (13.5-16.0); Immature Granulocytes Auto 0.12 Thou/mm3 (0.00-0.00); Lymphocytes # (Auto) 1.5 Thou/mm3 (1.0-4.8); Lymphocytes % (Auto) 11 % (10-50); Mean Corpuscular HGB Conc 32.9 g/dl (31.0-37.0); Mean Corpuscular Hemoglobin 28.9 pg (25.0-35.0); Mean Corpuscular Volume 88 fL (80-100); Monocytes # (Auto) 1.2 Thou/mm3 (0.0-0.8); Monocytes % (Auto) 9 % (0-12); Neutrophils # (Auto) 8.8 Thou/mm3 (1.8-7.7); Neutrophils % (Auto) 67 % (37-80); Nucleated Red Blood Cell # 0.00 Thou/mm3 (0.00-0.00); Nucleated Red Blood Cell % 0 /100 WBC (0); Platelet Count 281 Thou/mm3 (140-440); RDW Standard Deviation 45.1 fL (35.1-43.9); Red Blood Count 4.19 Miln/mm3 (4.50-5.90); White Blood Count 13.1 Thou/mm3 (3.8-10.6)
[2024-12-17 06:49] LABS: Alanine Aminotransferase 18 U/L (10-49); Albumin, Serum 4.0 gm/dL (3.4-4.8); Albumin/Globulin Ratio 1.2 (1.2-2.2); Alkaline Phosphatase 118 U/L (46-116); Anion Gap 14 (7-16); Aspartate Amino Transferase 16 U/L (0-34); BUN/Creatinine Ratio 12 Ratio (12-20); Bilirubin,Total 0.4 mg/dL (0.3-1.2); Blood Urea Nitrogen 56 mg/dL (9-23); Calcium 8.7 mg/dL (8.3-10.6); Calcium (Corrected) 8.7 mg/dL (8.5-10.1); Carbon Dioxide 22.6 mMol/L (20.0-31.0); Chloride 107 mMol/L (98-107); Creatinine (Component) 4.8 mg/dL (0.6-1.3); Estimated Creatinine Clearance 11.6 mL/min (>60); Globulin 3.4 gm/dL (2.3-3.5); Glucose 145 mg/dL (74-106); Magnesium 2.1 mg/dL (1.6-2.6); Osmolality,Calculated 305 (275-295); Phosphorous 4.6 mg/dL (2.4-5.1); Potassium 4.3 mMol/L (3.4-5.1); Sodium 144 mMol/L (136-145); Total Protein 7.4 gm/dL (5.7-8.2); eGFR 11 See Note
[2024-12-17] MEDS: HEPARIN SOD INJ 5000 UNIT/ML VIAL SC (09:00)
[2024-12-17] MEDS: OSELTAMIVIR 30 MG CAPSULE PO (09:02)
[2024-12-17] MEDS: ASPIRIN EC 81 MG TABEC PO (09:02)
[2024-12-17] MEDS: TICAGRELOR 90 MG TABLET PO (09:02)
[2024-12-17] MEDS: PANTOPRAZOLE 40 MG TABLET PO (09:02)
[2024-12-17] MEDS: cefTRIAXone/D5w 1gm IV premix 1 GM/50 ML BAG IV (09:10)
--- NOTE | 2024-12-17 10:02 | PD.RESPRO ---
Documentation for date of: 12/17/24 Subjective Subjective Interval history: Patient seen and examined at bedside. No new cardiac complaints. Denies any chest pain or chest pressure. Saturating on room air, NC discontinued. Shortness of breath is improved as per patient with the diuresis. Negative by 755 cc in last 24-hour. Renal function worsened to BUN 56 and creatinine is 4.8 today, from yesterday 51 and 4.6 respectively. His baseline creatinine is around 4.0. Nephrology consulted and wanted to follow up as outpatient as patient does not want dialysis. Recommend to discharge patient on Lasix 80 mg once daily for now and follow-up with nephrology as outpatient this week or next week for further discussion. TTE completed 12/16/2024 showed Normal LV size. Mild LV systolic dysfunction with an EF of 40 to 45%. Mild global hypokinesis. Diastolic dysfunction indeterminate. Normal RV size and function. RVSP normal. Insufficient TR to measure RVSP. Trace TR, and mild MR. No pericardial Effusion. IVC not well-visualized. Patient not interested in having dialysis and his creatinine is up to 5.0 and his GFR is only 10. His heart failure is mostly secondary to the fluid overloaded state in the setting of CKD stage V and less likely ACS as patient had no chest pain or chest pressure on admission. His troponins were also negative and there was no evidence of any acute ST-T changes on the EKGs. Patient shortness of breath improved with diuresis. He does have severe CAD involving the RCA but he has a very long segment of severe CAD with multiple tandem lesions which would require a complex intervention requiring significant amount of contrast and could worsen his CKD stage V leading to dialysis and patient is not interested in dialysis. Patient states that he does not have any chest pain or chest pressure and not interested in any procedures. Continue medical management for now and if patient decides on dialysis then he can have the complex intervention at that point of time. Patient recommended to follow-up with me in the office within 1 week. Exam Vital Signs Temp Pulse Resp BP Pulse Ox O2 Del Method O2 Flow Rate 97.0 F 81 16 162/87 H 100 Room Air 2 12/17/24 08:00 12/17/24 09:01 12/17/24 08:00 12/17/24 09:01 12/17/24 08:00 12/17/24 04:00 12/16/24 15:10 Narrative Exam General: Alert and oriented x3. In no acute distress. Eyes: Pupils are equal and reactive to light bilaterally. HEENT: Atraumatic, normocephalic. No JVD noted. Mucosa moist. Cardiovascular: Normal S1 and S2. Normal rate and regular rhythm. No murmurs appreciated. Trace to 1+ peripheral pitting edema noted. Respiratory: No respiratory distress. Bilateral air entry present with mild bibasilar cracles. No wheezing. Abdomen: Soft, nontender, nondistended. Skin: No rash. Warm to touch. Musculoskeletal: No gross injuries. Able to move all 4 extremities. Neuro: Alert and oriented x3. No focal neuro deficits. Psych: Normal affect and mood Objective Labs 12/17/24 05:19 12/17/24 05:19 Labs: Laboratory Results - last 24 hr 12/17/24 05:19 WBC 13.1 H RBC 4.19 L Hgb 12.1 L Hct 36.8 L MCV 88 MCH 28.9 MCHC 32.9 RDW Std Deviation 45.1 H Plt Count 281 D Neut % (Auto) 67 Lymph % (Auto) 11 [facility] % (Auto) 9 Eos % (Auto) 11 H Baso % (Auto) 1 Neut # (Auto) 8.8 H Lymph # (Auto) 1.5 [facility] [place] [facility] # (Auto) 1.2 H Eos # (Auto) 1.4 H Baso # (Auto) 0.1 Immature Gran # (Auto) 0.12 H Absolute Nucleated RBC 0.00 Immature Gran % 1 H Nucleated RBC % 0 Sodium 144 Potassium 4.3 Chloride 107 Carbon Dioxide 22.6 Anion Gap 14 BUN 56 H Creatinine 4.8 H* Estim Creat Clear Calc 11.6 L eGFR 11 L* BUN/Creatinine Ratio 12 Glucose 145 H Calculated Osmolality 305 H Calcium 8.7 Corrected Calcium 8.7 Phosphorus 4.6 Magnesium 2.1 Total Bilirubin 0.4 AST 16 ALT 18 Alkaline Phosphatase 118 H Total Protein 7.4 Albumin 4.0 Globulin 3.4 Albumin/Globulin Ratio 1.2 ABG Interpretation ABG results: 12/14/24 10:19 ABG pH 7.38 ABG pCO2 29 L ABG pO2 69 L ABG HCO3 17 L ABG O2 Saturation 97 ABG Base Excess -7 L Quality Measures Quality Measures none Advance care planning discussed with:: patient Assessment & Plan Assessment Current Active Medications: Generic Name Dose Route Start Last Admin Trade Name Domenico PRN Reason Stop Dose Admin Acetaminophen 650 mg 12/14/24 16:24 Acetaminophen 325 Mg Tablet PO 01/13/25 16:23 Q6H PRN PAIN SCALE 1-3 (mild Albuterol/Ipratropium 3 ml 12/14/24 23:00 12/17/24 07:18 Albuterol/Ipratropium (Duoneb) Rt Yary 3 Ml Nebu INH 01/13/25 22:59 3 ml Q4HRRT NAHED Administration Amlodipine Besylate 10 mg 12/15/24 09:00 12/17/24 09:01 Amlodipine Besylate 5 Mg Tablet PO 01/14/25 08:59 10 mg QDAY NAHED Administration Aspirin 81 mg 12/14/24 18:30 12/17/24 09:02 Aspirin Ec 81 Mg Tabec PO 01/13/25 18:29 81 mg QDAY NAHED Administration Atorvastatin Calcium 80 mg 12/14/24 21:00 12/16/24 20:14 Atorvastatin Calcium 20 Mg Tablet PO 01/13/25 20:59 80 mg HS NAHED Administration Carvedilol 12.5 mg 12/17/24 09:00 12/17/24 09:00 Carvedilol 3.125 Mg Tablet PO 01/16/25 08:59 12.5 mg BID NAHED Administration Docusate Sodium 100 mg 12/16/24 16:37 12/16/24 17:02 Docusate Sod 100 Mg Capsule PO 01/15/25 16:36 100 mg QDAY PRN Administration CONSTIPATION Protocol Furosemide 80 mg 12/17/24 09:00 12/17/24 09:01 Furosemide 40 Mg Tablet PO 01/16/25 08:59 80 mg QDAY NAHED Administration Heparin Sodium (Porcine) 5,000 unit 12/14/24 21:15 12/17/24 09:00 Heparin Sod Inj 5000 Unit/Ml Vial SC 12/28/24 21:14 5,000 unit Q12H NAHED Administration Hydralazine HCl 10 mg 12/15/24 18:13 Hydralazine Inj 20 Mg/Ml Vial IVP 01/14/25 18:12 Q6H PRN BP >160/100 and HR <80 Ceftriaxone Sodium/Dextrose 1 gm in 50 mls @ 100 mls/hr 12/15/24 09:15 12/17/24 09:10 Rocephin/D5w 1gm Iv Premix IV 12/22/24 09:14 100 mls/hr QDAY NAHED Administration Labetalol HCl 10 mg 12/15/24 18:13 Labetalol Inj 5 Mg/Ml Vial 20 Ml IVP 01/14/25 18:12 Q1H PRN BP >160/100 and HR >80 Oseltamivir Phosphate 30 mg 12/14/24 17:15 12/17/24 09:02 Oseltamivir 30 Mg Capsule PO 12/21/24 17:14 30 mg DAILY NAHED Administration Pantoprazole Sodium 40 mg 12/15/24 09:00 12/17/24 09:02 Pantoprazole 40 Mg Tablet PO 01/14/25 08:59 40 mg QDAY NAHED Administration Sennosides 1 tab 12/16/24 16:37 Senna Tablet PO 01/15/25 16:36 QDAY PRN CONSTIPATION Protocol Tamsulosin HCl 0.4 mg 12/14/24 21:00 12/16/24 20:14 Tamsulosin Hcl 0.4 Mg Capsule PO 01/13/25 20:59 0.4 mg HS NAHED Administration Ticagrelor 90 mg 12/14/24 21:00 12/17/24 09:02 Ticagrelor 90 Mg Tablet PO 01/13/25 20:59 90 mg BID NAHED Administration Plan A 84-year-old male with a past medical history of CAD status post PCI to the LCx on 11/11/2024, residual CAD of the RCA severe and moderate LAD being managed medically, CKD stage IV-V, with baseline creatinine of around 4, hypertension, type 2 diabetes mellitus, diabetic nephropathy, hyperlipidemia, osteoarthritis, history of TIA versus stroke 2 years ago, chronic smoker with more than 43-24-ufnn-year smoking history, BPH, mild chronic anemia secondary to CKD presented to the emergency department for further evaluation of shortness of breath. Cardiology consulted for further evaluation of the shortness of breath and to rule out CHF exacerbation. 1. Acute hypoxic respiratory failure in the setting of volume overload from the CKD stage V as well as the diastolic CHF. 2. CKD stage V with baseline creatinine of around 4 3. Diastolic congestive heart failure exacerbation 4. CAD status post PCI to LCx on 11/11/2024 with residual disease of the RCA as well as LCx. 5. Essential hypertension 6. Type 2 diabetes mellitus 7. Diabetic nephropathy and hypertensive nephropathy 8. Hyperlipidemia 9. Osteoarthritis 10. History of TIA versus stroke 2 years ago 1. Chronic smoker with more than [id number] smoking history 12. BPH. Patient has been having worsening shortness of breath since yesterday and is unable to lie flat-complains of significant orthopnea. On examination patient was only trace peripheral edema but has bilateral significant bilateral crackles up to mid lung. Patient is not fluid overloaded state from his CKD stage V along with diastolic dysfunction noted on the echo. Patient also has a history of CKD stage V but he does not want any kind of dialysis, this was even discussed in length during the last admission. Recommend to consult nephrology to discuss with patient regarding the option for dialysis. Patient is Dr Parra's patient and follows with her for many years. His creatinine is 4.0 today. Recommend to start and diuresis with Lasix 80 mg IV x 1 Strict input output, daily weights and 2 g sodium diet. Will evaluate his input output in the morning and reduce his Lasix and will continue to uptitrate it based on his clinical status. Keep potassium between 4 and 5 and magnesium greater than 2 at all times. Recommend to check ESR and CRP along with the BNP. Initial BNP is 3280. Patient does have a history of CAD status post PCI to LCx in November 2024 and does have residual moderate disease of the LAD, severe disease of the RCA which is being managed medically. EKG shows sinus rhythm without any acute ST-T changes history of ischemia. Troponin was also negative at 0.033. Recommend no further troponins for now. Unlikely ACS. Recommend to continue with aspirin, Brilinta, high intensity statin and beta-pardeep Recommend to repeat the echocardiogram to rule out any new systolic dysfunction and to evaluate for any regional wall motion abnormalities. His blood pressure is also elevated on admission and is mostly secondary to his fluid overloaded state At home patient was on amlodipine 5 mg twice daily along with Coreg 6.25 mg twice daily and recommend to continue to uptitrate the Coreg for now as heart rate is in the normal range. Continue amlodipine. No ARB or BEN inhibitor or Entresto given his CKD stage IV none this patient started dialysis but cannot start the medications given the CKD stage IV-V. Nephrology to discuss with the patient again regarding the dialysis. 12/17/2024 Patient seen and examined at bedside. No new cardiac complaints. Denies any chest pain or chest pressure. Saturating on room air, NC discontinued. Shortness of breath is improving as per patient with the diuresis. Negative by 820 cc in last 24-hour. Renal function worsened to BUN 56 and creatinine is 4.8 today, from yesterday 51 and 4.6 respectively. His baseline creatinine is around 4.0. Nephrology consulted and wanted to follow up as outpatient as patient does not want dialysis. Recommend to discharge patient on Lasix 80 mg once daily for now and follow-up with nephrology as outpatient this week or next week for further discussion. TTE completed 12/16/2024 showed Normal LV size. Mild LV systolic dysfunction with an EF of 40 to 45%. Mild global hypokinesis. Diastolic dysfunction indeterminate. Normal RV size and function. RVSP normal. Insufficient TR to measure RVSP. Trace TR, and mild MR. No pericardial Effusion. IVC not well-visualized. Patient not interested in having dialysis and his creatinine is up to 5.0 and his GFR is only 10. His heart failure is mostly secondary to the fluid overloaded state in the setting of CKD stage V and less likely ACS as patient had no chest pain or chest pressure on admission. His troponins were also negative and there was no evidence of any acute ST-T changes on the EKGs. Patient shortness of breath improved with diuresis. He does have severe CAD involving the RCA but he has a very long segment of severe CAD with multiple tandem lesions which would require a complex intervention requiring significant amount of contrast and could worsen his CKD stage V leading to dialysis and patient is not interested in dialysis. Patient states that he does not have any chest pain or chest pressure and not interested in any procedures. Continue medical management for now and if patient decides on dialysis then he can have the complex intervention at that point of time. Patient recommended to follow-up with me in the office within 1 week. Management of rest of the medical conditions as per primary team and other consultants. Thank you for the consult and allowing me to participate in the care of the patient. Cardiology will continue to follow. The patient's management plan was discussed with my attending physician MD Salvador Funes MD, PGY3 Attending Provider Attestation/Addendum I have personally seen and examined the patient separately on the above date of service and discussed the plan of care with the resident. I reviewed the resident Dr. Salvador Lau consultation progress note and agree with the resident findings and plan in the note above and have also edited the documentation to reflect my findings and plan. Karlo Ann M.D. Interventional Cardiology
--- NOTE | 2024-12-17 11:16 | PC.NURSE ---
DR. CRESPO WAS MADE AWARE PATIENT WAS ASSISTED TO WALK IN THE ROOM, PATIENT WALK ABOUT 50 STEPS WITH AN OXYGEN OF 94%-98% ROOM AIR.
--- NOTE | 2024-12-17 13:09 | ESDS_ITS ---
<Statement entered by Duyen Ann MD - 12/17/24 18:30> I have reviewed the note and agree with the resident's assessment & plan with exceptions as below. I have personally reviewed labs, imaging, home meds/prior records, examined the patient, formulated and discussed management plan with the IM team. Pt examined at bedside today. Pt continuing to improve, had 2L output today. Cr 4.8 today. Nephrology recommends for patient to be seen outpatient for further management and possible initiating HD tx, something that he has been refusing. We will d/c him on Lasix 80 mg qday, per cardiology recommendations. He will also be d/rachael on Coreg 12.5 mg BID, Amlo 10 mg day, these were uptitrated for blood pressure reasons. Will not initiate BEN/ARB due to CKD, defer to Nephr ology. Will prescribe remaining course of Tamiflu as he was admitted with Influenza Pneumonia. Continuing DAPT upon d/c (ASA and Brillinta) along with High intensity statin. Recommend to see PCP, Cardiology and Nephrology within 1- 2 weeks upon d/c. Pt will need strict follow up for severe CAD, CKD Stage 5, as Nephrology did not see patient, however is recommending for patient to be seen outpatient and to have further discussing in initiating HD (as pt continues to refuse this tx). Pt has been having CKD Stage 4 as early as 2021, however, his Cr recently has been worsening as his baseline seems to be 4.0. Though patient continues to make urine, he will eventually need dialysis in which he has been informed about previously and on this admission. He will also need strict follow up with Cardiology as Echo was done for this patient. Previously in October 2024, Echo showed no wall motion abnormalities, EF 55-60%, normal LV, G1DD. This admission's Echo showed reduced EF 40-45%. Pt had Troponin checked in while admitted which was negative, which shows less suspicion for worsening ischemic heart disease in addition to pt not complaining of chest pain. Nevertheless, pt may need further workup and medical management, however this will be discussed with patient's patch press operator outpatient. Pt to also follow up with Cardiology on official read of Echo outpatient. Duyen Ann, PGY-2 Internal Medicine Planned Discharge Date 12/17/24 DS: Providers Provider Date of admission: 12/14/24 16:24 Primary care physician: Eduar Haines PA-C Admitting Provider: David Calderon MD Attending Provider on Admission: Skyler Green MD Consults: 12/14/24 18:30 Consult to Cardiology Routine Comment: CAD Consulting Provider: Karlo Ann 12/15/24 08:35 Consult to Nephrology Routine Comment: ESRD Consulting Provider: Ness Parra 12/15/24 14:55 Referral Physical Therapy Routine Comment: Physician Instructions: Attending Provider on DC: Skyler Green MD Discharging Provider: Skyler Green MD DS: Diagnosis Problem List Completed Was Problem List Reviewed/Reconciled?: Yes Hospital Course Hospital Course Hospital course: 84-year-old male with a past medical history of CAD status post PCI to the LCx on 11/11/2024, residual CAD of the RCA severe and moderate LAD being managed medically, CKD stage V, hypertension, type 2 diabetes mellitus, diabetic nephropathy, hyperlipidemia, osteoarthritis, history of TIA versus stroke 2 years ago, BPH, mild chronic anemia secondary to CKD presented to the emergency department for further evaluation of shortness of breath. Patient was admitted for acute respiratory failure with hypoxia and exacerbation of heart failure secondary to flu infection. His ED vitals included T 98.5, HR 67, RR 18, BP 192/99, Sp O2 96% SHOWCASE TRIMMER. In ED, EKG showed sinus rhythm (84 bpm) with first-degree AV block and PACs and nonspecific ST-T changes. CXR showed significant pneumonia left base. Blood tests remarkable for WBC 14.1, Cr 4.0, and BNP 3129. Treatment given included oxygen, Lasix, morphine, topical NTG, Rocephin, and Zithromax. In hospital, he was treated with Tamiflu, Lasix, cardiology was consulted and continued Lasix 80 mg IV, carvedilol was increased to 12.5 mg twice daily, amlodipine 10 mg daily, aspirin 81 mg, ticagrelor 90 mg p.o. twice daily. Nephrology consult was put in, patient refuses to be on dialysis, nephrology will follow outpatient for CKD stage 5. At time of discharge patient is stable. Cardiology will do strict follow-up. Discharge Instructions: Follow up with PCP within one week Follow up with Dr. Ann, your patch press operator, within one week Follow up with Dr. Parra, your pulley man, within one week upon discharge Take your medicines as prescribed Finish your tamiflu for your Influenza Infection I have increased the dose of your Coreg, blood pressure medicine, as your blood pressure was elevated in the hospital Return to ER if your symptoms worsen or return Admission problems: #Acute respiratory failure with hypoxia #Community acquired PNA #Flu A positive #Congestive Heart Failure #Stage 1 diastolic dysfunction #HTN #CAD #Hx of NSTEMI w/ stent placement #CKD - stage 5 #T2DM #Subclinical Hypothyroidism Patient seen and care discussed with my attending physician, Dr. Green and my senior resident, Dr. Marissa Huber, PGY-1 Time Spent with Patient Time attestation: Total time spent providing and/or coordinating discharge services: Time spent: Less than 30 minutes Exam Vital Signs Temp Pulse Resp BP Pulse Ox O2 Del Method O2 Flow Rate 97.8 F 102 H 17 163/97 H 96 Room Air 2 12/17/24 12:00 12/17/24 12:00 12/17/24 12:12/17/24 12:00 12/17/24 12:00 12/17/24 12:00 12/16/24 15:10 Narrative Exam General: Alert and oriented x3. In no acute distress. Eyes: Pupils are equal and reactive to light bilaterally. HEENT: Atraumatic, normocephalic. No JVD noted. Mucosa moist. Cardiovascular: Normal S1 and S2. Normal rate and regular rhythm. No murmurs appreciated. Trace to 1+ peripheral pitting edema noted. Respiratory: No respiratory distress. Bilateral air entry present with mild bibasilar cracles. No wheezing. Abdomen: Soft, nontender, nondistended. Skin: No rash. Warm to touch. Musculoskeletal: No gross injuries. Able to move all 4 extremities. Neuro: Alert and oriented x3. No focal neuro deficits. Psych: Normal affect and mood Discharge Plan Plan Patient Disposition: Home w/HOME HEALTH Patient condition on transfer: Stable Care Plan Goals: Discharge Instructions: Follow up with PCP within one week Follow up with Dr. Ann, your patch press operator, within one week Follow up with Dr. Parra, your pulley man, within one week upon discharge Take your medicines as prescribed Finish your tamiflu for your Influenza Infection I have increased the dose of your Coreg, blood pressure medicine, as your blood pressure was elevated in the hospital Return to ER if your symptoms worsen or return Prescriptions/Referrals Prescriptions/Med Rec: New carvedilol [Coreg] 12.5 mg tablet 12.5 mg PO BID 30 Days Qty: 60 0RF Rx Instructions: Take one tablet by mouth twice a day furosemide [Lasix] 80 mg tablet 80 mg PO QDAY 30 Days Qty: 30 0RF Rx Instructions: Take one tablet by mouth every day ticagrelor [Brilinta] 90 mg tablet 90 mg PO BID 30 Days Qty: 60 0RF Rx Instructions: Take one tablet by mouth twice a day amlodipine 10 mg tablet 10 mg PO QDAY 30 Days Qty: 30 0RF Rx Instructions: Take one tablet by mouth twice a day Continued tamsulosin 0.4 mg capsule 0.8 mg PO BID sennosides [senna] 8.6 mg Tablet 8.6 mg PO QDAY PRN (Reason: constipation) Qty: 30 0RF atorvastatin 20 mg Tablet 80 mg PO HS Qty: 30 1RF aspirin [Ecotrin Low Strength] 81 mg Tablet,Delayed Release (Dr/Ec) 81 mg PO QDAY Qty: 30 1RF nitroglycerin 0.4 mg Tablet, Sublingual 0.4 mg SL Q5MIN PRN (Reason: Chest Pain) Qty: 30 0RF Discontinued clopidogrel 75 mg tablet 75 mg PO QDAY Patient Comments: TAKE ONE TABLET BY MOUTH EVERY DAY FOR THE HEART amlodipine 5 mg tablet 5 mg PO QDAY carvedilol 3.125 mg Tablet 6.25 mg PO BID Referrals: Eduar Haines PA-C [Primary Care Provider] - Patient/Caregiver Discharge Instructions Discharge Activity: activity as tolerated Other Discharge Activity Instructions:: Follow up with PCP within one week Follow up with Dr. Ann, your patch press operator, within one week Follow up with Dr. Parra, your pulley man, within one week upon discharge Take your medicines as prescribed Finish your tamiflu for your Influenza Infection I have increased the dose of your Coreg, blood pressure medicine, as your blood pressure was elevated in the hospital Return to ER if your symptoms worsen or return Education Materials: CKD Dc, ED Influenza (Adult), Heart Failure Print Language: Djiboutian Stand Alone Forms: Johanna Award Info., Patient Portal Info Letter Discharge Order Discharge Orders: Discharge (Routine); Ordered 12/17/24 Ordered By: Kirk Huber Quality Discharge Quality Measures VTE prophylaxis Attestestation MD Attestation I attest that I was physically present for the evaluation, physical examination, lab and imaging review of the patient with the residents. I discussed the case with the residents and agree with the findings and plans of care as documented above. Skyler Green MD
--- NOTE | 2024-12-17 14:37 | PC.SS ---
Rounding note: patient ready for d/c home today.
--- NOTE | 2024-12-17 15:18 | PC.NURSE ---
DISCHARGE ORDER PENDING D/T CLARIFICATION ON HOME MEDICATIONS. MD AWARE, WILL REVIEW DISCHARGE.
--- NOTE | 2024-12-17 16:52 | PC.CC ---
ref sent to [facility]. Pt is a [employer] member. waiting for response
--- NOTE | 2024-12-18 09:42 | PC.CM ---
0942 [facility] accepted HH services for patient. SOC 12/19/24
== END 2024-12-17 16:32 | disposition home health service (06) | DRG 291 ==
LOC: SERX 12:11 → SERHOLD 17:27 → S3NX 20:05
PROVIDERS: Admitting Provider Internal Medicine; Emergency Provider Emergency Medicine; PCP Student in an Organized Health Care Education/Training Program; Visit Provider Student in an Organized Health Care Education/Training Program
DX: I13.2 Hypertensive heart and chronic kidney disease with heart failure and with stage 5 chronic kidney disease, or end stage renal disease (principal); I50.33 Acute on chronic diastolic (congestive) heart failure; J10.00 Influenza due to other identified influenza virus with unspecified type of pneumonia; N18.6 End stage renal disease; J96.21 Acute and chronic respiratory failure with hypoxia; I25.2 Old myocardial infarction; I25.10 Atherosclerotic heart disease of native coronary artery without angina pectoris; G47.00 Insomnia, unspecified; I44.0 Atrioventricular block, first degree; Z66 Do not resuscitate; E03.8 Other specified hypothyroidism; E11.22 Type 2 diabetes mellitus with diabetic chronic kidney disease; E78.5 Hyperlipidemia, unspecified; F17.210 Nicotine dependence, cigarettes, uncomplicated; N40.0 Benign prostatic hyperplasia without lower urinary tract symptoms; Z79.02 Long term (current) use of antithrombotics/antiplatelets; Z79.899 Other long term (current) drug therapy; Z88.5 Allergy status to narcotic agent; Z95.5 Presence of coronary angioplasty implant and graft; Z99.2 Dependence on renal dialysis
CPT/HCPCS: 36415; 36600; 71045; 80053; 80061; 81001; 82248; 82803; 83735; 83880; 84100; 84145; 84439; 84443; 84484; 85025; 85379; 85610; 85652; 85730; 86140; 87081; 87400; 87502; 87811; 93005; 93225; 93306; 94640; 94664; 96365; 96367; 96375; 96376; 97162; 99285; A9270; J0456; J0696; J1644; J1938; J3490; J7050; J1920

== ENCOUNTER 2025-01-01 06:01 | Inpatient (IN) | payer OTHER, SELFPAY ==
[2025-01-01] VITALS (35 sets, daily range): BP systolic 138–186; BP diastolic 71–95; PULSE 61–105; RESP 15–24; TEMP 36.1–36.8; O2SAT 90–99; BMI 23.1
--- NOTE | 2025-01-01 | XR_ITS ---
Ultrasound-guided needle placement right internal jugular vein Temporary dialysis catheter insertion, percutaneous Fluoroscopy AP chest, portable, 2 views Date and time of procedure: January 01, 2025 1332 hours INDICATIONS: Renal failure, need for stat dialysis today Informed consent provided Technique: A timeout was completed verifying correct patient, procedure, site, positioning, and special equipment if applicable. The patient was placed in a dependent position appropriate for dialysis catheter placement based on the vein to be cannulated. The patient'sright neck was prepped and draped in sterile fashion. Maximum Sterile Barrier Technique used including cap, mask, sterile gown, sterile gloves, and sterile full body drape. If ultrasound technique used: sterile gel and sterile probe covers. Hand Hygiene performed using proper scrub, soap and water, or alcohol-based hand rub. 1% lidocaine was used to anesthetize the surrounding skin area The [employer] portable ultrasound apparatus utilized to confirm patency of the right internal jugular vein Utilizing ultrasonographic guidance successful 21-gauge needle micropuncture into the internal jugular vein. Ultrasound images were recorded and stored. Vessel micropuncture was performed with 21-gauge needle. 0.18 wire guide is introduced into the vein. 0.18 wire is introduced into the vena cava under fluoroscopy. Dilators were introduced over the J-wire guide. 13 Uzbek 20 cm temporary dialysis catheter introduced over the wire guide into the superior vena cava in satisfactory position The catheter is sutured in place to the skin and a sterile dressing applied. Perfusion to the extremity distal to the point of catheter insertion is checked and found to be adequate Attending radiologist was present for the entire procedure Estimated blood loss2 cc. The patient tolerated the procedure well and there were no complications Impression: Successful ultrasound-guided needle placement right internal jugular vein Successful temporary dialysis catheter insertion, percutaneous Fluoroscopy 0.1 minute radiation dose 0.66 milligray 2 spot fluoroscopic chest films. AP chest performed at completion procedure demonstrates satisfactory position dialysis catheter. May use dialysis catheter.
--- NOTE | 2025-01-01 06:31 | XR_ITS ---
Examination: AP chest single view Technique one AP portable upright chest single view Date and time: January 01, 2025 0711 hours Comparison December 14, 2024 INDICATIONS: Chest pain shortness of breath today. FINDINGS: Mild heart failure. Mild prominence cardiac contour, prominent vascular congestion with perihilar edema Consider superimposed bilateral pneumonia IMPRESSION: Mild heart failure Consider superimposed bilateral pneumonia
[2025-01-01] MEDS: MethylPREDNISolone SOD SUCC 62.5 MG/ML 2ML VIAL 125 MG IVP (06:51)
--- NOTE | 2025-01-01 07:01 | PD.EDSOB ---
ED SOB =RME/HPI General Chief Complaint: Shortness of Breath/Dyspnea Stated Complaint: SOB Time Seen by Provider: 01/01/25 06:31 Arrival date/time: 01/01/25 06:01 Limitations: no limitations RME / HPI RME / HPI Narrative: 84 year old male with history of NM, CAD s/p PCI, hypertension, CKD presents to the ED BIBA from home for evaluation of shortness of breath, described as feeling he is not getting enough air. Reportedly symptoms began several weeks ago and worsening last night. Accompanied by a cough. Denies associated fevers, chills, chest pain, abdominal pain, n/v/d, or urinary symptoms. Denies use of oxygen at home or known history of asthma. Patient has remote history of smoking. Related Data Home Medications ?Medication ?Instructions ?Recorded ?Confirmed tamsulosin 0.4 mg capsule 0.8 mg PO BID 12/15/24 12/15/24 Previous Rx's ?Medication ?Instructions ?Recorded aspirin 81 mg tablet,delayed 81 mg PO QDAY #30 tabs 11/13/24 release (Ecotrin Low Strength) atorvastatin 20 mg tablet 80 mg (4 x 20 mg) PO HS #30 tabs 11/13/24 nitroglycerin 0.4 mg sublingual 0.4 mg SL Q5MIN PRN Chest Pain #30 11/13/24 tablet tabs sennosides 8.6 mg tablet (senna) 8.6 mg PO QDAY PRN constipation 11/13/24 #30 tabs amlodipine 10 mg tablet 10 mg PO QDAY 1 month #30 tabs 12/17/24 carvedilol 12.5 mg tablet (Coreg) 12.5 mg PO BID 1 month #60 tabs 12/17/24 furosemide 80 mg tablet (Lasix) 80 mg PO QDAY 1 month #30 tabs 12/17/24 ticagrelor 90 mg tablet (Brilinta) 90 mg PO BID 1 month #60 tabs 12/17/24 Allergies Allergy/AdvReac Type Severity Reaction Status Date / Time codeine Allergy Vomiting Verified 12/14/24 09:06 Review of Systems Review of Systems Systems Reviewed: All systems reviewed, normal except as documented Past Medical History Past Medical History NEUROLOGIC: Positive Cerebrovascular Accident CARDIAC: Positive Cardiac Disorders, Angina, Hypercholesterolemia and Hypertension GENITOURINARY: Positive Benign Prostatic Hyperplasia MUSCULOSKELETAL: Positive Musculoskeletal Disorders and Arthritis ENT: Positive Cataracts, Macular Degeneration and Deafness ENDOCRINE: Positive Endocrine Disorders and Diabetes Mellitus Type 2 Family History FAMILY HISTORY: Negative Family Psychiatric Problems, Family Respiratory Disorders, Family Cardiac Disorders, Family Gastrointestinal Problems, Family Cancer, Family Surgery or Family Anesthesia Reaction Surgical History SURGICAL: Positive Coronary Stent and Eye Surgery Social History SMOKING STATUS: Former smoker SECOND HAND EXPOSURE: No ED Exam General Limitations: Present no limitations General appearance: Present alert and in no apparent distress Head Head exam: Present atraumatic, normocephalic and normal inspection Eye Eye exam: Present normal appearance, PERRL and EOMI ENT ENT exam: Present normal exam, normal oropharynx and mucous membranes moist Neck Neck exam: Present normal inspection, full ROM and trachea midline Chest Chest inspection: Present normal inspection and symmetric chest wall rise Respiratory Respiratory exam: Present wheezes (bilaterally, greater on the right ) Cardiovascular Cardiovascular exam: Present regular rate, normal rhythm and normal heart sounds Abdominal Exam Abdominal exam: Present soft and normal bowel sounds Extremities Exam Extremities exam: Present normal inspection and full ROM Back Exam Back exam: Present normal inspection and full ROM Neurological Exam Neurological exam: Present alert, oriented X3 and CN II-XII intact Psychiatric Psychiatric exam: Present normal affect and normal mood Skin Skin exam: Present warm, dry, intact and normal color Course Course Course Narrative: chest xray ordered to help determine etiology of shortness of breath. Quality Measures none Orders Category Date Time Status Bedside COVID-19 Antigen Test NOW Care 01/01/25 08:17 Active Bedside Influenza A&B Antigen Test NOW Care 01/01/25 08:17 Completed CXR1 [XR chest 1V] Stat Exams 01/01/25 06:31 Completed IR dialysis catheter insertion Stat Exams 01/01/25 Ordered BNP [B-Type Natriuretic Peptide] Stat Lab 01/01/25 06:40 Completed CBC Stat Lab 01/01/25 06:40 Completed CMP [Comprehensive Metabolic Panel] Stat Lab 01/01/25 06:40 Completed Troponin I Stat Lab 01/01/25 06:40 Completed Albuterol/Ipratr Rt Yary [Duoneb Rt Yary] Med 01/01/25 06:41 Discontinued 3 ml INH X1 ONE Azithromycin Inj [Zithromax Inj] 500 mg Med 01/01/25 08:38 Active Sodium Chloride 0.9% 250 ml [Ns] 250 ml IV NOW Dextrose 50% Syr [D50w Syringe Abboject] Med 01/01/25 08:41 Once 50 ml IVP X1 ONE Insulin Regular Med 01/01/25 08:41 Once 5 unit IV X1 ONE MethylPREDNISolone.* [SoluMEDROL Inj] Med 01/01/25 06:41 Discontinued 125 mg IVP X1 ONE cefTRIAXone/D5w 1gm IV premix [Rocephin/D5w 1gm IV Med 01/01/25 08:37 Active premix] 1 gm in 50 ml IV X1 Vital Signs Vital signs: Vital Signs Temperature 98.3 F 01/01/25 06:15 Pulse Rate 91 01/01/25 06:15 Respiratory Rate 22 H 01/01/25 06:15 Blood Pressure 161/81 H 01/01/25 06:15 Pulse Oximetry (%) 93 L 01/01/25 06:15 Oxygen Delivery Method Room Air 01/01/25 06:15 Pulse ox is 93% on room air which is low. Shortness of Breath / Dyspnea MDM Narrative MDM Narrative:: ITara, am scribing for and in the presence of Dr. Dacosta. Patient is an 84-year-old male with medical history notable for chronic kidney disease, coronary artery disease at an emergency department with progressive worsening shortness of breath. Patient with increased work of breathing, hypoxic requiring supplemental oxygen. Patient with wheezing, is otherwise neurovascularly intact GCS 15. Ordered labs EKG chest x-ray as well as breathing treatment and steroids given that patient states that the last time he felt this way he felt better after breathing treatment and steroids. Labs with evidence of leukocytosis 19, mild elevation in potassium, will provide patient with medications for hyperkalemia. EKG with atrial fibrillation. Patient with worsening creatinine, BUN and renal function. Patient has followed with Dr. Cole nephrology. I consulted her. She request that patient get a IR guided permacath placement placed for dialysis and be admitted to the hospitalist service. Discussed case with hospitalist kindly excepted patient for admission Patient data External records reviewed:: [facility] previous records (I reviewed admission from 12/14/2024 through 12/17/2024 ) Clinical information provided by:: patient Social determinants that could affect healthcare access:: none Patient has the following chronic illnesses:: NM, CAD s/p PCI, hypertension, CKD How is presenting disease/condition affected by chronic disease/condition?: exacerbated by Evaluation data The following diagnostics were reviewed and interpreted by me:: lab results, radiology exam(s) and EKG tracing(s) (01/01/2025 @ 06:09 AM. Atrial fibrillation, HR 91, normal QT, no cardiac alert. ) Lab and/or radiology exams considered but not ordered:: None Interpretation Summary: Ordering Physician: Coretta Dacosta MD Date of Service: 01/01/25 Procedure(s): XR chest 1V Accession Number(s): [id number] cc: Martinez Barriga MD; Coretta Dacosta MD~ Examination: AP chest single view Technique one AP portable upright chest single view Date and time: January 01, 2025 0711 hours Comparison December 14, 2024 INDICATIONS: Chest pain shortness of breath today. FINDINGS: Mild heart failure. Mild prominence cardiac contour, prominent vascular congestion with perihilar edema Consider superimposed bilateral pneumonia IMPRESSION: Mild heart failure Consider superimposed bilateral pneumonia Dictated By: Martinez Barriga MD Signed By: <Electronically signed by Martinez Barriga MD in OV> 01/01/25 0753 Medications / Prescriptions Medications or Prescriptions considered but not ordered:: None Medication administrations:: Medication Administration History Dextrose (Dextrose 50%-Water Inj 50 Ml Syringe) 50 ml IVP X1 ONE Stop: 01/01/25 08:42 Ceftriaxone Sodium/Dextrose (Rocephin/D5w 1gm Iv Premix) 1 gm in 50 mls @ 100 mls/hr IV X1 ONE Stop: 01/01/25 09:06 Azithromycin 500 mg/ Sodium (Chloride) 250 mls @ 250 mls/hr IV NOW ONE Stop: 01/01/25 09:37 Insulin Human Regular (Insulin Hum Regular 1 Unit/0.01 Ml (Per Unit)) 5 unit IV X1 ONE Stop: 01/01/25 08:42 Discontinued Medications Albuterol/Ipratropium (Albuterol/Ipratropium (Duoneb) Rt Yary 3 Ml Nebu) 3 ml INH X1 ONE Stop: 01/01/25 06:42 Last Admin: 01/01/25 07:49 Dose: 3 ml Documented By: DM Methylprednisolone Sodium Succinate (Methylprednisolone Sod Succ 62.5 Mg/Ml 2ml Vial) 125 mg IVP X1 ONE Stop: 01/01/25 06:42 Last Admin: 01/01/25 06:51 Dose: 125 mg Documented By: CG See above Consultations Consultation(s) initiated? (list below): Yes Consultation #1 (Physician, Specialty, Details): I spoke with senior linux administrator Dr. Dimas. Discussed patients PMHx, HPI, ED course, exam findings, labs, and radiology results. Advised dialysis perm cath placement and agrees to consult. Time: 08:32 Consultation #2 (Physician, Specialty, Details): I spoke with resident Dr. Drake working with hospitalist Dr. Rogers. Discussed patients PMHx, HPI, ED course, exam findings, labs, and radiology results. The hospitalist agree to accept the patient for admission. Time: 08:37 Diagnosis Shortness of Breath Differential Diagnosis: acute exacerbation of chronic obstructive airways disease, congestive heart failure, community acquired pneumonia and pulmonary embolism Most likely diagnosis given after review of the tests above:: Hyperkalemia CHF exacerbation Acute on chronic renal failure Admission Indicated Admission indicated?: indicated Admission Request Was there a request for admission?: Yes Admission Attestation Admission request attestation: Discussed case with [] from Hospitalist service regarding admission. Discussed patients ED course, exam findings, labs, and radiology results. The Hospitalist [agrees,declines] to accept the patient for admission. Disposition Plan Disposition Plan: Admit Critical Care Time Critical Care Time Critical Care Time: Yes Total Critical Care Time (min.): 40 Attestation: The high probability of sudden, clinically significant deterioration in the patient's condition required the highest level of my preparedness to intervene urgently. The services I provided to this patient were to treat and/or prevent clinically significant deterioration. Services included the following: chart data review, reviewing nursing notes and/or old charts, documentation time, corporate consultant collaboration regarding findings and treatment options, medication orders and management, direct patient care, vital sign assessments and ordering, interpreting and reviewing diagnostic studies and lab tests. Aggregate critical care time includes only time during which I was engaged in work directly related to the patient's care, as described above, whether at bedside or elsewhere in the Emergency Department. It did not include time spent performing other reported procedures or the services of residents, students, nurses or physician assistants. Discharge Plan Plan Patient Disposition: Admit Acute Care w/in Hospital Prescriptions/Referrals Prescriptions/Med Rec: No Action tamsulosin 0.4 mg capsule 0.8 mg PO BID carvedilol [Coreg] 12.5 mg tablet 12.5 mg PO BID 30 Days Qty: 60 0RF Rx Instructions: Take one tablet by mouth twice a day furosemide [Lasix] 80 mg tablet 80 mg PO QDAY 30 Days Qty: 30 0RF Rx Instructions: Take one tablet by mouth every day ticagrelor [Brilinta] 90 mg tablet 90 mg PO BID 30 Days Qty: 60 0RF Rx Instructions: Take one tablet by mouth twice a day amlodipine 10 mg tablet 10 mg PO QDAY 30 Days Qty: 30 0RF Rx Instructions: Take one tablet by mouth twice a day sennosides [senna] 8.6 mg Tablet 8.6 mg PO QDAY PRN (Reason: constipation) Qty: 30 0RF atorvastatin 20 mg Tablet 80 mg PO HS Qty: 30 1RF aspirin [Ecotrin Low Strength] 81 mg Tablet,Delayed Release (Dr/Ec) 81 mg PO QDAY Qty: 30 1RF nitroglycerin 0.4 mg Tablet, Sublingual 0.4 mg SL Q5MIN PRN (Reason: Chest Pain) Qty: 30 0RF Referrals: Eduar Haines PA-C [Primary Care Provider] - In 1 week Problem List Clinical Impression: Hyperkalemia, CHF exacerbation, Acute on chronic renal failure Patient/Caregiver Discharge Instructions Print Language: Khmer Stand Alone Forms: Johanna Award Info., Patient Portal Info Letter
[2025-01-01 07:33] LABS: Basophils # (Auto) 0.1 Thou/mm3 (0.0-0.2); Basophils % (Auto) 0 % (0-2.5); Eosinophils # (Auto) 0.3 Thou/mm3 (0.0-0.5); Eosinophils % (Auto) 2 % (0-10); Hematocrit 32.7 % (41.0-53.0); Hemoglobin 10.7 g/dL (13.5-16.0); Immature Granulocytes Auto 0.17 Thou/mm3 (0.00-0.00); Lymphocytes # (Auto) 0.6 Thou/mm3 (1.0-4.8); Lymphocytes % (Auto) 3 % (10-50); Mean Corpuscular HGB Conc 32.7 g/dl (31.0-37.0); Mean Corpuscular Hemoglobin 29.1 pg (25.0-35.0); Mean Corpuscular Volume 89 fL (80-100); Monocytes # (Auto) 0.9 Thou/mm3 (0.0-0.8); Monocytes % (Auto) 5 % (0-12); Neutrophils # (Auto) 17.6 Thou/mm3 (1.8-7.7); Neutrophils % (Auto) 89 % (37-80); Nucleated Red Blood Cell # 0.00 Thou/mm3 (0.00-0.00); Nucleated Red Blood Cell % 0 /100 WBC (0); Platelet Count 339 Thou/mm3 (140-440); RDW Standard Deviation 45.7 fL (35.1-43.9); Red Blood Count 3.68 Miln/mm3 (4.50-5.90); White Blood Count 19.7 Thou/mm3 (3.8-10.6)
[2025-01-01] MEDS: ALBUTEROL/IPRATROPIUM (Duoneb) RT SOL 3 ML NEBU INH ×3 (07:49→22:36)
[2025-01-01 07:59] LABS: B-Type Natriuretic Peptide 1915 pg/mL (0-100)
[2025-01-01 08:00] LABS: Alanine Aminotransferase 158 U/L (10-49); Albumin, Serum 4.1 gm/dL (3.4-4.8); Albumin/Globulin Ratio 1.1 (1.2-2.2); Alkaline Phosphatase 151 U/L (46-116); Anion Gap 15 (7-16); Aspartate Amino Transferase 95 U/L (0-34); BUN/Creatinine Ratio 17 Ratio (12-20); Bilirubin,Total 0.4 mg/dL (0.3-1.2); Blood Urea Nitrogen 100 mg/dL (9-23); Calcium 7.9 mg/dL (8.3-10.6); Calcium (Corrected) 7.9 mg/dL (8.5-10.1); Carbon Dioxide 20.2 mMol/L (20.0-31.0); Chloride 104 mMol/L (98-107); Creatinine (Component) 5.9 mg/dL (0.6-1.3); Estimated Creatinine Clearance 10.0 mL/min (>60); Globulin 3.6 gm/dL (2.3-3.5); Glucose 187 mg/dL (74-106); Osmolality,Calculated 313 (275-295); Potassium 5.2 mMol/L (3.4-5.1); Sodium 139 mMol/L (136-145); Total Protein 7.7 gm/dL (5.7-8.2); Troponin I 0.027 ng/mL (0.0-0.045); eGFR 9 See Note
--- NOTE | 2025-01-01 09:13 | PC.NURSE ---
Patient came in to ED for shortness of breath/wheezing for a couple of weeks. Patient saturating 93% on 2L Nasal Cannula. Patient denies history of COPD, or Asthma. Patient denies fever. Patient alert and oriented X4. Patient being evaluated by hospitalist admitting team and nephrology team. Patient educated on low GFR levels today and need for hemodialysis. Patient still short of breath after breathing treatment received. Patient states he will speak to his brother and decide if he will agree to dialysis at this time. Patient placed on oxymask saturating 91% on 10L and still having increased shortness of breath. Dr. Dacosta made aware. Patient being placed on BiPap. New medication orders received from MD and Respiratory made aware of need for BiPap. Vitale Catheter placed per MD order.
--- NOTE | 2025-01-01 09:16 | PD.RESCONSUL ---
HPI Data of Consult Consult date: 01/01/25 Primary Care Provider: Eduar Haines PA-C Consult Narrative Reason for consult: FERDINAND needing HD History of present illness: Mr. Fuentes is a 84 year old male with history of CAD status post PCI to the LCx on 11/11/2024, residual CAD of the RCA severe and moderate LAD being managed medically, CKD stage V, hypertension, type 2 diabetes mellitus, diabetic nephropathy, hyperlipidemia, osteoarthritis, history of TIA versus stroke 2 years ago, BPH, mild chronic anemia secondary to CKD presents to the ED BIBA from home for evaluation of shortness of breath, described as feeling he is not getting enough air. Reportedly symptoms began several weeks ago and worsening last night. Accompanied by a cough. Patient states he is compliant with medications, but did not take his medication today. Patient states he made a little bit of urine this morning. Denies associated fevers, chills, chest pain, abdominal pain, n/v/d, dysuria, hematuria, or any other urinary symptoms. Denies use of oxygen at home or known history of asthma. Patient recently was admitted to hospital with similar episode of hypoxic respiratory failure and at that time he did not want dialysis. Home medications: Coreg 12.5, Lasix 80, Brilinta 90, amlodipine 10, tamsulosin 0.4, atorvastatin 20, aspirin 81, nitroglycerin 0.4 prn. ED Course: -Initial vitals: 98.3F, 102 HR, 22 RR, 161/81 BP, O2 saturation 93 on 2L NC, -Labs significant for WBC 19.7, potassium 5.2, BUN 100, Cr 5.9, eGFR 9, Glucose 187, Osmolality 313, Ca 7.9, AST 95, ALT 158, Alk Phos 151, Trop 0.027, BNP 1915 - Imaging CXR: showing mild heart failure, consider superimposed bilateral pneumonia -In the ED, patient was given methylprednisolone 125 mg and DuoNeb, put on 2L NC; given Lasix 40 mg. -Patient was admitted for shortness of breath -Nephrology consulted for FERDINAND on CKD. cc:: cc: Review of Systems Review of Systems Narrative Review of Systems: General: Denies fevers or chills HEENT: Endorses occasional cough; Denies congestion or sore throat Heart: Denied chest pain, palpitations Lungs: Endorsed shortness of breath Abdomen: Denies diarrhea, nausea, vomiting, constipation, bright red blood per rectum or melena Genitourinary: Denies frequency, urgency, dysuria, or hematuria Musculoskeletal: Denies joint pain or myalgias Neurology: Denies any changes in vision, weakness or difficulty speaking Past Medical History Past Medical History NEUROLOGIC: Positive Cerebrovascular Accident CARDIAC: Positive Cardiac Disorders, Angina, Hypercholesterolemia and Hypertension GENITOURINARY: Positive Benign Prostatic Hyperplasia MUSCULOSKELETAL: Positive Musculoskeletal Disorders and Arthritis ENT: Positive Cataracts, Macular Degeneration and Deafness ENDOCRINE: Positive Endocrine Disorders and Diabetes Mellitus Type 2 Family History FAMILY HISTORY: Negative Family Psychiatric Problems, Family Respiratory Disorders, Family Cardiac Disorders, Family Gastrointestinal Problems, Family Cancer, Family Surgery or Family Anesthesia Reaction Surgical History SURGICAL: Positive Coronary Stent and Eye Surgery Social History SMOKING STATUS: Former smoker SECOND HAND EXPOSURE: No Exam Vital Signs Temp Pulse Resp BP Pulse Ox O2 Del Method O2 Flow Rate 97.6 F 94 15 156/82 H 95 Nasal Cannula 2 01/01/25 07:46 01/01/25 07:51 01/01/25 07:51 01/01/25 07:46 01/01/25 07:51 01/01/25 07:46 01/01/25 07:51 Narrative Exam General: Awake, mild respiratory distress; seen in the emergency department HEENT: Normocephalic, atraumatic, mucous membranes moist. Heart: Regular rate and rhythm, normal S1 and S2, no murmurs. Lungs: Wheezes, crackles bilaterally. Abdomen: Soft, nondistended, nontender, positive bowel sounds. ?No guarding or rebound tenderness. Neurologic: Alert and oriented x3, no gross neurological deficit, and patient able to move all 4 extremities. Extremities: No edema. Skin: No rash or ecchymoses. Results Labs 01/01/25 21:08 01/01/25 15:32 Labs: Short CBC 01/01/25 Range/Units 06:40 WBC 19.7 H (3.8-10.6) Thou/mm3 Hgb 10.7 L (13.5-16.0) g/dL Hct 32.7 L (41.0-53.0) % Plt Count 339 D (140-440) Thou/mm3 BMP 01/01/25 06:40 Sodium 139 Potassium 5.2 H Chloride 104 Carbon Dioxide 20.2 BUN 100 H Creatinine 5.9 H* Glucose 187 H Calcium 7.9 L Cardiac Enzymes 01/01/25 Range/Units 06:40 Troponin I 0.027 (0.0-0.045) ng/mL Liver Function 01/01/25 Range/Units 06:40 Total Bilirubin 0.4 (0.3-1.2) mg/dL AST 95 H (0-34) U/L ALT 158 H (10-49) U/L Alkaline Phosphatase 151 H (46-116) U/L Albumin 4.1 (3.4-4.8) gm/dL Quality Measures Quality Measures VTE prophylaxis Advance care planning discussed with:: patient Medications Home Medications and Allergies Home Medications ?Medication ?Instructions ?Recorded ?Confirmed ?Type tamsulosin 0.4 mg capsule 0.8 mg PO BID 12/15/24 12/15/24 History Allergies Allergy/AdvReac Type Severity Reaction Status Date / Time codeine Allergy Vomiting Verified 01/01/25 13:52 Visit Medications Azithromycin 500 mg/ Sodium (Chloride) 250 mls @ 250 mls/hr IV NOW ONE Stop: 01/01/25 09:37 Discontinued Medications Albuterol/Ipratropium (Albuterol/Ipratropium (Duoneb) Rt Yary 3 Ml Nebu) 3 ml INH X1 ONE Stop: 01/01/25 06:42 Last Admin: 01/01/25 07:49 Dose: 3 ml Dextrose (Dextrose 50%-Water Inj 50 Ml Syringe) 50 ml IVP X1 ONE Stop: 01/01/25 08:42 Ceftriaxone Sodium/Dextrose (Rocephin/D5w 1gm Iv Premix) 1 gm in 50 mls @ 100 mls/hr IV X1 ONE Stop: 01/01/25 09:06 Insulin Human Regular (Insulin Hum Regular 1 Unit/0.01 Ml (Per Unit)) 5 unit IV X1 ONE Stop: 01/01/25 08:42 Methylprednisolone Sodium Succinate (Methylprednisolone Sod Succ 62.5 Mg/Ml 2ml Vial) 125 mg IVP X1 ONE Stop: 01/01/25 06:42 Last Admin: 01/01/25 06:51 Dose: 125 mg Assessment & Plan Plan Alfredo Fall is an 84 year old male with history of CAD status post PCI to the LCx on 11/11/2024, residual CAD of the RCA severe and moderate LAD being managed medically, CKD stage V, hypertension, type 2 diabetes mellitus, diabetic nephropathy, hyperlipidemia, osteoarthritis, history of TIA versus stroke 2 years ago, BPH, mild chronic anemia secondary to CKD presents with shortness of breath. #FERDINAND on CKD stage V #Hypocalcemia 2/2 CKD #HFpEF (EF 40-45%) Patient has history of CKD V likely due to hypertensive nephropathy with baseline Cr around 4.0. This admission Cr is 5.9, GFR 9, BUN 100, potassium 5.2, sodium 139, corrected calcium 7.9, elevated BNP 1915. CXR showed some congestion with pneumonia. Patient had been refusing to start dialysis. Last admission 12/17 patient was refusing at that time as well. Appears that FERDINAND may be due to fluid overload status. States that he takes Lasix 80mg PO at home and is compliant with medications. Nephrology consulted for FERDINAND on CKD. After long conversation with the patient he agreed for dialysis. Plan: -Dialysis catheter insertion today with HD following -Monitor chemistry -f/u UA -No recent contrast or offending medications -Strict I/Os, monitor UOP -Renal dose med, avoid nephrotoxin -certified alcohol and drug counselor patient on HD #Normocytic anemia #Transaminitis #HTN #HLD #CAD s/p PCI #BPH #Nicotine dependence -management per primary care team Thank you for allowing us to take part in the care of Mr. Fall Patient plan of care was discussed with the attending physician, Dr. Judie Charles MD PGY-1 Attending Provider Attestation/Addendum Patient seen and examined with resident physician Dr. Charles. Note reviewed, agree with findings and recommendations. Currently seen in the emergency department. On BiPAP. Patient with hypoxic respiratory failure and significant azotemia. Long conversation with the patient-finally agreed for dialysis. Vas-Cath placed by Dr. Cohen. Patient on dialysis. Tolerating dialysis without any problems. Noted oozing from the exit site. Pressure dressing ordered. Hemodialysis for 2 hours, 2K, ultrafiltration 1 L, Epogen 6000, no heparin ordered. Plan of care discussed with the dialysis nurse. Please see dialysis flowsheet for further details. Next dialysis scheduled for tomorrow. Hep panel, PPD ordered. Probably might need outpatient dialysis. Thank you Genevieve for allowing me to participate in the care of Mr. Fuentes.
[2025-01-01] MEDS: DEXTROSE 50%-WATER INJ 50 ML SYRINGE IVP (09:36)
[2025-01-01] MEDS: FUROSEMIDE INJ 10 MG/ML 4ML VIAL 40 MG IVP (09:37)
[2025-01-01] MEDS: INSULIN HUM REGULAR 1 UNIT/0.01 ML (PER UNIT) 5 UNIT IV (09:37)
[2025-01-01] MEDS: cefTRIAXone/D5w 1gm IV premix 1 GM/50 ML BAG IV (09:38)
[2025-01-01 10:00] LABS: Collection Type, Urine Clean Catch; Squamous Epithelial Cell,Urine 0 /hpf (0-5)
[2025-01-01 10:03] LABS: Base Excess, Venous -4 (-3-3); O2 Saturation, Venous 77 % (96-97); PCO2, Venous 33 mmHg (36-56); PO2, Venous 49 mmHg (15-58); pH, Venous 7.39 (7.33-7.66)
[2025-01-01 10:03] LABS: Bilirubin,Urine Negative (Negative); Blood,Urine Negative (Negative); Clarity,Urine Clear (Clear/Hazy); Color,Urine Lt-Yellow (Lt Yel-Yel); Glucose, Urine Negative (Negative); Ketones,Urine Negative (Negative); Leukocyte Esterase,Urine Negative (Negative); Nitrite,Urine Negative (Negative); PH,Urine 6.5 (5.0-7.0); Protein,Urine 1+ (Neg - Trace); RBC,Urine 4 /hpf (0-3); Specific Gravity,Urine 1.017 (1.001-1.035); Urobilinogen,Urine Negative mg/dL (0.0-1.0); WBC,Urine 3 /hpf (0-5)
[2025-01-01] MEDS: AZITHROMYCIN INJ 500 MG in SODIUM CHLORIDE 0.9% 250 ML 250 ML 250 MG IV (10:29)
[2025-01-01] MEDS: DOCUSATE SOD 100 MG CAPSULE PO (10:31)
[2025-01-01 10:33] LABS: Base Excess -4 (-3-3); HCO3 20 mEq/L (20-26); Inspired Oxygen, FIO2 36 %; O2 Saturation 96 % (91-98); PCO2 32 mmHg (32.0-48.0); PO2 76 mmHg (83-108); pH, Arterial 7.41 (7.35-7.45)
[2025-01-01 10:34] LABS: Allen Test Performed/OK; Puncture Site Right Radial
--- NOTE | 2025-01-01 13:13 | PC.NURSE ---
Patient changed and repositioned for comfort. Patient was give a couple of bites of his lunch tray, and some PO fluids. Report given at bedside to CRISTINA Finn from IR. Patient going for temporary dialysis catheter placement. Huma aware of PO intake. No further questions. RT Diallo made aware of patient needing RT to accompany patient to IR. Diallo agrees.
--- NOTE | 2025-01-01 13:20 | ESHP_ITS ---
<Statement entered by Forrest Amaro MD - 01/01/25 17:20> Patient was seen and examined at the bedside. Patient presented with exertional shortness of breath and wheezing. He was recently placed on aspirin and Brilinta due to PCI in November 2024. Kidney functions showed GFR 9 with creatinine 5.9 therefore nephrology was consulted and further recommendations patient started on dialysis after placing Vas-Cath. Due to bleeding around the Vas- Cath. Aspirin and Brilinta are all on hold. Patient will be a new onset dialysis therefore social science analyst will start process of hemodialysis as outpatient. Cardiology has been consulted will follow the patient. Azithromycin given for possible pneumonia. All labs and orders were reviewed. I discussed and supervised with the buyer intern physician who took care of this patient. I personally saw and examined the patient. I agree with most of the assessment and plan. Disclaimer: Despite multiple revisions, due to the dictation software being used, the document bellow may not be free of grammatical errors including phonetic/typographic errors. However, this does not deter from our commitment to providing health care in the patient's best interest in mind. Plan of care discussed with attending Physician Dr. Sue Amaro MD PGY-3 Documentation for date of: 01/01/25 HPI History of Present Illness Chief complaint: Shortness of breathe History of present illness: Mr. Fall is a 84M with history of NSTEMI, CAD s/p PCI to Left circumflex on 11/11/24, CKD stage IV, HTN, DM2, HLD, diabetic nephropathy, stroke with no residual deficit and osteoarthritis presents for shortness of breathe. He was recently admitted for acute respiratory failure with hypoxia on 12/16/24. Pt was not interested in receiving dialysis at that time. TTE on 12/16/24 shows normal LV size with EF of 40-45%. He was discharged on 12/17/24 with lasix 80mg QD per cardiology recommendation. Pt reports he has been getting more short of breathe a few weeks ago, especially at night. He was brought in by ambulance today because he was not getting enough air and had trouble breathing. He does not use oxygen at home, and denies fevers, chest pain, abdominal pain, nausea, vomiting, diarrhea or dysuria. Admitted for catheter insertion with hemodialysis. ED Course In the ED, WBC 19.7, Hgb 10.7, Na 139, K 5.2, Cl 104, BUN 100, Cr 5.9, eGFR 9. AST 95 ALT 158 ALP 151. Trop 0.027. BNP 1915. UA unremarkable. CXR shows mild heart failure and consider superimposed bilateral pneumonia. O2 sat was 93% on room air, tachypenic with accessory muscle use. VBG shows pH 7.39, pCO2 33 and pO2 49, he was subsequently put on CiPAP by RT. Repeat ABG shows pH of 7.41, pCO2 32, pO2 of 76, and pHCO3 of 20. Received Ceftriaxone 1g, Azithromycine 500mg given, methylprednisone 125mg and Lasix 40mg ROS * Constitutional: Resp distress, a/o x 3, denies fever/chills. * GI: Denies nausea, vomiting. * CV: Denies chest pain or palpitations. * Resp: +SOB * : Denies dysuria, CVA tenderness, suprapubic tenderness. * Neuro: Denies dizziness, no focal deficits. Past Medical History * CAD s/p PCI to Lcx on 11/11/24 * CKD Stage IV * NSTEMI * DM2 * Hypertension * Hyperlipidemia Social History * Lives at home, independent baseline. * Reports 50 to 60 pack of smoking history, quit a few years ago. Denies any kind of alcohol or drug abuse. Surgical History * Cataracts Allergies * Codeine Home Meds * amlodipine 10mg PO QD * Aspirin 81ng PO QD * Atorvastatin 80mg PO * Coreg 12.5mg PO BID * Lasix 80mg PO * tamsulosin 0.8mg PO * Brilinta 90mg PO BID Past Medical History Past Medical History NEUROLOGIC: Positive Cerebrovascular Accident CARDIAC: Positive Cardiac Disorders, Angina, Hypercholesterolemia and Hypertension GENITOURINARY: Positive Benign Prostatic Hyperplasia MUSCULOSKELETAL: Positive Musculoskeletal Disorders and Arthritis ENT: Positive Cataracts, Macular Degeneration and Deafness ENDOCRINE: Positive Endocrine Disorders and Diabetes Mellitus Type 2 Family History FAMILY HISTORY: Negative Family Psychiatric Problems, Family Respiratory Disorders, Family Cardiac Disorders, Family Gastrointestinal Problems, Family Cancer, Family Surgery or Family Anesthesia Reaction Surgical History SURGICAL: Positive Coronary Stent and Eye Surgery Social History SMOKING STATUS: Former smoker SECOND HAND EXPOSURE: No Exam Vital Signs Temp Pulse Resp BP Pulse Ox O2 Del Method O2 Flow Rate 97.0 F 70 19 154/74 H 96 BiPAP 2 01/01/25 12:32 01/01/25 12:32 01/01/25 12:32 01/01/25 12:32 01/01/25 12:32 01/01/25 12:01/01/25 07:51 FiO2 32 01/01/25 10:31 Narrative Exam General: Respiratory distress, on BiPAP, Oriented x 3. Skin: Good turgor, no rash, unusual bruising or prominent lesions Heart: No cardiomegaly or thrills; regular rate and rhythm, no murmur or gallop Lungs: CTAB. No rales, wheeze, or rhonchi Abdomen: Bowel sounds normal, no tenderness, organomegaly, masses, or hernia Back: Spine normal without deformity or tenderness, no CVA tenderness Extremities: No amputations or deformities, cyanosis, edema or varicosities, peripheral pulses intact Musculoskeletal: No misalignment, asymmetry, crepitation, defects, tenderness, masses, effusions, decreased range of motion, instability, atrophy or abnormal strength or tone in the head, neck, spine, ribs, pelvis or extremities. Results: Labs 01/02/25 04:18 01/02/25 04:18 Labs: Short CBC 01/01/25 Range/Units 06:40 WBC 19.7 H (3.8-10.6) Thou/mm3 Hgb 10.7 L (13.5-16.0) g/dL Hct 32.7 L (41.0-53.0) % Plt Count 339 D (140-440) Thou/mm3 BMP 01/01/25 06:40 Sodium 139 Potassium 5.2 H Chloride 104 Carbon Dioxide 20.2 BUN 100 H Creatinine 5.9 H* Glucose 187 H Calcium 7.9 L Cardiac Enzymes 01/01/25 Range/Units 06:40 Troponin I 0.027 (0.0-0.045) ng/mL Liver Function 01/01/25 Range/Units 06:40 Total Bilirubin 0.4 (0.3-1.2) mg/dL AST 95 H (0-34) U/L ALT 158 H (10-49) U/L Alkaline Phosphatase 151 H (46-116) U/L Albumin 4.1 (3.4-4.8) gm/dL Urine 01/01/25 Range/Units 09:52 Urine Color Lt-Yellow (Lt Yel-Yel) Urine Clarity Clear (Clear/Hazy) Urine pH 6.5 (5.0-7.0) Ur Specific Clemons 1.017 (1.001-1.035) Urine Protein 1+ A (Neg - Trace) Urine Glucose (UA) Negative (Negative) ABG Interpretation ABG results: 01/01/25 01/01/25 09:50 10:25 ABG pH 7.41 ABG pCO2 32 ABG pO2 76 L ABG HCO3 20 ABG O2 Saturation 96 ABG Base Excess -4 L VBG pH 7.39 VBG pCO2 33 L VBG pO2 49 VBG Base Excess -4 L Quality Measures Quality Measures VTE prophylaxis (SCDs) Advance care planning discussed with:: patient Medications Home Medications and Allergies Home Medications ?Medication ?Instructions ?Recorded ?Confirmed ?Type tamsulosin 0.4 mg capsule 0.8 mg PO BID 12/15/2412/15 History Allergies Allergy/AdvReac Type Severity Reaction Status Date / Time codeine Allergy Vomiting Verified 01/01/25 13:52 Visit Medications Acetaminophen (Acetaminophen 325 Mg Tablet) 650 mg PO Q6H PRN PRN Reason: Fever >100.4 or pain Stop: 01/31/25 09:39 Albuterol/Ipratropium (Albuterol/Ipratropium (Duoneb) Rt Yary 3 Ml Nebu) 3 ml INH Q2HR PRN PRN Reason: SHORTNESS OF BREATH OR WHEEZE Stop: 01/31/25 09:49 Docusate Sodium (Docusate Sod 100 Mg Capsule) 100 mg PO QDAY NAHED; Protocol Stop: 01/31/25 09:44 Last Admin: 01/01/25 10:31 Dose: 100 mg Ondansetron HCl (Ondansetron Inj 2 Mg/Ml Inj 2 Ml) 4 mg IVP Q6H PRN; Protocol PRN Reason: NAUSEA OR VOMITING Stop: 01/31/25 09:39 Sennosides (Senna Tablet) 1 tab PO QDAY PRN; Protocol PRN Reason: constipation Stop: 01/31/25 09:39 Discontinued Medications Albuterol/Ipratropium (Albuterol/Ipratropium (Duoneb) Rt Yary 3 Ml Nebu) 3 ml INH X1 ONE Stop: 01/01/25 06:42 Last Admin: 01/01/25 07:49 Dose: 3 ml Dextrose (Dextrose 50%-Water Inj 50 Ml Syringe) 50 ml IVP X1 ONE Stop: 01/01/25 08:42 Last Admin: 01/01/25 09:36 Dose: 50 ml Furosemide (Furosemide Inj 10 Mg/Ml 4ml Vial) 40 mg IVP X1 ONE Stop: 01/01/25 09:24 Last Admin: 01/01/25 09:37 Dose: 40 mg Ceftriaxone Sodium/Dextrose (Rocephin/D5w 1gm Iv Premix) 1 gm in 50 mls @ 100 mls/hr IV X1 ONE Stop: 01/01/25 09:06 Last Infusion: 01/01/25 10:08 Dose: Infused Azithromycin 500 mg/ Sodium (Chloride) 250 mls @ 250 mls/hr IV NOW ONE Stop: 01/01/25 09:37 Last Infusion: 01/01/25 11:29 Dose: Infused Insulin Human Regular (Insulin Hum Regular 1 Unit/0.01 Ml (Per Unit)) 5 unit IV X1 ONE Stop: 01/01/25 08:42 Last Admin: 01/01/25 09:37 Dose: 5 unit Methylprednisolone Sodium Succinate (Methylprednisolone Sod Succ 62.5 Mg/Ml 2ml Vial) 125 mg IVP X1 ONE Stop: 01/01/25 06:42 Last Admin: 01/01/25 06:51 Dose: 125 mg Assessment & Plan Plan 84M with history of CAD s/p PCI to Lcx on 11/11/24, acute resp failure on 12/16/24, NSTEMI, TIA vs Stroke with no residual deficit, CKD Stage IV, HTN, DM2, and osteoarthritis presents for shortness of breathe. He was admitted for dialysis. #Acute hypoxic Respiratory failure due to CHF exacerbation/ fluid overload Initial BNP 1915. TTE on 12/16 shows EF of 40 to 45%. - Laxis 40mg x 1 - Strict I/O - Monitor urine output - obtain daily weight - Vasc cath placed and started hemodialysis - Continue BiPAP as needed. - Cardiology consult #New diagnosed ESRD #Cardiorenal syndrome vs CKD Stage V Baseline Dining Room Hostess around 5, initial Cr on admission 5.9, BUN 100 - hemodialysis catheter insertion - HD today - Strict I/Os - monitor urine output - daily labs, monitor chemistry - renal dose med, avoid nephrotoxin - no recent contrast or offending mediations - [facility]phro consult [facility] #COPD exacerbation #Community accq Pneumonia Initial CXR shows possible superimposed bilateral pneumonia, initial lab WBC 19.7. - Azithromycin 500mg x1 - Rocephin 1g x 1 - methylprednisone 125mg x1 - Start methylpredmisone 40mg BID - Start azithromycin 500mg QD - Duoneb 3ml Q4HRRT - Flu A & B and COVID negative. - Trend WBC #transminitis Initial AST 95, ALT 158, likely due to venous congestion. - pending Hepatitis panel - Outpatient follow up with PCP #Hyperkalemia Initial K : 5.2 - Insulin regular 5 unit x 1 - Daily electrolyte #Hypocalcemia Initial Ca : 7.9 - Calcium Gluconate 1g x 1 - Daily electrolyte #Hx of CAD s/p stent (11/11/24) - continue home medicaiton aspirin 81mg QD and Brilinta 90mg BID #T2DM - Sliding scale insulin - IV dextrose protocol if hypoglycemic - pending A1C - Outpatient follow up with PCP # Hypertension - Continue home medication atorvastatin 80 mg QD, carvedilol 12.5mg BID. - amlodipine 10mg only if hypertensive - Outpatient follow up with PCP #Hyperlipidemia - pending AM lab for lipid panel - Outpatient follow up with PCP #BPH - continue home medication tamsulosin 0.8mg PO HS. - Outpatient follow up with PCP Dispo: [facility] DVT prophylaxis: SCDs GI prophylaxis: Protonix 40mg Diet: Cardiac diet Lines: Peripheral IV Code status: DNR Case discussed with my senior resident Dr. Amaro Case discussed with my attending Dr. Sue Garnett DO PGY 1 Attending Provider Attestation/Addendum Genevieve Dietrich DO, attest that I was physically present for the taylor portions of the service and evaluated the patient with the resident and I reviewed and discussed the case with the resident and agree with the resident's findings and plans of care as documented above Patient is a an 84-year-old male with past medical history of CAD status post PCI recently in November, CKD, hypertension, hyperlipidemia, diabetic nephropathy, CVA who presented to the ED due to worsening shortness of breath. Patient was recently admitted due to acute hypoxic respiratory failure. Patient at that time was offered dialysis, but patient had opted not to undergo HD. Patient was discharged home on IV diuretics. However, here in the ED, patient is found to have mild heart failure and superimposed bilateral pneumonia on chest x-ray. Patient has been tachypneic with labored breathing. He was also noted to have scattered wheezing and was given azithromycin, Solu-Medrol and Lasix. Nephro was called due to worsening renal function. Cardiology was also consulted due to concern for acute CHF exacerbation. Patient is agreeable to undergo dialysis at this time. HD catheter was placed in the ED. Patient was seen and evaluated in dialysis. Bleeding was noted around the AC catheter following placement with soiling of the dressing. Case was discussed with cardiology due to concern of bleeding. Okay to hold Brilinta overnight. Patient to be admitted to telemetry for further workup medical management of acute hypoxic respiratory failure secondary to CHF versus COPD. Blood sugar has been elevated likely due to steroid use. Breathing did improve with steroids and breathing treatment. Patient has been placed on BiPAP due to labored breathing. Will continue to titrate O2 as tolerated and monitor patient after dialysis. No peripheral edema was noted. Will follow-up with nephro and cardiology recommendations.
--- NOTE | 2025-01-01 13:29 | PC.NURSE ---
Patient placed on 4L Oxymask, Patient tolerated well. Patient saturating 95%. Patient taken to IR via gurney.
[2025-01-01] MEDS: HEPARIN SOD LOCK SYR 100 UNIT/ML 500 UNIT STFIELD (14:09)
[2025-01-01] MEDS: LIDOCAINE INJ PF 1% 30 ML VIAL 7 ML INFL (14:09)
--- NOTE | 2025-01-01 14:24 | PC.NURSE ---
1424 patient had temporary dialysis catheter insertion to right IJ, tolerated procedure well under local anesthesia, report given to waqas EVANS, patient transferred to ER room 1
[2025-01-01 15:59] LABS: Glucose 214 mg/dL (74-106)
[2025-01-01 17:40] LABS: Hepatitis A Antibody IgM Reactive (Non React); Hepatitis B Core Antibody IgM Non Reactive (Non React); Hepatitis B Surface Ab NonReact(Not Immune) (Immune); Hepatitis B Surface Antigen Non Reactive (Non React); Hepatitis C Antibody Non Reactive (Non React)
--- NOTE | 2025-01-01 17:54 | PD.RESCONSUL ---
HPI Data of Consult Requesting Physician: Genevieve Rogers DO Admitting Provider: Genevieve Rogers DO Attending Provider: Genevieve Rogers DO Primary Care Provider: Eduar Haines PA-C Consult Narrative History of present illness: The patient is an 84-year-old male with a past medical history of CAD status post PCI to the LCx on 11/11/2024, residual CAD of the RCA severe and moderate LAD being managed medically, CKD stage IV-V, with baseline creatinine of around 4, hypertension, type 2 diabetes mellitus, diabetic nephropathy, hyperlipidemia, osteoarthritis, history of TIA versus stroke 2 years ago, chronic smoker with more than 73-27-rrzl-year smoking history, BPH, mild chronic anemia secondary to CKD presented to the emergency department for further evaluation of shortness of breath. He was recently admitted on 12/14/2024 with similar complaint. Patient was recently admitted to the hospital for an NSTEMI and was diagnosed with the severe 99% LCx stenosis for which he had a PCI performed on 11/11/2024 with low contrast given his CKD stage V. The patient was against hemodialysis at that time, and given the concerned of CKD, right coronary artery PCI was not performed at that time. He denied any chest pain, chest pressure, palpitation, fever or chills, nausea or vomiting, any changes in bowel or bladder habit or dizziness. During my evaluation, He was mildly hypertensive with blood pressure 150s/80s, heart rate in 70s, RR 19, saturating 94% on 4 L oxygen mask. Labs this morning was significant for white count of 19.7, hemoglobin at baseline of 10.4, ABG revealed PO2 of 76, sodium 139, potassium 5.2, BUN 100, creatinine 5.9, GFR 9, blood sugar 214, corrected calcium 7.9, AST/ALT 95/158, ALP 151, troponin elevated up to 0.063, BNP 1915, UA revealed RBC 4, but no infection, hepatitis panel negative, CXR revealed mild vascular congestions, superimposed bilateral pneumonia. The patient had undergone right IJ temporary hemodialysis catheter placement. During hemodialysis session, there was concern regarding profound bleeding from the hemodialysis catheter site, and aspirin and Brilinta was held until tomorrow morning. PMH: As mentioned above Surgical history: None Social history: Quit smoking few years ago, approximately [id number] smoking history, denies alcohol or illicit drug use, lives alone and is ALD/IADL independent drives around, worked in [employer] for many years and retired few years ago. Family history: Significant for heart disease in siblings and father Medications: Amlodipine 10 mg daily, aspirin 81 milligram daily, atorvastatin 80 Mg daily, carvedilol 12.5 Mg twice daily, Lasix 80 Mg daily, Brilinta 90 Mg twice daily, nitroglycerin 0.4 Mg sublingual for chest pain as needed Allergies: Codeine, gives vomiting Cardiology consultation was done for further management of volume overload in the setting of CHF exacerbation, and recent PCI on 11/11/2024, and further recommendations regarding DAPT in the setting of profuse bleeding from right IJ temporary hemodialysis catheter. cc:: cc: Genevieve Rogers DO Review of Systems Review of Systems Systems Reviewed: All systems reviewed, normal except as documented (Above) Exam Vital Signs Temp Pulse Resp BP Pulse Ox O2 Del Method O2 Flow Rate 97.2 F 73 22 H 158/74 H 95 Oxy Mask 10 01/01/25 17:48 01/01/25 17:48 01/01/25 17:48 01/01/25 17:48 01/01/25 17:48 01/01/25 14:35 01/01/25 17:48 FiO2 32 01/01/25 17:48 Narrative Exam General: No acute distress, Alert and Oriented x 3 HEENT: Moist mucous membranes, oropharynx clear, right IJ catheter under clean dressing Neck: Supple, No masses, No JVD CVS: S1S2 Regular rate and rhythm, No murmurs, rubs or gallops Lungs: Clear to auscultation with no accessory use, no wheeze no rhonchi Abd: Soft, NT/ND, +BS, no organomegaly Ext: No edema, warm and well perfused Skin: No rash Psych: Appropriate mood and affect Results Labs 01/03/25 05:09 01/03/25 05:09 Labs: Short CBC 01/01/25 Range/Units 06:40 WBC 19.7 H (3.8-10.6) Thou/mm3 Hgb 10.7 L (13.5-16.0) g/dL Hct 32.7 L (41.0-53.0) % Plt Count 339 D (140-440) Thou/mm3 BMP 01/01/25 01/01/25 06:40 15:32 Sodium 139 Potassium 5.2 H Chloride 104 Carbon Dioxide 20.2 BUN 100 H Creatinine 5.9 H* Glucose 187 H 214 H Calcium 7.9 L Cardiac Enzymes 01/01/25 Range/Units 06:40 Troponin I 0.027 (0.0-0.045) ng/mL Liver Function 01/01/25 Range/Units 06:40 Total Bilirubin 0.4 (0.3-1.2) mg/dL AST 95 H (0-34) U/L ALT 158 H (10-49) U/L Alkaline Phosphatase 151 H (46-116) U/L Albumin 4.1 (3.4-4.8) gm/dL Urine 01/01/25 Range/Units 09:52 Urine Color Lt-Yellow (Lt Yel-Yel) Urine Clarity Clear (Clear/Hazy) Urine pH 6.5 (5.0-7.0) Ur Specific Ulysses 1.017 (1.001-1.035) Urine Protein 1+ A (Neg - Trace) Urine Glucose (UA) Negative (Negative) ABG Interpretation ABG results: 01/01/25 01/01/25 09:50 10:25 ABG pH 7.41 ABG pCO2 32 ABG pO2 76 L ABG HCO3 20 ABG O2 Saturation 96 ABG Base Excess -4 L VBG pH 7.39 VBG pCO2 33 L VBG pO2 49 VBG Base Excess -4 L Quality Measures Quality Measures none Advance care planning discussed with:: patient Medications Home Medications and Allergies Home Medications ?Medication ?Instructions ?Recorded ?Confirmed ?Type tamsulosin 0.4 mg capsule 0.8 mg PO BID 12/15/24 12/15/24 History Allergies Allergy/AdvReac Type Severity Reaction Status Date / Time codeine Allergy Vomiting Verified 01/01/25 13:52 Visit Medications Acetaminophen (Acetaminophen 325 Mg Tablet) 650 mg PO Q6H PRN PRN Reason: Fever >100.4 or pain Stop: 01/31/25 09:39 Albuterol/Ipratropium (Albuterol/Ipratropium (Duoneb) Rt Yary 3 Ml Nebu) 3 ml INH Q4HRRT NAHED Stop: 01/31/25 18:59 Aspirin (Aspirin Ec 81 Mg Tabec) 81 mg PO QDAY NAHED Stop: 02/01/25 08:59 Carvedilol (Carvedilol 12.5 Mg Tablet) 12.5 mg PO BIDWM [facility] Stop: 01/31/25 17:29 Dextrose (Dextrose 50%-Water Inj 50 Ml Syringe) 25 ml IV Q15MIN PRN PRN Reason: BG 50-70 responsive npo pt Stop: 01/31/25 14:10 Dextrose (Dextrose 50%-Water Inj 50 Ml Syringe) 50 ml IV Q15MIN PRN PRN Reason: BG <50 OR BG <70 & pt unresponsive Stop: 01/31/25 14:10 Docusate Sodium (Docusate Sod 100 Mg Capsule) 100 mg PO QDAY [facility]; Protocol Stop: 01/31/25 09:44 Last Admin: 01/01/25 10:31 Dose: 100 mg Glucagon (Glucagon Inj 1 Mg Vial) 1 mg IM Q15MIN PRN PRN Reason: BG <70, and no IV access Heparin Sodium (Porcine) (Heparin Sod Inj 1000 Unit/Ml Vial 10 Ml) 3,100 unit INDWELLCAT X1 PRN PRN Reason: DIALYSIS Stop: 01/15/25 17:09 Azithromycin 500 mg/ Sodium (Chloride) 250 mls @ 250 mls/hr IV QDAY [facility] Stop: 01/09/25 08:59 Insulin Human Lispro (Insulin Lispro (Admelog) 1 Unit/0.01 Ml Unit) 0 unit SC AC [facility]; Protocol Stop: 01/31/25 16:59 Ondansetron HCl (Ondansetron Inj 2 Mg/Ml Inj 2 Ml) 4 mg IVP Q6H PRN; Protocol PRN Reason: NAUSEA OR VOMITING Stop: 01/31/25 09:39 Pantoprazole Sodium (Pantoprazole 40 Mg Tablet) 40 mg PO QDAY NAHED Stop: 02/01/25 08:59 Sennosides (Senna Tablet) 1 tab PO QDAY PRN; Protocol PRN Reason: constipation Stop: 01/31/25 09:39 Tamsulosin HCl (Tamsulosin Hcl 0.4 Mg Capsule) 0.8 mg PO HS [facility] Stop: 01/31/25 20:59 Ticagrelor (Ticagrelor 90 Mg Tablet) 90 mg PO BID [facility] Stop: 01/31/25 20:59 Discontinued Medications Albuterol/Ipratropium (Albuterol/Ipratropium (Duoneb) Rt Yary 3 Ml Nebu) 3 ml INH X1 ONE Stop: 01/01/25 06:42 Last Admin: 01/01/25 07:49 Dose: 3 ml Albuterol/Ipratropium (Albuterol/Ipratropium (Duoneb) Rt Yary 3 Ml Nebu) 3 ml INH Q2HR PRN PRN Reason: SHORTNESS OF BREATH OR WHEEZE Stop: 01/31/25 09:49 Calcium Gluconate (Calcium Gluconate 10% Inj 1 Gm/10 Ml Vial) 1 gm IV X1 ONE Stop: 01/01/25 15:32 Dextrose (Dextrose 50%-Water Inj 50 Ml Syringe) 50 ml IVP X1 ONE Stop: 01/01/25 08:42 Last Admin: 01/01/25 09:36 Dose: 50 ml Furosemide (Furosemide Inj 10 Mg/Ml 4ml Vial) 40 mg IVP X1 ONE Stop: 01/01/25 09:24 Last Admin: 01/01/25 09:37 Dose: 40 mg Heparin Sodium (Beef Lung) (Heparin Sod Lock Syr 100 Unit/Ml) 500 unit STFIELD X1 ONE Stop: 01/01/25 13:55 Last Admin: 01/01/25 14:09 Dose: 500 unit Ceftriaxone Sodium/Dextrose (Rocephin/D5w 1gm Iv Premix) 1 gm in 50 mls @ 100 mls/hr IV X1 ONE Stop: 01/01/25 09:06 Last Infusion: 01/01/25 10:08 Dose: Infused Azithromycin 500 mg/ Sodium (Chloride) 250 mls @ 250 mls/hr IV NOW ONE Stop: 01/01/25 09:37 Last Infusion: 01/01/25 11:29 Dose: Infused Insulin Human Regular (Insulin Hum Regular 1 Unit/0.01 Ml (Per Unit)) 5 unit IV X1 ONE Stop: 01/01/25 08:42 Last Admin: 01/01/25 09:37 Dose: 5 unit Lidocaine HCl (Lidocaine Inj Pf 1% 30 Ml Vial) 7 ml INFL X1 ONE Stop: 01/01/25 14:09 Last Admin: 01/01/25 14:09 Dose: 7 ml Methylprednisolone Sodium Succinate (Methylprednisolone Sod Succ 62.5 Mg/Ml 2ml Vial) 125 mg IVP X1 ONE Stop: 01/01/25 06:42 Last Admin: 01/01/25 06:51 Dose: 125 mg Methylprednisolone Sodium Succinate (Methylprednisolone Sod Succ 40 Mg Vial) 40 mg IVP BID NAHED Stop: 01/08/25 20:59 Assessment & Plan Plan The patient is an 84-year-old male with a past medical history of CAD status post PCI to the LCx on 11/11/2024, residual CAD of the RCA severe and moderate LAD being managed medically, CKD stage IV-V, with baseline creatinine of around 4, hypertension, type 2 diabetes mellitus, diabetic nephropathy, hyperlipidemia, osteoarthritis, history of TIA versus stroke 2 years ago, chronic smoker with more than 39-22-efpx-year smoking history, BPH, mild chronic anemia secondary to CKD presented to the emergency department for further evaluation of shortness of breath. #Acute hypoxic respiratory failure 2/2 #Fluid overload 2/2 #CKD stage V, and #HFmrEF exacerbation Patient presented with chief complaint of shortness of breath, was found to have mild vascular congestions, superimposed bilateral pneumonia on chest x-ray, BNP level was 1915. - Patient underwent 1 session of hemodialysis this afternoon. - Was saturating 93% on 4 L of NC - Continue with hemodialysis session with ultrafiltration goal of more than 2 L of net negative or as tolerated. #CAD s/p stent on 11/11/2024 Patient is on aspirin 81 Mg daily and Brilinta 90 Mg twice daily - Okay to hold until tomorrow morning, as the patient was profusely bleeding from the hemodialysis catheter site during hemodialysis. - Plan to undergo second session of PCI, at [place], given the complicated case. #Hypertension - Continue with carvedilol 12.5 Mg twice daily #Hyperkalemia #Hypocalcemia - Monitor and replete as needed #COPD exacerbation #Community-acquired pneumonia #Mild transaminitis #Type 2 diabetes mellitus #BPH Rest of the management deferred to primary hospitalist team. Thank you for cardiology consultation. We appreciate the opportunity to participate in this patient's care. Cardiology team will continue to follow-up in this patient care. The patient's management plan was discussed with my attending physician MD Salvador Funes MD, PGY3 Attending Provider Attestation/Addendum A 84-year-old male with a past medical history of CAD status post PCI to the LCx on 11/11/2024, residual CAD of the RCA severe and moderate LAD being managed medically, CKD stage IV-V, with baseline creatinine of around 4, hypertension, type 2 diabetes mellitus, diabetic nephropathy, hyperlipidemia, osteoarthritis, history of TIA versus stroke 2 years ago, chronic smoker with more than 48-01-xxog-year smoking history, BPH, mild chronic anemia secondary to CKD presented to the emergency department for further evaluation of shortness of breath. Cardiology consulted for further evaluation and recommendation about antiplatelets 1. Acute hypoxic respiratory failure in the setting of volume overload from the [place] on CKD stage V 2. CKD stage V with baseline creatinine of around 4 with creatinine increased to 5.9-started on hemodialysis 3. Diastolic congestive heart failure 4. CAD status post PCI to LCx on 11/11/2024 with residual severe disease of the RCA being medically managed 5. Essential hypertension 6. Type 2 diabetes mellitus 7. Diabetic nephropathy and hypertensive nephropathy 8. Hyperlipidemia 9. Osteoarthritis 10. History of TIA versus stroke 2 years ago 1. Chronic smoker with more than 10-etdh-frou smoking history 12. BPH. Patient well-known to me from previous admissions and performed PCI of LCx on 11/11/2024. He has very severe complex RCA disease which would require intervention with possible IVL/shockwave or rotablation and will require additional contrast use. Patient did not want to be on dialysis and wanted to continue medical management of the RCA. He denies any chest pain or chest pressure except for shortness of breath and leg swelling. His kidney function continues to worsen and creatinine is 5.9 this admission and is in fluid overload. Nephrology was consulted patient finally agreed to do dialysis and has Vas-Cath is in place for dialysis for fluid management. Plan is for patient to have a tunneled dialysis catheter for long-term dialysis with interventional radiology is recommending patient to be stopped on both antiplatelets. Patient did have a recent PCI 6 weeks ago on 11/11/2024 as noted above. Patient is on dual antiplatelet therapy with aspirin as well as Brilinta. Patient will be at high risk of stent thrombosis if antiplatelets are stopped for a longer duration of time. Patient is bleeding around the Vas-Cath site and as noted will need tunneled dialysis catheter in a.m. Recommend to stop aspirin and Brilinta for now and restart immediately after the procedure. Recommend PRBC transfusion to keep the hemoglobin between 9-10. Patient has mildly elevated troponins at 0.17 and denies any Chest pain or chest pressure. Troponin elevation is in the setting of supply/demand mismatch secondary to the freaking overload with increased shortness of breath and increased work of breathing. We will recommend to continue the dialysis for now for a few sessions and then will plan for staged PCI of RCA as outpatient as he required a complex procedure as noted above. Management of rest of the medical conditions as per primary team and other consultants. Thank you for the consult and allowing me to participate in the care of the patient. Cardiology will continue to follow. Karlo Ann M.D. Interventional Cardiology
[2025-01-01 18:01] LABS: Troponin I 0.063 ng/mL (0.0-0.045)
[2025-01-01] MEDS: INSULIN LISPRO (AdmeLOG) 1 UNIT/0.01 ML UNIT SC (19:17)
[2025-01-01] MEDS: TAMSULOSIN HCL 0.4 MG CAPSULE 0.8 MG PO (20:24)
--- NOTE | 2025-01-01 20:35 | PC.NURSE ---
Dr. Dimas was notified about vas cath area bleeding out. Dr. Desir was notified about the bleeding per Dr. Dimas request.
--- NOTE | 2025-01-01 20:37 | PC.NURSE ---
Dr. Desir and Dr. Green at bedside assessing pt.
[2025-01-01 21:20] LABS: Hematocrit 31.0 % (41.0-53.0); Hemoglobin 10.4 g/dL (13.5-16.0)
[2025-01-01 21:40] LABS: INR 1.1 (0.9-1.3); Prothrombin Time 12.3 Seconds (9.0-12.2)
[2025-01-02] VITALS (29 sets, daily range): BP systolic 124–164; BP diastolic 63–87; PULSE 56–103; RESP 16–92; TEMP 36.1–37.1; O2SAT 92–100
[2025-01-02 00:28] LABS: Troponin I 0.134 ng/mL (0.0-0.045)
[2025-01-02] MEDS: ALBUTEROL/IPRATROPIUM (Duoneb) RT SOL 3 ML NEBU INH ×6 (02:06→22:27)
--- NOTE | 2025-01-02 04:57 | PC.NURSE ---
Troponin 0.134, Dr. Desir was made aware. No new orders for pt at this time.
[2025-01-02 05:36] LABS: Basophils # (Auto) 0.0 Thou/mm3 (0.0-0.2); Basophils % (Auto) 0 % (0-2.5); Eosinophils # (Auto) 0.0 Thou/mm3 (0.0-0.5); Eosinophils % (Auto) 0 % (0-10); Hematocrit 27.7 % (41.0-53.0); Hemoglobin 9.1 g/dL (13.5-16.0); Immature Granulocytes Auto 0.10 Thou/mm3 (0.00-0.00); Lymphocytes # (Auto) 0.6 Thou/mm3 (1.0-4.8); Lymphocytes % (Auto) 3 % (10-50); Mean Corpuscular HGB Conc 32.9 g/dl (31.0-37.0); Mean Corpuscular Hemoglobin 29.2 pg (25.0-35.0); Mean Corpuscular Volume 89 fL (80-100); Monocytes # (Auto) 0.7 Thou/mm3 (0.0-0.8); Monocytes % (Auto) 3 % (0-12); Neutrophils # (Auto) 18.9 Thou/mm3 (1.8-7.7); Neutrophils % (Auto) 93 % (37-80); Nucleated Red Blood Cell # 0.00 Thou/mm3 (0.00-0.00); Nucleated Red Blood Cell % 0 /100 WBC (0); Platelet Count 293 Thou/mm3 (140-440); RDW Standard Deviation 46.3 fL (35.1-43.9); Red Blood Count 3.12 Miln/mm3 (4.50-5.90); White Blood Count 20.3 Thou/mm3 (3.8-10.6)
[2025-01-02 05:41] LABS: INR 1.1 (0.9-1.3); Partial Thromboplastin Time 34.5 Seconds (22.0-36.0); Prothrombin Time 12.2 Seconds (9.0-12.2)
[2025-01-02 05:51] LABS: Glucose Estimated Average 140 mg/dL (80-131); Hemoglobin A1C 6.5 % Hgb (4.8-6.0)
--- NOTE | 2025-01-02 06:00 | PC.NURSE ---
jet cath dressing got soiled, Dr. Desir was made aware. stated that they'll wait for [facility] doctors to let them know.
[2025-01-02 06:02] LABS: Alanine Aminotransferase 93 U/L (10-49); Albumin, Serum 3.5 gm/dL (3.4-4.8); Albumin/Globulin Ratio 1.1 (1.2-2.2); Alkaline Phosphatase 120 U/L (46-116); Anion Gap 16 (7-16); Aspartate Amino Transferase 29 U/L (0-34); BUN/Creatinine Ratio 14 Ratio (12-20); Bilirubin,Total 0.4 mg/dL (0.3-1.2); Blood Urea Nitrogen 73 mg/dL (9-23); Calcium 8.5 mg/dL (8.3-10.6); Calcium (Corrected) 8.9 mg/dL (8.5-10.1); Carbon Dioxide 23.4 mMol/L (20.0-31.0); Cardiac Risk Estimate 3.5 RATIO (4.0-6.7); Chloride 102 mMol/L (98-107); Cholesterol 90 mg/dL (132-200); Creatinine (Component) 5.1 mg/dL (0.6-1.3); Estimated Creatinine Clearance 11.6 mL/min (>60); Globulin 3.1 gm/dL (2.3-3.5); Glucose 198 mg/dL (74-106); HDL Cholesterol 26 mg/dL (40-60); LDL Cholesterol,Calculated 47 mg/dL (0-130); Magnesium 2.4 mg/dL (1.6-2.6); Osmolality,Calculated 308 (275-295); Phosphorous 4.5 mg/dL (2.4-5.1); Potassium 4.6 mMol/L (3.4-5.1); Sodium 141 mMol/L (136-145); Total Protein 6.6 gm/dL (5.7-8.2); Triglycerides 83 mg/dL (30-150); eGFR 10 See Note
[2025-01-02 06:04] LABS: Troponin I 0.176 ng/mL (0.0-0.045)
[2025-01-02] MEDS: INSULIN LISPRO (AdmeLOG) 1 UNIT/0.01 ML UNIT SC ×3 (07:39→17:15)
[2025-01-02] MEDS: TUBERCULIN PPD INJ 5 UNIT/0.1 ML DOSE ID (08:30)
--- NOTE | 2025-01-02 09:26 | ESPR_ITS ---
<Statement entered by Forrest Amaro MD - 01/02/25 17:05> Patient was seen and examined at the bedside. No acute overnight events reported. Patient reported significant improvement in shortness of breath. No lower extremity swelling was noticed. White count jumped up to 20. Will continue on dialysis per nephrology recommendations. A1c 6.5. Cardiology recommends doing another/repeat cardiac cath tomorrow. Will keep hold on aspirin and Brilinta. N.p.o. after midnight. All labs and orders were reviewed. I discussed and supervised with the video editing internship physician who took care of this patient. I personally saw and examined the patient. I agree with most of the assessment and plan. Disclaimer: Despite multiple revisions, due to the dictation software being used, the document bellow may not be free of grammatical errors including phonetic/typographic errors. However, this does not deter from our commitment to providing health care in the patient's best interest in mind. Plan of care discussed with attending Physician Dr. garret Amaro MD PGY-3 Documentation for date of: 01/02/25 Subjective Subjective Interval history: No overnight events. Evaluated at bedside. Pt off BiPAP, satting at 95% on 3L. Denies SOB or trouble breathing. Bleeding noted from right IJ hemodialysis cathether during dialysis session late afternoon yesterday. Bleeding stopped and controlled at catheter insertion site. Hg stable at 9.1. Brilinta and ASA held today and tmr per cardiology, plans to undergo second session of PCI, if his vitals are stable. Plan for perm cath tmr. Exam Vital Signs Temp Pulse Resp BP Pulse Ox O2 Del Method O2 Flow Rate 97.6 F 71 16 143/87 H 95 Nasal Cannula 3 01/02/25 07:54 01/02/25 07:54 01/02/25 07:54 01/02/25 07:54 01/02/25 07:54 01/02/25 07:54 01/02/25 07:54 FiO2 32 01/01/25 17:48 Narrative Exam General: NAD, Oriented x 3. Saturate well on RA Skin: Good turgor, no rash, unusual bruising or prominent lesions Heart: No cardiomegaly or thrills; regular rate and rhythm, no murmur or gallop Lungs: Right lower lobe crackles Abdomen: Bowel sounds normal, no tenderness, organomegaly, masses, or hernia Back: Spine normal without deformity or tenderness, no CVA tenderness Extremities: No amputations or deformities, cyanosis, edema or varicosities, peripheral pulses intact Musculoskeletal: No misalignment, asymmetry, crepitation, defects, tenderness, masses, effusions, decreased range of motion, instability, atrophy or abnormal strength or tone in the head, neck, spine, ribs, pelvis or extremities. Objective Labs 01/02/25 04:18 01/02/25 04:18 Labs: Laboratory Results - last 24 hr 01/01/25 01/01/25 01/01/25 09:50 09:52 10:25 WBC RBC Hgb Hct MCV MCH MCHC RDW Std Deviation Plt Count Neut % (Auto) Lymph % (Auto) [place] % (Auto) Eos % (Auto) Baso % (Auto) Neut # (Auto) Lymph # (Auto) [place] # (Auto) Eos # (Auto) Baso # (Auto) Immature Gran # (Auto) Absolute Nucleated RBC Immature Gran % Nucleated RBC % PT INR APTT Puncture Site Right Radial ABG pH 7.41 ABG pCO2 32 ABG pO2 76 L ABG HCO3 20 ABG O2 Saturation 96 ABG Base Excess -4 L VBG pH 7.39 VBG pCO2 33 L VBG pO2 49 VBG O2 Sat (Maryellen) 77 L VBG Base Excess -4 L FiO2 36 Sodium Potassium Chloride Carbon Dioxide Anion Gap BUN Creatinine Estim Creat Clear Calc eGFR BUN/Creatinine Ratio Glucose Estimated Ave Glu mg/dL Hemoglobin A1c Calculated Osmolality Calcium Corrected Calcium Phosphorus Magnesium Total Bilirubin AST ALT Alkaline Phosphatase Troponin I Total Protein Albumin Globulin Albumin/Globulin Ratio Triglycerides Cholesterol LDL Cholesterol, Calc HDL Cholesterol Cholesterol/HDL Ratio Ur Collection Type Clean Catch Urine Color Lt-Yellow Urine Clarity Clear Urine pH 6.5 Ur Specific [place] 1.017 Urine Protein 1+ A Urine Glucose (UA) Negative Urine Ketones Negative Urine Blood Negative Urine Nitrite Negative Urine Bilirubin Negative Urine Urobilinogen (Auto) Negative Ur Leukocyte Esterase Negative Urine RBC 4 H Urine WBC 3 Ur Squamous Epith Cells 0 Urine Bacteria None Hepatitis A IgM Ab Hep Bs Antigen Hep Bs Antibody Hep B Core IgM Ab Hepatitis C Antibody 01/01/25 01/01/25 01/01/25 15:32 21:08 23:55 WBC RBC Hgb 10.4 L Hct 31.0 L MCV MCH MCHC RDW Std Deviation Plt Count Neut % (Auto) Lymph % (Auto) [place] % (Auto) Eos % (Auto) Baso % (Auto) Neut # (Auto) Lymph # (Auto) [place] # (Auto) Eos # (Auto) Baso # (Auto) Immature Gran # (Auto) Absolute Nucleated RBC Immature Gran % Nucleated RBC % PT 12.3 H INR 1.1 APTT Puncture Site ABG pH ABG pCO2 ABG pO2 ABG HCO3 ABG O2 Saturation ABG Base Excess VBG pH VBG pCO2 VBG pO2 VBG O2 Sat (Maryellen) VBG Base Excess FiO2 Sodium Potassium Chloride Carbon Dioxide Anion Gap BUN Creatinine Estim Creat Clear Calc eGFR BUN/Creatinine Ratio Glucose [address] Glu mg/dL Hemoglobin A1c Calculated Osmolality Calcium Corrected Calcium Phosphorus Magnesium Total Bilirubin AST ALT Alkaline Phosphatase Troponin I 0.063 H* 0.134 H* Total Protein Albumin Globulin Albumin/Globulin Ratio Triglycerides Cholesterol LDL Cholesterol, Calc HDL Cholesterol Cholesterol/HDL Ratio Ur Collection Type Urine Color Urine Clarity Urine pH Ur Specific [place] Urine Protein Urine Glucose (UA) Urine Ketones Urine Blood Urine Nitrite Urine Bilirubin Urine Urobilinogen (Auto) Ur Leukocyte Esterase Urine RBC Urine WBC Ur Squamous Epith Cells Urine Bacteria Hepatitis A IgM Ab Reactive A Hep Bs Antigen Non Reactive Hep Bs Antibody NonReact(Not Immune) L Hep B Core IgM Ab Non Reactive Hepatitis C Antibody Non Reactive 01/02/25 04:18 WBC 20.3 H RBC 3.12 L Hgb 9.1 L Hct 27.7 L MCV 89 MCH 29.2 MCHC 32.9 RDW Std Deviation 46.3 H Plt Count 293 D Neut % (Auto) 93 H Lymph % (Auto) 3 L [place] % (Auto) 3 Eos % (Auto) 0 Baso % (Auto) 0 Neut # (Auto) 18.9 H Lymph # (Auto) 0.6 L [place] # (Auto) 0.7 Eos # (Auto) 0.0 Baso # (Auto) 0.0 Immature Gran # (Auto) 0.10 H Absolute Nucleated RBC 0.00 Immature Gran % 1 H Nucleated RBC % 0 PT 12.2 INR 1.1 APTT 34.5 Puncture Site ABG pH ABG pCO2 ABG pO2 ABG HCO3 ABG O2 Saturation ABG Base Excess VBG pH VBG pCO2 VBG pO2 VBG O2 Sat (Maryellen) VBG Base Excess FiO2 Sodium 141 Potassium 4.6 D Chloride 102 Carbon Dioxide 23.4 Anion Gap 16 BUN 73 H Creatinine 5.1 H* D Estim Creat Clear Calc 11.6 L eGFR 10 L* BUN/Creatinine Ratio [address] Glu mg/dL 140 H Hemoglobin A1c 6.5 H Calculated Osmolality 308 H Calcium 8.5 Corrected Calcium 8.9 Phosphorus 4.5 Magnesium 2.4 Total Bilirubin 0.4 AST 29 ALT 93 H Alkaline Phosphatase 120 H D Troponin I 0.176 H* Total Protein 6.6 Albumin 3.5 D Globulin 3.1 Albumin/Globulin Ratio 1.1 L Triglycerides 83 Cholesterol 90 L LDL Cholesterol, Calc 47 HDL Cholesterol 26 L Cholesterol/HDL Ratio 3.5 L Ur Collection Type Urine Color Urine Clarity Urine pH Ur Specific [place] Urine Protein Urine Glucose (UA) Urine Ketones Urine Blood Urine Nitrite Urine Bilirubin Urine Urobilinogen (Auto) Ur Leukocyte Esterase Urine RBC Urine WBC Ur Squamous Epith Cells Urine Bacteria Hepatitis A IgM Ab Hep Bs Antigen Hep Bs Antibody Hep B Core IgM Ab Hepatitis C Antibody ABG Interpretation ABG results: 01/01/25 01/01/25 09:50 10:25 ABG pH 7.41 ABG pCO2 32 ABG pO2 76 L ABG HCO3 20 ABG O2 Saturation 96 ABG Base Excess -4 L VBG pH 7.39 VBG pCO2 33 L VBG pO2 49 VBG Base Excess -4 L Quality Measures Quality Measures VTE prophylaxis Advance care planning discussed with:: patient Assessment & Plan Assessment Current Active Medications: Generic Name Dose Route Start Last Admin Trade Name Freq PRN Reason Stop Dose Admin Acetaminophen 650 mg 01/01/25 09:40 Acetaminophen 325 Mg Tablet PO 01/31/25 09:39 Q6H PRN Fever >100.4 or pain Albuterol/Ipratropium 3 ml 01/01/25 19:00 01/02/25 06:38 Albuterol/Ipratropium (Duoneb) Rt Yary 3 Ml Nebu INH 01/31/25 18:59 3 ml Q4HRRT NAHED Administration Aspirin 81 mg 01/02/25 09:00 Aspirin Ec 81 Mg Tabec PO 02/01/25 08:59 QDAY NAHED Carvedilol 12.5 mg 01/01/25 17:30 01/01/25 19:16 Carvedilol 12.5 Mg Tablet PO 01/31/25 17:29 12.5 mg BIDWM NAHED Administration Dextrose 25 ml 01/01/25 14:11 Dextrose 50%-Water Inj 50 Ml Syringe IV 01/31/25 14:10 Q15MIN PRN BG 50-70 responsive npo pt Dextrose 50 ml 01/01/25 14:11 Dextrose 50%-Water Inj 50 Ml Syringe IV 01/31/25 14:10 Q15MIN PRN BG <50 OR BG <70 & pt unresponsive Docusate Sodium 100 mg 01/01/25 09:45 01/01/25 10:31 Docusate Sod 100 Mg Capsule PO 01/31/25 09:44 100 mg QDAY NAHED Administration Protocol Epoetin Roger 10,000 unit 01/02/25 10:30 Epoetin Roger-Epbx Inj 10,000 Unit/Ml Vial (Esrd) SC 01/02/25 10:31 X1 ONE Glucagon 1 mg 01/01/25 14:11 Glucagon Inj 1 Mg Vial IM Q15MIN PRN BG <70, and no IV access Heparin Sodium (Porcine) 3,100 unit 01/01/25 17:10 Heparin Sod Inj 1000 Unit/Ml Vial 10 Ml INDWELLCAT 01/15/25 17:09 X1 PRN DIALYSIS Azithromycin 500 mg/ Sodium 250 mls @ 250 mls/hr 01/02/25 09:00 Chloride IV 01/09/25 08:59 QDAY [facility] Insulin Human Lispro 0 unit 01/01/25 17:00 01/02/25 07:39 Insulin Lispro (Admelog) 1 Unit/0.01 Ml Unit SC 01/31/25 16:59 1 unit AC NAHED Administration Protocol Ondansetron HCl 4 mg 01/01/25 09:40 Ondansetron Inj 2 Mg/Ml Inj 2 Ml IVP 01/31/25 09:39 Q6H PRN NAUSEA OR VOMITING Protocol Pantoprazole Sodium 40 mg 01/02/25 09:00 Pantoprazole 40 Mg Tablet PO 02/01/25 08:59 QDAY [facility] Sennosides 1 tab 01/01/25 09:40 Senna Tablet PO 01/31/25 09:39 QDAY PRN constipation Protocol Tamsulosin HCl 0.8 mg 01/01/25 21:00 01/01/25 20:24 Tamsulosin Hcl 0.4 Mg Capsule PO 01/31/25 20:59 0.8 mg HS NAHED Administration Ticagrelor 90 mg 01/01/25 21:00 Ticagrelor 90 Mg Tablet PO 01/31/25 20:59 BID NAHED Plan 84M with history of CAD s/p PCI to Lcx on 11/11/24, acute resp failure on 12/16/24, NSTEMI, TIA vs Stroke with no residual deficit, CKD Stage IV, HTN, DM2, and osteoarthritis presents for shortness of breathe. He was admitted for dialysis. Plan for perm cath tmr per nephrology. Plan to undergo second session of PCI per cardiology #Acute hypoxic Respiratory failure due to CHF exacerbation/ fluid overload Initial BNP 1914. TTE on 12/16 shows EF of 40 to 45%. - Laxis 40mg x 1 - Strict I/O - Monitor urine output - obtain daily weight - Continue BiPAP as needed. - Nephrology consult : Plan for perm cath per nephrology, needs dialysis outpt - Cardiology consult : Plan to undergo second session of PCI, if his vitals are stable. Hold aspirin and Brilinita today and tomorrow as the patient was profusely bleeding from the hemodialysis catheter site during hemodialysis #New diagnosed ESRD #Cardiorenal syndrome vs CKD Stage V Baseline [employer] around 5, initial Cr on admission 5.9, BUN 100 - hemodialysis catheter insertion - HD today - Strict I/Os - monitor urine output - daily labs, monitor chemistry - renal dose med, avoid nephrotoxin - no recent contrast or offending mediations - Nephro consult #BANNERF #COPD exacerbation #Community accq Pneumonia Initial CXR shows possible superimposed bilateral pneumonia, initial lab WBC 19.7. - Azithromycin 500mg x1 - Rocephin 1g x 1 - methylprednisone 125mg x1 - D/C methylpredmisone 40mg BID - Conitnue azithromycin 500mg QD - Duoneb 3ml Q4HRRT - Flu A & B and COVID negative. - WBC elevated to 20.3 today, likely from methylprednisone #transminitis Initial AST 95, ALT 158, likely due to venous congestion. - Hep A IgM antibody positive - Outpatient follow up with PCP #Hyperkalemia Initial K : 5.2 - Insulin regular 5 unit x 1 - Daily electrolyte #Hypocalcemia Initial Ca : 7.9 - Calcium Gluconate 1g x 1 - Daily electrolyte #Hx of CAD s/p stent (11/11/24) - HOLD home medicaiton aspirin 81mg QD and Brilinta 90mg BID per cardiology recommendation due to bleeding from dialysis cathether. Plan to resume on 01/04 #T2DM - Sliding scale insulin - IV dextrose protocol if hypoglycemic - A1C 6.5%, within goal of < 7% - Outpatient follow up with PCP # Hypertension - Continue home medication carvedilol 12.5mg BID. - amlodipine 10mg only if hypertensive - Outpatient follow up with PCP #Hyperlipidemia TG83, Cholesterol 90 LDL 47, HDL 26 - Continue home medication atorvastatin 80mg - Outpatient follow up with PCP #BPH - continue home medication tamsulosin 0.8mg PO HS. - Outpatient follow up with PCP Dispo: [facility] DVT prophylaxis: SCDs GI prophylaxis: Protonix 40mg Diet: Cardiac diet Lines: Peripheral IV Code status: DNR Case discussed with my senior resident Dr. Amaro Case discussed with my attending Dr. Garret Garnett DO PGY 1 Attending Provider Attestation/Addendum Genevieve Dietrich DO, attest that I was physically present for the taylor portions of the service and evaluated the patient with the resident and I reviewed and discussed the case with the resident and agree with the resident's findings and plans of care as documented above Patient seen eval this a.m. Brother was at bedside. Patient is currently on 4 L nasal cannula. No respiratory distress. Patient tolerated BiPAP overnight. No further bleeding noted from HD catheter. Due to concern for bleeding and need for placement of permacath, case was discussed with nephrology. Okay to hold aspirin and Brilinta for [address] patient n.p.o. after midnight in anticipation of permacath placement tomorrow. Will monitor H&H closely. Patient otherwise states that he is feeling improved. Patient will need to be set up for outpatient dialysis. Anticipate discharge in the nex 2 to 3 days. Plan for cardiac cath on Monday per cardiology.
[2025-01-02] MEDS: DOCUSATE SOD 100 MG CAPSULE PO (09:32)
[2025-01-02] MEDS: PANTOPRAZOLE 40 MG TABLET PO (09:32)
[2025-01-02] MEDS: AZITHROMYCIN INJ 500 MG in SODIUM CHLORIDE 0.9% 250 ML 250 ML 250 MG IV (09:32)
--- NOTE | 2025-01-02 10:25 | PD.RESPRO ---
Documentation for date of: 01/02/25 Subjective Subjective Interval history: Mr. Fuentes is a 84 year old male with history of CAD status post PCI to the LCx on 11/11/2024, residual CAD of the RCA severe and moderate LAD being managed medically, CKD stage V, hypertension, type 2 diabetes mellitus, diabetic nephropathy, hyperlipidemia, osteoarthritis, history of TIA versus stroke 2 years ago, BPH, mild chronic anemia secondary to CKD presents to the ED BIBA from home for evaluation of shortness of breath, described as feeling he is not getting enough air. Reportedly symptoms began several weeks ago and worsening last night. Accompanied by a cough. Patient states he is compliant with medications, but did not take his medication today. Patient states he made a little bit of urine this morning. Denies associated fevers, chills, chest pain, abdominal pain, n/v/d, dysuria, hematuria, or any other urinary symptoms. Denies use of oxygen at home or known history of asthma. Patient recently was admitted to hospital with similar episode of hypoxic respiratory failure and at that time he did not want dialysis. Home medications: Coreg 12.5, Lasix 80, Brilinta 90, amlodipine 10, tamsulosin 0.4, atorvastatin 20, aspirin 81, nitroglycerin 0.4 prn. ED Course: - Initial vitals: 98.3F, 102 HR, 22 RR, 161/81 BP, O2 saturation 93 on 2L NC, - Labs significant for WBC 19.7, potassium 5.2, BUN 100, Cr 5.9, eGFR 9, Glucose 187, Osmolality 313, Ca 7.9, AST 95, ALT 158, Alk Phos 151, Trop 0.027, BNP 1915 - Imaging: CXR: showing mild heart failure, consider superimposed bilateral pneumonia - In the ED, patient was given methylprednisolone 125 mg and DuoNeb, put on 2L NC; given Lasix 40 mg. Patient was admitted for shortness of breath. Nephrology consulted for FERDINAND on CKD. 01/02/2025: No acute events overnight. Patient was seen and examined bedside. Today patient states he is doing better. Patient's breathing has improved, is needing less supplemental oxygen requirement. Patient tolerated HD yesterday well. Patient denies fever, dizziness, headache, chest pain, shortness of breath, abdominal pain. Exam Vital Signs Temp Pulse Resp BP Pulse Ox O2 Del Method O2 Flow Rate 97.6 F 71 20 143/87 H 97 Nasal Cannula 3 01/02/25 07:54 01/02/25 10:11 01/02/25 10:11 01/02/25 07:54 01/02/25 10:11 01/02/25 07:54 01/02/25 10:11 FiO2 32 01/01/25 17:48 Narrative Exam General: Awake, mild respiratory distress; seen in dialysis HEENT: Normocephalic, atraumatic, mucous membranes moist. Heart: Regular rate and rhythm, normal S1 and S2, no murmurs. Lungs: No wheezing, mild (improved) crackles Abdomen: Soft, nondistended, nontender, positive bowel sounds. ?No guarding or rebound tenderness. Neurologic: Alert and oriented x3, no gross neurological deficit, and patient able to move all 4 extremities. Extremities: No edema. Skin: No rash, upper extremity chronic ecchymoses.Right IJ dialysis catheter Objective Labs 01/04/25 04:50 01/04/25 04:50 Labs: Laboratory Results - last 24 hr 01/01/25 01/01/25 01/01/25 10:25 15:32 21:08 WBC RBC Hgb 10.4 L Hct 31.0 L MCV MCH MCHC RDW Std Deviation Plt Count Neut % (Auto) Lymph % (Auto) [place] % (Auto) Eos % (Auto) Baso % (Auto) Neut # (Auto) Lymph # (Auto) [place] # (Auto) Eos # (Auto) Baso # (Auto) Immature Gran # (Auto) Absolute Nucleated RBC Immature Gran % Nucleated RBC % PT 12.3 H INR 1.1 APTT Puncture Site Right Radial ABG pH 7.41 ABG pCO2 32 ABG pO2 76 L ABG HCO3 20 ABG O2 Saturation 96 ABG Base Excess -4 L FiO2 36 Sodium Potassium Chloride Carbon Dioxide Anion Gap BUN Creatinine Estim Creat Clear Calc eGFR BUN/Creatinine Ratio Glucose [address] Glu mg/dL Hemoglobin A1c Calculated Osmolality Calcium Corrected Calcium Phosphorus Magnesium Total Bilirubin AST ALT Alkaline Phosphatase Troponin I 0.063 H* Total Protein Albumin Globulin Albumin/Globulin Ratio Triglycerides Cholesterol LDL Cholesterol, Calc HDL Cholesterol Cholesterol/HDL Ratio Hepatitis A IgM Ab Reactive A Hep Bs Antigen Non Reactive Hep Bs Antibody NonReact(Not Immune) L Hep B Core IgM Ab Non Reactive Hepatitis C Antibody Non Reactive 01/01/25 01/02/25 23:55 04:18 WBC 20.3 H RBC 3.12 L Hgb 9.1 L Hct 27.7 L MCV 89 MCH 29.2 MCHC 32.9 RDW Std Deviation 46.3 H Plt Count 293 D Neut % (Auto) 93 H Lymph % (Auto) 3 L [place] % (Auto) 3 Eos % (Auto) 0 Baso % (Auto) 0 Neut # (Auto) 18.9 H Lymph # (Auto) 0.6 L [place] # (Auto) 0.7 Eos # (Auto) 0.0 Baso # (Auto) 0.0 Immature Gran # (Auto) 0.10 H Absolute Nucleated RBC 0.00 Immature Gran % 1 H Nucleated RBC % 0 PT 12.2 INR 1.1 APTT 34.5 Puncture Site ABG pH ABG pCO2 ABG pO2 ABG HCO3 ABG O2 Saturation ABG Base Excess FiO2 Sodium 141 Potassium 4.6 D Chloride 102 Carbon Dioxide 23.4 Anion Gap 16 BUN 73 H Creatinine 5.1 H* D Estim Creat Clear Calc 11.6 L eGFR 10 L* BUN/Creatinine Ratio [address] Glu mg/dL 140 H Hemoglobin A1c 6.5 H Calculated Osmolality 308 H Calcium 8.5 Corrected Calcium 8.9 Phosphorus 4.5 Magnesium 2.4 Total Bilirubin 0.4 AST 29 ALT 93 H Alkaline Phosphatase 120 H D Troponin I 0.134 H* 0.176 H* Total Protein 6.6 Albumin 3.5 D Globulin 3.1 Albumin/Globulin Ratio 1.1 L Triglycerides 83 Cholesterol 90 L LDL Cholesterol, Calc 47 HDL Cholesterol 26 L Cholesterol/HDL Ratio 3.5 L Hepatitis A IgM Ab Hep Bs Antigen Hep Bs Antibody Hep B Core IgM Ab Hepatitis C Antibody ABG Interpretation ABG results: 01/01/25 01/01/25 09:50 10:25 ABG pH 7.41 ABG pCO2 32 ABG pO2 76 L ABG HCO3 20 ABG O2 Saturation 96 ABG Base Excess -4 L VBG pH 7.39 VBG pCO2 33 L VBG pO2 49 VBG Base Excess -4 L Quality Measures Quality Measures VTE prophylaxis Advance care planning discussed with:: patient Assessment & Plan Assessment Current Active Medications: Generic Name Dose Route Start Last Admin Trade Name Freq PRN Reason Stop Dose Admin Acetaminophen 650 mg 01/01/25 09:40 Acetaminophen 325 Mg Tablet PO 01/31/25 09:39 Q6H PRN Fever >100.4 or pain Albuterol/Ipratropium 3 ml 01/01/25 19:00 01/02/25 10:10 Albuterol/Ipratropium (Duoneb) Rt Yary 3 Ml Nebu INH 01/31/25 18:59 3 ml Q4HRRT NAHED Administration Aspirin 81 mg 01/02/25 09:00 Aspirin Ec 81 Mg Tabec PO 02/01/25 08:59 QDAY NAHED Carvedilol 12.5 mg 01/01/25 17:30 01/02/25 08:00 Carvedilol 12.5 Mg Tablet PO 01/31/25 17:29 Not Given BIDWM NAHED Dextrose 25 ml 01/01/25 14:11 Dextrose 50%-Water Inj 50 Ml Syringe IV 01/31/25 14:10 Q15MIN PRN BG 50-70 responsive npo pt Dextrose 50 ml 01/01/25 14:11 Dextrose 50%-Water Inj 50 Ml Syringe IV 01/31/25 14:10 Q15MIN PRN BG <50 OR BG <70 & pt unresponsive Docusate Sodium 100 mg 01/01/25 09:45 01/02/25 09:32 Docusate Sod 100 Mg Capsule PO 01/31/25 09:44 100 mg QDAY NAHED Administration Protocol Epoetin Roger 10,000 unit 01/02/25 10:30 Epoetin Roger-Epbx Inj 10,000 Unit/Ml Vial (Esrd) SC 01/02/25 10:31 X1 ONE Glucagon 1 mg 01/01/25 14:11 Glucagon Inj 1 Mg Vial IM Q15MIN PRN BG <70, and no IV access Heparin Sodium (Porcine) 3,100 unit 01/01/25 17:10 Heparin Sod Inj 1000 Unit/Ml Vial 10 Ml INDWELLCAT 01/15/25 17:09 X1 PRN DIALYSIS Azithromycin 500 mg/ Sodium 250 mls @ 250 mls/hr 01/02/25 09:00 01/02/25 09:32 Chloride IV 01/09/25 08:59 250 mls/hr QDAY NAHED Administration Insulin Human Lispro 0 unit 01/01/25 17:00 01/02/25 07:39 Insulin Lispro (Admelog) 1 Unit/0.01 Ml Unit SC 01/31/25 16:59 1 unit AC NAHED Administration Protocol Ondansetron HCl 4 mg 01/01/25 09:40 Ondansetron Inj 2 Mg/Ml Inj 2 Ml IVP 01/31/25 09:39 Q6H PRN NAUSEA OR VOMITING Protocol Pantoprazole Sodium 40 mg 01/02/25 09:00 01/02/25 09:32 Pantoprazole 40 Mg Tablet PO 02/01/25 08:59 40 mg QDAY NAHED Administration Sennosides 1 tab 01/01/25 09:40 Senna Tablet PO 01/31/25 09:39 QDAY PRN constipation Protocol Tamsulosin HCl 0.8 mg 01/01/25 21:00 01/01/25 20:24 Tamsulosin Hcl 0.4 Mg Capsule PO 01/31/25 20:59 0.8 mg HS NAHED Administration Ticagrelor 90 mg 01/01/25 21:00 Ticagrelor 90 Mg Tablet PO 01/31/25 20:59 BID NAHED Plan Alfredo Fall is an 84 year old male with history of CAD status post PCI to the LCx on 11/11/2024, residual CAD of the RCA severe and moderate LAD being managed medically, CKD stage V, hypertension, type 2 diabetes mellitus, diabetic nephropathy, hyperlipidemia, osteoarthritis, history of TIA versus stroke 2 years ago, BPH, mild chronic anemia secondary to CKD presents with shortness of breath. #FERDINAND on CKD stage V ---> ESRD #Hypocalcemia 2/2 CKD #HFpEF (EF 40-45%) Patient has history of CKD V likely due to hypertensive nephropathy with baseline Cr around 4.0. This admission Cr is 5.9, GFR 9, BUN 100, potassium 5.2, sodium 139, corrected calcium 7.9, elevated BNP 1915. CXR showed some congestion with pneumonia. Patient had been refusing to start dialysis. Last admission 12/17 patient was refusing at that time as well. Appears that FERDINAND may be due to fluid overload status. States that he takes Lasix 80mg PO at home and is compliant with medications. Nephrology consulted for FERDINAND on CKD. After long conversation with the patient he agreed for dialysis. Dialysis done 01/01 Hep A IgM (+); asymptomatic, curbsided Dr. Rodriguez: treat supportively. Plan: -Stop Brilinta/aspirin for today, restart tomorrow. Patient needs permanent dialysis catheter. -Plan for dialysis today; needs dialysis outpatient -On discharge, return to Dr. Parra -Monitor chemistry -No recent contrast or offending medications -Strict I/Os, monitor UOP -Renal dose med, avoid nephrotoxin #Normocytic anemia #Transaminitis #HTN #HLD #CAD s/p PCI #BPH #Nicotine dependence -management per primary care team Thank you for allowing us to take part in the care of Mr. Fall Patient plan of care was discussed with the attending physician, Dr. Judie Charles MD PGY-1 Attending Provider Attestation/Addendum Patient seen and examined with resident physician Dr. Charles. Note reviewed, agree with findings and recommendations. Currently seen in the emergency department. On BiPAP. Patient with hypoxic respiratory failure and significant azotemia. Long conversation with the patient-finally agreed for dialysis. Vas-Cath placed by Dr. Cohen. Patient did receive dialysis yesterday. 01/02/2025 Patient on second dialysis. Tolerating dialysis without any problems. Noted oozing from the exit site. Pressure dressing ordered. Currently seems to be acceptable. Hemodialysis for 2.5 hours, 2K, ultrafiltration 1 L, Epogen 6000, no heparin ordered. Plan of care discussed with the dialysis nurse. Please see dialysis flowsheet for further details. Next dialysis scheduled for tomorrow. Hep panel, PPD ordered. Probably might need outpatient dialysis-under Dr Parra Spoke to Dr. Cheng Fan-okay to hold Brilinta and aspirin today and possible PermCath tomorrow. Plan of care discussed with Dr. Rogers
[2025-01-02 10:30] LABS: Hepatitis A Antibody IgM Reactive (Non React); Hepatitis B Core Antibody IgM Non Reactive (Non React); Hepatitis B Surface Antigen Non Reactive (Non React); Hepatitis C Antibody Non Reactive (Non React)
--- NOTE | 2025-01-02 11:37 | PC.NURSE ---
RN WENT IN TO CHECK BS PT C/O DROWSINESS, DIZZINESS, AND SHAKINESS. BS 285, FULL SET OF VITALS ALL WITHIN NORMAL LIMITS, DR. PLUMMER MADE AWARE. NO NEW ORDERS AT THIS TIME, WILL CONTINUE TO MONITOR PT.
--- NOTE | 2025-01-02 12:10 | PC.NURSE ---
PATIENT TRANSFER TO DIALYSIS VIA BED ACCOMPANIED BY SIENA EVANS. PT ALERT AND ORIENTED X3.
--- NOTE | 2025-01-02 14:04 | PD.RESPRO ---
Documentation for date of: 01/02/25 Subjective Subjective Interval history: The patient was seen and examined at the bedside this morning. He reported doing well. He reported improvement in his SOB. His vitals were fairly stable, with blood pressure in 150s/60s, HR in 60s, RR 18, saturating 100% on 2 L NC. White count still elevated, today 20.3, hemoglobin 9.1, creatinine 5.1, magnesium 2.4, triglyceride 83, cholesterol 90, LDL 47, HDL 26, A1c 6.5. The patient underwent second session of hemodialysis this morning to afternoon. The patient will be scheduled for cardiac cath for right coronary artery, in later days at [place], given the complexity of case. Recommended to hold aspirin and Brilinta for 1 more days, as the patient was still bleeding from the HD catheter site during hemodialysis. Continue with carvedilol 12.5 Mg twice daily Exam Vital Signs Temp Pulse Resp BP Pulse Ox O2 Del Method O2 Flow Rate 97.0 F 65 18 149/77 H 92 L Nasal Cannula 3 01/02/25 12:00 01/02/25 14:00 01/02/25 12:00 01/02/25 14:00 01/02/25 12:00 01/02/25 12:00 01/02/25 12:00 FiO2 32 01/01/25 17:48 Narrative Exam General: No acute distress, Alert and Oriented x 3 HEENT: Moist mucous membranes, oropharynx clear, right IJ catheter under clean dressing Neck: Supple, No masses, No JVD CVS: S1S2 Regular rate and rhythm, No murmurs, rubs or gallops Lungs: Mild bibasilar lower lobe crackles, no wheeze no rhonchi Abd: Soft, NT/ND, +BS, no organomegaly Ext: No edema, warm and well perfused Skin: No rash Psych: Appropriate mood and affect Objective Labs 01/03/25 05:09 01/03/25 05:09 Labs: Laboratory Results - last 24 hr 01/01/25 01/01/25 01/01/25 15:32 21:08 23:55 WBC RBC Hgb 10.4 L Hct 31.0 L MCV MCH MCHC RDW Std Deviation Plt Count Neut % (Auto) Lymph % (Auto) [place] % (Auto) Eos % (Auto) Baso % (Auto) Neut # (Auto) Lymph # (Auto) [place] # (Auto) Eos # (Auto) Baso # (Auto) Immature Gran # (Auto) Absolute Nucleated RBC Immature Gran % Nucleated RBC % PT 12.3 H INR 1.1 APTT Sodium Potassium Chloride Carbon Dioxide Anion Gap BUN Creatinine Estim Creat Clear Calc eGFR BUN/Creatinine Ratio Glucose [address] Glu mg/dL Hemoglobin A1c Calculated Osmolality Calcium Corrected Calcium Phosphorus Magnesium Total Bilirubin AST ALT Alkaline Phosphatase Troponin I 0.063 H* 0.134 H* Total Protein Albumin Globulin Albumin/Globulin Ratio Triglycerides Cholesterol LDL Cholesterol, Calc HDL Cholesterol Cholesterol/HDL Ratio Hepatitis A IgM Ab Reactive A Hep Bs Antigen Non Reactive Hep Bs Antibody NonReact(Not Immune) L Hep B Core IgM Ab Non Reactive Hepatitis C Antibody Non Reactive 01/02/25 04:18 WBC 20.3 H RBC 3.12 L Hgb 9.1 L Hct 27.7 L MCV 89 MCH 29.2 MCHC 32.9 RDW Std Deviation 46.3 H Plt Count 293 D Neut % (Auto) 93 H Lymph % (Auto) 3 L [place] % (Auto) 3 Eos % (Auto) 0 Baso % (Auto) 0 Neut # (Auto) 18.9 H Lymph # (Auto) 0.6 L [place] # (Auto) 0.7 Eos # (Auto) 0.0 Baso # (Auto) 0.0 Immature Gran # (Auto) 0.10 H Absolute Nucleated RBC 0.00 Immature Gran % 1 H Nucleated RBC % 0 PT 12.2 INR 1.1 APTT 34.5 Sodium 141 Potassium 4.6 D Chloride 102 Carbon Dioxide 23.4 Anion Gap 16 BUN 73 H Creatinine 5.1 H* D Estim Creat Clear Calc 11.6 L eGFR 10 L* BUN/Creatinine Ratio [address]ucose [address] Glu mg/dL 140 H Hemoglobin A1c 6.5 H Calculated Osmolality 308 H Calcium 8.5 Corrected Calcium 8.9 Phosphorus 4.5 Magnesium 2.4 Total Bilirubin 0.4 AST 29 ALT 93 H Alkaline Phosphatase 120 H D Troponin I 0.176 H* Total Protein 6.6 Albumin 3.5 D Globulin 3.1 Albumin/Globulin Ratio 1.1 L Triglycerides 83 Cholesterol 90 L LDL Cholesterol, Calc 47 HDL Cholesterol 26 L Cholesterol/HDL Ratio 3.5 L Hepatitis A IgM Ab Reactive A Hep Bs Antigen Non Reactive Hep Bs Antibody Hep B Core IgM Ab Non Reactive Hepatitis C Antibody Non Reactive ABG Interpretation ABG results: 01/01/25 01/01/25 09:50 10:25 ABG pH 7.41 ABG pCO2 32 ABG pO2 76 L ABG HCO3 20 ABG O2 Saturation 96 ABG Base Excess -4 L VBG pH 7.39 VBG pCO2 33 L VBG pO2 49 VBG Base Excess -4 L Quality Measures Quality Measures VTE prophylaxis Advance care planning discussed with:: patient Assessment & Plan Assessment Current Active Medications: Generic Name Dose Route Start Last Admin Trade Name Domenico PRN Reason Stop Dose Admin Acetaminophen 650 mg 01/01/25 09:40 Acetaminophen 325 Mg Tablet PO 01/31/25 09:39 Q6H PRN Fever >100.4 or pain Albuterol/Ipratropium 3 ml 01/01/25 19:00 01/02/25 10:10 Albuterol/Ipratropium (Duoneb) Rt Yary 3 Ml Nebu INH 01/31/25 18:59 3 ml Q4HRRT NAHED Administration Aspirin 81 mg 01/02/25 09:00 Aspirin Ec 81 Mg Tabec PO 02/01/25 08:59 QDAY NAHED Carvedilol 12.5 mg 01/01/25 17:30 01/02/25 08:00 Carvedilol 12.5 Mg Tablet PO 01/31/25 17:29 Not Given BIDWM NAHED Dextrose 25 ml 01/01/25 14:11 Dextrose 50%-Water Inj 50 Ml Syringe IV 01/31/25 14:10 Q15MIN PRN BG 50-70 responsive npo pt Dextrose 50 ml 01/01/25 14:11 Dextrose 50%-Water Inj 50 Ml Syringe IV 01/31/25 14:10 Q15MIN PRN BG <50 OR BG <70 & pt unresponsive Docusate Sodium 100 mg 01/01/25 09:45 01/02/25 09:32 Docusate Sod 100 Mg Capsule PO 01/31/25 09:44 100 mg QDAY NAHED Administration Protocol Glucagon 1 mg 01/01/25 14:11 Glucagon Inj 1 Mg Vial IM Q15MIN PRN BG <70, and no IV access Heparin Sodium (Porcine) 3,100 unit 01/01/25 17:10 Heparin Sod Inj 1000 Unit/Ml Vial 10 Ml INDWELLCAT 01/15/25 17:09 X1 PRN DIALYSIS Azithromycin 500 mg/ Sodium 250 mls @ 250 mls/hr 01/02/25 09:00 01/02/25 09:32 Chloride IV 01/09/25 08:59 250 mls/hr QDAY NAHED Administration Insulin Human Lispro 0 unit 01/01/25 17:00 01/02/25 11:50 Insulin Lispro (Admelog) 1 Unit/0.01 Ml Unit SC 01/31/25 16:59 3 unit AC NAHED Administration Protocol Ondansetron HCl 4 mg 01/01/25 09:40 Ondansetron Inj 2 Mg/Ml Inj 2 Ml IVP 01/31/25 09:39 Q6H PRN NAUSEA OR VOMITING Protocol Pantoprazole Sodium 40 mg 01/02/25 09:00 01/02/25 09:32 Pantoprazole 40 Mg Tablet PO 02/01/25 08:59 40 mg QDAY NAHED Administration Sennosides 1 tab 01/01/25 09:40 Senna Tablet PO 01/31/25 09:39 QDAY PRN constipation Protocol Tamsulosin HCl 0.8 mg 01/01/25 21:00 01/01/25 20:24 Tamsulosin Hcl 0.4 Mg Capsule PO 01/31/25 20:59 0.8 mg HS NAHED Administration Ticagrelor 90 mg 01/01/25 21:00 Ticagrelor 90 Mg Tablet PO 01/31/25 20:59 BID NAHED Plan The patient is an 84-year-old male with a past medical history of CAD status post PCI to the LCx on 11/11/2024, residual CAD of the RCA severe and moderate LAD being managed medically, CKD stage IV-V, with baseline creatinine of around 4, hypertension, type 2 diabetes mellitus, diabetic nephropathy, hyperlipidemia, osteoarthritis, history of TIA versus stroke 2 years ago, chronic smoker with more than 37-58-zdxr-year smoking history, BPH, mild chronic anemia secondary to CKD presented to the emergency department for further evaluation of shortness of breath. #Acute hypoxic respiratory failure 2/2 #Fluid overload 2/2 #CKD stage V, and #HFmrEF exacerbation Patient presented with chief complaint of shortness of breath, was found to have mild vascular congestions, superimposed bilateral pneumonia on chest x-ray, BNP level was 1915. - Patient underwent 1 session of hemodialysis this afternoon. - Was saturating 100 % on 2 L of NC - Continue with hemodialysis session with ultrafiltration goal of more than 2 L of net negative or as tolerated. #CAD s/p stent on 11/11/2024 Patient is on aspirin 81 Mg daily and Brilinta 90 Mg twice daily - Okay to hold until tomorrow morning, as the patient was still bleeding from the hemodialysis catheter site during hemodialysis. - Plan to undergo second session of PCI in later days at [place], given the complication of case #Hypertension - Continue with carvedilol 12.5 Mg twice daily #Hyperkalemia #Hypocalcemia - Monitor and replete as needed #COPD exacerbation #Community-acquired pneumonia #Mild transaminitis #Type 2 diabetes mellitus #BPH Rest of the management deferred to primary hospitalist team. Thank you for cardiology consultation. We appreciate the opportunity to participate in this patient's care. Cardiology team will continue to follow-up in this patient care. The patient's management plan was discussed with my attending physician MD Salvador Funes MD, PGY3 Attending Provider Attestation/Addendum A 84-year-old male with a past medical history of CAD status post PCI to the LCx on 11/11/2024, residual CAD of the RCA severe and moderate LAD being managed medically, CKD stage IV-V, with baseline creatinine of around 4, hypertension, type 2 diabetes mellitus, diabetic nephropathy, hyperlipidemia, osteoarthritis, history of TIA versus stroke 2 years ago, chronic smoker with more than 47-14-kvid-year smoking history, BPH, mild chronic anemia secondary to CKD presented to the emergency department for further evaluation of shortness of breath. Cardiology consulted for further evaluation and recommendation about antiplatelets 1. Acute hypoxic respiratory failure in the setting of volume overload from the FERDINAND on CKD stage V 2. CKD stage V with baseline creatinine of around 4 with creatinine increased to 5.9-started on hemodialysis 3. Diastolic congestive heart failure 4. CAD status post PCI to LCx on 11/11/2024 with residual severe disease of the RCA being medically managed 5. Essential hypertension 6. Type 2 diabetes mellitus 7. Diabetic nephropathy and hypertensive nephropathy 8. Hyperlipidemia 9. Osteoarthritis 10. History of TIA versus stroke 2 years ago 1. Chronic smoker with more than 03-gzps-jukm smoking history 12. BPH. Patient well-known to me from previous admissions and performed PCI of LCx on 11/11/2024. He has very severe complex RCA disease which would require intervention with possible IVL/shockwave or rotablation and will require additional contrast use. Patient did not want to be on dialysis and wanted to continue medical management of the RCA. He denies any chest pain or chest pressure except for shortness of breath and leg swelling. His kidney function continues to worsen and creatinine is 5.9 this admission and is in fluid overload. Nephrology was consulted patient finally agreed to do dialysis and has Vas-Cath is in place for dialysis for fluid management. Plan is for patient to have a tunneled dialysis catheter for long-term dialysis with interventional radiology is recommending patient to be stopped on both antiplatelets. Patient did have a recent PCI 6 weeks ago on 11/11/2024 as noted above. Patient is on dual antiplatelet therapy with aspirin as well as Brilinta. Patient will be at high risk of stent thrombosis if antiplatelets are stopped for a longer duration of time. Patient is bleeding around the Vas-Cath site and as noted will need tunneled dialysis catheter in a.m. Recommend to stop aspirin and Brilinta for now and restart immediately after the procedure. Recommend PRBC transfusion to keep the hemoglobin between 9-10. Unfortunately the panel dialysis catheter was not performed today and plan for tomorrow. Recommend to continue to hold the aspirin Brilinta for 1 more day and restart immediately after the procedure. Patient has mildly elevated troponins at 0.17 and denies any Chest pain or chest pressure. Troponin elevation is in the setting of supply/demand mismatch secondary to the freaking overload with increased shortness of breath and increased work of breathing. We will recommend to continue the dialysis for now for a few sessions and then will plan for staged PCI of RCA as outpatient as he required a complex procedure as noted above. Management of rest of the medical conditions as per primary team and other consultants. Thank you for the consult and allowing me to participate in the care of the patient. Cardiology will continue to follow. Karlo Ann M.D. Interventional Cardiology
--- NOTE | 2025-01-02 14:45 | PC.NURSE ---
PATIENT IS ALERT AND ORIENTED X3, REPOSITION IN BED.
[2025-01-02] MEDS: EPOETIN ALFA-EPBX INJ 10,000 UNIT/ML VIAL (ESRD) 10000 UNIT SC (15:11)
[2025-01-02] MEDS: HEPARIN SOD INJ 1000 UNIT/ML VIAL 10 ML 3100 UNIT INDWELLCAT (15:13)
--- NOTE | 2025-01-02 15:23 | PC.SS ---
Rounding note: patient is being followed by cardiology and nephrology. Patient will be a new dialysis patient. Patient will need dialysis chair time before discharge.
[2025-01-02] MEDS: TAMSULOSIN HCL 0.4 MG CAPSULE 0.8 MG PO (21:08)
[2025-01-02] MEDS: ATORVASTATIN CALCIUM 20 MG TABLET 80 MG PO (21:09)
[2025-01-03] VITALS (42 sets, daily range): BP systolic 126–175; BP diastolic 60–109; PULSE 50–93; RESP 12–29; TEMP 36.1–37.1; O2SAT 93–100; BMI 24.1
--- NOTE | 2025-01-03 | XR_ITS ---
Insect cyst removal temporary dialysis catheter Permanent tunneled dialysis catheter insertion, percutaneous Fluoroscopy AP chest, portable, 2 views Date and time of procedure: January 03, 2025 1533 hours INDICATIONS: Renal failure patient needing long-term dialysis with permanent tunneled dialysis catheter Informed consent provided Technique: A timeout was completed verifying correct patient, procedure, site, positioning, and special equipment if applicable. The patient was placed in a dependent position appropriate for dialysis catheter placement based on the vein to be cannulated. The patient'sright neck was prepped and draped in sterile fashion. 1% lidocaine administered for local anesthesia 0.35 wire guide is introduced through the temporary dialysis catheter into the inferior vena cava Subcutaneous tunnel formed in the upper chest. Permanent tunneled dialysis catheter placed in the subcutaneous tunnel. Dilators were introduced over the J-wire guide. Tunneled dialysis catheter is introduced through a dilator with venous sheath into the superior vena cava under fluoroscopic guidance. The catheter is sutured in place to the skin and a sterile dressing applied. Perfusion to the extremity distal to the point of catheter insertion is checked and found to be adequate Attending radiologist was present for the entire procedure Estimated blood loss3 cc. The patient tolerated the procedure well and there were no complications Impression: Venous access removal temporary dialysis catheter Successful permanent tunneled dialysis catheter insertion, percutaneous Fluoroscopy 0.1 minute radiation dose 0.25 milligray 2 spot fluoroscopic chest films. AP chest performed at completion procedure demonstrates satisfactory position dialysis catheter. May use dialysis catheter.
[2025-01-03] MEDS: ALBUTEROL/IPRATROPIUM (Duoneb) RT SOL 3 ML NEBU INH ×5 (02:26→22:11)
[2025-01-03 06:32] LABS: Basophils # (Auto) 0.0 Thou/mm3 (0.0-0.2); Basophils % (Auto) 0 % (0-2.5); Eosinophils # (Auto) 0.1 Thou/mm3 (0.0-0.5); Eosinophils % (Auto) 1 % (0-10); Hematocrit 27.0 % (41.0-53.0); Immature Granulocytes Auto 0.19 Thou/mm3 (0.00-0.00); Lymphocytes # (Auto) 2.1 Thou/mm3 (1.0-4.8); Lymphocytes % (Auto) 10 % (10-50); Mean Corpuscular HGB Conc 32.2 g/dl (31.0-37.0); Mean Corpuscular Hemoglobin 28.3 pg (25.0-35.0); Mean Corpuscular Volume 88 fL (80-100); Monocytes # (Auto) 1.5 Thou/mm3 (0.0-0.8); Monocytes % (Auto) 7 % (0-12); Neutrophils # (Auto) 16.7 Thou/mm3 (1.8-7.7); Neutrophils % (Auto) 81 % (37-80); Nucleated Red Blood Cell # 0.00 Thou/mm3 (0.00-0.00); Nucleated Red Blood Cell % 0 /100 WBC (0); Platelet Count 309 Thou/mm3 (140-440); RDW Standard Deviation 46.4 fL (35.1-43.9); Red Blood Count 3.07 Miln/mm3 (4.50-5.90); White Blood Count 20.6 Thou/mm3 (3.8-10.6)
[2025-01-03 06:44] LABS: INR 1.1 (0.9-1.3); Partial Thromboplastin Time 31.6 Seconds (22.0-36.0); Prothrombin Time 11.9 Seconds (9.0-12.2)
[2025-01-03 06:54] LABS: Hemoglobin 8.7 g/dL (13.5-16.0)
[2025-01-03 07:06] LABS: Alanine Aminotransferase 71 U/L (10-49); Albumin, Serum 3.5 gm/dL (3.4-4.8); Albumin/Globulin Ratio 1.2 (1.2-2.2); Alkaline Phosphatase 109 U/L (46-116); Anion Gap 14 (7-16); Aspartate Amino Transferase 21 U/L (0-34); BUN/Creatinine Ratio 12 Ratio (12-20); Bilirubin,Total 0.4 mg/dL (0.3-1.2); Blood Urea Nitrogen 54 mg/dL (9-23); Calcium 8.0 mg/dL (8.3-10.6); Calcium (Corrected) 8.4 mg/dL (8.5-10.1); Carbon Dioxide 27.5 mMol/L (20.0-31.0); Chloride 99 mMol/L (98-107); Creatinine (Component) 4.4 mg/dL (0.6-1.3); Estimated Creatinine Clearance 13.5 mL/min (>60); Globulin 2.9 gm/dL (2.3-3.5); Glucose 132 mg/dL (74-106); Magnesium 2.1 mg/dL (1.6-2.6); Osmolality,Calculated 296 (275-295); Phosphorous 4.1 mg/dL (2.4-5.1); Potassium 4.5 mMol/L (3.4-5.1); Sodium 140 mMol/L (136-145); Total Protein 6.4 gm/dL (5.7-8.2); eGFR 12 See Note
--- NOTE | 2025-01-03 07:39 | PC.NURSE ---
COORDINATED CARE WITH DR. FLEMING AND ELANA EVANSCOLLECTION COORDINATOR NURSE. PT SCHEDULE FOR DIALYSIS TODAY HOLD BP MEDICATIONS AND GIVE ANTIBIOTIC AFTER DIALYSIS.
--- NOTE | 2025-01-03 07:52 | PC.SS ---
Initial assessment: Patient is an 84-year-old male admitted for SOB. Confirmed demographic information for the patient. Patient identifies his brother Kevin Osman [phone] as his alternate medical surrogate decision maker. Patient states he is able to complete all ADL?s independently. Patient reports bother is his telecom billing analyst and assist him with his home needs. Patient utilizes a walker and scooter. Patient's PCP is Dr. Eduar Haines located in Dr. Brower's office. Patient's pharmacy of choice is [facility] on [address] in [place]. Discharge plan is to return home.?Patient's brother will transport him at discharge. Patient will need dialysis chair time to be established before discharge. D/C Plan: Home Next of kin: Brother: Kevin
--- NOTE | 2025-01-03 08:11 | PC.NURSE ---
REPORT GIVEN TO ELANA DIALYSIS NURSE, PT TRANSFER TO GET DIALYSIS VIA GURNEY. PT IS ALERT AND ORIENTED X3
--- NOTE | 2025-01-03 08:27 | PC.SS ---
SS follow up note; SS sent out clinicals to LAURA Shields, patient will be a new Dialysis patient and is pending TB results to be read. SS will send the TB results once available.
[2025-01-03] MEDS: EPOETIN ALFA-EPBX INJ 10,000 UNIT/ML VIAL (ESRD) 10000 UNIT IV (09:58)
--- NOTE | 2025-01-03 10:55 | PD.RESPRO ---
Documentation for date of: 01/03/25 Subjective Subjective Interval history: The patient was seen and examined at the HD chair side this morning. He reported doing well. He reported improvement in his SOB. His vitals were fairly stable, with blood pressure in 150s-160s/60s-70s, HR in 60s, RR 18, saturating 94% on RA. White count still elevated, today 20.6, hemoglobin dropped down to 8.7, creatinine 4.4 1 unit PRBC transfused to maintain it greater than 8 at all the time, considering his severe CAD, and has been bleeding from the HD catheter site. The patient underwent 3rd session of hemodialysis this morning. The patient will be scheduled for cardiac cath for right coronary artery, in later days at [facility], given the complexity of case. Restart aspirin and Brilinta tonight afgter the catheter placement. Continue with carvedilol 12.5 Mg twice daily Exam Vital Signs Temp Pulse Resp BP Pulse Ox O2 Del Method O2 Flow Rate 97.8 F 59 L 20 151/79 H 95 Room Air 2 01/03/25 08:27 01/03/25 10:45 01/03/25 08:27 01/03/25 10:45 01/03/25 08:27 01/03/25 08:00 01/03/25 08:27 FiO2 32 01/03/25 08:27 Narrative Exam General: No acute distress, Alert and Oriented x 3 HEENT: Moist mucous membranes, oropharynx clear, right IJ catheter under clean dressing Neck: Supple, No masses, No JVD CVS: S1S2 Regular rate and rhythm, No murmurs, rubs or gallops Lungs: Mild bibasilar lower lobe crackles, no wheeze no rhonchi Abd: Soft, NT/ND, +BS, no organomegaly Ext: No edema, warm and well perfused Skin: No rash Psych: Appropriate mood and affect Objective Labs 01/03/25 18:00 01/03/25 05:09 Labs: Laboratory Results - last 24 hr 01/03/25 01/03/25 05:09 09:50 WBC 20.6 H RBC 3.07 L Hgb 8.7 L Hct 27.0 L MCV 88 MCH 28.3 MCHC 32.2 RDW Std Deviation 46.4 H Plt Count 309 Neut % (Auto) 81 H Lymph % (Auto) 10 [place] % (Auto) 7 Eos % (Auto) 1 Baso % (Auto) 0 Neut # (Auto) 16.7 H Lymph # (Auto) 2.1 [place] # (Auto) 1.5 H Eos # (Auto) 0.1 Baso # (Auto) 0.0 Immature Gran # (Auto) 0.19 H Absolute Nucleated RBC 0.00 Immature Gran % 1 H Nucleated RBC % 0 PT 11.9 INR 1.1 APTT 31.6 Sodium 140 Potassium 4.5 Chloride 99 Carbon Dioxide 27.5 Anion Gap 14 BUN 54 H Creatinine 4.4 H* D Estim Creat Clear Calc 13.5 L eGFR 12 L* BUN/Creatinine Ratio 12 Glucose 132 H D Calculated Osmolality 296 H Calcium 8.0 L Corrected Calcium 8.4 L Phosphorus 4.1 Magnesium 2.1 Total Bilirubin 0.4 AST 21 ALT 71 H Alkaline Phosphatase 109 Total Protein 6.4 Albumin 3.5 Globulin 2.9 Albumin/Globulin Ratio 1.2 Crossmatch See Detail Blood Bank Wristband ID Yes ABG Interpretation ABG results: 01/01/25 01/01/25 09:50 10:25 ABG pH 7.41 ABG pCO2 32 ABG pO2 76 L ABG HCO3 20 ABG O2 Saturation 96 ABG Base Excess -4 L VBG pH 7.39 VBG pCO2 33 L VBG pO2 49 VBG Base Excess -4 L Quality Measures Quality Measures VTE prophylaxis Advance care planning discussed with:: patient Assessment & Plan Assessment Current Active Medications: Generic Name Dose Route Start Last Admin Trade Name Freq PRN Reason Stop Dose Admin Acetaminophen 650 mg 01/01/25 09:40 Acetaminophen 325 Mg Tablet PO 01/31/25 09:39 Q6H PRN Fever >100.4 or pain Albuterol/Ipratropium 3 ml 01/01/25 19:00 01/03/25 06:18 Albuterol/Ipratropium (Duoneb) Rt Yary 3 Ml Nebu INH 01/31/25 18:59 3 ml Q4HRRT NAHED Administration Aspirin 81 mg 01/02/25 09:00 Aspirin Ec 81 Mg Tabec PO 02/01/25 08:59 QDAY NAHED Atorvastatin Calcium 80 mg 01/02/25 21:00 01/02/25 21:09 Atorvastatin Calcium 20 Mg Tablet PO 02/01/25 20:59 80 mg HS NAHED Administration Carvedilol 12.5 mg 01/01/25 17:30 01/03/25 07:38 Carvedilol 12.5 Mg Tablet PO 01/31/25 17:29 Not Given BIDWM NAHED Dextrose 25 ml 01/01/25 14:11 Dextrose 50%-Water Inj 50 Ml Syringe IV 01/31/25 14:10 Q15MIN PRN BG 50-70 responsive npo pt Dextrose 50 ml 01/01/25 14:11 Dextrose 50%-Water Inj 50 Ml Syringe IV 01/31/25 14:10 Q15MIN PRN BG <50 OR BG <70 & pt unresponsive Docusate Sodium 100 mg 01/01/25 09:45 01/02/25 09:32 Docusate Sod 100 Mg Capsule PO 01/31/25 09:44 100 mg QDAY NAHED Administration Protocol Glucagon 1 mg 01/01/25 14:11 Glucagon Inj 1 Mg Vial IM Q15MIN PRN BG <70, and no IV access Heparin Sodium (Porcine) 3,100 unit 01/01/25 17:10 01/02/25 15:13 Heparin Sod Inj 1000 Unit/Ml Vial 10 Ml INDWELLCAT 01/15/25 17:09 3,100 unit X1 PRN Administration DIALYSIS Insulin Human Lispro 0 unit 01/01/25 17:00 01/03/25 07:18 Insulin Lispro (Admelog) 1 Unit/0.01 Ml Unit SC 01/31/25 16:59 Not Given AC NAHED Protocol Ondansetron HCl 4 mg 01/01/25 09:40 Ondansetron Inj 2 Mg/Ml Inj 2 Ml IVP 01/31/25 09:39 Q6H PRN NAUSEA OR VOMITING Protocol Pantoprazole Sodium 40 mg 01/02/25 09:00 01/02/25 09:32 Pantoprazole 40 Mg Tablet PO 02/01/25 08:59 40 mg QDAY NAHED Administration Sennosides 1 tab 01/01/25 09:40 01/02/25 21:16 Senna Tablet PO 01/31/25 09:39 1 tab QDAY PRN Administration constipation Protocol Tamsulosin HCl 0.8 mg 01/01/25 21:00 01/02/25 21:08 Tamsulosin Hcl 0.4 Mg Capsule PO 01/31/25 20:59 0.8 mg HS NAHED Administration Ticagrelor 90 mg 01/01/25 21:00 Ticagrelor 90 Mg Tablet PO 01/31/25 20:59 BID NAHED Plan The patient is an 84-year-old male with a past medical history of CAD status post PCI to the LCx on 11/11/2024, residual CAD of the RCA severe and moderate LAD being managed medically, CKD stage IV-V, with baseline creatinine of around 4, hypertension, type 2 diabetes mellitus, diabetic nephropathy, hyperlipidemia, osteoarthritis, history of TIA versus stroke 2 years ago, chronic smoker with more than 93-48-fnzz-year smoking history, BPH, mild chronic anemia secondary to CKD presented to the emergency department for further evaluation of shortness of breath. #Acute hypoxic respiratory failure 2/2 #Fluid overload 2/2 #CKD stage V, and #HFmrEF exacerbation Patient presented with chief complaint of shortness of breath, was found to have mild vascular congestions, superimposed bilateral pneumonia on chest x-ray, BNP level was 1915. - Patient underwent 1 session of hemodialysis this afternoon. - Was saturating 94% on RA - Continue with hemodialysis session with ultrafiltration goal of more than 2 L of net negative or as tolerated. #CAD s/p stent on 11/11/2024 Patient is on aspirin 81 Mg daily and Brilinta 90 Mg twice daily - Recommended to resume aspirin and brillinta after the HD perm cath is placed. - Plan to undergo second session of PCI in later days at [place], given the complication of case #Acute blood loss anemia 2/2 bleeding from HD catheter site - 1 Unit prbc transfused #Hypertension - Continue with carvedilol 12.5 Mg twice daily - Consider adding amlodipine 5 mg #Hyperkalemia #Hypocalcemia - Monitor and replete as needed #COPD exacerbation #Community-acquired pneumonia #Mild transaminitis #Type 2 diabetes mellitus #BPH Rest of the management deferred to primary hospitalist team. Thank you for cardiology consultation. We appreciate the opportunity to participate in this patient's care. Cardiology team will continue to follow-up in this patient care. The patient's management plan was discussed with my attending physician MD Salvador Funes MD, PGY3 Attending Provider Attestation/Addendum I have personally seen and examined the patient separately on the above date of service and discussed the plan of care with the resident. I reviewed the resident Dr. Salvador Lau consultation progress note and agree with the resident findings and plan in the note above and have also edited the documentation to reflect my findings and plan. Karlo Ann M.D. Interventional Cardiology
--- NOTE | 2025-01-03 11:45 | PC.NURSE ---
PATIENT BACK IN HIS ROOM ALERT AND ORIENTED X3 DENIES ANY COMPLAINS AT THE MOMENT.
[2025-01-03] MEDS: DOCUSATE SOD 100 MG CAPSULE PO (12:11)
[2025-01-03] MEDS: PANTOPRAZOLE 40 MG TABLET PO (12:11)
[2025-01-03] MEDS: CALCIUM CARBONATE 600 MG TABLET PO (12:11)
[2025-01-03 12:55] LABS: Troponin I 0.113 ng/mL (0.0-0.045)
--- NOTE | 2025-01-03 14:54 | ESPR_ITS ---
<Statement entered by Keisha Schafer MD - 01/07/25 08:03> I reviewed above note and agree with findings and plans. I have also personally examined the patient with medicine team and went over assessment and plan with medical team including food and beverage intern and resident physician. <Statement entered by Zev Drake MD - 01/03/25 15:37> Patient seen and examined at bedside. I discussed and supervised with the food and beverage intern physician who took care of this patient. I personally saw and examined the patient. I agree with most of the assessment and plan. Hemodialysis today. Will switch vas-cath to perm cath today, resume aspirin and brilinta tomorrow, monitor for signs of bleeding. Per cardio, plan for outpatient cardiac cath. Will complete course of azithromycin for possible CAP tomorrow. Plan of care discussed with attending Dr. Schafer. Zev Drake MD PGY-2 Documentation for date of: 01/03/25 Subjective Subjective Interval history: Patient was seen this morning but was in dialysis. Per nursing, patient remains hemodynamically stable and is tolerating HD well. No new overnight events reported. He remains afebrile on room air, denies SOB, chest pain, or bleeding issues. Plans for cath postponed by cardiology to outpatient setting ([place]). Azithromycin will continue today and stop tomorrow. Brilinta and ASA still held due to bleeding from HD site. Will follow-up post-dialysis. Exam Vital Signs Temp Pulse Resp BP Pulse Ox O2 Del Method O2 Flow Rate 97.5 F 69 17 160/77 H 94 L Room Air 2 01/03/25 14:37 01/03/25 14:37 01/03/25 14:37 01/03/25 14:37 01/03/25 14:37 01/03/25 12:00 01/03/25 14:37 FiO2 32 01/03/25 11:19 Narrative Exam General: NAD, alert and oriented x3, satting 95% on 3L Lungs: Mild bibasilar crackles Cardiac: RRR, no murmurs/rubs/gallops Extremities: No edema Abdomen: Soft, NT/ND, +BS Neuro: No focal deficits Skin: No new rashes or bleeding Objective Labs 01/03/25 05:09 01/03/25 05:09 Labs: Laboratory Results - last 24 hr 01/03/25 01/03/25 01/03/25 05:09 09:50 11:30 WBC 20.6 H RBC 3.07 L Hgb 8.7 L Hct 27.0 L MCV 88 MCH 28.3 MCHC 32.2 RDW Std Deviation 46.4 H Plt Count 309 Neut % (Auto) 81 H Lymph % (Auto) 10 [place] % (Auto) 7 Eos % (Auto) 1 Baso % (Auto) 0 Neut # (Auto) 16.7 H Lymph # (Auto) 2.1 [place] # (Auto) 1.5 H Eos # (Auto) 0.1 Baso # (Auto) 0.0 Immature Gran # (Auto) 0.19 H Absolute Nucleated RBC 0.00 Immature Gran % 1 H Nucleated RBC % 0 PT 11.9 INR 1.1 APTT 31.6 Sodium 140 Potassium 4.5 Chloride 99 Carbon Dioxide 27.5 Anion Gap 14 BUN 54 H Creatinine 4.4 H* D Estim Creat Clear Calc 13.5 L eGFR 12 L* BUN/Creatinine Ratio 12 Glucose 132 H D Calculated Osmolality 296 H Calcium 8.0 L Corrected Calcium 8.4 L Phosphorus 4.1 Magnesium 2.1 Total Bilirubin 0.4 AST 21 ALT 71 H Alkaline Phosphatase 109 Troponin I 0.113 H* Total Protein 6.4 Albumin 3.5 Globulin 2.9 Albumin/Globulin Ratio 1.2 Blood Type O Negative Antibody Screen NEGATIVE Crossmatch See Detail Blood Bank Wristband ID Yes ABG Interpretation ABG results: 01/01/25 01/01/25 09:50 10:25 ABG pH 7.41 ABG pCO2 32 ABG pO2 76 L ABG HCO3 20 ABG O2 Saturation 96 ABG Base Excess -4 L VBG pH 7.39 VBG pCO2 33 L VBG pO2 49 VBG Base Excess -4 L Quality Measures Quality Measures VTE prophylaxis Advance care planning discussed with:: patient Assessment & Plan Assessment Current Active Medications: Generic Name Dose Route Start Last Admin Trade Name Freq PRN Reason Stop Dose Admin Acetaminophen 650 mg 01/01/25 09:40 Acetaminophen 325 Mg Tablet PO 01/31/25 09:39 Q6H PRN Fever >100.4 or pain Albuterol/Ipratropium 3 ml 01/01/25 19:00 01/03/25 14:17 Albuterol/Ipratropium (Duoneb) Rt Yary 3 Ml Nebu INH 01/31/25 18:59 3 ml Q4HRRT NAHED Administration Aspirin 81 mg 01/02/25 09:00 Aspirin Ec 81 Mg Tabec PO 02/01/25 08:59 QDAY NAHED Atorvastatin Calcium 80 mg 01/02/25 21:00 01/02/25 21:09 Atorvastatin Calcium 20 Mg Tablet PO 02/01/25 20:59 80 mg HS NAHED Administration Carvedilol 12.5 mg 01/01/25 17:30 01/03/25 07:38 Carvedilol 12.5 Mg Tablet PO 01/31/25 17:29 Not Given BIDWM NAHED Dextrose 25 ml 01/01/25 14:11 Dextrose 50%-Water Inj 50 Ml Syringe IV 01/31/25 14:10 Q15MIN PRN BG 50-70 responsive npo pt Dextrose 50 ml 01/01/25 14:11 Dextrose 50%-Water Inj 50 Ml Syringe IV 01/31/25 14:10 Q15MIN PRN BG <50 OR BG <70 & pt unresponsive Docusate Sodium 100 mg 01/01/25 09:45 01/03/25 12:11 Docusate Sod 100 Mg Capsule PO 01/31/25 09:44 100 mg QDAY NAHED Administration Protocol Glucagon 1 mg 01/01/25 14:11 Glucagon Inj 1 Mg Vial IM Q15MIN PRN BG <70, and no IV access Heparin Sodium (Porcine) 3,100 unit 01/01/25 17:10 01/02/25 15:13 Heparin Sod Inj 1000 Unit/Ml Vial 10 Ml INDWELLCAT 01/15/25 17:09 3,100 unit X1 PRN Administration DIALYSIS Insulin Human Lispro 0 unit 01/01/25 17:00 01/03/25 11:53 Insulin Lispro (Admelog) 1 Unit/0.01 Ml Unit SC 01/31/25 16:59 Not Given AC [facility] Protocol Ondansetron HCl 4 mg 01/01/25 09:40 Ondansetron Inj 2 Mg/Ml Inj 2 Ml IVP 01/31/25 09:39 Q6H PRN NAUSEA OR VOMITING Protocol Pantoprazole Sodium 40 mg 01/02/25 09:00 01/03/25 12:11 Pantoprazole 40 Mg Tablet PO 02/01/25 08:59 40 mg QDAY NAHED Administration Sennosides 1 tab 01/01/25 09:40 01/02/25 21:16 Senna Tablet PO 01/31/25 09:39 1 tab QDAY PRN Administration constipation Protocol Tamsulosin HCl 0.8 mg 01/01/25 21:00 01/02/25 21:08 Tamsulosin Hcl 0.4 Mg Capsule PO 01/31/25 20:59 0.8 mg HS NAHED Administration Ticagrelor 90 mg 01/01/25 21:00 Ticagrelor 90 Mg Tablet PO 01/31/25 20:59 BID NAHED Plan 84-year-old male with CAD s/p PCI (11/11/24), 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 #Acute hypoxic respiratory failure (CHF exacerbation vs. pneumonia vs. COPD) Volume overload + possible bilateral pneumonia + COPD; improved with HD, steroids, and O2; now satting well on 2L NC, no SOB at rest. BNP: 1915 CXR: Vascular congestion, possible bilateral PNA WBC: Down from peak of 20.3 Plan: * Continue O2 as needed, wean if tolerating * Continue hemodialysis with net negative fluid goal (2L/session) * Complete azithromycin course tomorrow (day 3) * Continue Duonebs Q4H PRN * Monitor WBC trend #End-Stage Renal Disease on Hemodialysis Previously CKD V with baseline Cr ~4; now ESRD with Cr improving (5.9 --> 5.1 --> 4.4); dialysis initiated this admission and tolerated well. 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 BNP was elevated to 1915; TTE on prior admission showed EF 40?45%. Exam revealed bibasilar crackles without peripheral edema. CXR showed vascular congestion with concern for superimposed pneumonia. Symptoms improved significantly after initiation of hemodialysis and diuresis with Lasix. Troponins are chronically elevated but without ischemic symptoms. Planned for outpatient RCA PCI.* Plan: * Continue HD with net negative UF ~2L/session to optimize volume status * Monitor for signs of congestion (weight, I/Os, crackles, edema) * Cardiology recommends outpatient PCI for RCA; continue medical management for now * Hold ASA/Brilinta until bleeding risk from HD site resolves * Continue carvedilol 12.5 BID * Monitor troponin trend, daily weight, and electrolytes * Repeat BNP if clinical status worsens * Avoid excessive fluid intake; maintain cardiac diet #CAD s/p PCI (LCx 11/11/24); Severe RCA CAD pending PCI Patient on DAPT with ASA + Brilinta, held due to bleeding from HD site. Troponins trending up, currently asymptomatic. Plan for outpatient PCI ([place]) due to complexity. Troponins: 0.027 --> 0.063 --> 0.134 --> 0.176 Plan: * Continue to trend troponins * Cardiology deferred cath today, plan for outpatient RCA PCI * Hold ASA and Brilinta today again * Continue carvedilol 12.5 BID #Anemia of CKD (worsening) Hgb 10.4 --> 9.1 --> 8.7, stable Hct; no evidence of hemolysis or GI bleeding; likely multifactorial (CKD + dialysis losses). Plan: * Transfuse 1 unit PRBC today (per cardiology) * Monitor post-transfusion H/H * Monitor retic if needed * Reassess for need of EPO if Hgb remains <9 #Hyperkalemia Resolved with HD and insulin/glucose; now K 4.5 Plan: * Continue monitoring via daily BMP * No further intervention needed unless rises #Hypocalcemia Initial Ca 7.9 --> improved to 8.4; asymptomatic Plan: * Replete calcium as needed * Monitor daily BMP #Transaminitis (mild) Likely congestive hepatopathy vs. Hep A IgM reactive AST 95, ALT 158 Plan: * Supportive care * Hep A IgM positive, asymptomatic --> monitor LFTs * No treatment indicated per ID #COPD exacerbation No wheezing now, tolerating Duonebs; completing azithro Plan: * Finish azithromycin course (1 more day) * Continue Duonebs Q4H PRN * Monitor for respiratory distress #T2DM A1c 6.5; steroid-induced hyperglycemia possible Plan: * Continue sliding scale insulin * Monitor glucose closely * IV dextrose protocol if hypoglycemic #Hypertension BP 151/91 today; at goal range for ESRD/CHF patient Plan: * Continue carvedilol 12.5 BID * Hold amlodipine unless SBP >160 #Hyperlipidemia LDL 47, HDL 26, Triglycerides 83 Plan: * Continue atorvastatin 80mg QD #BPH Plan: * Continue tamsulosin 0.8mg QHS Health Maintenance: Disposition: Med-Tele; follow-up post-permcath and HD Feeding: NPO until post-permcath; cardiac diet afterward Thromboprophylaxis: SCDs (ASA/Brilinta held) GI prophylaxis: Pantoprazole 40mg daily Code Status: DNR ----- Plan discussed with attending physician Dr. Schafer and senior resident Dr. Luzma MD PGY-1 Internal Medicine
--- NOTE | 2025-01-03 15:30 | PD.RESPRO ---
Documentation for date of: 01/03/25 Subjective Subjective Interval history: Mr. Fuentes is a 84 year old male with history of CAD status post PCI to the LCx on 11/11/2024, residual CAD of the RCA severe and moderate LAD being managed medically, CKD stage V, hypertension, type 2 diabetes mellitus, diabetic nephropathy, hyperlipidemia, osteoarthritis, history of TIA versus stroke 2 years ago, BPH, mild chronic anemia secondary to CKD presents to the ED BIBA from home for evaluation of shortness of breath, described as feeling he is not getting enough air. Reportedly symptoms began several weeks ago and worsening last night. Accompanied by a cough. Patient states he is compliant with medications, but did not take his medication today. Patient states he made a little bit of urine this morning. Denies associated fevers, chills, chest pain, abdominal pain, n/v/d, dysuria, hematuria, or any other urinary symptoms. Denies use of oxygen at home or known history of asthma. Patient recently was admitted to hospital with similar episode of hypoxic respiratory failure and at that time he did not want dialysis. Home medications: Coreg 12.5, Lasix 80, Brilinta 90, amlodipine 10, tamsulosin 0.4, atorvastatin 20, aspirin 81, nitroglycerin 0.4 prn. ED Course: - Initial vitals: 98.3F, 102 HR, 22 RR, 161/81 BP, O2 saturation 93 on 2L NC, - Labs significant for WBC 19.7, potassium 5.2, BUN 100, Cr 5.9, eGFR 9, Glucose 187, Osmolality 313, Ca 7.9, AST 95, ALT 158, Alk Phos 151, Trop 0.027, BNP 1915 - Imaging: CXR: showing mild heart failure, consider superimposed bilateral pneumonia - In the ED, patient was given methylprednisolone 125 mg and DuoNeb, put on 2L NC; given Lasix 40 mg. Patient was admitted for shortness of breath. Nephrology consulted for FERDINAND on CKD. 01/02/2025: No acute events overnight. Patient was seen and examined bedside. Today patient states he is doing better. Patient's breathing has improved, is needing less supplemental oxygen requirement. Patient tolerated HD yesterday well. Patient denies fever, dizziness, headache, chest pain, shortness of breath, abdominal pain. 01/03/2025: No acute events overnight. Patient was seen and examined bedside. Today patient states he is doing okay. Patient's breathing continues to appear to improve. Plan for HD today. Patient tolerated HD yesterday well. Patient denies fever, dizziness, headache, chest pain, shortness of breath, abdominal pain. Exam Vital Signs Temp Pulse Resp BP Pulse Ox O2 Del Method O2 Flow Rate 98 F 64 16 166/77 H 94 L Room Air 2 01/03/25 15:28 01/03/25 15:28 01/03/25 15:28 01/03/25 15:28 01/03/25 15:28 01/03/25 15:28 01/03/25 14:37 FiO2 32 01/03/25 11:19 Narrative Exam General: Awake, mild respiratory distress; seen in dialysis HEENT: Normocephalic, atraumatic, mucous membranes moist. Heart: Regular rate and rhythm, normal S1 and S2, no murmurs. Lungs: No wheezing, mild (improved) crackles Abdomen: Soft, nondistended, nontender, positive bowel sounds. ?No guarding or rebound tenderness. Neurologic: Alert and oriented x3, no gross neurological deficit, and patient able to move all 4 extremities. Extremities: No edema. Skin: No rash, upper extremity chronic ecchymoses. IJ Vas-Cath Objective Labs 01/04/25 04:50 01/04/25 04:50 Labs: Laboratory Results - last 24 hr 01/03/25 01/03/25 01/03/25 05:09 09:50 11:30 WBC 20.6 H RBC 3.07 L Hgb 8.7 L Hct 27.0 L MCV 88 MCH 28.3 MCHC 32.2 RDW Std Deviation 46.4 H Plt Count 309 Neut % (Auto) 81 H Lymph % (Auto) 10 [place] % (Auto) 7 Eos % (Auto) 1 Baso % (Auto) 0 Neut # (Auto) 16.7 H Lymph # (Auto) 2.1 [place] # (Auto) 1.5 H Eos # (Auto) 0.1 Baso # (Auto) 0.0 Immature Gran # (Auto) 0.19 H Absolute Nucleated RBC 0.00 Immature Gran % 1 H Nucleated RBC % 0 PT 11.9 INR 1.1 APTT 31.6 Sodium 140 Potassium 4.5 Chloride 99 Carbon Dioxide 27.5 Anion Gap 14 BUN 54 H Creatinine 4.4 H* D Estim Creat Clear Calc 13.5 L eGFR 12 L* BUN/Creatinine Ratio 12 Glucose 132 H D Calculated Osmolality 296 H Calcium 8.0 L Corrected Calcium 8.4 L Phosphorus 4.1 Magnesium 2.1 Total Bilirubin 0.4 AST 21 ALT 71 H Alkaline Phosphatase 109 Troponin I 0.113 H* Total Protein 6.4 Albumin 3.5 Globulin 2.9 Albumin/Globulin Ratio 1.2 Blood Type O Negative Antibody Screen NEGATIVE Crossmatch See Detail Blood Bank Wristband ID Yes ABG Interpretation ABG results: 01/01/25 01/01/25 09:50 10:25 ABG pH 7.41 ABG pCO2 32 ABG pO2 76 L ABG HCO3 20 ABG O2 Saturation 96 ABG Base Excess -4 L VBG pH 7.39 VBG pCO2 33 L VBG pO2 49 VBG Base Excess -4 L Quality Measures Quality Measures VTE prophylaxis Advance care planning discussed with:: patient Assessment & Plan Assessment Current Active Medications: Generic Name Dose Route Start Last Admin Trade Name Freq PRN Reason Stop Dose Admin Acetaminophen 650 mg 01/01/25 09:40 Acetaminophen 325 Mg Tablet PO 01/31/25 09:39 Q6H PRN Fever >100.4 or pain Albuterol/Ipratropium 3 ml 01/01/25 19:00 01/03/25 14:17 Albuterol/Ipratropium (Duoneb) Rt Yary 3 Ml Nebu INH 01/31/25 18:59 3 ml Q4HRRT NAHED Administration Aspirin 81 mg 01/02/25 09:00 Aspirin Ec 81 Mg Tabec PO 02/01/25 08:59 QDAY NAHED Atorvastatin Calcium 80 mg 01/02/25 21:00 01/02/25 21:09 Atorvastatin Calcium 20 Mg Tablet PO 02/01/25 20:59 80 mg HS NAHED Administration Carvedilol 12.5 mg 01/01/25 17:30 01/03/25 07:38 Carvedilol 12.5 Mg Tablet PO 01/31/25 17:29 Not Given BIDWM NAHED Dextrose 25 ml 01/01/25 14:11 Dextrose 50%-Water Inj 50 Ml Syringe IV 01/31/25 14:10 Q15MIN PRN BG 50-70 responsive npo pt Dextrose 50 ml 01/01/25 14:11 Dextrose 50%-Water Inj 50 Ml Syringe IV 01/31/25 14:10 Q15MIN PRN BG <50 OR BG <70 & pt unresponsive Docusate Sodium 100 mg 01/01/25 09:45 01/03/25 12:11 Docusate Sod 100 Mg Capsule PO 01/31/25 09:44 100 mg QDAY NAHED Administration Protocol Glucagon 1 mg 01/01/25 14:11 Glucagon Inj 1 Mg Vial IM Q15MIN PRN BG <70, and no IV access Heparin Sodium (Porcine) 3,100 unit 01/01/25 17:10 01/02/25 15:13 Heparin Sod Inj 1000 Unit/Ml Vial 10 Ml INDWELLCAT 01/15/25 17:09 3,100 unit X1 PRN Administration DIALYSIS Insulin Human Lispro 0 unit 01/01/25 17:00 01/03/25 11:53 Insulin Lispro (Admelog) 1 Unit/0.01 Ml Unit SC 01/31/25 16:59 Not Given AC NAHED Protocol Ondansetron HCl 4 mg 01/01/25 09:40 Ondansetron Inj 2 Mg/Ml Inj 2 Ml IVP 01/31/25 09:39 Q6H PRN NAUSEA OR VOMITING Protocol Pantoprazole Sodium 40 mg 01/02/25 09:00 01/03/25 12:11 Pantoprazole 40 Mg Tablet PO 02/01/25 08:59 40 mg QDAY NAHED Administration Sennosides 1 tab 01/01/25 09:40 01/02/25 21:16 Senna Tablet PO 01/31/25 09:39 1 tab QDAY PRN Administration constipation Protocol Tamsulosin HCl 0.8 mg 01/01/25 21:00 01/02/25 21:08 Tamsulosin Hcl 0.4 Mg Capsule PO 01/31/25 20:59 0.8 mg HS NAHED Administration Ticagrelor 90 mg 01/01/25 21:00 Ticagrelor 90 Mg Tablet PO 01/31/25 20:59 BID NAHED Plan Alfredo Fall is an 84 year old male with history of CAD status post PCI to the LCx on 11/11/2024, residual CAD of the RCA severe and moderate LAD being managed medically, CKD stage V, hypertension, type 2 diabetes mellitus, diabetic nephropathy, hyperlipidemia, osteoarthritis, history of TIA versus stroke 2 years ago, BPH, mild chronic anemia secondary to CKD presents with shortness of breath. #FERDINAND on CKD stage V #Hypocalcemia 2/2 CKD #HFpEF (EF 40-45%) Patient has history of CKD V likely due to hypertensive nephropathy with baseline Cr around 4.0. This admission Cr is 5.9, GFR 9, BUN 100, potassium 5.2, sodium 139, corrected calcium 7.9, elevated BNP 1915. CXR showed some congestion with pneumonia. Patient had been refusing to start dialysis. Last admission 12/17 patient was refusing at that time as well. Appears that FERDINAND may be due to fluid overload status. States that he takes Lasix 80mg PO at home and is compliant with medications. Nephrology consulted for FERDINAND on CKD. After long conversation with the patient he agreed for dialysis. Dialysis done 01/01 Hep A IgM (+); asymptomatic, curbsided Dr. Rodriguez: treat supportively. Plan: - May start Brilinta earliest this evening after HD. - Ordered permanent dialysis catheter. - Plan for dialysis today; needs dialysis outpatient - On discharge, return to Dr. Parra -Monitor chemistry -No recent contrast or offending medications -Strict I/Os, monitor UOP -Renal dose med, avoid nephrotoxin #Normocytic anemia #Transaminitis #HTN #HLD #CAD s/p PCI #BPH #Nicotine dependence -management per primary care team Thank you for allowing us to take part in the care of Mr. Fall Patient plan of care was discussed with the attending physician, Dr. Judie Charles MD PGY-1 Attending Provider Attestation/Addendum Patient seen and examined with resident physician Dr. Charles. Note reviewed, agree with findings and recommendations. Currently seen in the emergency department. On BiPAP. Patient with hypoxic respiratory failure and significant azotemia. Long conversation with the patient-finally agreed for dialysis. Vas-Cath placed by Dr. Cohen. Patient did receive dialysis yesterday. 01/03/2025 Patient on third dialysis. Tolerating dialysis without any problems.Off BiPAP. On oxygen nc Noted oozing from the exit site stopped after pressure dressing was applied. Brilinta and aspirin on hold for PermCath placement today. Patient feeling much better. Hemodialysis for 3 hours, 2K, ultrafiltration 1 L, Epogen 6000, no heparin ordered. Plan of care discussed with the dialysis nurse. Please see dialysis flowsheet for further details. Next dialysis scheduled for Monday. PPD negative. Hepatitis A positive. spoke to Dr. Rodriguez-since patient asymptomatic, continue supportive therapy. He will need outpatient dialysis-under Dr Parra Spoke to Dr. Cheng Fan-okay to hold Brilinta and aspirin today for PermCath and start anticoagulation tomorrow. Plan of care discussed with primary team
[2025-01-03] MEDS: fentaNYL CIT INJ 50 mCg/ML AMP 2ML 75 MCG IVP (16:08)
[2025-01-03] MEDS: LIDOCAINE INJ PF 1% 30 ML VIAL 7 ML INFL (16:09)
[2025-01-03] MEDS: HEPARIN SOD LOCK SYR 100 UNIT/ML 500 UNIT STFIELD (16:09)
[2025-01-03] MEDS: HEPARIN SOD INJ 1000 UNIT/ML VIAL 3800 UNIT INDWELLCAT (16:35)
--- NOTE | 2025-01-03 17:39 | PC.NURSE ---
0083 patient is awake, alert, breathing unlabored, s/p dialysis catheter exchange, report given to Coretta EVANS, patient transferred back to room 362 with tele box.
[2025-01-03] MEDS: INSULIN LISPRO (AdmeLOG) 1 UNIT/0.01 ML UNIT SC (17:56)
[2025-01-03 18:23] LABS: Hematocrit 34.9 % (41.0-53.0); Hemoglobin 11.1 g/dL (13.5-16.0)
[2025-01-03 18:57] LABS: Troponin I 0.100 ng/mL (0.0-0.045)
[2025-01-03] MEDS: ACETAMINOPHEN 325 MG TABLET 650 MG PO (20:15)
[2025-01-03] MEDS: TAMSULOSIN HCL 0.4 MG CAPSULE 0.8 MG PO (20:16)
[2025-01-03] MEDS: ATORVASTATIN CALCIUM 20 MG TABLET 80 MG PO (20:17)
[2025-01-04] VITALS (18 sets, daily range): BP systolic 143–160; BP diastolic 65–80; PULSE 62–84; RESP 16–20; TEMP 36.2–36.8; O2SAT 95–99
[2025-01-04 01:00] LABS: Troponin I 0.095 ng/mL (0.0-0.045)
[2025-01-04] MEDS: ALBUTEROL/IPRATROPIUM (Duoneb) RT SOL 3 ML NEBU INH ×6 (02:58→22:29)
[2025-01-04 05:34] LABS: Basophils # (Auto) 0.1 Thou/mm3 (0.0-0.2); Basophils % (Auto) 1 % (0-2.5); Eosinophils # (Auto) 0.9 Thou/mm3 (0.0-0.5); Eosinophils % (Auto) 6 % (0-10); Hematocrit 32.2 % (41.0-53.0); Hemoglobin 10.5 g/dL (13.5-16.0); Immature Granulocytes Auto 0.28 Thou/mm3 (0.00-0.00); Lymphocytes # (Auto) 2.5 Thou/mm3 (1.0-4.8); Lymphocytes % (Auto) 15 % (10-50); Mean Corpuscular HGB Conc 32.6 g/dl (31.0-37.0); Mean Corpuscular Hemoglobin 29.2 pg (25.0-35.0); Mean Corpuscular Volume 89 fL (80-100); Monocytes # (Auto) 1.4 Thou/mm3 (0.0-0.8); Monocytes % (Auto) 9 % (0-12); Neutrophils # (Auto) 10.9 Thou/mm3 (1.8-7.7); Neutrophils % (Auto) 68 % (37-80); Nucleated Red Blood Cell # 0.00 Thou/mm3 (0.00-0.00); Nucleated Red Blood Cell % 0 /100 WBC (0); Platelet Count 313 Thou/mm3 (140-440); RDW Standard Deviation 44.7 fL (35.1-43.9); Red Blood Count 3.60 Miln/mm3 (4.50-5.90); White Blood Count 16.0 Thou/mm3 (3.8-10.6)
[2025-01-04 06:26] LABS: Alanine Aminotransferase 82 U/L (10-49); Albumin, Serum 3.5 gm/dL (3.4-4.8); Albumin/Globulin Ratio 1.3 (1.2-2.2); Alkaline Phosphatase 112 U/L (46-116); Anion Gap 13 (7-16); Aspartate Amino Transferase 39 U/L (0-34); BUN/Creatinine Ratio 12 Ratio (12-20); Bilirubin,Total 0.4 mg/dL (0.3-1.2); Blood Urea Nitrogen 42 mg/dL (9-23); Calcium 8.0 mg/dL (8.3-10.6); Calcium (Corrected) 8.4 mg/dL (8.5-10.1); Carbon Dioxide 28.9 mMol/L (20.0-31.0); Chloride 98 mMol/L (98-107); Creatinine (Component) 3.5 mg/dL (0.6-1.3); Estimated Creatinine Clearance 16.9 mL/min (>60); Globulin 2.8 gm/dL (2.3-3.5); Glucose 122 mg/dL (74-106); Magnesium 2.2 mg/dL (1.6-2.6); Osmolality,Calculated 290 (275-295); Phosphorous 3.9 mg/dL (2.4-5.1); Potassium 3.7 mMol/L (3.4-5.1); Sodium 140 mMol/L (136-145); Total Protein 6.3 gm/dL (5.7-8.2); eGFR 16 See Note
[2025-01-04] MEDS: INSULIN LISPRO (AdmeLOG) 1 UNIT/0.01 ML UNIT SC (08:07)
[2025-01-04] MEDS: PANTOPRAZOLE 40 MG TABLET PO (08:10)
[2025-01-04] MEDS: DOCUSATE SOD 100 MG CAPSULE PO (08:10)
[2025-01-04] MEDS: ACETAMINOPHEN 325 MG TABLET 650 MG PO ×2 (08:13→21:03)
--- NOTE | 2025-01-04 09:20 | PD.RESPRO ---
Documentation for date of: 01/04/25 Subjective Subjective Interval history: Mr. Fuentes is a 84 year old male with history of CAD status post PCI to the LCx on 11/11/2024, residual CAD of the RCA severe and moderate LAD being managed medically, CKD stage V, hypertension, type 2 diabetes mellitus, diabetic nephropathy, hyperlipidemia, osteoarthritis, history of TIA versus stroke 2 years ago, BPH, mild chronic anemia secondary to CKD presents to the ED BIBA from home for evaluation of shortness of breath, described as feeling he is not getting enough air. Reportedly symptoms began several weeks ago and worsening last night. Accompanied by a cough. Patient states he is compliant with medications, but did not take his medication today. Patient states he made a little bit of urine this morning. Denies associated fevers, chills, chest pain, abdominal pain, n/v/d, dysuria, hematuria, or any other urinary symptoms. Denies use of oxygen at home or known history of asthma. Patient recently was admitted to hospital with similar episode of hypoxic respiratory failure and at that time he did not want dialysis. Home medications: Coreg 12.5, Lasix 80, Brilinta 90, amlodipine 10, tamsulosin 0.4, atorvastatin 20, aspirin 81, nitroglycerin 0.4 prn. ED Course: - Initial vitals: 98.3F, 102 HR, 22 RR, 161/81 BP, O2 saturation 93 on 2L NC, - Labs significant for WBC 19.7, potassium 5.2, BUN 100, Cr 5.9, eGFR 9, Glucose 187, Osmolality 313, Ca 7.9, AST 95, ALT 158, Alk Phos 151, Trop 0.027, BNP 1915 - Imaging: CXR: showing mild heart failure, consider superimposed bilateral pneumonia - In the ED, patient was given methylprednisolone 125 mg and DuoNeb, put on 2L NC; given Lasix 40 mg. Patient was admitted for shortness of breath. Nephrology consulted for FERDINAND on CKD. 01/02/2025: No acute events overnight. Patient was seen and examined bedside. Today patient states he is doing better. Patient's breathing has improved, is needing less supplemental oxygen requirement. Patient tolerated HD yesterday well. Patient denies fever, dizziness, headache, chest pain, shortness of breath, abdominal pain. 01/03/2025: No acute events overnight. Patient was seen and examined bedside. Today patient states he is doing okay. Patient's breathing continues to appear to improve. Plan for HD today. Patient tolerated HD yesterday well. Patient denies fever, dizziness, headache, chest pain, shortness of breath, abdominal pain. 01/04/2025: No acute events overnight. Patient was seen and examined bedside. Today patient states he is doing okay. Patient's breathing continues to appear to improve. No HD today. DC [place]. Patient denies fever, dizziness, headache, chest pain, shortness of breath, abdominal pain. Exam Vital Signs Temp Pulse Resp BP Pulse Ox O2 Del Method O2 Flow Rate 98.2 F 72 17 160/68 H 95 Nasal Cannula 2 01/04/25 07:49 01/04/25 08:10 01/04/25 07:49 01/04/25 08:10 01/04/25 07:49 01/04/25 07:49 01/04/25 07:49 FiO2 32 01/03/25 11:19 Objective Labs 01/05/25 04:57 01/05/25 04:57 Labs: Laboratory Results - last 24 hr 01/03/25 01/03/25 01/03/25 09:50 11:30 18:00 WBC RBC Hgb 11.1 L D Hct 34.9 L MCV MCH MCHC RDW Std Deviation Plt Count Neut % (Auto) Lymph % (Auto) [place] % (Auto) Eos % (Auto) Baso % (Auto) Neut # (Auto) Lymph # (Auto) [place] # (Auto) Eos # (Auto) Baso # (Auto) Immature Gran # (Auto) Absolute Nucleated RBC Immature Gran % Nucleated RBC % Sodium Potassium Chloride Carbon Dioxide Anion Gap BUN Creatinine Estim Creat Clear Calc eGFR BUN/Creatinine Ratio Glucose Calculated Osmolality Calcium Corrected Calcium Phosphorus Magnesium Total Bilirubin AST ALT Alkaline Phosphatase Troponin I 0.113 H* 0.100 H* Total Protein Albumin Globulin Albumin/Globulin Ratio Blood Type O Negative Antibody Screen NEGATIVE Crossmatch See Detail Blood Bank Wristband ID Yes 01/04/25 01/04/25 00:17 04:50 WBC 16.0 H RBC 3.60 L Hgb 10.5 L Hct 32.2 L MCV 89 MCH 29.2 MCHC 32.6 RDW Std Deviation 44.7 H Plt Count 313 Neut % (Auto) 68 Lymph % (Auto) 15 [place] % (Auto) 9 Eos % (Auto) 6 Baso % (Auto) 1 Neut # (Auto) 10.9 H Lymph # (Auto) 2.5 [place] # (Auto) 1.4 H Eos # (Auto) 0.9 H Baso # (Auto) 0.1 Immature Gran # (Auto) 0.28 H Absolute Nucleated RBC 0.00 Immature Gran % 2 H Nucleated RBC % 0 Sodium 140 Potassium 3.7 D Chloride 98 Carbon Dioxide 28.9 Anion Gap 13 BUN 42 H Creatinine 3.5 H D Estim Creat Clear Calc 16.9 L eGFR 16 L BUN/Creatinine Ratio 12 Glucose 122 H Calculated Osmolality 290 Calcium 8.0 L Corrected Calcium 8.4 L Phosphorus 3.9 Magnesium 2.2 Total Bilirubin 0.4 AST 39 H ALT 82 H Alkaline Phosphatase 112 Troponin I 0.095 H* Total Protein 6.3 Albumin 3.5 Globulin 2.8 Albumin/Globulin Ratio 1.3 Blood Type Antibody Screen Crossmatch Blood Bank Wristband ID ABG Interpretation ABG results: 01/01/25 01/01/25 09:50 10:25 ABG pH 7.41 ABG pCO2 32 ABG pO2 76 L ABG HCO3 20 ABG O2 Saturation 96 ABG Base Excess -4 L VBG pH 7.39 VBG pCO2 33 L VBG pO2 49 VBG Base Excess -4 L Quality Measures Quality Measures VTE prophylaxis Advance care planning discussed with:: patient Assessment & Plan Assessment Current Active Medications: Generic Name Dose Route Start Last Admin Trade Name Freq PRN Reason Stop Dose Admin Acetaminophen 650 mg 01/01/25 09:40 01/04/25 08:13 Acetaminophen 325 Mg Tablet PO 01/31/25 09:39 650 mg Q6H PRN Administration Fever >100.4 or pain Albuterol/Ipratropium 3 ml 01/01/25 19:00 01/04/25 06:53 Albuterol/Ipratropium (Duoneb) Rt Yary 3 Ml Nebu INH 01/31/25 18:59 3 ml Q4HRRT NAHED Administration Amlodipine Besylate 10 mg 01/04/25 09:00 Amlodipine Besylate 5 Mg Tablet PO 02/03/25 08:59 QDAY NAHED Aspirin 81 mg 01/02/25 09:00 Aspirin Ec 81 Mg Tabec PO 02/01/25 08:59 QDAY NAHED Atorvastatin Calcium 80 mg 01/02/25 21:00 01/03/25 20:17 Atorvastatin Calcium 20 Mg Tablet PO 02/01/25 20:59 80 mg HS NAHED Administration Carvedilol 12.5 mg 01/01/25 17:30 01/04/25 08:10 Carvedilol 12.5 Mg Tablet PO 01/31/25 17:29 12.5 mg BIDWM NAHED Administration Dextrose 25 ml 01/01/25 14:11 Dextrose 50%-Water Inj 50 Ml Syringe IV 01/31/25 14:10 Q15MIN PRN BG 50-70 responsive npo pt Dextrose 50 ml 01/01/25 14:11 Dextrose 50%-Water Inj 50 Ml Syringe IV 01/31/25 14:10 Q15MIN PRN BG <50 OR BG <70 & pt unresponsive Docusate Sodium 100 mg 01/01/25 09:45 01/04/25 08:10 Docusate Sod 100 Mg Capsule PO 01/31/25 09:44 100 mg QDAY NAHED Administration Protocol Glucagon 1 mg 01/01/25 14:11 Glucagon Inj 1 Mg Vial IM Q15MIN PRN BG <70, and no IV access Heparin Sodium (Porcine) 3,100 unit 01/01/25 17:10 01/02/25 15:13 Heparin Sod Inj 1000 Unit/Ml Vial 10 Ml INDWELLCAT 01/15/25 17:09 3,100 unit X1 PRN Administration DIALYSIS Insulin Human Lispro 0 unit 01/01/25 17:00 01/04/25 08:07 Insulin Lispro (Admelog) 1 Unit/0.01 Ml Unit SC 01/31/25 16:59 1 unit AC NAHED Administration Protocol Ondansetron HCl 4 mg 01/01/25 09:40 Ondansetron Inj 2 Mg/Ml Inj 2 Ml IVP 01/31/25 09:39 Q6H PRN NAUSEA OR VOMITING Protocol Pantoprazole Sodium 40 mg 01/02/25 09:00 01/04/25 08:10 Pantoprazole 40 Mg Tablet PO 02/01/25 08:59 40 mg QDAY NAHED Administration Sennosides 1 tab 01/01/25 09:40 01/03/25 20:16 Senna Tablet PO 01/31/25 09:39 1 tab QDAY PRN Administration constipation Protocol Tamsulosin HCl 0.8 mg 01/01/25 21:00 01/03/25 20:16 Tamsulosin Hcl 0.4 Mg Capsule PO 01/31/25 20:59 0.8 mg HS NAHED Administration Ticagrelor 90 mg 01/01/25 21:00 Ticagrelor 90 Mg Tablet PO 01/31/25 20:59 BID NAHED Plan Alfredo aFll is an 84 year old male with history of CAD status post PCI to the LCx on 11/11/2024, residual CAD of the RCA severe and moderate LAD being managed medically, CKD stage V, hypertension, type 2 diabetes mellitus, diabetic nephropathy, hyperlipidemia, osteoarthritis, history of TIA versus stroke 2 years ago, BPH, mild chronic anemia secondary to CKD presents with shortness of breath. #FERDINAND on CKD stage V #Hypocalcemia 2/2 CKD #HFpEF (EF 40-45%) Patient has history of CKD V likely due to hypertensive nephropathy with baseline Cr around 4.0. This admission Cr is 5.9, GFR 9, BUN 100, potassium 5.2, sodium 139, corrected calcium 7.9, elevated BNP 1915. CXR showed some congestion with pneumonia. Patient had been refusing to start dialysis. Last admission 12/17 patient was refusing at that time as well. Appears that FERDINAND may be due to fluid overload status. States that he takes Lasix 80mg PO at home and is compliant with medications. Nephrology consulted for FERDINAND on CKD. After long conversation with the patient he agreed for dialysis. Dialysis done 01/01 Hep A IgM (+); asymptomatic, curbsided Dr. Rodriguez: treat supportively. Plan: - May start Brilinta today. - Permanent dialysis catheter in place. - Hold HD today. - On discharge, return to Dr. Parra -Monitor chemistry -No recent contrast or offending medications -Strict I/Os, monitor UOP -Renal dose med, avoid nephrotoxin #Normocytic anemia #Transaminitis #HTN #HLD #CAD s/p PCI #BPH #Nicotine dependence -management per primary care team Thank you for allowing us to take part in the care of Mr. Fall Patient plan of care was discussed with the attending physician, Dr. Judie Charles MD PGY-1 Attending Provider Attestation/Addendum Patient seen and examined with resident physician Dr. Charles. Note reviewed, agree with findings and recommendations. Currently seen in the emergency department. On BiPAP. Patient with hypoxic respiratory failure and significant azotemia. Long conversation with the patient-finally agreed for dialysis. Vas-Cath placed by Dr. Cohen. Patient did receive dialysis yesterday. 01/04 patient so far received 3 dialysis sessions. On nasal cannula. Resting comfortably. PermCath was placed yesterday. Resume Brilinta and aspirin. Spoke to primary team. PPD negative. Hepatitis A positive. spoke to Dr. Rodriguez-since patient asymptomatic, continue supportive therapy. He will need outpatient dialysis-under Dr Parra
[2025-01-04] MEDS: ASPIRIN EC 81 MG TABEC PO (09:29)
[2025-01-04] MEDS: TICAGRELOR 90 MG TABLET PO ×2 (09:29→20:49)
--- NOTE | 2025-01-04 11:19 | ESPR_ITS ---
<Statement entered by Keisha Schafer MD - 01/10/25 07:31> I reviewed above note and agree with findings and plans. I have also personally examined the patient with medicine team and went over assessment and plan with medical team including manager international and resident physician. <Statement entered by Forrest Amaro MD - 01/04/25 13:00> Patient was seen and examined at the bedside no acute overnight events were reported. Patient has slightly elevated blood pressure this morning. Amlodipine was resumed. Patient got hemodialysis. Aspirin and Brilinta were resumed. Louis catheter was discontinued and voiding trial was ordered with bladder training. Patient is pending on outpatient dialysis chair and will follow mechanical meter tester, Dr Parra as outpatient. White count slightly elevated. Hemoglobin stable at 10. All labs are also reviewed. I discussed and supervised with the manager international physician who took care of this patient. I personally saw and examined the patient. I agree with most of the assessment and plan. Disclaimer: Despite multiple revisions, due to the dictation software being used, the document bellow may not be free of grammatical errors including phonetic/typographic errors. However, this does not deter from our commitment to providing health care in the patient's best interest in mind. Plan of care discussed with attending Physician Dr. Hanh Amaro MD PGY-3 Documentation for date of: 01/04/25 Subjective Subjective Interval history: No overnight events. Evaluated at bedside. Pt saturates at 95% on 2L. Dialysis insertion site clean, dry, and intact. Resume aspirin and brillinta today, plan for second session of PCI in later days in [place] per cardiology recs. Pending PT Eval. Plan for outpt dialysis under Dr. Parra. D/C louis. Denies chest pain or SOB. Exam Vital Signs Temp Pulse Resp BP Pulse Ox O2 Del Method O2 Flow Rate 98.2 F 62 18 160/68 H 95 Nasal Cannula 2 01/04/25 07:49 01/04/25 10:57 01/04/25 10:57 01/04/25 09:29 01/04/25 10:57 01/04/25 07:49 01/04/25 10:57 FiO2 32 01/03/25 11:19 Narrative Exam General: NAD, Oriented x 3. Saturate 95% on RA Skin: Good turgor, no rash, unusual bruising or prominent lesions Heart: No cardiomegaly or thrills; regular rate and rhythm, no murmur or gallop Lungs: CTAB Abdomen: Bowel sounds normal, no tenderness, organomegaly, masses, or hernia Back: Spine normal without deformity or tenderness, no CVA tenderness Extremities: No amputations or deformities, cyanosis, edema or varicosities, peripheral pulses intact Musculoskeletal: No misalignment, asymmetry, crepitation, defects, tenderness, masses, effusions, decreased range of motion, instability, atrophy or abnormal strength or tone in the head, neck, spine, ribs, pelvis or extremities. Objective Labs 01/04/25 04:50 01/04/25 04:50 Labs: Laboratory Results - last 24 hr 01/03/25 01/03/25 01/03/25 09:50 11:30 18:00 WBC RBC Hgb 11.1 L D Hct 34.9 L MCV MCH MCHC RDW Std Deviation Plt Count Neut % (Auto) Lymph % (Auto) [place] % (Auto) Eos % (Auto) Baso % (Auto) Neut # (Auto) Lymph # (Auto) [place] # (Auto) Eos # (Auto) Baso # (Auto) Immature Gran # (Auto) Absolute Nucleated RBC Immature Gran % Nucleated RBC % Sodium Potassium Chloride Carbon Dioxide Anion Gap BUN Creatinine Estim Creat Clear Calc eGFR BUN/Creatinine Ratio Glucose Calculated Osmolality Calcium Corrected Calcium Phosphorus Magnesium Total Bilirubin AST ALT Alkaline Phosphatase Troponin I 0.113 H* 0.100 H* Total Protein Albumin Globulin Albumin/Globulin Ratio Blood Type O Negative Antibody Screen NEGATIVE Crossmatch See Detail Blood Bank Wristband ID Yes 01/04/25 01/04/25 00:17 04:50 WBC 16.0 H RBC 3.60 L Hgb 10.5 L Hct 32.2 L MCV 89 MCH 29.2 MCHC 32.6 RDW Std Deviation 44.7 H Plt Count 313 Neut % (Auto) 68 Lymph % (Auto) 15 [place] % (Auto) 9 Eos % (Auto) 6 Baso % (Auto) 1 Neut # (Auto) 10.9 H Lymph # (Auto) 2.5 [place] # (Auto) 1.4 H Eos # (Auto) 0.9 H Baso # (Auto) 0.1 Immature Gran # (Auto) 0.28 H Absolute Nucleated RBC 0.00 Immature Gran % 2 H Nucleated RBC % 0 Sodium 140 Potassium 3.7 D Chloride 98 Carbon Dioxide 28.9 Anion Gap 13 BUN 42 H Creatinine 3.5 H D Estim Creat Clear Calc 16.9 L eGFR 16 L BUN/Creatinine Ratio 12 Glucose 122 H Calculated Osmolality 290 Calcium 8.0 L Corrected Calcium 8.4 L Phosphorus 3.9 Magnesium 2.2 Total Bilirubin 0.4 AST 39 H ALT 82 H Alkaline Phosphatase 112 Troponin I 0.095 H* Total Protein 6.3 Albumin 3.5 Globulin 2.8 Albumin/Globulin Ratio 1.3 Blood Type Antibody Screen Crossmatch Blood Bank Wristband ID ABG Interpretation ABG results: 01/01/25 01/01/25 09:50 10:25 ABG pH 7.41 ABG pCO2 32 ABG pO2 76 L ABG HCO3 20 ABG O2 Saturation 96 ABG Base Excess -4 L VBG pH 7.39 VBG pCO2 33 L VBG pO2 49 VBG Base Excess -4 L Quality Measures Quality Measures VTE prophylaxis Advance care planning discussed with:: patient Assessment & Plan Assessment Current Active Medications: Generic Name Dose Route Start Last Admin Trade Name Freq PRN Reason Stop Dose Admin Acetaminophen 650 mg 01/01/25 09:40 01/04/25 08:13 Acetaminophen 325 Mg Tablet PO 01/31/25 09:39 650 mg Q6H PRN Administration Fever >100.4 or pain Albuterol/Ipratropium 3 ml 01/01/25 19:00 01/04/25 10:56 Albuterol/Ipratropium (Duoneb) Rt Yary 3 Ml Nebu INH 01/31/25 18:59 3 ml Q4HRRT NAHED Administration Amlodipine Besylate 10 mg 01/04/25 09:00 01/04/25 09:29 Amlodipine Besylate 5 Mg Tablet PO 02/03/25 08:59 10 mg QDAY NAHED Administration Aspirin 81 mg 01/02/25 09:00 01/04/25 09:29 Aspirin Ec 81 Mg Tabec PO 02/01/25 08:59 81 mg QDAY NAHED Administration Atorvastatin Calcium 80 mg 01/02/25 21:00 01/03/25 20:17 Atorvastatin Calcium 20 Mg Tablet PO 02/01/25 20:59 80 mg HS NAHED Administration Carvedilol 12.5 mg 01/01/25 17:30 01/04/25 08:10 Carvedilol 12.5 Mg Tablet PO 01/31/25 17:29 12.5 mg BIDWM NAHED Administration Dextrose 25 ml 01/01/25 14:11 Dextrose 50%-Water Inj 50 Ml Syringe IV 01/31/25 14:10 Q15MIN PRN BG 50-70 responsive npo pt Dextrose 50 ml 01/01/25 14:11 Dextrose 50%-Water Inj 50 Ml Syringe IV 01/31/25 14:10 Q15MIN PRN BG <50 OR BG <70 & pt unresponsive Docusate Sodium 100 mg 01/01/25 09:45 01/04/25 08:10 Docusate Sod 100 Mg Capsule PO 01/31/25 09:44 100 mg QDAY NAHED Administration Protocol Glucagon 1 mg 01/01/25 14:11 Glucagon Inj 1 Mg Vial IM Q15MIN PRN BG <70, and no IV access Heparin Sodium (Porcine) 3,100 unit 01/01/25 17:10 01/02/25 15:13 Heparin Sod Inj 1000 Unit/Ml Vial 10 Ml INDWELLCAT 01/15/25 17:09 3,100 unit X1 PRN Administration DIALYSIS Insulin Human Lispro 0 unit 01/01/25 17:00 01/04/25 08:07 Insulin Lispro (Admelog) 1 Unit/0.01 Ml Unit SC 01/31/25 16:59 1 unit AC NAHED Administration Protocol Ondansetron HCl 4 mg 01/01/25 09:40 Ondansetron Inj 2 Mg/Ml Inj 2 Ml IVP 01/31/25 09:39 Q6H PRN NAUSEA OR VOMITING Protocol Pantoprazole Sodium 40 mg 01/02/25 09:00 01/04/25 08:10 Pantoprazole 40 Mg Tablet PO 02/01/25 08:59 40 mg QDAY NAHED Administration Sennosides 1 tab 01/01/25 09:40 01/03/25 20:16 Senna Tablet PO 01/31/25 09:39 1 tab QDAY PRN Administration constipation Protocol Tamsulosin HCl 0.8 mg 01/01/25 21:00 01/03/25 20:16 Tamsulosin Hcl 0.4 Mg Capsule PO 01/31/25 20:59 0.8 mg HS NAHED Administration Ticagrelor 90 mg 01/01/25 21:00 01/04/25 09:29 Ticagrelor 90 Mg Tablet PO 01/31/25 20:59 90 mg BID NAHED Administration Plan 84-year-old male with CAD s/p PCI (11/11/24), CKD V now ESRD on HD, HFmrEF, COPD, and T2DM, admitted with acute hypoxic respiratory failure and fluid overload now improving on hemodialysis, planned for outpatient RCA PCI at [facility] due to complexity. #Acute hypoxic respiratory failure (CHF exacerbation vs. pneumonia vs. COPD) Volume overload + possible bilateral pneumonia + COPD; improved with HD, steroids, and O2; now satting well on 2L NC, no SOB at rest. BNP: 1915 CXR on 01/01: Vascular congestion, possible bilateral PNA WBC: Down from peak of 20.6 Plan: - Continue O2 as needed, wean if tolerating - Continue hemodialysis with net negative fluid goal (2L/session) - Completed azithromycin course 01/01/25 ~ 01/03/25 (3/3 day) - Continue Duonebs Q4H PRN - Monitor WBC trend #End-Stage Renal Disease on Hemodialysis Previously CKD V with baseline Cr ~4; now ESRD with Cr improving (5.9 --> 5.1 --> 4.4); dialysis initiated this admission and tolerated well. Plan: - Permcath placement on 01/03 - Continue HD with nephrology - Strict NPO status pre-procedure - Monitor UOP and I/Os - Daily BMP - Renal-dose medications - Avoid nephrotoxins - Arrange outpatient HD referral - Resume Brilinta/ASA per cardiology #Congestive Heart Failure with mid-range EF (HFmrEF, EF 40?45%) presented with worsening dyspnea, orthopnea, and volume overload. BNP was elevated to 1915; TTE on prior admission showed EF 40?45%. Exam revealed bibasilar crackles without peripheral edema. CXR showed vascular congestion with concern for superimposed pneumonia. Symptoms improved significantly after initiation of hemodialysis and diuresis with Lasix. Troponins are chronically elevated but without ischemic symptoms. Plan for second session of PCI in [place] Plan: - Continue HD with net negative UF ~2L/session to optimize volume status - Monitor for signs of congestion (weight, I/Os, crackles, edema) - Cardiology recommends outpatient PCI for RCA; continue medical management for now - Resume ASA/Brilinta - Continue carvedilol 12.5 BID - Monitor troponin trend, daily weight, and electrolytes - Repeat BNP if clinical status worsens - Avoid excessive fluid intake; maintain cardiac diet #CAD s/p PCI (LCx 11/11/24); Severe RCA CAD pending PCI Patient on DAPT with ASA + Brilinta, held due to bleeding from HD site, ok to resume now per cardiology. Troponins trending up, currently asymptomatic. Plan for outpatient PCI ([place]) due to complexity. Troponins: downtrending with peak of 0.176 Plan: * Cardiology deferred cath today, plan for outpatient RCA PCI in [place] * Resume ASA and Brilinta * Continue carvedilol 12.5 BID #Anemia of CKD (worsening) Initial Hgb 10.7 , now stable. Stable Hct; no evidence of hemolysis or GI bleeding; likely multifactorial (CKD + dialysis losses). Plan: * Transfuse 1 unit PRBC 01/03/26 (per cardiology) * Monitor post-transfusion H/H * Monitor retic if needed * Reassess for need of EPO if Hgb remains <9 #Hyperkalemia Resolved with HD and insulin/glucose Plan: * Continue monitoring via daily BMP * No further intervention needed unless rises #Hypocalcemia Initial Ca 7.9 --> improved to 8.0; asymptomatic Plan: * Replete calcium as needed * Monitor daily BMP #Transaminitis (mild) Likely congestive hepatopathy vs. Hep A IgM reactive AST 95, ALT 158 Plan: * Supportive care * Hep A IgM positive, asymptomatic --> monitor LFTs * No treatment indicated per ID #COPD exacerbation No wheezing now, tolerating Duonebs; completed azithro Plan: * Finished azithromycin course * Continue Duonebs Q4H PRN * Monitor for respiratory distress #T2DM A1c 6.5; steroid-induced hyperglycemia possible Plan: * Continue sliding scale insulin * Monitor glucose closely * IV dextrose protocol if hypoglycemic #Hypertension BP 156/80 today; at goal range for ESRD/CHF patient Plan: * Continue carvedilol 12.5 BID * Start amlodipine 10 mg QD #Hyperlipidemia LDL 47, HDL 26, Triglycerides 83 Plan: * Continue atorvastatin 80mg QD #BPH Plan: * Continue tamsulosin 0.8mg QHS Health Maintenance: Disposition: Med-Tele; follow-up post-permcath and HD Feeding: cardiac diet Thromboprophylaxis: SCDs GI prophylaxis: Pantoprazole 40mg daily Code Status: DNR Case discussed with my senior resident Dr. Amaro Case discussed with my attending Dr. Hanh Garnett, PGY 1
[2025-01-04 13:16] LABS: HIV (1&2) Antibody Rapid Non-Reactive
--- NOTE | 2025-01-04 15:23 | PC.SS ---
PPD results submitted via fax [phone] and [facility] to LAURA Laureano. SS attempted to call [facility] Dialysis to confirm receipt of documents. [facility] Dialysis closed.
[2025-01-04] MEDS: TAMSULOSIN HCL 0.4 MG CAPSULE 0.8 MG PO (20:48)
--- NOTE | 2025-01-04 20:48 | PC.NURSE ---
Patient louis catheter clamped, bladder scan showed 246mls, when unclamped louis catheter drained 200 mls of urine, will clamp louis one more time and d/c after.
[2025-01-04] MEDS: ATORVASTATIN CALCIUM 20 MG TABLET 80 MG PO (20:49)
--- NOTE | 2025-01-04 20:49 | ESPR_ITS ---
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 Tanner Arias Documentation for date of: 01/04/25 Subjective Subjective Interval history: Patient is seen and examined at bedside No acute overnight events. Denies any other complaints Vitals are stable. On physical examination, noted right-sided basilar crackles Patient is wondering when he is going to get cardiac catheterization Tolerating the dialysis well Recommend to continue current management and will discuss about the patient with Dr. Ann and will decide on scheduling patient for cardiac catheterization Exam Vital Signs Temp Pulse Resp BP Pulse Ox O2 Del Method O2 Flow Rate 98 F 70 20 150/65 H 96 Nasal Cannula 2 01/04/25 20:00 01/04/25 20:00 01/04/25 20:00 01/04/25 20:00 01/04/25 20:00 01/04/25 20:00 01/04/25 20:00 FiO2 32 01/03/25 11:19 Narrative Exam General: No acute distress, Alert and Oriented x 3 HEENT: Moist mucous membranes, oropharynx clear, HD catheter on place Neck: Supple, No masses, No JVD CVS: S1S2 Regular rate and rhythm, No murmurs, rubs or gallops Lungs: Mild bibasilar lower lobe crackles, no wheeze no rhonchi Abd: Soft, NT/ND, +BS, no organomegaly Ext: No edema, warm and well perfused Skin: No rash Psych: Appropriate mood and affect Objective Labs 01/06/25 06:32 01/06/25 06:32 Labs: Laboratory Results - last 24 hr 01/04/25 01/04/25 00:17 04:50 WBC 16.0 H RBC 3.60 L Hgb 10.5 L Hct 32.2 L MCV 89 MCH 29.2 MCHC 32.6 RDW Std Deviation 44.7 H Plt Count 313 Neut % (Auto) 68 Lymph % (Auto) 15 [place] % (Auto) 9 Eos % (Auto) 6 Baso % (Auto) 1 Neut # (Auto) 10.9 H Lymph # (Auto) 2.5 [place] # (Auto) 1.4 H Eos # (Auto) 0.9 H Baso # (Auto) 0.1 Immature Gran # (Auto) 0.28 H Absolute Nucleated RBC 0.00 Immature Gran % 2 H Nucleated RBC % 0 Sodium 140 Potassium 3.7 D Chloride 98 Carbon Dioxide 28.9 Anion Gap 13 BUN 42 H Creatinine 3.5 H D Estim Creat Clear Calc 16.9 L eGFR 16 L BUN/Creatinine Ratio 12 Glucose 122 H Calculated Osmolality 290 Calcium 8.0 L Corrected Calcium 8.4 L Phosphorus 3.9 Magnesium 2.2 Total Bilirubin 0.4 AST 39 H ALT 82 H Alkaline Phosphatase 112 Troponin I 0.095 H* Total Protein 6.3 Albumin 3.5 Globulin 2.8 Albumin/Globulin Ratio 1.3 HIV 1&2 Antibody Rapid Non-Reactive ABG Interpretation ABG results: 01/01/25 01/01/25 09:50 10:25 ABG pH 7.41 ABG pCO2 32 ABG pO2 76 L ABG HCO3 20 ABG O2 Saturation 96 ABG Base Excess -4 L VBG pH 7.39 VBG pCO2 33 L VBG pO2 49 VBG Base Excess -4 L Quality Measures Quality Measures VTE prophylaxis Advance care planning discussed with:: patient Assessment & Plan Assessment Current Active Medications: Generic Name Dose Route Start Last Admin Trade Name Freq PRN Reason Stop Dose Admin Acetaminophen 650 mg 01/01/25 09:40 01/04/25 08:13 Acetaminophen 325 Mg Tablet PO 01/31/25 09:39 650 mg Q6H PRN Administration Fever >100.4 or pain Albuterol/Ipratropium 3 ml 01/01/25 19:00 01/04/25 19:05 Albuterol/Ipratropium (Duoneb) Rt Yary 3 Ml Nebu INH 01/31/25 18:59 3 ml Q4HRRT NAHED Administration Amlodipine Besylate 10 mg 01/04/25 09:00 01/04/25 09:29 Amlodipine Besylate 5 Mg Tablet PO 02/03/25 08:59 10 mg QDAY NAHED Administration Aspirin 81 mg 01/02/25 09:00 01/04/25 09:29 Aspirin Ec 81 Mg Tabec PO 02/01/25 08:59 81 mg QDAY NAHED Administration Atorvastatin Calcium 80 mg 01/02/25 21:00 01/03/25 20:17 Atorvastatin Calcium 20 Mg Tablet PO 02/01/25 20:59 80 mg HS NAHED Administration Carvedilol 12.5 mg 01/01/25 17:30 01/04/25 17:10 Carvedilol 12.5 Mg Tablet PO 01/31/25 17:29 12.5 mg BIDWM NAHED Administration Dextrose 25 ml 01/01/25 14:11 Dextrose 50%-Water Inj 50 Ml Syringe IV 01/31/25 14:10 Q15MIN PRN BG 50-70 responsive npo pt Dextrose 50 ml 01/01/25 14:11 Dextrose 50%-Water Inj 50 Ml Syringe IV 01/31/25 14:10 Q15MIN PRN BG <50 OR BG <70 & pt unresponsive Docusate Sodium 100 mg 01/01/25 09:45 01/04/25 08:10 Docusate Sod 100 Mg Capsule PO 01/31/25 09:44 100 mg QDAY NAHED Administration Protocol Glucagon 1 mg 01/01/25 14:11 Glucagon Inj 1 Mg Vial IM Q15MIN PRN BG <70, and no IV access Heparin Sodium (Porcine) 3,100 unit 01/01/25 17:10 01/02/25 15:13 Heparin Sod Inj 1000 Unit/Ml Vial 10 Ml INDWELLCAT 01/15/25 17:09 3,100 unit X1 PRN Administration DIALYSIS Insulin Human Lispro 0 unit 01/01/25 17:00 01/04/25 17:03 Insulin Lispro (Admelog) 1 Unit/0.01 Ml Unit SC 01/31/25 16:59 Not Given AC NAHED Protocol Ondansetron HCl 4 mg 01/01/25 09:40 Ondansetron Inj 2 Mg/Ml Inj 2 Ml IVP 01/31/25 09:39 Q6H PRN NAUSEA OR VOMITING Protocol Pantoprazole Sodium 40 mg 01/02/25 09:00 01/04/25 08:10 Pantoprazole 40 Mg Tablet PO 02/01/25 08:59 40 mg QDAY NAHED Administration Sennosides 1 tab 01/01/25 09:40 01/03/25 20:16 Senna Tablet PO 01/31/25 09:39 1 tab QDAY PRN Administration constipation Protocol Tamsulosin HCl 0.8 mg 01/01/25 21:00 01/03/25 20:16 Tamsulosin Hcl 0.4 Mg Capsule PO 01/31/25 20:59 0.8 mg HS NAHED Administration Ticagrelor 90 mg 01/01/25 21:00 01/04/25 09:29 Ticagrelor 90 Mg Tablet PO 01/31/25 20:59 90 mg BID NAHED Administration Plan The patient is an 84-year-old male with a past medical history of CAD status post PCI to the LCx on 11/11/2024, residual CAD of the RCA severe and moderate LAD being managed medically, CKD stage IV-V, with baseline creatinine of around 4, hypertension, type 2 diabetes mellitus, diabetic nephropathy, hyperlipidemia, osteoarthritis, history of TIA versus stroke 2 years ago, chronic smoker with more than 26-08-fbnn-year smoking history, BPH, mild chronic anemia secondary to CKD presented to the emergency department for further evaluation of shortness of breath. #Acute hypoxic respiratory failure 2/2 #Fluid overload 2/2 #CKD stage V, and #HFmrEF exacerbation Patient presented with chief complaint of shortness of breath, was found to have mild vascular congestions, superimposed bilateral pneumonia on chest x-ray, BNP level was 1915. - Patient underwent 1 session of hemodialysis - Was saturating 94% on RA #CAD s/p stent on 11/11/2024 Patient is on aspirin 81 Mg daily and Brilinta 90 Mg twice daily - Recommended to resume aspirin and brillinta after the HD perm cath is placed. - Plan to undergo second session of PCI in later days at [place], given the complication of case #Acute blood loss anemia 2/2 bleeding from HD catheter site - 1 Unit prbc transfused #Hypertension - Continue with carvedilol 12.5 Mg twice daily - Consider adding amlodipine 5 mg #Hyperkalemia #Hypocalcemia - Monitor and replete as needed #COPD exacerbation #Community-acquired pneumonia #Mild transaminitis #Type 2 diabetes mellitus #BPH Rest of the management deferred to primary hospitalist team. Thank you for cardiology consultation. We appreciate the opportunity to participate in this patient's care. Cardiology team will continue to follow-up in this patient care. 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 Meng Andrews, PGY2
[2025-01-05] VITALS (17 sets, daily range): BP systolic 144–153; BP diastolic 69–82; PULSE 67–85; RESP 17–22; TEMP 36.2–36.6; O2SAT 94–100
[2025-01-05] MEDS: ALBUTEROL/IPRATROPIUM (Duoneb) RT SOL 3 ML NEBU INH ×6 (02:28→22:50)
[2025-01-05] MEDS: ACETAMINOPHEN 325 MG TABLET 650 MG PO ×2 (03:19→22:15)
[2025-01-05 06:12] LABS: Basophils # (Auto) 0.1 Thou/mm3 (0.0-0.2); Basophils % (Auto) 0 % (0-2.5); Eosinophils # (Auto) 1.5 Thou/mm3 (0.0-0.5); Eosinophils % (Auto) 9 % (0-10); Hematocrit 33.0 % (41.0-53.0); Hemoglobin 10.9 g/dL (13.5-16.0); Immature Granulocytes Auto 0.22 Thou/mm3 (0.00-0.00); Lymphocytes # (Auto) 2.0 Thou/mm3 (1.0-4.8); Lymphocytes % (Auto) 12 % (10-50); Mean Corpuscular HGB Conc 33.0 g/dl (31.0-37.0); Mean Corpuscular Hemoglobin 29.2 pg (25.0-35.0); Mean Corpuscular Volume 89 fL (80-100); Monocytes # (Auto) 1.3 Thou/mm3 (0.0-0.8); Monocytes % (Auto) 8 % (0-12); Neutrophils # (Auto) 12.0 Thou/mm3 (1.8-7.7); Neutrophils % (Auto) 70 % (37-80); Nucleated Red Blood Cell # 0.02 Thou/mm3 (0.00-0.00); Nucleated Red Blood Cell % 0 /100 WBC (0); Platelet Count 288 Thou/mm3 (140-440); RDW Standard Deviation 43.6 fL (35.1-43.9); Red Blood Count 3.73 Miln/mm3 (4.50-5.90); White Blood Count 17.0 Thou/mm3 (3.8-10.6)
[2025-01-05 06:42] LABS: Alanine Aminotransferase 109 U/L (10-49); Albumin, Serum 3.3 gm/dL (3.4-4.8); Albumin/Globulin Ratio 1.2 (1.2-2.2); Alkaline Phosphatase 114 U/L (46-116); Anion Gap 14 (7-16); Aspartate Amino Transferase 57 U/L (0-34); BUN/Creatinine Ratio 11 Ratio (12-20); Bilirubin,Total 0.4 mg/dL (0.3-1.2); Blood Urea Nitrogen 47 mg/dL (9-23); Calcium 7.8 mg/dL (8.3-10.6); Calcium (Corrected) 8.4 mg/dL (8.5-10.1); Carbon Dioxide 24.8 mMol/L (20.0-31.0); Chloride 97 mMol/L (98-107); Creatinine (Component) 4.2 mg/dL (0.6-1.3); Estimated Creatinine Clearance 14.1 mL/min (>60); Globulin 2.8 gm/dL (2.3-3.5); Glucose 131 mg/dL (74-106); Magnesium 1.9 mg/dL (1.6-2.6); Osmolality,Calculated 286 (275-295); Phosphorous 3.8 mg/dL (2.4-5.1); Potassium 3.6 mMol/L (3.4-5.1); Sodium 136 mMol/L (136-145); Total Protein 6.1 gm/dL (5.7-8.2); eGFR 13 See Note
[2025-01-05] MEDS: TICAGRELOR 90 MG TABLET PO ×2 (08:25→20:18)
[2025-01-05] MEDS: PANTOPRAZOLE 40 MG TABLET PO (08:25)
[2025-01-05] MEDS: ASPIRIN EC 81 MG TABEC PO (08:26)
[2025-01-05] MEDS: Magnesium Sulfate 4 GM Ivpb 4 GM/50 ML BAG IV (08:26)
[2025-01-05] MEDS: DOCUSATE SOD 100 MG CAPSULE PO (08:26)
--- NOTE | 2025-01-05 10:59 | PC.SS ---
SS informed by CRISTINA Biggs, patient and family requesting SNF placement. Patient requested [facility], SS explained to patient insurance auth. for SNF will be needed. Referrals for SNF placement submitted via [facility], pending responses. [facility] lvl1 cleared and closed. PT eval. pending, HD chairtime schedule pending completion for 01/06/25. PPD test results faxed [phone] and submitted via [facility] to [facility].
[2025-01-05] MEDS: INSULIN LISPRO (AdmeLOG) 1 UNIT/0.01 ML UNIT SC ×2 (11:51→17:06)
--- NOTE | 2025-01-05 13:03 | ESPR_ITS ---
Documentation for date of: 01/05/25 Subjective Subjective Interval history: Mr. Fuentes is a 84 year old male with history of CAD status post PCI to the LCx on 11/11/2024, residual CAD of the RCA severe and moderate LAD being managed medically, CKD stage V, hypertension, type 2 diabetes mellitus, diabetic nephropathy, hyperlipidemia, osteoarthritis, history of TIA versus stroke 2 years ago, BPH, mild chronic anemia secondary to CKD presents to the ED BIBA from home for evaluation of shortness of breath, described as feeling he is not getting enough air. Reportedly symptoms began several weeks ago and worsening last night. Accompanied by a cough. Patient states he is compliant with medications, but did not take his medication today. Patient states he made a little bit of urine this morning. Denies associated fevers, chills, chest pain, abdominal pain, n/v/d, dysuria, hematuria, or any other urinary symptoms. Denies use of oxygen at home or known history of asthma. Patient recently was admitted to hospital with similar episode of hypoxic respiratory failure and at that time he did not want dialysis. Home medications: Coreg 12.5, Lasix 80, Brilinta 90, amlodipine 10, tamsulosin 0.4, atorvastatin 20, aspirin 81, nitroglycerin 0.4 prn. ED Course: - Initial vitals: 98.3F, 102 HR, 22 RR, 161/81 BP, O2 saturation 93 on 2L NC, - Labs significant for WBC 19.7, potassium 5.2, BUN 100, Cr 5.9, eGFR 9, Glucose 187, Osmolality 313, Ca 7.9, AST 95, ALT 158, Alk Phos 151, Trop 0.027, BNP 1915 - Imaging: CXR: showing mild heart failure, consider superimposed bilateral pneumonia - In the ED, patient was given methylprednisolone 125 mg and DuoNeb, put on 2L NC; given Lasix 40 mg. Patient was admitted for shortness of breath. Nephrology consulted for FERDINAND on CKD. 01/02/2025: No acute events overnight. Patient was seen and examined bedside. Today patient states he is doing better. Patient's breathing has improved, is needing less supplemental oxygen requirement. Patient tolerated HD yesterday well. Patient denies fever, dizziness, headache, chest pain, shortness of breath, abdominal pain. 01/03/2025: No acute events overnight. Patient was seen and examined bedside. Today patient states he is doing okay. Patient's breathing continues to appear to improve. Plan for HD today. Patient tolerated HD yesterday well. Patient denies fever, dizziness, headache, chest pain, shortness of breath, abdominal pain. 01/04/2025: No acute events overnight. Patient was seen and examined bedside. Today patient states he is doing okay. Patient's breathing continues to appear to improve. No HD today. GRECIA [place]. Patient denies fever, dizziness, headache, chest pain, shortness of breath, abdominal pain. 01/05/2025: Patient seen and examined at bedside lying comfortably in bed. No new complaints. States he is feeling well. Denies chest pain, SOB or fever K 3.6 BUN 47, Cr 4.3, Ca 8.4. Plan for next HD session tomorrow and encourage patient to ambulate with PT. Exam Vital Signs Temp Pulse Resp BP Pulse Ox O2 Del Method O2 Flow Rate 97.2 F 72 18 148/74 H 98 Room Air 1 01/05/25 11:50 01/05/25 12:00 01/05/25 11:50 01/05/25 11:50 01/05/25 11:50 01/05/25 11:50 01/05/25 04:00 FiO2 32 01/03/25 11:19 Narrative Exam GENERAL: AOx3, no acute distress HEENT: NC/AT, mucous membranes moist, bilateral sclera anicteric CARDIOVASCULAR: regular rate and rhythm, S1/S2 present, no murmurs appreciated PULMONARY: trace b/l diffuse crackles most prominent at bases ABDOMINAL: soft, non-tender, non-distended, no rebound/guarding, bowel sounds present EXTREMITIES: no peripheral edema SKIN: warm and dry, intact, no rashes, IJ Vas-Cath NEURO: CN II-XII grossly intact, no focal deficits, alert, following commands Objective Labs 01/05/25 04:57 01/05/25 04:57 Labs: Laboratory Results - last 24 hr 01/04/25 01/05/25 04:50 04:57 WBC 17.0 H RBC 3.73 L Hgb 10.9 L Hct 33.0 L MCV 89 MCH 29.2 MCHC 33.0 RDW Std Deviation 43.6 Plt Count 288 Neut % (Auto) 70 Lymph % (Auto) 12 [place] % (Auto) 8 Eos % (Auto) 9 Baso % (Auto) 0 Neut # (Auto) 12.0 H Lymph # (Auto) 2.0 [place] # (Auto) 1.3 H Eos # (Auto) 1.5 H Baso # (Auto) 0.1 Immature Gran # (Auto) 0.22 H Absolute Nucleated RBC 0.02 H Immature Gran % 1 H Nucleated RBC % 0 Sodium 136 Potassium 3.6 Chloride 97 L Carbon Dioxide 24.8 Anion Gap 14 BUN 47 H Creatinine 4.2 H* D Estim Creat Clear Calc 14.1 L eGFR 13 L* BUN/Creatinine Ratio 11 L Glucose 131 H Calculated Osmolality 286 Calcium 7.8 L Corrected Calcium 8.4 L Phosphorus 3.8 Magnesium 1.9 Total Bilirubin 0.4 AST 57 H ALT 109 H Alkaline Phosphatase 114 Total Protein 6.1 Albumin 3.3 L Globulin 2.8 Albumin/Globulin Ratio 1.2 HIV 1&2 Antibody Rapid Non-Reactive ABG Interpretation ABG results: 01/01/25 01/01/25 09:50 10:25 ABG pH 7.41 ABG pCO2 32 ABG pO2 76 L ABG HCO3 20 ABG O2 Saturation 96 ABG Base Excess -4 L VBG pH 7.39 VBG pCO2 33 L VBG pO2 49 VBG Base Excess -4 L Quality Measures Quality Measures VTE prophylaxis Advance care planning discussed with:: patient Assessment & Plan Assessment Current Active Medications: Generic Name Dose Route Start Last Admin Trade Name Freq PRN Reason Stop Dose Admin Acetaminophen 650 mg 01/01/25 09:40 01/05/25 03:19 Acetaminophen 325 Mg Tablet PO 01/31/25 09:39 650 mg Q6H PRN Administration Fever >100.4 or pain Albuterol/Ipratropium 3 ml 01/01/25 19:00 01/05/25 11:30 Albuterol/Ipratropium (Duoneb) Rt Yary 3 Ml Nebu INH 01/31/25 18:59 3 ml Q4HRRT NAHED Administration Amlodipine Besylate 10 mg 01/04/25 09:00 01/05/25 08:25 Amlodipine Besylate 5 Mg Tablet PO 02/03/25 08:59 10 mg QDAY NAHED Administration Aspirin 81 mg 01/02/25 09:00 01/05/25 08:26 Aspirin Ec 81 Mg Tabec PO 02/01/25 08:59 81 mg QDAY NAHED Administration Atorvastatin Calcium 80 mg 01/02/25 21:00 01/04/25 20:49 Atorvastatin Calcium 20 Mg Tablet PO 02/01/25 20:59 80 mg HS NAHED Administration Carvedilol 12.5 mg 01/01/25 17:30 01/05/25 09:20 Carvedilol 12.5 Mg Tablet PO 01/31/25 17:29 12.5 mg BIDWM NAHED Administration Dextrose 25 ml 01/01/25 14:11 Dextrose 50%-Water Inj 50 Ml Syringe IV 01/31/25 14:10 Q15MIN PRN BG 50-70 responsive npo pt Dextrose 50 ml 01/01/25 14:11 Dextrose 50%-Water Inj 50 Ml Syringe IV 01/31/25 14:10 Q15MIN PRN BG <50 OR BG <70 & pt unresponsive Docusate Sodium 100 mg 01/01/25 09:45 01/05/25 08:26 Docusate Sod 100 Mg Capsule PO 01/31/25 09:44 100 mg QDAY NAHED Administration Protocol Glucagon 1 mg 01/01/25 14:11 Glucagon Inj 1 Mg Vial IM Q15MIN PRN BG <70, and no IV access Heparin Sodium (Porcine) 3,100 unit 01/01/25 17:10 01/02/25 15:13 Heparin Sod Inj 1000 Unit/Ml Vial 10 Ml INDWELLCAT 01/15/25 17:09 3,100 unit X1 PRN Administration DIALYSIS Insulin Human Lispro 0 unit 01/01/25 17:00 01/05/25 11:51 Insulin Lispro (Admelog) 1 Unit/0.01 Ml Unit SC 01/31/25 16:59 1 unit AC NAHED Administration Protocol Ondansetron HCl 4 mg 01/01/25 09:40 Ondansetron Inj 2 Mg/Ml Inj 2 Ml IVP 01/31/25 09:39 Q6H PRN NAUSEA OR VOMITING Protocol Pantoprazole Sodium 40 mg 01/02/25 09:00 01/05/25 08:25 Pantoprazole 40 Mg Tablet PO 02/01/25 08:59 40 mg QDAY NAHED Administration Sennosides 1 tab 01/01/25 09:40 01/03/25 20:16 Senna Tablet PO 01/31/25 09:39 1 tab QDAY PRN Administration constipation Protocol Tamsulosin HCl 0.8 mg 01/01/25 21:00 01/04/25 20:48 Tamsulosin Hcl 0.4 Mg Capsule PO 01/31/25 20:59 0.8 mg HS NAHED Administration Ticagrelor 90 mg 01/01/25 21:00 01/05/25 08:25 Ticagrelor 90 Mg Tablet PO 01/31/25 20:59 90 mg BID NAHED Administration Plan Alfredo Fall is an 84 year old male with history of CAD status post PCI to the LCx on 11/11/2024, residual CAD of the RCA severe and moderate LAD being managed medically, CKD stage V, hypertension, type 2 diabetes mellitus, diabetic nephropathy, hyperlipidemia, osteoarthritis, history of TIA versus stroke 2 years ago, BPH, mild chronic anemia secondary to CKD presents with shortness of breath. Nephrology consulted for FERDINAND on CKD. #FERDINAND on CKD stage V #Hypocalcemia 2/2 CKD #HFpEF (EF 40-45%) Patient has history of CKD V likely due to hypertensive nephropathy with baseline Cr around 4.0. This admission Cr is 5.9, GFR 9, BUN 100, potassium 5.2, sodium 139, corrected calcium 7.9, elevated BNP 1915. CXR showed some congestion with pneumonia. Patient had been refusing to start dialysis, but agreed on this admission. Appears that FERDINAND may be due to fluid overload status. States that he takes Lasix 80mg PO at home and is compliant with medications. TDC placed 01/03 Dialysis done 01/01, 01/02, 01/03 Hep A IgM (+); asymptomatic, curbsided Dr. Rodriguez: treat supportively. Plan: - Hold HD today, plan for tomorrow -On discharge, return to Dr. Parra -Monitor chemistry -Strict I/Os, monitor UOP -Renal dose med, avoid nephrotoxin #Normocytic anemia #Transaminitis #HTN #HLD #CAD s/p PCI #BPH #Nicotine dependence -management per primary care team Thank you for allowing us to take part in the care of Mr. Fall Patient plan of care was discussed with the attending physician, Dr. Judie Crabtree, DO Internal Medicine PGY-1 Attending Provider Attestation/Addendum Patient seen and examined with resident physician Dr. Crabtree . Note reviewed, agree with findings and recommendations. Currently seen in the emergency department. On BiPAP. Patient with hypoxic respiratory failure and significant azotemia. Long conversation with the patient-finally agreed for dialysis. Vas-Cath placed by Dr. Cohen. Patient did receive dialysis yesterday. 01/05 patient so far received 3 dialysis sessions. On nasal cannula. Resting comfortably. PermCath was placed. Resumed Brilinta and aspirin. Spoke to primary team. PPD negative. Hepatitis A positive. spoke to Dr. Rodriguez-since patient asymptomatic, continue supportive therapy. He will need outpatient dialysis-under Dr Parra Next dialysis scheduled for tomorrow
--- NOTE | 2025-01-05 17:41 | ESPR_ITS ---
<Statement entered by Keisha Schafer MD - 01/10/25 07:33> I reviewed above note and agree with findings and plans. I have also personally examined the patient with medicine team and went over assessment and plan with medical team including music industry intern and resident physician. <Statement entered by Zev Drake MD - 01/05/25 18:00> Patient seen and examined at bedside. I discussed and supervised with the music industry intern physician who took care of this patient. I personally saw and examined the patient. I agree with most of the assessment and plan. Patient stable. Pending dialysis chair and SNF placement. Patient had questions regarding outpatient dialysis, answered to patient's satisfaction. Plan of care discussed with attending Dr. Schafer. Zev Drake MD PGY-2 Documentation for date of: 01/05/25 Subjective Subjective Interval history: No overnight events. Evaluated at bedside. Pending PT eval. Pending SNF and outpt dialysis placement. Exam Vital Signs Temp Pulse Resp BP Pulse Ox O2 Del Method O2 Flow Rate 97.2 F 76 18 144/72 H 98 Room Air 1 01/05/25 15:51 01/05/25 17:06 01/05/25 15:51 01/05/25 17:06 01/05/25 15:51 01/05/25 15:51 01/05/25 04:00 FiO2 32 01/03/25 11:19 Narrative Exam General: NAD, Oriented x 3. Saturate 95% on RA Skin: Good turgor, no rash, unusual bruising or prominent lesions Heart: No cardiomegaly or thrills; regular rate and rhythm, no murmur or gallop Lungs: CTAB Abdomen: Bowel sounds normal, no tenderness, organomegaly, masses, or hernia Back: Spine normal without deformity or tenderness, no CVA tenderness Extremities: No amputations or deformities, cyanosis, edema or varicosities, peripheral pulses intact Musculoskeletal: No misalignment, asymmetry, crepitation, defects, tenderness, masses, effusions, decreased range of motion, instability, atrophy or abnormal strength or tone in the head, neck, spine, ribs, pelvis or extremities. Objective Labs 01/05/25 04:57 01/05/25 04:57 Labs: Laboratory Results - last 24 hr 01/05/25 04:57 WBC 17.0 H RBC 3.73 L Hgb 10.9 L Hct 33.0 L MCV 89 MCH 29.2 MCHC 33.0 RDW Std Deviation 43.6 Plt Count 288 Neut % (Auto) 70 Lymph % (Auto) 12 [place] % (Auto) 8 Eos % (Auto) 9 Baso % (Auto) 0 Neut # (Auto) 12.0 H Lymph # (Auto) 2.0 [place] # (Auto) 1.3 H Eos # (Auto) 1.5 H Baso # (Auto) 0.1 Immature Gran # (Auto) 0.22 H Absolute Nucleated RBC 0.02 H Immature Gran % 1 H Nucleated RBC % 0 Sodium 136 Potassium 3.6 Chloride 97 L Carbon Dioxide 24.8 Anion Gap 14 BUN 47 H Creatinine 4.2 H* D Estim Creat Clear Calc 14.1 L eGFR 13 L* BUN/Creatinine Ratio 11 L Glucose 131 H Calculated Osmolality 286 Calcium 7.8 L Corrected Calcium 8.4 L Phosphorus 3.8 Magnesium 1.9 Total Bilirubin 0.4 AST 57 H ALT 109 H Alkaline Phosphatase 114 Total Protein 6.1 Albumin 3.3 L Globulin 2.8 Albumin/Globulin Ratio 1.2 ABG Interpretation ABG results: 01/01/25 01/01/25 09:50 10:25 ABG pH 7.41 ABG pCO2 32 ABG pO2 76 L ABG HCO3 20 ABG O2 Saturation 96 ABG Base Excess -4 L VBG pH 7.39 VBG pCO2 33 L VBG pO2 49 VBG Base Excess -4 L Quality Measures Quality Measures VTE prophylaxis Advance care planning discussed with:: patient Assessment & Plan Assessment Current Active Medications: Generic Name Dose Route Start Last Admin Trade Name Freq PRN Reason Stop Dose Admin Acetaminophen 650 mg 01/01/25 09:40 01/05/25 03:19 Acetaminophen 325 Mg Tablet PO 01/31/25 09:39 650 mg Q6H PRN Administration Fever >100.4 or pain Albuterol/Ipratropium 3 ml 01/01/25 19:00 01/05/25 14:52 Albuterol/Ipratropium (Duoneb) Rt Yary 3 Ml Nebu INH 01/31/25 18:59 3 ml Q4HRRT NAHED Administration Amlodipine Besylate 10 mg 01/04/25 09:00 01/05/25 08:25 Amlodipine Besylate 5 Mg Tablet PO 02/03/25 08:59 10 mg QDAY NAHED Administration Aspirin 81 mg 01/02/25 09:00 01/05/25 08:26 Aspirin Ec 81 Mg Tabec PO 02/01/25 08:59 81 mg QDAY NAHED Administration Atorvastatin Calcium 80 mg 01/02/25 21:00 01/04/25 20:49 Atorvastatin Calcium 20 Mg Tablet PO 02/01/25 20:59 80 mg HS NAHED Administration Carvedilol 12.5 mg 01/01/25 17:30 01/05/25 17:06 Carvedilol 12.5 Mg Tablet PO 01/31/25 17:29 12.5 mg BIDWM NAHED Administration Dextrose 25 ml 01/01/25 14:11 Dextrose 50%-Water Inj 50 Ml Syringe IV 01/31/25 14:10 Q15MIN PRN BG 50-70 responsive npo pt Dextrose 50 ml 01/01/25 14:11 Dextrose 50%-Water Inj 50 Ml Syringe IV 01/31/25 14:10 Q15MIN PRN BG <50 OR BG <70 & pt unresponsive Docusate Sodium 100 mg 01/01/25 09:45 01/05/25 08:26 Docusate Sod 100 Mg Capsule PO 01/31/25 09:44 100 mg QDAY NAHED Administration Protocol Glucagon 1 mg 01/01/25 14:11 Glucagon Inj 1 Mg Vial IM Q15MIN PRN BG <70, and no IV access Heparin Sodium (Porcine) 3,100 unit 01/01/25 17:10 01/02/25 15:13 Heparin Sod Inj 1000 Unit/Ml Vial 10 Ml INDWELLCAT 01/15/25 17:09 3,100 unit X1 PRN Administration DIALYSIS Insulin Human Lispro 0 unit 01/01/25 17:00 01/05/25 17:06 Insulin Lispro (Admelog) 1 Unit/0.01 Ml Unit SC 01/31/25 16:59 1 unit AC NAHED Administration Protocol Ondansetron HCl 4 mg 01/01/25 09:40 Ondansetron Inj 2 Mg/Ml Inj 2 Ml IVP 01/31/25 09:39 Q6H PRN NAUSEA OR VOMITING Protocol Pantoprazole Sodium 40 mg 01/02/25 09:00 01/05/25 08:25 Pantoprazole 40 Mg Tablet PO 02/01/25 08:59 40 mg QDAY NAHED Administration Sennosides 1 tab 01/01/25 09:40 01/03/25 20:16 Senna Tablet PO 01/31/25 09:39 1 tab QDAY PRN Administration constipation Protocol Tamsulosin HCl 0.8 mg 01/01/25 21:00 01/04/25 20:48 Tamsulosin Hcl 0.4 Mg Capsule PO 01/31/25 20:59 0.8 mg HS NAHED Administration Ticagrelor 90 mg 01/01/25 21:00 01/05/25 08:25 Ticagrelor 90 Mg Tablet PO 01/31/25 20:59 90 mg BID NAHED Administration Plan 84-year-old male with CAD s/p PCI (11/11/24), 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 #End-Stage Renal Disease on Hemodialysis Previously CKD V with baseline Cr ~4; now ESRD with Cr improving; dialysis initiated this admission and tolerated well. Plan: - Permcath placement on 01/03 - Continue HD with nephrology - Strict NPO status pre-procedure - Monitor UOP and I/Os - Daily BMP - Renal-dose medications - Avoid nephrotoxins - Arrange outpatient HD referral - Continue Brilinta/ASA per cardiology #Acute hypoxic respiratory failure (CHF exacerbation vs. pneumonia vs. COPD) - resolved Volume overload + possible bilateral pneumonia + COPD; improved with HD, steroids, and O2; now satting well on 2L NC, no SOB at rest. BNP: 1915 CXR on 01/01: Vascular congestion, possible bilateral PNA WBC: Down from peak of 20.6 Plan: - Continue O2 as needed, wean if tolerating - Continue hemodialysis with net negative fluid goal (2L/session) - Completed azithromycin course 01/01/25 ~ 01/03/25 (3/3 day) - Continue Duonebs Q4H PRN - Monitor WBC trend #Congestive Heart Failure with mid-range EF (HFmrEF, EF 40?45%) presented with worsening dyspnea, orthopnea, and volume overload. BNP was elevated to 1915; TTE on prior admission showed EF 40?45%. Exam revealed bibasilar crackles without peripheral edema. CXR showed vascular congestion with concern for superimposed pneumonia. Symptoms improved significantly after initiation of hemodialysis and diuresis with Lasix. Troponins are chronically elevated but without ischemic symptoms. Plan for second session of PCI in [place] Plan: - Continue HD with net negative UF ~2L/session to optimize volume status - Monitor for signs of congestion (weight, I/Os, crackles, edema) - Cardiology recommends outpatient PCI for RCA; continue medical management for now - Continue ASA/Brilinta - Continue carvedilol 12.5 BID - Monitor troponin trend, daily weight, and electrolytes - Repeat BNP if clinical status worsens - Avoid excessive fluid intake; maintain cardiac diet #CAD s/p PCI (LCx 11/11/24); Severe RCA CAD pending PCI Patient on DAPT with ASA + Brilinta, held due to bleeding from HD site, ok to resume now per cardiology. Troponins trending up, currently asymptomatic. Plan for outpatient PCI ([place]) due to complexity. Troponins: downtrending with peak of 0.176 Plan: * Cardiology deferred cath today, plan for outpatient RCA PCI in [place] * Continue ASA and Brilinta * Continue carvedilol 12.5 BID #Anemia of CKD (worsening) Initial Hgb 10.7 , now stable. Stable Hct; no evidence of hemolysis or GI bleeding; likely multifactorial (CKD + dialysis losses). Plan: * Transfuse 1 unit PRBC 01/03/26 (per cardiology) * Monitor post-transfusion H/H * Monitor retic if needed * Reassess for need of EPO if Hgb remains <9 #Hyperkalemia Resolved with HD and insulin/glucose Plan: * Continue monitoring via daily BMP * No further intervention needed unless rises #Hypocalcemia Initial Ca 7.9 --> improved to 8.0; asymptomatic Plan: * Replete calcium as needed * Monitor daily BMP #Transaminitis (mild) Likely congestive hepatopathy vs. Hep A IgM reactive AST 95, ALT 158 Plan: * Supportive care * Hep A IgM positive, asymptomatic --> monitor LFTs * No treatment indicated per ID #COPD exacerbation No wheezing now, tolerating Duonebs; completed azithro Plan: * Finished azithromycin course * Continue Duonebs Q4H PRN * Monitor for respiratory distress #T2DM A1c 6.5; steroid-induced hyperglycemia possible Plan: * Continue sliding scale insulin * Monitor glucose closely * IV dextrose protocol if hypoglycemic #Hypertension BP 156/80 today; at goal range for ESRD/CHF patient Plan: * Continue carvedilol 12.5 BID * Continue amlodipine 10 mg QD #Hyperlipidemia LDL 47, HDL 26, Triglycerides 83 Plan: * Continue atorvastatin 80mg QD #BPH Plan: * Continue tamsulosin 0.8mg QHS Health Maintenance: Disposition: Med-Tele; follow-up post-permcath and HD Feeding: cardiac diet Thromboprophylaxis: SCDs GI prophylaxis: Pantoprazole 40mg daily Code Status: DNR Case discussed with my senior resident Dr. Drake Case discussed with my attending Dr. Hanh Garnett, DO PGY 1
[2025-01-05] MEDS: ATORVASTATIN CALCIUM 20 MG TABLET 80 MG PO (20:18)
[2025-01-05] MEDS: TAMSULOSIN HCL 0.4 MG CAPSULE 0.8 MG PO (20:18)
--- NOTE | 2025-01-05 21:04 | ESPR_ITS ---
RE: SRINI STEPHENS : 1940 DATE OF SERVICE: 01/05/2025 SUBJECTIVE: Covering for Dr. Ann. The patient is an 84-year-old male with a past medical history of CAD status post stent placement to circumflex artery. He also has severe stenosis of right coronary artery and long segmental lesions. Also has kidney disease, CKD stage 5, now receiving hemodialysis, feeling a lot better. Volume overload and shortness of breath improved. The patient did become anemic, requiring transfusion. Now hemoglobin is stable. Not complaining of any chest pain or shortness of breath. His hemoglobin is 10.9, stable today. White blood cell count is slightly high at 17,000. The patient is still receiving dual antiplatelet drug therapy. There is no problems of bleeding. The patient is still on aspirin 81 mg daily along with ticagrelor 90 b.i.d., tolerated this well so far. He is also on beta pardeep, carvedilol 12.5 twice daily, atorvastatin 80 mg daily, amlodipine 10 daily for hypertension. Blood pressure is controlled much better, not having chest pain, shortness of breath. OBJECTIVE: Vital Signs: Today blood pressure 140/70. Pulse rate is 85. Respirations 18. Temperature normal. Saturated 100% on room air. Neck: Supple. Lungs: Decreased breath sounds, no rales. Heart: S1, S2 is regular. No gallops. Abdomen: Thin and soft. Extremities: Mild edema. IMPRESSION: 1. Coronary artery disease status post stent placement to circumflex artery, also has severe . 2. Chronic kidney disease stage, now on hemodialysis. 3. Anemia secondary to chronic kidney disease. 4. Hypertension, well controlled. RECOMMENDATIONS: Continued dual antiplatelet drug therapy. The patient does not have any angina. No need for any adjuvant [employer], but the patient will require stent placed on right coronary artery electively most likely if the patient remains stable, can be done as an outpatient. DT: 19:29:12 TT: 20:18:00 Ref: [id number] - TID: [id number]
[2025-01-06] VITALS (33 sets, daily range): BP systolic 132–173; BP diastolic 50–82; PULSE 61–83; RESP 15–96; TEMP 36.1–36.4; O2SAT 91–99; BMI 11.0
[2025-01-06] MEDS: HYDROmorphone INJ 2 MG/ML VIAL 0.25 MG IVP (02:44)
[2025-01-06] MEDS: ALBUTEROL/IPRATROPIUM (Duoneb) RT SOL 3 ML NEBU INH ×5 (03:07→22:55)
[2025-01-06 07:10] LABS: Basophils # (Auto) 0.1 Thou/mm3 (0.0-0.2); Basophils % (Auto) 0 % (0-2.5); Eosinophils # (Auto) 1.1 Thou/mm3 (0.0-0.5); Eosinophils % (Auto) 8 % (0-10); Hematocrit 33.9 % (41.0-53.0); Hemoglobin 11.1 g/dL (13.5-16.0); Immature Granulocytes Auto 0.20 Thou/mm3 (0.00-0.00); Lymphocytes # (Auto) 1.4 Thou/mm3 (1.0-4.8); Lymphocytes % (Auto) 10 % (10-50); Mean Corpuscular HGB Conc 32.7 g/dl (31.0-37.0); Mean Corpuscular Hemoglobin 28.9 pg (25.0-35.0); Mean Corpuscular Volume 88 fL (80-100); Monocytes # (Auto) 1.2 Thou/mm3 (0.0-0.8); Monocytes % (Auto) 8 % (0-12); Neutrophils # (Auto) 10.4 Thou/mm3 (1.8-7.7); Neutrophils % (Auto) 72 % (37-80); Nucleated Red Blood Cell # 0.00 Thou/mm3 (0.00-0.00); Nucleated Red Blood Cell % 0 /100 WBC (0); Platelet Count 303 Thou/mm3 (140-440); RDW Standard Deviation 42.7 fL (35.1-43.9); Red Blood Count 3.84 Miln/mm3 (4.50-5.90); White Blood Count 14.4 Thou/mm3 (3.8-10.6)
[2025-01-06 07:45] LABS: Alanine Aminotransferase 84 U/L (10-49); Albumin, Serum 3.3 gm/dL (3.4-4.8); Albumin/Globulin Ratio 1.1 (1.2-2.2); Alkaline Phosphatase 116 U/L (46-116); Anion Gap 14 (7-16); Aspartate Amino Transferase 34 U/L (0-34); BUN/Creatinine Ratio 13 Ratio (12-20); Bilirubin,Total 0.4 mg/dL (0.3-1.2); Blood Urea Nitrogen 61 mg/dL (9-23); Calcium 8.0 mg/dL (8.3-10.6); Calcium (Corrected) 8.6 mg/dL (8.5-10.1); Carbon Dioxide 25.4 mMol/L (20.0-31.0); Chloride 96 mMol/L (98-107); Creatinine (Component) 4.6 mg/dL (0.6-1.3); Estimated Creatinine Clearance 12.9 mL/min (>60); Globulin 2.9 gm/dL (2.3-3.5); Glucose 136 mg/dL (74-106); Magnesium 2.8 mg/dL (1.6-2.6); Osmolality,Calculated 289 (275-295); Phosphorous 4.1 mg/dL (2.4-5.1); Potassium 3.8 mMol/L (3.4-5.1); Sodium 135 mMol/L (136-145); Total Protein 6.2 gm/dL (5.7-8.2); eGFR 12 See Note
--- NOTE | 2025-01-06 08:42 | PC.SS ---
SS follow up note; SS was contacted by Donna from [facility] and she reported that Dr. Cole informed her that patient was pending New dialysis chair time. Donna informed SS that Dr. Cole was covering Dr. Lassiter. SS informed her that SS was notified that patient was being followed by DR. Cole and therefore SS sent to [facility] [place]. Donna informed SS that Dr. Cabrera was covering Dr. Lassiter at the time. SS faxed all clinicals required for Chair time to [facility].
--- NOTE | 2025-01-06 09:23 | PD.RESPRO ---
Documentation for date of: 01/06/25 Subjective Subjective Interval history: Mr. Fuentes is a 84 year old male with history of CAD status post PCI to the LCx on 11/11/2024, residual CAD of the RCA severe and moderate LAD being managed medically, CKD stage V, hypertension, type 2 diabetes mellitus, diabetic nephropathy, hyperlipidemia, osteoarthritis, history of TIA versus stroke 2 years ago, BPH, mild chronic anemia secondary to CKD presents to the ED BIBA from home for evaluation of shortness of breath, described as feeling he is not getting enough air. Reportedly symptoms began several weeks ago and worsening last night. Accompanied by a cough. Patient states he is compliant with medications, but did not take his medication today. Patient states he made a little bit of urine this morning. Denies associated fevers, chills, chest pain, abdominal pain, n/v/d, dysuria, hematuria, or any other urinary symptoms. Denies use of oxygen at home or known history of asthma. Patient recently was admitted to hospital with similar episode of hypoxic respiratory failure and at that time he did not want dialysis. Home medications: Coreg 12.5, Lasix 80, Brilinta 90, amlodipine 10, tamsulosin 0.4, atorvastatin 20, aspirin 81, nitroglycerin 0.4 prn. ED Course: - Initial vitals: 98.3F, 102 HR, 22 RR, 161/81 BP, O2 saturation 93 on 2L NC, - Labs significant for WBC 19.7, potassium 5.2, BUN 100, Cr 5.9, eGFR 9, Glucose 187, Osmolality 313, Ca 7.9, AST 95, ALT 158, Alk Phos 151, Trop 0.027, BNP 1915 - Imaging: CXR: showing mild heart failure, consider superimposed bilateral pneumonia - In the ED, patient was given methylprednisolone 125 mg and DuoNeb, put on 2L NC; given Lasix 40 mg. Patient was admitted for shortness of breath. Nephrology consulted for FERDINAND on CKD. 01/02/2025: No acute events overnight. Patient was seen and examined bedside. Today patient states he is doing better. Patient's breathing has improved, is needing less supplemental oxygen requirement. Patient tolerated HD yesterday well. Patient denies fever, dizziness, headache, chest pain, shortness of breath, abdominal pain. 01/03/2025: No acute events overnight. Patient was seen and examined bedside. Today patient states he is doing okay. Patient's breathing continues to appear to improve. Plan for HD today. Patient tolerated HD yesterday well. Patient denies fever, dizziness, headache, chest pain, shortness of breath, abdominal pain. 01/04/2025: No acute events overnight. Patient was seen and examined bedside. Today patient states he is doing okay. Patient's breathing continues to appear to improve. No HD today. GRECIA louis. Patient denies fever, dizziness, headache, chest pain, shortness of breath, abdominal pain. 01/05/2025: Patient seen and examined at bedside lying comfortably in bed. No new complaints. States he is feeling well. Denies chest pain, SOB or fever K 3.6 BUN 47, Cr 4.3, Ca 8.4. Plan for next HD session tomorrow and encourage patient to ambulate with PT. 01/06/2025: Patient seen and examined at bedside lying comfortably in bed in HD unit. No new complaints. States he is feeling well. Denies chest pain, SOB or fever K 3.6 BUN 47, Cr 4.3, Ca 8.4. Patient receiving HD today, will need HD outpatient. Exam Vital Signs Temp Pulse Resp BP Pulse Ox O2 Del Method O2 Flow Rate 96.9 F 65 18 150/50 H 97 Room Air 1 01/06/25 08:09 01/06/25 09:15 01/06/25 08:09 01/06/25 09:15 01/06/25 08:09 01/06/25 08:00 01/05/25 04:00 FiO2 32 01/03/25 11:19 Narrative Exam GENERAL: AOx3, no acute distress HEENT: NC/AT, mucous membranes moist, bilateral sclera anicteric CARDIOVASCULAR: regular rate and rhythm, S1/S2 present, no murmurs appreciated PULMONARY: trace b/l diffuse crackles most prominent at bases ABDOMINAL: soft, non-tender, non-distended, no rebound/guarding, bowel sounds present EXTREMITIES: no peripheral edema SKIN: warm and dry, intact, no rashes, IJ Vas-Cath NEURO: CN II-XII grossly intact, no focal deficits, alert, following commands Objective Labs 01/07/25 04:00 01/07/25 04:00 Labs: Laboratory Results - last 24 hr 01/06/25 06:32 WBC 14.4 H RBC 3.84 L Hgb 11.1 L Hct 33.9 L MCV 88 MCH 28.9 MCHC 32.7 RDW Std Deviation 42.7 Plt Count 303 Neut % (Auto) 72 Lymph % (Auto) 10 [place] % (Auto) 8 Eos % (Auto) 8 Baso % (Auto) 0 Neut # (Auto) 10.4 H Lymph # (Auto) 1.4 [place] # (Auto) 1.2 H Eos # (Auto) 1.1 H Baso # (Auto) 0.1 Immature Gran # (Auto) 0.20 H Absolute Nucleated RBC 0.00 Immature Gran % 1 H Nucleated RBC % 0 Sodium 135 L Potassium 3.8 Chloride 96 L Carbon Dioxide 25.4 Anion Gap 14 BUN 61 H Creatinine 4.6 H* Estim Creat Clear Calc 12.9 L eGFR 12 L* BUN/Creatinine Ratio 13 Glucose 136 H Calculated Osmolality 289 Calcium 8.0 L Corrected Calcium 8.6 Phosphorus 4.1 Magnesium 2.8 H Total Bilirubin 0.4 AST 34 ALT 84 H Alkaline Phosphatase 116 Total Protein 6.2 Albumin 3.3 L Globulin 2.9 Albumin/Globulin Ratio 1.1 L ABG Interpretation ABG results: 01/01/25 01/01/25 09:50 10:25 ABG pH 7.41 ABG pCO2 32 ABG pO2 76 L ABG HCO3 20 ABG O2 Saturation 96 ABG Base Excess -4 L VBG pH 7.39 VBG pCO2 33 L VBG pO2 49 VBG Base Excess -4 L Quality Measures Quality Measures VTE prophylaxis Advance care planning discussed with:: patient Assessment & Plan Assessment Current Active Medications: Generic Name Dose Route Start Last Admin Trade Name Freq PRN Reason Stop Dose Admin Acetaminophen 650 mg 01/01/25 09:40 01/05/25 22:15 Acetaminophen 325 Mg Tablet PO 01/31/25 09:39 650 mg Q6H PRN Administration Fever >100.4 or pain Albuterol/Ipratropium 3 ml 01/01/25 19:00 01/06/25 06:23 Albuterol/Ipratropium (Duoneb) Rt Yary 3 Ml Nebu INH 01/31/25 18:59 3 ml Q4HRRT NAHED Administration Amlodipine Besylate 10 mg 01/04/25 09:00 01/05/25 08:25 Amlodipine Besylate 5 Mg Tablet PO 02/03/25 08:59 10 mg QDAY NAHED Administration Aspirin 81 mg 01/02/25 09:00 01/05/25 08:26 Aspirin Ec 81 Mg Tabec PO 02/01/25 08:59 81 mg QDAY NAHED Administration Atorvastatin Calcium 80 mg 01/02/25 21:00 01/05/25 20:18 Atorvastatin Calcium 20 Mg Tablet PO 02/01/25 20:59 80 mg HS NAHED Administration Carvedilol 12.5 mg 01/01/25 17:30 01/05/25 17:06 Carvedilol 12.5 Mg Tablet PO 01/31/25 17:29 12.5 mg BIDWM NAHED Administration Dextrose 25 ml 01/01/25 14:11 Dextrose 50%-Water Inj 50 Ml Syringe IV 01/31/25 14:10 Q15MIN PRN BG 50-70 responsive npo pt Dextrose 50 ml 01/01/25 14:11 Dextrose 50%-Water Inj 50 Ml Syringe IV 01/31/25 14:10 Q15MIN PRN BG <50 OR BG <70 & pt unresponsive Docusate Sodium 100 mg 01/01/25 09:45 01/05/25 08:26 Docusate Sod 100 Mg Capsule PO 01/31/25 09:44 100 mg QDAY NAHED Administration Protocol Glucagon 1 mg 01/01/25 14:11 Glucagon Inj 1 Mg Vial IM Q15MIN PRN BG <70, and no IV access Heparin Sodium (Porcine) 3,100 unit 01/01/25 17:10 01/02/25 15:13 Heparin Sod Inj 1000 Unit/Ml Vial 10 Ml INDWELLCAT 01/15/25 17:09 3,100 unit X1 PRN Administration DIALYSIS Albumin Human 25 gm in 100 mls @ 100 mls/min 01/06/25 09:02 Albuminar-25 Ivpb IV PRN PRN DIALYSIS Insulin Human Lispro 0 unit 01/01/25 17:00 01/06/25 07:45 Insulin Lispro (Admelog) 1 Unit/0.01 Ml Unit SC 01/31/25 16:59 Not Given AC NAHED Protocol Ondansetron HCl 4 mg 01/01/25 09:40 Ondansetron Inj 2 Mg/Ml Inj 2 Ml IVP 01/31/25 09:39 Q6H PRN NAUSEA OR VOMITING Protocol Pantoprazole Sodium 40 mg 01/02/25 09:00 01/05/25 08:25 Pantoprazole 40 Mg Tablet PO 02/01/25 08:59 40 mg QDAY NAHED Administration Sennosides 1 tab 01/01/25 09:40 01/05/25 22:15 Senna Tablet PO 01/31/25 09:39 1 tab QDAY PRN Administration constipation Protocol Tamsulosin HCl 0.8 mg 01/01/25 21:00 01/05/25 20:18 Tamsulosin Hcl 0.4 Mg Capsule PO 01/31/25 20:59 0.8 mg HS NAHED Administration Ticagrelor 90 mg 01/01/25 21:00 01/05/25 20:18 Ticagrelor 90 Mg Tablet PO 01/31/25 20:59 90 mg BID NAHED Administration Plan Alfredo Fall is an 84 year old male with history of CAD status post PCI to the LCx on 11/11/2024, residual CAD of the RCA severe and moderate LAD being managed medically, CKD stage V, hypertension, type 2 diabetes mellitus, diabetic nephropathy, hyperlipidemia, osteoarthritis, history of TIA versus stroke 2 years ago, BPH, mild chronic anemia secondary to CKD presents with shortness of breath. Nephrology consulted for FERDINAND on CKD. #FERDINAND on CKD stage V #Hypocalcemia 2/2 CKD #HFpEF (EF 40-45%) Patient has history of CKD V likely due to hypertensive nephropathy with baseline Cr around 4.0. This admission Cr is 5.9, GFR 9, BUN 100, potassium 5.2, sodium 139, corrected calcium 7.9, elevated BNP 1915. CXR showed some congestion with pneumonia. Patient had been refusing to start dialysis, but agreed on this admission. Appears that FERDINAND may be due to fluid overload status. States that he takes Lasix 80mg PO at home and is compliant with medications. TDC placed 01/03 Dialysis done 01/01, 01/02, 01/03 Hep A IgM (+); asymptomatic, curbsided Dr. Rodriguez: treat supportively. PPD negative. Plan: -HD today -Will vannessa HD outpatient -On discharge, return to Dr. Parra -Monitor chemistry -Strict I/Os, monitor UOP -Renal dose med, avoid nephrotoxin #Normocytic anemia #Transaminitis #HTN #HLD #CAD s/p PCI #BPH #Nicotine dependence -management per primary care team Thank you for allowing us to take part in the care of Mr. Fall Patient plan of care was discussed with the attending physician, Dr. Judie Charles MD PGY-1 Attending Provider Attestation/Addendum Patient seen and examined with resident physician Dr. Charles. Note reviewed, agree with findings and recommendations. Currently seen in the emergency department. On BiPAP. Patient with hypoxic respiratory failure and significant azotemia. Long conversation with the patient-finally agreed for dialysis. Vas-Cath placed by Dr. Cohen. Patient did receive dialysis yesterday. 01/06 patient so far received 3 dialysis sessions. On nasal cannula. Resting comfortably. PermCath was placed. Resumed Brilinta and aspirin. Spoke to primary team. PPD negative. Hepatitis A positive. spoke to Dr. Rodriguez-since patient asymptomatic, continue supportive therapy. He will need outpatient dialysis-under Dr Parra Patient currently seen on dialysis. Tolerating dialysis without any problems. Hemodialysis for 3 hours, 2K, ultrafiltration 2-3 L, Epogen 6000, no heparin ordered. Plan of care discussed with the dialysis nurse. Please see dialysis flowsheet for further details.
--- NOTE | 2025-01-06 09:48 | PC.SS ---
Addendum entered by Luanne Stone 01/06/25 15:59: FIORDALIZA contacted [employer] in regards to auth status. She informed SS that at the time insurance verification was still pending. PT note pending at the time, SS will send PT note and clinicals to [facility] once available for auth to [facility]. Original Note: SS follow up note; SS was contacted by [employer] from [facility] and she informed SS she is inputting the patient down on their system and informed SS that hopefully by the end of the day insurance auth will be verified. SS will stand by for further needs.
[2025-01-06] MEDS: HEPARIN SOD INJ 1000 UNIT/ML VIAL 10 ML 3100 UNIT INDWELLCAT (11:32)
[2025-01-06] MEDS: INSULIN LISPRO (AdmeLOG) 1 UNIT/0.01 ML UNIT SC (11:58)
[2025-01-06] MEDS: ASPIRIN EC 81 MG TABEC PO (11:59)
[2025-01-06] MEDS: PANTOPRAZOLE 40 MG TABLET PO (11:59)
[2025-01-06] MEDS: DOCUSATE SOD 100 MG CAPSULE PO (11:59)
[2025-01-06] MEDS: TICAGRELOR 90 MG TABLET PO ×2 (11:59→21:00)
--- NOTE | 2025-01-06 17:13 | PD.RESPRO ---
Documentation for date of: 01/06/25 Subjective Subjective Interval history: The patient was seen and examined at the HD chair side this morning. He reported doing well. He reported improvement in his SOB. His vitals were fairly stable, with blood pressure in 140's/150s-70s, HR in 70s, RR 18, saturating 97% on RA. White count improving to 14.4, hemoglobin 10.9, creatinine 4.6 The patient underwent another session of hemodialysis this morning. The patient will be scheduled for cardiac cath for right coronary artery as outpatient as patient with no symptoms now. Continue on aspirin and Brilinta Continue with carvedilol 12.5 Mg twice daily and amlodipine 10mg daily. Losartan 50mg PO QDAY was started. Exam Vital Signs Temp Pulse Resp BP Pulse Ox O2 Del Method O2 Flow Rate 97.1 F 79 19 147/80 H 97 Room Air 1 01/06/25 11:50 01/06/25 16:00 01/06/25 14:55 01/06/25 11:50 01/06/25 14:55 01/06/25 11:50 01/05/25 04:00 FiO2 32 01/03/25 11:19 Narrative Exam General: No acute distress, Alert and Oriented x 3 HEENT: Moist mucous membranes, oropharynx clear, HD catheter on place Neck: Supple, No masses, No JVD CVS: S1S2 Regular rate and rhythm, No murmurs, rubs or gallops Lungs: Mild bibasilar lower lobe crackles, no wheeze no rhonchi Abd: Soft, NT/ND, +BS, no organomegaly Ext: No edema, warm and well perfused Skin: No rash Psych: Appropriate mood and affect Objective Labs 01/06/25 06:32 01/06/25 06:32 Labs: Laboratory Results - last 24 hr 01/06/25 06:32 WBC 14.4 H RBC 3.84 L Hgb 11.1 L Hct 33.9 L MCV 88 MCH 28.9 MCHC 32.7 RDW Std Deviation 42.7 Plt Count 303 Neut % (Auto) 72 Lymph % (Auto) 10 [place] % (Auto) 8 Eos % (Auto) 8 Baso % (Auto) 0 Neut # (Auto) 10.4 H Lymph # (Auto) 1.4 [place] # (Auto) 1.2 H Eos # (Auto) 1.1 H Baso # (Auto) 0.1 Immature Gran # (Auto) 0.20 H Absolute Nucleated RBC 0.00 Immature Gran % 1 H Nucleated RBC % 0 Sodium 135 L Potassium 3.8 Chloride 96 L Carbon Dioxide 25.4 Anion Gap 14 BUN 61 H Creatinine 4.6 H* Estim Creat Clear Calc 12.9 L eGFR 12 L* BUN/Creatinine Ratio 13 Glucose 136 H Calculated Osmolality 289 Calcium 8.0 L Corrected Calcium 8.6 Phosphorus 4.1 Magnesium 2.8 H Total Bilirubin 0.4 AST 34 ALT 84 H Alkaline Phosphatase 116 Total Protein 6.2 Albumin 3.3 L Globulin 2.9 Albumin/Globulin Ratio 1.1 L ABG Interpretation ABG results: 01/01/25 01/01/25 09:50 10:25 ABG pH 7.41 ABG pCO2 32 ABG pO2 76 L ABG HCO3 20 ABG O2 Saturation 96 ABG Base Excess -4 L VBG pH 7.39 VBG pCO2 33 L VBG pO2 49 VBG Base Excess -4 L Quality Measures Quality Measures VTE prophylaxis Advance care planning discussed with:: patient Assessment & Plan Assessment Current Active Medications: Generic Name Dose Route Start Last Admin Trade Name Freq PRN Reason Stop Dose Admin Acetaminophen 650 mg 01/01/25 09:40 01/05/25 22:15 Acetaminophen 325 Mg Tablet PO 01/31/25 09:39 650 mg Q6H PRN Administration Fever >100.4 or pain Albuterol/Ipratropium 3 ml 01/01/25 19:00 01/06/25 14:54 Albuterol/Ipratropium (Duoneb) Rt Yary 3 Ml Nebu INH 01/31/25 18:59 3 ml Q4HRRT NAHED Administration Amlodipine Besylate 10 mg 01/04/25 09:00 01/06/25 10:52 Amlodipine Besylate 5 Mg Tablet PO 02/03/25 08:59 10 mg QDAY NAHED Administration Aspirin 81 mg 01/02/25 09:00 01/06/25 11:59 Aspirin Ec 81 Mg Tabec PO 02/01/25 08:59 81 mg QDAY NAHED Administration Atorvastatin Calcium 80 mg 01/02/25 21:00 01/05/25 20:18 Atorvastatin Calcium 20 Mg Tablet PO 02/01/25 20:59 80 mg HS NAHED Administration Benzonatate 200 mg 01/06/25 17:05 Benzonatate 100 Mg Capsule PO 02/05/25 17:04 Q8HR PRN COUGH Protocol Carvedilol 12.5 mg 01/01/25 17:30 01/06/25 10:53 Carvedilol 12.5 Mg Tablet PO 01/31/25 17:29 12.5 mg BIDWM NAHED Administration Dextrose 25 ml 01/01/25 14:11 Dextrose 50%-Water Inj 50 Ml Syringe IV 01/31/25 14:10 Q15MIN PRN BG 50-70 responsive npo pt Dextrose 50 ml 01/01/25 14:11 Dextrose 50%-Water Inj 50 Ml Syringe IV 01/31/25 14:10 Q15MIN PRN BG <50 OR BG <70 & pt unresponsive Docusate Sodium 100 mg 01/01/25 09:45 01/06/25 11:59 Docusate Sod 100 Mg Capsule PO 01/31/25 09:44 100 mg QDAY NAHED Administration Protocol Glucagon 1 mg 01/01/25 14:11 Glucagon Inj 1 Mg Vial IM Q15MIN PRN BG <70, and no IV access Heparin Sodium (Porcine) 3,100 unit 01/01/25 17:10 01/06/25 11:32 Heparin Sod Inj 1000 Unit/Ml Vial 10 Ml INDWELLCAT 01/15/25 17:09 3,100 unit X1 PRN Administration DIALYSIS Albumin Human 25 gm in 100 mls @ 100 mls/min 01/06/25 09:02 Albuminar-25 Ivpb IV PRN PRN DIALYSIS Insulin Human Lispro 0 unit 01/01/25 17:00 01/06/25 11:58 Insulin Lispro (Admelog) 1 Unit/0.01 Ml Unit SC 01/31/25 16:59 1 unit AC NAHED Administration Protocol Ondansetron HCl 4 mg 01/01/25 09:40 Ondansetron Inj 2 Mg/Ml Inj 2 Ml IVP 01/31/25 09:39 Q6H PRN NAUSEA OR VOMITING Protocol Pantoprazole Sodium 40 mg 01/02/25 09:00 01/06/25 11:59 Pantoprazole 40 Mg Tablet PO 02/01/25 08:59 40 mg QDAY NAHED Administration Sennosides 1 tab 01/01/25 09:40 01/05/25 22:15 Senna Tablet PO 01/31/25 09:39 1 tab QDAY PRN Administration constipation Protocol Tamsulosin HCl 0.8 mg 01/01/25 21:00 01/05/25 20:18 Tamsulosin Hcl 0.4 Mg Capsule PO 01/31/25 20:59 0.8 mg HS NAHED Administration Ticagrelor 90 mg 01/01/25 21:00 01/06/25 11:59 Ticagrelor 90 Mg Tablet PO 01/31/25 20:59 90 mg BID NAHED Administration Plan The patient is an 84-year-old male with a past medical history of CAD status post PCI to the LCx on 11/11/2024, residual CAD of the RCA severe and moderate LAD being managed medically, CKD stage IV-V, with baseline creatinine of around 4, hypertension, type 2 diabetes mellitus, diabetic nephropathy, hyperlipidemia, osteoarthritis, history of TIA versus stroke 2 years ago, chronic smoker with more than 14-63-eybi-year smoking history, BPH, mild chronic anemia secondary to CKD presented to the emergency department for further evaluation of shortness of breath. #Acute hypoxic respiratory failure, improved #Fluid overload 2/2 #CKD stage V, and #HFmrEF exacerbation Patient presented with chief complaint of shortness of breath, was found to have mild vascular congestions, superimposed bilateral pneumonia on chest x-ray, BNP level was 1915. - Patient underwent 1 session of hemodialysis this afternoon. - Was saturating 94% on RA - Continue with hemodialysis session with ultrafiltration goal of more than 2 L of net negative or as tolerated. - Continue with carvedilol 12.5 Mg twice daily - Continue amlodipine 10 mg daily - Losartan 50mg PO QDAY was started. #CAD s/p PCI of LCX on 11/11/2024 - CAD status post PCI to the LCx on 11/11/2024, residual CAD of the RCA severe and moderate LAD disease being managed medically, - Continue on aspirin 81mg daily and Brillinta 90mg BID, beta pardeep and statin. - The patient will be scheduled for cardiac cath for right coronary artery as outpatient as patient with no symptoms now. #Acute on chronic blood loss anemia - 2/2 bleeding from HD catheter site and also the CKD. - S/P 1 Unit prbc transfused #Hypertension - Continue with carvedilol 12.5 Mg twice daily - Continue amlodipine 10 mg daily - Losartan 50mg PO QDAY was started. #Hyperkalemia #Hypocalcemia - Monitor and replete as needed #COPD exacerbation #Community-acquired pneumonia #Mild transaminitis #Type 2 diabetes mellitus #BPH Rest of the management deferred to primary hospitalist team. Thank you for cardiology consultation. We appreciate the opportunity to participate in this patient's care. Cardiology team will continue to follow-up in this patient care. The patient's management plan was discussed with my attending physician MD Salvador Funes MD, PGY3 Attending Provider Attestation/Addendum I have personally seen and examined the patient separately on the above date of service and discussed the plan of care with the resident. I reviewed the resident Dr. Salvador Lau consultation progress note and agree with the resident findings and plan in the note above and have also edited the documentation to reflect my findings and plan. Karlo Ann M.D. Interventional Cardiology
[2025-01-06] MEDS: ACETAMINOPHEN 325 MG TABLET 650 MG PO (17:26)
[2025-01-06] MEDS: BENZONATATE 100 MG CAPSULE 200 MG PO (17:26)
--- NOTE | 2025-01-06 17:30 | ESPR_ITS ---
<Statement entered by Keisha Schafer MD - 01/11/25 12:37> I reviewed above note and agree with findings and plans. I have also personally examined the patient with medicine team and went over assessment and plan with medical team including healthcare administration intern and resident physician. <Statement entered by Forrest Amaro MD - 01/06/25 17:58> Patient was seen and examined at the bedside. No acute overnight events were reported. Patient was doing well and had hemodialysis per schedule today. Labs were stable. Currently waiting on insurance authorization for outpatient dialysis chair. PT recommended SNF placement. All labs and orders were reviewed. I discussed and supervised with the healthcare administration intern physician who took care of this patient. I personally saw and examined the patient. I agree with most of the assessment and plan. Disclaimer: Despite multiple revisions, due to the dictation software being used, the document bellow may not be free of grammatical errors including phonetic/typographic errors. However, this does not deter from our commitment to providing health care in the patient's best interest in mind. Plan of care discussed with attending Physician Dr. Hanh Amaro MD PGY-3 Documentation for date of: 01/06/25 Subjective Subjective Interval history: No overnight events. Evaluated at bedside. HD today, plan for outpt HD. PT eval done, recommends SNF placement. Exam Vital Signs Temp Pulse Resp BP Pulse Ox O2 Del Method O2 Flow Rate 97.0 F 76 17 157/73 H 96 Room Air 1 01/06/25 16:00 01/06/25 17:27 01/06/25 16:00 01/06/25 17:27 01/06/25 16:00 01/06/25 16:00 01/05/25 04:00 FiO2 32 01/03/25 11:19 Narrative Exam General: NAD, Oriented x 3. Saturate 97% on RA Skin: Good turgor, no rash, unusual bruising or prominent lesions Heart: No cardiomegaly or thrills; regular rate and rhythm, no murmur or gallop Lungs: CTAB Abdomen: Bowel sounds normal, no tenderness, organomegaly, masses, or hernia Back: Spine normal without deformity or tenderness, no CVA tenderness Extremities: No amputations or deformities, cyanosis, edema or varicosities, peripheral pulses intact Musculoskeletal: No misalignment, asymmetry, crepitation, defects, tenderness, masses, effusions, decreased range of motion, instability, atrophy or abnormal strength or tone in the head, neck, spine, ribs, pelvis or extremities. Objective Labs 01/06/25 06:32 01/06/25 06:32 Labs: Laboratory Results - last 24 hr 01/06/25 06:32 WBC 14.4 H RBC 3.84 L Hgb 11.1 L Hct 33.9 L MCV 88 MCH 28.9 MCHC 32.7 RDW Std Deviation 42.7 Plt Count 303 Neut % (Auto) 72 Lymph % (Auto) 10 [place] % (Auto) 8 Eos % (Auto) 8 Baso % (Auto) 0 Neut # (Auto) 10.4 H Lymph # (Auto) 1.4 [place] # (Auto) 1.2 H Eos # (Auto) 1.1 H Baso # (Auto) 0.1 Immature Gran # (Auto) 0.20 H Absolute Nucleated RBC 0.00 Immature Gran % 1 H Nucleated RBC % 0 Sodium 135 L Potassium 3.8 Chloride 96 L Carbon Dioxide 25.4 Anion Gap 14 BUN 61 H Creatinine 4.6 H* Estim Creat Clear Calc 12.9 L eGFR 12 L* BUN/Creatinine Ratio 13 Glucose 136 H Calculated Osmolality 289 Calcium 8.0 L Corrected Calcium 8.6 Phosphorus 4.1 Magnesium 2.8 H Total Bilirubin 0.4 AST 34 ALT 84 H Alkaline Phosphatase 116 Total Protein 6.2 Albumin 3.3 L Globulin 2.9 Albumin/Globulin Ratio 1.1 L ABG Interpretation ABG results: 01/01/25 01/01/25 09:50 10:25 ABG pH 7.41 ABG pCO2 32 ABG pO2 76 L ABG HCO3 20 ABG O2 Saturation 96 ABG Base Excess -4 L VBG pH 7.39 VBG pCO2 33 L VBG pO2 49 VBG Base Excess -4 L Quality Measures Quality Measures VTE prophylaxis Advance care planning discussed with:: patient Assessment & Plan Assessment Current Active Medications: Generic Name Dose Route Start Last Admin Trade Name Freq PRN Reason Stop Dose Admin Acetaminophen 650 mg 01/01/25 09:40 01/06/25 17:26 Acetaminophen 325 Mg Tablet PO 01/31/25 09:39 650 mg Q6H PRN Administration Fever >100.4 or pain Albuterol/Ipratropium 3 ml 01/01/25 19:00 01/06/25 14:54 Albuterol/Ipratropium (Duoneb) Rt Yary 3 Ml Nebu INH 01/31/25 18:59 3 ml Q4HRRT NAHED Administration Amlodipine Besylate 10 mg 01/04/25 09:00 01/06/25 10:52 Amlodipine Besylate 5 Mg Tablet PO 02/03/25 08:59 10 mg QDAY NAHED Administration Aspirin 81 mg 01/02/25 09:00 01/06/25 11:59 Aspirin Ec 81 Mg Tabec PO 02/01/25 08:59 81 mg QDAY NAHED Administration Atorvastatin Calcium 80 mg 01/02/25 21:00 01/05/25 20:18 Atorvastatin Calcium 20 Mg Tablet PO 02/01/25 20:59 80 mg HS NAHED Administration Benzonatate 200 mg 01/06/25 17:05 01/06/25 17:26 Benzonatate 100 Mg Capsule PO 02/05/25 17:04 200 mg Q8HR PRN Administration COUGH Protocol Carvedilol 12.5 mg 01/01/25 17:30 01/06/25 17:27 Carvedilol 12.5 Mg Tablet PO 01/31/25 17:29 12.5 mg BIDWM NAHED Administration Dextrose 25 ml 01/01/25 14:11 Dextrose 50%-Water Inj 50 Ml Syringe IV 01/31/25 14:10 Q15MIN PRN BG 50-70 responsive npo pt Dextrose 50 ml 01/01/25 14:11 Dextrose 50%-Water Inj 50 Ml Syringe IV 01/31/25 14:10 Q15MIN PRN BG <50 OR BG <70 & pt unresponsive Docusate Sodium 100 mg 01/01/25 09:45 01/06/25 11:59 Docusate Sod 100 Mg Capsule PO 01/31/25 09:44 100 mg QDAY NAHED Administration Protocol Glucagon 1 mg 01/01/25 14:11 Glucagon Inj 1 Mg Vial IM Q15MIN PRN BG <70, and no IV access Heparin Sodium (Porcine) 3,100 unit 01/01/25 17:10 01/06/25 11:32 Heparin Sod Inj 1000 Unit/Ml Vial 10 Ml INDWELLCAT 01/15/25 17:09 3,100 unit X1 PRN Administration DIALYSIS Albumin Human 25 gm in 100 mls @ 100 mls/min 01/06/25 09:02 Albuminar-25 Ivpb IV PRN PRN DIALYSIS Insulin Human Lispro 0 unit 01/01/25 17:00 01/06/25 17:27 Insulin Lispro (Admelog) 1 Unit/0.01 Ml Unit SC 01/31/25 16:59 Not Given AC NAHED Protocol Ondansetron HCl 4 mg 01/01/25 09:40 Ondansetron Inj 2 Mg/Ml Inj 2 Ml IVP 01/31/25 09:39 Q6H PRN NAUSEA OR VOMITING Protocol Pantoprazole Sodium 40 mg 01/02/25 09:00 01/06/25 11:59 Pantoprazole 40 Mg Tablet PO 02/01/25 08:59 40 mg QDAY NAHED Administration Sennosides 1 tab 01/01/25 09:40 01/05/25 22:15 Senna Tablet PO 01/31/25 09:39 1 tab QDAY PRN Administration constipation Protocol Tamsulosin HCl 0.8 mg 01/01/25 21:00 01/05/25 20:18 Tamsulosin Hcl 0.4 Mg Capsule PO 01/31/25 20:59 0.8 mg HS NAHED Administration Ticagrelor 90 mg 01/01/25 21:00 01/06/25 11:59 Ticagrelor 90 Mg Tablet PO 01/31/25 20:59 90 mg BID NAHED Administration Plan 84-year-old male with CAD s/p PCI (11/11/24), CKD V now ESRD on HD, HFrEF, COPD, and T2DM, admitted with acute hypoxic respiratory failure and fluid overload now improving on hemodialysis, planned for outpatient RCA PCI at [facility] due to complexity. PT recommends SNF placement to maximize safety with transfers and ambulation to reutrn to prior level of function in order to return home. Pending dialysis chair. #End-Stage Renal Disease on Hemodialysis Previously CKD V with baseline Cr ~4; now ESRD with Cr improving; dialysis initiated this admission and tolerated well. Permcat placement on 01/03 - Continue HD with nephrology - Monitor UOP and I/Os - Daily BMP - Renal-dose medications - Avoid nephrotoxins - Arrange outpatient HD referral - Continue Brilinta/ASA per cardiology #Acute hypoxic respiratory failure (CHF exacerbation vs. pneumonia vs. COPD) - resolved Volume overload + possible bilateral pneumonia + COPD; improved with HD, steroids, and O2; now satting well on 2L NC, no SOB at rest. Initial BNP: 1915 CXR on 01/01: Vascular congestion, possible bilateral PNA WBC: Down from peak of 20.6 - Continue O2 as needed, wean if tolerating - Continue hemodialysis with net negative fluid goal (2L/session) - Completed azithromycin course 01/01/25 ~ 01/03/25 (3/3 day) - Continue Duonebs Q4H PRN - Monitor WBC trend #Congestive Heart Failure with mid-range EF (HFmrEF, EF 40?45%) presented with worsening dyspnea, orthopnea, and volume overload. BNP was elevated to 1915; TTE on prior admission showed EF 40?45%. Exam revealed bibasilar crackles without peripheral edema. CXR showed vascular congestion with concern for superimposed pneumonia. Symptoms improved significantly after initiation of hemodialysis and diuresis with Lasix. Troponins are chronically elevated but without ischemic symptoms. Plan for second session of PCI in [place] - Continue HD with net negative UF ~2L/session to optimize volume status - Monitor for signs of congestion (weight, I/Os, crackles, edema) - Cardiology recommends outpatient PCI for RCA; continue medical management for now - Continue ASA/Brilinta - Continue carvedilol 12.5 BID - Monitor troponin trend, daily weight, and electrolytes - Repeat BNP if clinical status worsens - Avoid excessive fluid intake; maintain cardiac diet #CAD s/p PCI (LCx 11/11/24); Severe RCA CAD pending PCI Patient on DAPT with ASA + Brilinta, held due to bleeding from HD site, ok to resume now per cardiology. Troponins trending up, currently asymptomatic. Plan for outpatient PCI ([place]) due to complexity. Troponins: downtrending with peak of 0.176 - Cardiology recommends pt for outpatient RCA PCI in [place] - Continue ASA and Brilinta - Continue carvedilol 12.5 BID #Anemia of CKD Initial Hgb 10.7 , now stable. Stable Hct; no evidence of hemolysis or GI bleeding; likely multifactorial (CKD + dialysis losses). - Transfuse 1 unit PRBC 01/03/26 (per cardiology) - Monitor post-transfusion H/H - Monitor retic if needed - Reassess for need of EPO if Hgb remains <9 #Hyperkalemia - resolved Resolved with HD and insulin/glucose - Continue monitoring via daily BMP - No further intervention needed unless rises #Hypocalcemia Initial Ca 7.9 --> improved to 8.0; asymptomatic - Replete calcium as needed - Monitor daily BMP #Transaminitis (mild) - downtrending Likely congestive hepatopathy vs. Hep A IgM reactive Initial AST 95, ALT 158 - Supportive care - Hep A IgM positive, asymptomatic --> monitor LFTs - No treatment indicated per ID #COPD exacerbation No wheezing now, tolerating Duonebs; completed azithro - Finished azithromycin course - Continue Duonebs Q4H PRN - Monitor for respiratory distress #T2DM A1c 6.5; steroid-induced hyperglycemia possible - Continue sliding scale insulin - Monitor glucose closely - IV dextrose protocol if hypoglycemic #Hypertension Chronic medical condition. BP 157/73 today - Continue carvedilol 12.5 BID - Continue amlodipine 10 mg QD - Outpt PCP follow up #Hyperlipidemia Initial LDL 47, HDL 26, Triglycerides 83 - Continue atorvastatin 80mg QD - Outpt PCP follow up #BPH - Continue tamsulosin 0.8mg QHS - Outpt PCP follow up Health Maintenance: Disposition: Med-Tele; pending SNF and dialysis chair Feeding: cardiac diet Thromboprophylaxis: SCDs GI prophylaxis: Pantoprazole 40mg daily Code Status: DNR Case discussed with my senior resident Dr. Amaro Case discussed with my attending Dr. Hanh Garnett, PGY 1
[2025-01-06] MEDS: LOSARTAN POTASSIUM 25 MG TABLET 50 MG PO (18:15)
[2025-01-06] MEDS: ATORVASTATIN CALCIUM 20 MG TABLET 80 MG PO (20:59)
[2025-01-06] MEDS: TAMSULOSIN HCL 0.4 MG CAPSULE 0.8 MG PO (20:59)
[2025-01-07] VITALS (18 sets, daily range): BP systolic 124–142; BP diastolic 56–70; PULSE 54–72; RESP 14–20; TEMP 36.4–36.9; O2SAT 93–99
[2025-01-07] MEDS: ALBUTEROL/IPRATROPIUM (Duoneb) RT SOL 3 ML NEBU INH ×6 (02:15→22:14)
[2025-01-07] MEDS: BENZONATATE 100 MG CAPSULE 200 MG PO ×3 (04:38→20:43)
[2025-01-07] MEDS: ACETAMINOPHEN 325 MG TABLET 650 MG PO ×2 (04:38→10:58)
[2025-01-07 05:32] LABS: Basophils # (Auto) 0.1 Thou/mm3 (0.0-0.2); Basophils % (Auto) 0 % (0-2.5); Eosinophils # (Auto) 0.9 Thou/mm3 (0.0-0.5); Eosinophils % (Auto) 6 % (0-10); Hematocrit 33.3 % (41.0-53.0); Hemoglobin 10.5 g/dL (13.5-16.0); Immature Granulocytes Auto 0.18 Thou/mm3 (0.00-0.00); Lymphocytes # (Auto) 1.2 Thou/mm3 (1.0-4.8); Lymphocytes % (Auto) 9 % (10-50); Mean Corpuscular HGB Conc 31.5 g/dl (31.0-37.0); Mean Corpuscular Hemoglobin 28.5 pg (25.0-35.0); Mean Corpuscular Volume 91 fL (80-100); Monocytes # (Auto) 1.6 Thou/mm3 (0.0-0.8); Monocytes % (Auto) 12 % (0-12); Neutrophils # (Auto) 10.0 Thou/mm3 (1.8-7.7); Neutrophils % (Auto) 72 % (37-80); Nucleated Red Blood Cell # 0.02 Thou/mm3 (0.00-0.00); Nucleated Red Blood Cell % 0 /100 WBC (0); Platelet Count 295 Thou/mm3 (140-440); RDW Standard Deviation 45.1 fL (35.1-43.9); Red Blood Count 3.68 Miln/mm3 (4.50-5.90); White Blood Count 13.9 Thou/mm3 (3.8-10.6)
[2025-01-07 06:12] LABS: Alanine Aminotransferase 63 U/L (10-49); Albumin, Serum 3.2 gm/dL (3.4-4.8); Albumin/Globulin Ratio 1.1 (1.2-2.2); Alkaline Phosphatase 112 U/L (46-116); Anion Gap 13 (7-16); Aspartate Amino Transferase 27 U/L (0-34); BUN/Creatinine Ratio 9 Ratio (12-20); Bilirubin,Total 0.5 mg/dL (0.3-1.2); Blood Urea Nitrogen 35 mg/dL (9-23); Calcium 7.7 mg/dL (8.3-10.6); Calcium (Corrected) 8.3 mg/dL (8.5-10.1); Carbon Dioxide 25.4 mMol/L (20.0-31.0); Chloride 100 mMol/L (98-107); Creatinine (Component) 3.7 mg/dL (0.6-1.3); Estimated Creatinine Clearance 16.0 mL/min (>60); Globulin 2.8 gm/dL (2.3-3.5); Glucose 116 mg/dL (74-106); Magnesium 2.3 mg/dL (1.6-2.6); Osmolality,Calculated 284 (275-295); Phosphorous 3.3 mg/dL (2.4-5.1); Potassium 3.6 mMol/L (3.4-5.1); Sodium 138 mMol/L (136-145); Total Protein 6.0 gm/dL (5.7-8.2); eGFR 15 See Note
[2025-01-07] MEDS: DOCUSATE SOD 100 MG CAPSULE PO (08:27)
[2025-01-07] MEDS: ASPIRIN EC 81 MG TABEC PO (08:27)
[2025-01-07] MEDS: CALCIUM CARBONATE 600 MG TABLET PO (08:27)
[2025-01-07] MEDS: LOSARTAN POTASSIUM 25 MG TABLET 50 MG PO (08:28)
[2025-01-07] MEDS: PANTOPRAZOLE 40 MG TABLET PO (08:28)
[2025-01-07] MEDS: TICAGRELOR 90 MG TABLET PO ×2 (08:28→20:36)
--- NOTE | 2025-01-07 08:42 | PC.SS ---
Addendum entered by JC Begum 01/07/25 08:55: RN ORTHOPAEDICS called [facility] for insurance update, Lewis was not available, RN ORTHOPAEDICS left voicemail. Original Note: SS update: RN ORTHOPAEDICS spoke to Donna at [facility], RN ORTHOPAEDICS provided update on SNF placement to Donna, Donna stated that insurance authorized but she is still working on chair time.
--- NOTE | 2025-01-07 09:45 | PD.RESPRO ---
Documentation for date of: 01/07/25 Subjective Subjective Interval history: Mr. Fuentes is a 84 year old male with history of CAD status post PCI to the LCx on 11/11/2024, residual CAD of the RCA severe and moderate LAD being managed medically, CKD stage V, hypertension, type 2 diabetes mellitus, diabetic nephropathy, hyperlipidemia, osteoarthritis, history of TIA versus stroke 2 years ago, BPH, mild chronic anemia secondary to CKD presents to the ED BIBA from home for evaluation of shortness of breath, described as feeling he is not getting enough air. Reportedly symptoms began several weeks ago and worsening last night. Accompanied by a cough. Patient states he is compliant with medications, but did not take his medication today. Patient states he made a little bit of urine this morning. Denies associated fevers, chills, chest pain, abdominal pain, n/v/d, dysuria, hematuria, or any other urinary symptoms. Denies use of oxygen at home or known history of asthma. Patient recently was admitted to hospital with similar episode of hypoxic respiratory failure and at that time he did not want dialysis. Home medications: Coreg 12.5, Lasix 80, Brilinta 90, amlodipine 10, tamsulosin 0.4, atorvastatin 20, aspirin 81, nitroglycerin 0.4 prn. ED Course: - Initial vitals: 98.3F, 102 HR, 22 RR, 161/81 BP, O2 saturation 93 on 2L NC, - Labs significant for WBC 19.7, potassium 5.2, BUN 100, Cr 5.9, eGFR 9, Glucose 187, Osmolality 313, Ca 7.9, AST 95, ALT 158, Alk Phos 151, Trop 0.027, BNP 1915 - Imaging: CXR: showing mild heart failure, consider superimposed bilateral pneumonia - In the ED, patient was given methylprednisolone 125 mg and DuoNeb, put on 2L NC; given Lasix 40 mg. Patient was admitted for shortness of breath. Nephrology consulted for FERDINAND on CKD. 01/02/2025: No acute events overnight. Patient was seen and examined bedside. Today patient states he is doing better. Patient's breathing has improved, is needing less supplemental oxygen requirement. Patient tolerated HD yesterday well. Patient denies fever, dizziness, headache, chest pain, shortness of breath, abdominal pain. 01/03/2025: No acute events overnight. Patient was seen and examined bedside. Today patient states he is doing okay. Patient's breathing continues to appear to improve. Plan for HD today. Patient tolerated HD yesterday well. Patient denies fever, dizziness, headache, chest pain, shortness of breath, abdominal pain. 01/04/2025: No acute events overnight. Patient was seen and examined bedside. Today patient states he is doing okay. Patient's breathing continues to appear to improve. No HD today. [place]. Patient denies fever, dizziness, headache, chest pain, shortness of breath, abdominal pain. 01/05/2025: Patient seen and examined at bedside lying comfortably in bed. No new complaints. States he is feeling well. Denies chest pain, SOB or fever K 3.6 BUN 47, Cr 4.3, Ca 8.4. Plan for next HD session tomorrow and encourage patient to ambulate with PT. 01/06/2025: Patient seen and examined at bedside lying comfortably in bed in HD unit. No new complaints. States he is feeling well. Denies chest pain, SOB or fever K 3.8 BUN 61, Cr 4.6, Ca 8.6. Patient receiving HD today, will need HD outpatient. 01/07/2025: No acute events overnight. Patient seen and examined at bedside. Denies new complaints/concerns. Denies chest pain, SOB or fever K 3.6 BUN 35, Cr 3.7, Ca 8.3. HD scheduled for tomorrow, will need HD outpatient. Exam Vital Signs Temp Pulse Resp BP Pulse Ox O2 Del Method O2 Flow Rate 97.8 F 67 14 139/66 H 95 Room Air 1 01/07/25 08:00 01/07/25 08:28 01/07/25 08:00 01/07/25 08:28 01/07/25 08:00 01/07/25 08:00 01/05/25 04:00 FiO2 32 01/03/25 11:19 Narrative Exam GENERAL: AOx3, no acute distress HEENT: NC/AT, mucous membranes moist, bilateral sclera anicteric CARDIOVASCULAR: regular rate and rhythm, S1/S2 present, no murmurs appreciated PULMONARY: trace b/l diffuse crackles most prominent at bases ABDOMINAL: soft, non-tender, non-distended, no rebound/guarding, bowel sounds present EXTREMITIES: no peripheral edema SKIN: warm and dry, intact, no rashes, IJ Vas-Cath NEURO: CN II-XII grossly intact, no focal deficits, alert, following commands Objective Labs 01/07/25 04:00 01/07/25 04:00 Labs: Laboratory Results - last 24 hr 01/07/25 04:00 WBC 13.9 H RBC 3.68 L Hgb 10.5 L Hct 33.3 L MCV 91 MCH 28.5 MCHC 31.5 RDW Std Deviation 45.1 H Plt Count 295 Neut % (Auto) 72 Lymph % (Auto) 9 L [place] % (Auto) 12 Eos % (Auto) 6 Baso % (Auto) 0 Neut # (Auto) 10.0 H Lymph # (Auto) 1.2 [place] # (Auto) 1.6 H Eos # (Auto) 0.9 H Baso # (Auto) 0.1 Immature Gran # (Auto) 0.18 H Absolute Nucleated RBC 0.02 H Immature Gran % 1 H Nucleated RBC % 0 Sodium 138 Potassium 3.6 Chloride 100 Carbon Dioxide 25.4 Anion Gap 13 BUN 35 H Creatinine 3.7 H D Estim Creat Clear Calc 16.0 L eGFR 15 L BUN/Creatinine Ratio 9 L Glucose 116 H Calculated Osmolality 284 Calcium 7.7 L Corrected Calcium 8.3 L Phosphorus 3.3 Magnesium 2.3 Total Bilirubin 0.5 AST 27 ALT 63 H Alkaline Phosphatase 112 Total Protein 6.0 Albumin 3.2 L Globulin 2.8 Albumin/Globulin Ratio 1.1 L ABG Interpretation ABG results: 01/01/25 01/01/25 09:50 10:25 ABG pH 7.41 ABG pCO2 32 ABG pO2 76 L ABG HCO3 20 ABG O2 Saturation 96 ABG Base Excess -4 L VBG pH 7.39 VBG pCO2 33 L VBG pO2 49 VBG Base Excess -4 L Quality Measures Quality Measures VTE prophylaxis Advance care planning discussed with:: patient Assessment & Plan Assessment Current Active Medications: Generic Name Dose Route Start Last Admin Trade Name Freq PRN Reason Stop Dose Admin Acetaminophen 650 mg 01/01/25 09:40 01/07/25 04:38 Acetaminophen 325 Mg Tablet PO 01/31/25 09:39 650 mg Q6H PRN Administration Fever >100.4 or pain Albuterol/Ipratropium 3 ml 01/01/25 19:00 01/07/25 07:11 Albuterol/Ipratropium (Duoneb) Rt Yary 3 Ml Nebu INH 01/31/25 18:59 3 ml Q4HRRT NAHED Administration Amlodipine Besylate 10 mg 01/04/25 09:00 01/07/25 08:27 Amlodipine Besylate 5 Mg Tablet PO 02/03/25 08:59 10 mg QDAY NAHED Administration Aspirin 81 mg 01/02/25 09:00 01/07/25 08:27 Aspirin Ec 81 Mg Tabec PO 02/01/25 08:59 81 mg QDAY NAHED Administration Atorvastatin Calcium 80 mg 01/02/25 21:00 01/06/25 20:59 Atorvastatin Calcium 20 Mg Tablet PO 02/01/25 20:59 80 mg HS NAHED Administration Benzonatate 200 mg 01/06/25 17:05 01/07/25 04:38 Benzonatate 100 Mg Capsule PO 02/05/25 17:04 200 mg Q8HR PRN Administration COUGH Protocol Carvedilol 12.5 mg 01/01/25 17:30 01/07/25 08:28 Carvedilol 12.5 Mg Tablet PO 01/31/25 17:29 12.5 mg BIDWM NAHED Administration Dextrose 25 ml 01/01/25 14:11 Dextrose 50%-Water Inj 50 Ml Syringe IV 01/31/25 14:10 Q15MIN PRN BG 50-70 responsive npo pt Dextrose 50 ml 01/01/25 14:11 Dextrose 50%-Water Inj 50 Ml Syringe IV 01/31/25 14:10 Q15MIN PRN BG <50 OR BG <70 & pt unresponsive Docusate Sodium 100 mg 01/01/25 09:45 01/07/25 08:27 Docusate Sod 100 Mg Capsule PO 01/31/25 09:44 100 mg QDAY NAHED Administration Protocol Glucagon 1 mg 01/01/25 14:11 Glucagon Inj 1 Mg Vial IM Q15MIN PRN BG <70, and no IV access Heparin Sodium (Porcine) 3,100 unit 01/01/25 17:10 01/06/25 11:32 Heparin Sod Inj 1000 Unit/Ml Vial 10 Ml INDWELLCAT 01/15/25 17:09 3,100 unit X1 PRN Administration DIALYSIS Albumin Human 25 gm in 100 mls @ 100 mls/min 01/06/25 09:02 Albuminar-25 Ivpb IV PRN PRN DIALYSIS Insulin Human Lispro 0 unit 01/01/25 17:00 01/07/25 08:29 Insulin Lispro (Admelog) 1 Unit/0.01 Ml Unit SC 01/31/25 16:59 Not Given AC NAHED Protocol Losartan Potassium 50 mg 01/06/25 17:35 01/07/25 08:28 Losartan Potassium 25 Mg Tablet PO 02/05/25 17:34 50 mg QDAY NAHED Administration Ondansetron HCl 4 mg 01/01/25 09:40 Ondansetron Inj 2 Mg/Ml Inj 2 Ml IVP 01/31/25 09:39 Q6H PRN NAUSEA OR VOMITING Protocol Pantoprazole Sodium 40 mg 01/02/25 09:00 01/07/25 08:28 Pantoprazole 40 Mg Tablet PO 02/01/25 08:59 40 mg QDAY NAHED Administration Sennosides 1 tab 01/01/25 09:40 01/05/25 22:15 Senna Tablet PO 01/31/25 09:39 1 tab QDAY PRN Administration constipation Protocol Tamsulosin HCl 0.8 mg 01/01/25 21:00 01/06/25 20:59 Tamsulosin Hcl 0.4 Mg Capsule PO 01/31/25 20:59 0.8 mg HS NAHED Administration Ticagrelor 90 mg 01/01/25 21:00 01/07/25 08:28 Ticagrelor 90 Mg Tablet PO 01/31/25 20:59 90 mg BID NAHED Administration Plan Alfredo Fall is an 84 year old male with history of CAD status post PCI to the LCx on 11/11/2024, residual CAD of the RCA severe and moderate LAD being managed medically, CKD stage V, hypertension, type 2 diabetes mellitus, diabetic nephropathy, hyperlipidemia, osteoarthritis, history of TIA versus stroke 2 years ago, BPH, mild chronic anemia secondary to CKD presents with shortness of breath. Nephrology consulted for FERDINAND on CKD. #FERDINAND on CKD stage V #Hypocalcemia 2/2 CKD #HFpEF (EF 40-45%) Patient has history of CKD V likely due to hypertensive nephropathy with baseline Cr around 4.0. This admission Cr is 5.9, GFR 9, BUN 100, potassium 5.2, sodium 139, corrected calcium 7.9, elevated BNP 1915. CXR showed some congestion with pneumonia. Patient had been refusing to start dialysis, but agreed on this admission. Appears that FERDINAND may be due to fluid overload status. States that he takes Lasix 80mg PO at home and is compliant with medications. TDC placed 01/03 Dialysis done 01/01, 01/02, 01/03 Hep A IgM (+); asymptomatic, curbsided Dr. Rodriguez: treat supportively. PPD negative. Plan: -HD tomorrow -Will vannessa HD outpatient -On discharge, return to Dr. Parra -Monitor chemistry -Strict I/Os, monitor UOP -Renal dose med, avoid nephrotoxin #Normocytic anemia #Transaminitis #HTN #HLD #CAD s/p PCI #BPH #Nicotine dependence -management per primary care team Thank you for allowing us to take part in the care of Mr. Fall Patient plan of care was discussed with the attending physician, Dr. Judie Charles MD PGY-1 Attending Provider Attestation/Addendum Patient seen and examined with resident physician Dr. Chalres. Note reviewed, agree with findings and recommendations. Currently seen in the emergency department. On BiPAP. Patient with hypoxic respiratory failure and significant azotemia. Long conversation with the patient-finally agreed for dialysis. Vas-Cath placed by Dr. Cohen. Patient did receive dialysis yesterday. 01/07 patient so far received 4 dialysis sessions. On nasal cannula. Resting comfortably. PermCath was placed. Resumed Brilinta and aspirin. Spoke to primary team. PPD negative. Hepatitis A positive. spoke to Dr. Rodriguez-since patient asymptomatic, continue supportive therapy. He will need outpatient dialysis-under Dr Parra
--- NOTE | 2025-01-07 09:46 | PC.CM ---
Patient opened to [facility]. He will need orders for home health if he discharge to home.
--- NOTE | 2025-01-07 11:05 | PC.NURSE ---
discharge pending availability for dialysis
--- NOTE | 2025-01-07 11:25 | PC.SS ---
Addendum entered by JC Begum 01/07/25 12:14: Syeda at [facility] confirmed insurance authorization. Original Note: SS update: PHYSICAL MEDICINE PHYSICIAN spoke to next of kin Kevin to confirm SNF placement to [facility]. Pt. brother Kevin confirmed. PHYSICAL MEDICINE PHYSICIAN spoke to Donna with [facility], she provided chair time for Monday, Monday, Monday at 10:30 AM. PHYSICAL MEDICINE PHYSICIAN spoke to [facility] to confirm authorization.
[2025-01-07] MEDS: INSULIN LISPRO (AdmeLOG) 1 UNIT/0.01 ML UNIT SC (11:45)
--- NOTE | 2025-01-07 11:47 | PC.SS ---
Addendum entered by JC Begum 01/07/25 13:22: Syeda at [facility] contact [employer]EL[employer] to inform her that they are unable to provide transportation to dialysis appointments, EXT JS DEVELOPER spoke to next of kin Kevin to coordinate transportation to dialysis. Brother Kevin stated that he is able to provide transportation to dialysis M,W,F at 10:30 AM. Addendum entered by JC Begum 01/07/25 12:18: [employer]ELOPER provided bedside nurse with packet and ETA for 14:00, bedside nurse stated that pt. has not had bowel movement. EXT JS DEVELOPER informed patient brother Kevin that patient will be ready to d/c once pt. has bowel movement, pt. brother confirmed. Addendum entered by JC Begum 01/07/25 12:14: EXT [employer] DEVELOPER spoke to pt. brothmegan Brown who stated he is able to provide transportation for patient to [facility]. EXT JS DEVELOPER informed pt. that ETA is 14:00. Original Note: SS update: [employer] [employer].
--- NOTE | 2025-01-07 12:17 | PC.NURSE ---
discharge pending BM
[2025-01-07] MEDS: POLYETHYLENE GLYCOL 17 GM PACKET PO (12:26)
--- NOTE | 2025-01-07 14:27 | PC.SS ---
Rounding update: Pt. ready for d/c today pending bowel movement, will follow up with bedside nurse.
--- NOTE | 2025-01-07 14:33 | PD.RESPRO ---
Documentation for date of: 01/07/25 Subjective Subjective Interval history: The patient was seen and examined at the bedside this morning. He reported doing well. He reported improvement in his SOB. His vitals were fairly stable, with blood pressure in 130's/-60s, HR in 60s, RR 18, saturating 97% on RA. White count improving to 14.4, hemoglobin 10.9, creatinine 4.6 The patient was recommended SNF by PT and awaiting insurance authorization for outpt HD. The patient will be scheduled for cardiac cath for right coronary artery as outpatient as patient has no symptoms now. Continue on aspirin and Brilinta Continue with carvedilol 12.5 Mg twice daily and amlodipine 10mg daily. Continue with 50mg PO QDAY was started. Exam Vital Signs Temp Pulse Resp BP Pulse Ox O2 Del Method O2 Flow Rate 98.0 F 60 19 124/56 L 96 Room Air 1 01/07/25 12:00 01/07/25 12:43 01/07/25 12:00 01/07/25 12:00 01/07/25 12:00 01/07/25 12:00 01/05/25 04:00 FiO2 32 01/03/25 11:19 Narrative Exam General: No acute distress, Alert and Oriented x 3 HEENT: Moist mucous membranes, oropharynx clear, HD catheter on place Neck: Supple, No masses, No JVD CVS: S1S2 Regular rate and rhythm, No murmurs, rubs or gallops Lungs: Mild bibasilar lower lobe crackles, no wheeze no rhonchi Abd: Soft, NT/ND, +BS, no organomegaly Ext: No edema, warm and well perfused Skin: No rash Psych: Appropriate mood and affect Objective Labs 01/07/25 04:00 01/07/25 04:00 Labs: Laboratory Results - last 24 hr 01/07/25 04:00 WBC 13.9 H RBC 3.68 L Hgb 10.5 L Hct 33.3 L MCV 91 MCH 28.5 MCHC 31.5 RDW Std Deviation 45.1 H Plt Count 295 Neut % (Auto) 72 Lymph % (Auto) 9 L [place] % (Auto) 12 Eos % (Auto) 6 Baso % (Auto) 0 Neut # (Auto) 10.0 H Lymph # (Auto) 1.2 [place] # (Auto) 1.6 H Eos # (Auto) 0.9 H Baso # (Auto) 0.1 Immature Gran # (Auto) 0.18 H Absolute Nucleated RBC 0.02 H Immature Gran % 1 H Nucleated RBC % 0 Sodium 138 Potassium 3.6 Chloride 100 Carbon Dioxide 25.4 Anion Gap 13 BUN 35 H Creatinine 3.7 H D Estim Creat Clear Calc 16.0 L eGFR 15 L BUN/Creatinine Ratio 9 L Glucose 116 H Calculated Osmolality 284 Calcium 7.7 L Corrected Calcium 8.3 L Phosphorus 3.3 Magnesium 2.3 Total Bilirubin 0.5 AST 27 ALT 63 H Alkaline Phosphatase 112 Total Protein 6.0 Albumin 3.2 L Globulin 2.8 Albumin/Globulin Ratio 1.1 L ABG Interpretation ABG results: 01/01/25 01/01/25 09:50 10:25 ABG pH 7.41 ABG pCO2 32 ABG pO2 76 L ABG HCO3 20 ABG O2 Saturation 96 ABG Base Excess -4 L VBG pH 7.39 VBG pCO2 33 L VBG pO2 49 VBG Base Excess -4 L Quality Measures Quality Measures VTE prophylaxis Advance care planning discussed with:: patient Assessment & Plan Assessment Current Active Medications: Generic Name Dose Route Start Last Admin Trade Name Freq PRN Reason Stop Dose Admin Acetaminophen 650 mg 01/01/25 09:40 01/07/25 10:58 Acetaminophen 325 Mg Tablet PO 01/31/25 09:39 650 mg Q6H PRN Administration Fever >100.4 or pain Albuterol/Ipratropium 3 ml 01/01/25 19:00 01/07/25 10:28 Albuterol/Ipratropium (Duoneb) Rt Yary 3 Ml Nebu INH 01/31/25 18:59 3 ml Q4HRRT NAHED Administration Amlodipine Besylate 10 mg 01/04/25 09:00 01/07/25 08:27 Amlodipine Besylate 5 Mg Tablet PO 02/03/25 08:59 10 mg QDAY NAHED Administration Aspirin 81 mg 01/02/25 09:00 01/07/25 08:27 Aspirin Ec 81 Mg Tabec PO 02/01/25 08:59 81 mg QDAY NAHED Administration Atorvastatin Calcium 80 mg 01/02/25 21:00 01/06/25 20:59 Atorvastatin Calcium 20 Mg Tablet PO 02/01/25 20:59 80 mg HS NAHED Administration Benzonatate 200 mg 01/06/25 17:05 01/07/25 12:09 Benzonatate 100 Mg Capsule PO 02/05/25 17:04 200 mg Q8HR PRN Administration COUGH Protocol Carvedilol 12.5 mg 01/01/25 17:30 01/07/25 08:28 Carvedilol 12.5 Mg Tablet PO 01/31/25 17:29 12.5 mg BIDWM NAHED Administration Dextrose 25 ml 01/01/25 14:11 Dextrose 50%-Water Inj 50 Ml Syringe IV 01/31/25 14:10 Q15MIN PRN BG 50-70 responsive npo pt Dextrose 50 ml 01/01/25 14:11 Dextrose 50%-Water Inj 50 Ml Syringe IV 01/31/25 14:10 Q15MIN PRN BG <50 OR BG <70 & pt unresponsive Docusate Sodium 100 mg 01/01/25 09:45 01/07/25 08:27 Docusate Sod 100 Mg Capsule PO 01/31/25 09:44 100 mg QDAY NAHED Administration Protocol Glucagon 1 mg 01/01/25 14:11 Glucagon Inj 1 Mg Vial IM Q15MIN PRN BG <70, and no IV access Heparin Sodium (Porcine) 3,100 unit 01/01/25 17:10 01/06/25 11:32 Heparin Sod Inj 1000 Unit/Ml Vial 10 Ml INDWELLCAT 01/15/25 17:09 3,100 unit X1 PRN Administration DIALYSIS Albumin Human 25 gm in 100 mls @ 100 mls/min 01/06/25 09:02 Albuminar-25 Ivpb IV PRN PRN DIALYSIS Insulin Human Lispro 0 unit 01/01/25 17:00 01/07/25 11:45 Insulin Lispro (Admelog) 1 Unit/0.01 Ml Unit SC 01/31/25 16:59 1 unit AC NAHED Administration Protocol Losartan Potassium 50 mg 01/06/25 17:35 01/07/25 08:28 Losartan Potassium 25 Mg Tablet PO 02/05/25 17:34 50 mg QDAY NAHED Administration Ondansetron HCl 4 mg 01/01/25 09:40 Ondansetron Inj 2 Mg/Ml Inj 2 Ml IVP 01/31/25 09:39 Q6H PRN NAUSEA OR VOMITING Protocol Pantoprazole Sodium 40 mg 01/02/25 09:00 01/07/25 08:28 Pantoprazole 40 Mg Tablet PO 02/01/25 08:59 40 mg QDAY NAHED Administration Polyethylene Glycol 17 gm 01/07/25 12:15 01/07/25 12:26 Polyethylene Glycol 17 Gm Packet PO 02/06/25 12:14 17 gm QDAY NAHED Administration Sennosides 1 tab 01/01/25 09:40 01/07/25 10:58 Senna Tablet PO 01/31/25 09:39 1 tab QDAY PRN Administration constipation Protocol Tamsulosin HCl 0.8 mg 01/01/25 21:00 01/06/25 20:59 Tamsulosin Hcl 0.4 Mg Capsule PO 01/31/25 20:59 0.8 mg HS NAHED Administration Ticagrelor 90 mg 01/01/25 21:00 01/07/25 08:28 Ticagrelor 90 Mg Tablet PO 01/31/25 20:59 90 mg BID NAHED Administration Plan The patient is an 84-year-old male with a past medical history of CAD status post PCI to the LCx on 11/11/2024, residual CAD of the RCA severe and moderate LAD being managed medically, CKD stage IV-V, with baseline creatinine of around 4, hypertension, type 2 diabetes mellitus, diabetic nephropathy, hyperlipidemia, osteoarthritis, history of TIA versus stroke 2 years ago, chronic smoker with more than 39-87-frct-year smoking history, BPH, mild chronic anemia secondary to CKD presented to the emergency department for further evaluation of shortness of breath. #Acute hypoxic respiratory failure, improved #Fluid overload 2/2 #CKD stage V, and #HFmrEF exacerbation Patient presented with chief complaint of shortness of breath, was found to have mild vascular congestions, superimposed bilateral pneumonia on chest x-ray, BNP level was 1915. - Patient underwent 1 session of hemodialysis this afternoon. - Was saturating 94% on RA - Continue with hemodialysis session with ultrafiltration goal of more than 2 L of net negative or as tolerated. - Continue with carvedilol 12.5 Mg twice daily - Losartan 50mg PO QDAY #CAD s/p PCI of LCX on 11/11/2024 - CAD status post PCI to the LCx on 11/11/2024, residual CAD of the RCA severe and moderate LAD disease being managed medically, - Continue on aspirin 81mg daily and Brillinta 90mg BID, beta pardeep and statin. - The patient will be scheduled for cardiac cath for right coronary artery as outpatient as patient with no symptoms now. #Acute on chronic blood loss anemia - 2/2 bleeding from HD catheter site and also the CKD. - S/P 1 Unit prbc transfused #Hypertension - Continue with carvedilol 12.5 Mg twice daily - Continue amlodipine 10 mg daily - Losartan 50mg PO QDAY was started. #Hyperkalemia #Hypocalcemia - Monitor and replete as needed #COPD exacerbation #Community-acquired pneumonia #Mild transaminitis #Type 2 diabetes mellitus #BPH Rest of the management deferred to primary hospitalist team. Thank you for cardiology consultation. We appreciate the opportunity to participate in this patient's care. Cardiology team will continue to follow-up in this patient care. The patient's management plan was discussed with my attending physician MD Salvador Funes MD, PGY3 Attending Provider Attestation/Addendum I have personally seen and examined the patient separately on the above date of service and discussed the plan of care with the resident. I reviewed the resident Dr. Salvador Lau consultation progress note and agree with the resident findings and plan in the note above and have also edited the documentation to reflect my findings and plan. Karlo Ann M.D. Interventional Cardiology
--- NOTE | 2025-01-07 15:29 | ESDS_ITS ---
<Statement entered by Keisha Schafer MD - 01/11/25 12:39> I reviewed above note and agree with findings and plans. I have also personally examined the patient with medicine team and went over assessment and plan with medical team including sourcing intern and resident physician. Planned Discharge Date 01/07/25 DS: Providers Provider Date of admission: 01/01/25 09:40 Primary care physician: Eduar Haines PA-C Admitting Provider: Genevieve Rogers DO Attending Provider on Admission: Genevieve Rogers DO Consults: 01/01/25 09:46 Consult to Cardiology Routine Comment: CHF, refusing dialysis Consulting Provider: Karlo Ann 01/01/25 14:34 Consult to Nephrology Routine Comment: Consulting Provider: Trever Dimas 01/04/25 08:10 Referral Physical Therapy Routine Comment: Physician Instructions: 01/04/25 08:33 Referral Discharge Planning Routine Comment: dialysis unit- [facility], dr. iraheta Attending Provider on DC: Keisha Schafer MD Discharging Provider: Ramiro Garnett DO Anticipated date of discharge: 01/07/25 DS: Diagnosis Problem List Completed Was Problem List Reviewed/Reconciled?: Yes Hospital Course Hospital Course Hospital course: Mr. Fall is a 84M with history of NSTEMI, CAD s/p PCI to Left circumflex on 11/11/24, CKD stage IV, HTN, DM2, HLD, diabetic nephropathy, stroke with no residual deficit and osteoarthritis admitted for CHF exacerbation. He was seen recently on 12/17/24 for acute respiratory failure with hypoxia, and was told he would need dialysis, which pt refused at that time. In the ED, his initial BNP was significantly elevated. UA unremarkable. CXR showed mild heart failure and considered superimposed bilateral pneumonia. Pt was tachypenic with accessory muscle use. He was put on BiPAP, and received Ceftriaxone 1g and Azithromycine 500mg to cover his pneumonia. Methylprednisone 125mg and Lasix 40mg was also given to relieved his CHF exacerbation. Since day 2 of admission, pt no longer requires BiPAP, and saturates well with supplemental O2. A temporary dialysis cath was placed on 01/01, and transitioned to a perm cath on 01/03. Pt received multiple dialysis sessions during this admission, and will continue to do HD outpt. Cardiology recommended for pt to follow up with them for second PCI session in [place], and added losartan 50mg PO QD to his home medication regimen. Physical therapy evaluation recommended SNF placement, and pt agreed. Pt saturated at 99% on RA on last day of admission. Pt is medically and physically stable for discharge. Pt initial date for discharge is 01/07/30. Pt reported having constipation with no BM for the past couple days, enema given on 01/08 after his HD. Pt reported having regular bowel movement on 01/08, discharged today. 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 Please follow up with your acute coordinator within 2 weeks. Please return to ED if you develop new or worsening symptoms. Case discussed with my senior resident Dr. Amaro Case discussed with my attending Dr. Hanh Garnett, PGY 1 Time Spent with Patient Time attestation: Total time spent providing and/or coordinating discharge services: Time spent: Greater than 30 minutes Exam Vital Signs Temp Pulse Resp BP Pulse Ox O2 Del Method O2 Flow Rate 98.0 F 72 18 124/56 L 99 Room Air 1 01/07/25 12:00 01/07/25 14:53 01/07/25 14:53 01/07/25 12:00 01/07/25 14:53 01/07/25 12:00 01/05/25 04:00 FiO2 32 01/03/25 11:19 Narrative Exam General: NAD, Oriented x 3. Saturate 97% on RA. Perm cath R IJ. Skin: Good turgor, no rash, unusual bruising or prominent lesions Heart: No cardiomegaly or thrills; regular rate and rhythm, no murmur or gallop Lungs: CTAB. Abdomen: Bowel sounds normal, no tenderness, organomegaly, masses, or hernia Back: Spine normal without deformity or tenderness, no CVA tenderness Extremities: No amputations or deformities, cyanosis, edema or varicosities, peripheral pulses intact Musculoskeletal: No misalignment, asymmetry, crepitation, defects, tenderness, masses, effusions, decreased range of motion, instability, atrophy or abnormal strength or tone in the head, neck, spine, ribs, pelvis or extremities. Discharge Plan Plan Patient Disposition: Xfer Skilled Nsg Fac (SNF) Patient condition on transfer: Stable Care Plan Goals: The following medications have been STOPPED: -Lasix Please take all other medications as previously prescribed Please follow up with your primary doctor in 7-10 days Please continue to participate in dialysis as managed by your acute coordinator. Please follow up with your acute coordinator within 2 weeks. Please return to ED if you develop new or worsening symptoms. Prescriptions/Referrals Prescriptions/Med Rec: Continued tamsulosin 0.4 mg capsule 0.8 mg PO BID carvedilol [Coreg] 12.5 mg tablet 12.5 mg PO BID 30 Days Qty: 60 0RF Rx Instructions: Take one tablet by mouth twice a day ticagrelor [Brilinta] 90 mg tablet 90 mg PO BID 30 Days Qty: 60 0RF Rx Instructions: Take one tablet by mouth twice a day amlodipine 10 mg tablet 10 mg PO QDAY 30 Days Qty: 30 0RF Rx Instructions: Take one tablet by mouth twice a day atorvastatin 20 mg Tablet 80 mg PO HS Qty: 30 1RF aspirin [Ecotrin Low Strength] 81 mg Tablet,Delayed Release (Dr/Ec) 81 mg PO QDAY Qty: 30 1RF nitroglycerin 0.4 mg Tablet, Sublingual 0.4 mg SL Q5MIN PRN (Reason: Chest Pain) Qty: 30 0RF Discontinued furosemide [Lasix] 80 mg tablet 80 mg PO QDAY 30 Days Qty: 30 0RF Rx Instructions: Take one tablet by mouth every day Referrals: Eduar Haines PA-C [Primary Care Provider] - Patient/Caregiver Discharge Instructions Discharge Activity: activity as tolerated Education Materials: Exercise to Help Your Kidneys, Finding Support for Kidney Disease, Hemodialysis, Coping with Kidney Failure, Kidney Disease Potassium in Diet, Kidney Disease: Limiting Fluids Print Language: Sinhala Stand Alone Forms: Johanna Award Info., Patient Portal Info Letter Discharge Order Discharge Orders: Discharge (Routine); Ordered 01/08/25 Ordered By: Zev Drake Quality Discharge Quality Measures none
--- NOTE | 2025-01-07 15:30 | PC.SS ---
Addendum entered by JC Begum 01/07/25 15:50: Bedside nurse contact JAMMER OPERATOR to let her know pt. has not been able to have bowel movement, nurse will consult with doctor. JAMMER OPERATOR informed [facility] that pt. still has not been able to pass bowel movement, will keep her updated. JAMMER OPERATOR also called next of kin JC Brown left voicemail. Original Note: JAMMER OPERATOR placed phone call to bedside nurse, bedside nurse stated that patient has not had bowel movement yet, bedside nurse will give report to [facility] once pt. has bowel movement.
--- NOTE | 2025-01-07 15:31 | PC.NURSE ---
pt. has not had a BM yet all meds and enema have been given pt. still waiting for results. Will continue to monitor
[2025-01-07] MEDS: LACTULOSE SYRUP 20 GM/30 ML UDC 30 GM PO (16:21)
--- NOTE | 2025-01-07 18:11 | PC.NURSE ---
175: rcvd call from MD CUEVAS stated leave DC orders in place but pt may be discharged tomorrow d/t no bm after several interventions 1803: updated pt's brother Kevin on plan of care because he will be providing the transportation for pt to [facility] at time of discharge 180: contacted [facility] and spoke to Pantera EVANS and updated him on pt's current status and no b/m after several interventions will update on coming RN
--- NOTE | 2025-01-07 19:35 | PC.NURSE ---
Dr. Cheng Fan in to see pt spoke with Archie regarding bowel regimen orders, Archie to contact hospitalists.
[2025-01-07] MEDS: TAMSULOSIN HCL 0.4 MG CAPSULE 0.8 MG PO (20:36)
[2025-01-07] MEDS: DOCUSATE SOD 100 MG CAPSULE 200 MG PO (20:36)
[2025-01-07] MEDS: ATORVASTATIN CALCIUM 20 MG TABLET 80 MG PO (20:36)
[2025-01-08] VITALS (30 sets, daily range): BP systolic 95–157; BP diastolic 58–77; PULSE 53–79; RESP 17–20; TEMP 36.1–36.7; O2SAT 94–99
[2025-01-08] MEDS: ALBUTEROL/IPRATROPIUM (Duoneb) RT SOL 3 ML NEBU INH ×3 (02:00→15:05)
[2025-01-08] MEDS: BENZONATATE 100 MG CAPSULE 200 MG PO ×2 (04:24→16:43)
[2025-01-08] MEDS: ACETAMINOPHEN 325 MG TABLET 650 MG PO (04:24)
[2025-01-08 07:27] LABS: Basophils # (Auto) 0.0 Thou/mm3 (0.0-0.2); Basophils % (Auto) 0 % (0-2.5); Eosinophils # (Auto) 1.2 Thou/mm3 (0.0-0.5); Eosinophils % (Auto) 8 % (0-10); Hematocrit 29.6 % (41.0-53.0); Hemoglobin 9.7 g/dL (13.5-16.0); Immature Granulocytes Auto 0.11 Thou/mm3 (0.00-0.00); Lymphocytes # (Auto) 1.1 Thou/mm3 (1.0-4.8); Lymphocytes % (Auto) 8 % (10-50); Mean Corpuscular HGB Conc 32.8 g/dl (31.0-37.0); Mean Corpuscular Hemoglobin 29.3 pg (25.0-35.0); Mean Corpuscular Volume 89 fL (80-100); Monocytes # (Auto) 1.7 Thou/mm3 (0.0-0.8); Monocytes % (Auto) 12 % (0-12); Neutrophils # (Auto) 9.7 Thou/mm3 (1.8-7.7); Neutrophils % (Auto) 70 % (37-80); Nucleated Red Blood Cell # 0.00 Thou/mm3 (0.00-0.00); Nucleated Red Blood Cell % 0 /100 WBC (0); Platelet Count 288 Thou/mm3 (140-440); RDW Standard Deviation 45.4 fL (35.1-43.9); Red Blood Count 3.31 Miln/mm3 (4.50-5.90); White Blood Count 13.8 Thou/mm3 (3.8-10.6)
[2025-01-08 07:48] LABS: Alanine Aminotransferase 61 U/L (10-49); Albumin, Serum 3.2 gm/dL (3.4-4.8); Albumin/Globulin Ratio 1.2 (1.2-2.2); Alkaline Phosphatase 121 U/L (46-116); Anion Gap 10 (7-16); Aspartate Amino Transferase 32 U/L (0-34); BUN/Creatinine Ratio 11 Ratio (12-20); Bilirubin,Total 0.4 mg/dL (0.3-1.2); Blood Urea Nitrogen 53 mg/dL (9-23); Calcium 7.6 mg/dL (8.3-10.6); Calcium (Corrected) 8.2 mg/dL (8.5-10.1); Carbon Dioxide 25.8 mMol/L (20.0-31.0); Chloride 101 mMol/L (98-107); Creatinine (Component) 4.7 mg/dL (0.6-1.3); Estimated Creatinine Clearance 12.6 mL/min (>60); Globulin 2.6 gm/dL (2.3-3.5); Glucose 123 mg/dL (74-106); Osmolality,Calculated 289 (275-295); Potassium 3.7 mMol/L (3.4-5.1); Sodium 137 mMol/L (136-145); Total Protein 5.8 gm/dL (5.7-8.2); eGFR 12 See Note
--- NOTE | 2025-01-08 09:46 | PD.RESPRO ---
Documentation for date of: 01/08/25 Subjective Subjective Interval history: Mr. Fuentes is a 84 year old male with history of CAD status post PCI to the LCx on 11/11/2024, residual CAD of the RCA severe and moderate LAD being managed medically, CKD stage V, hypertension, type 2 diabetes mellitus, diabetic nephropathy, hyperlipidemia, osteoarthritis, history of TIA versus stroke 2 years ago, BPH, mild chronic anemia secondary to CKD presents to the ED BIBA from home for evaluation of shortness of breath, described as feeling he is not getting enough air. Reportedly symptoms began several weeks ago and worsening last night. Accompanied by a cough. Patient states he is compliant with medications, but did not take his medication today. Patient states he made a little bit of urine this morning. Denies associated fevers, chills, chest pain, abdominal pain, n/v/d, dysuria, hematuria, or any other urinary symptoms. Denies use of oxygen at home or known history of asthma. Patient recently was admitted to hospital with similar episode of hypoxic respiratory failure and at that time he did not want dialysis. Home medications: Coreg 12.5, Lasix 80, Brilinta 90, amlodipine 10, tamsulosin 0.4, atorvastatin 20, aspirin 81, nitroglycerin 0.4 prn. ED Course: - Initial vitals: 98.3F, 102 HR, 22 RR, 161/81 BP, O2 saturation 93 on 2L NC, - Labs significant for WBC 19.7, potassium 5.2, BUN 100, Cr 5.9, eGFR 9, Glucose 187, Osmolality 313, Ca 7.9, AST 95, ALT 158, Alk Phos 151, Trop 0.027, BNP 1915 - Imaging: CXR: showing mild heart failure, consider superimposed bilateral pneumonia - In the ED, patient was given methylprednisolone 125 mg and DuoNeb, put on 2L NC; given Lasix 40 mg. Patient was admitted for shortness of breath. Nephrology consulted for FERDINAND on CKD. 01/02/2025: No acute events overnight. Patient was seen and examined bedside. Today patient states he is doing better. Patient's breathing has improved, is needing less supplemental oxygen requirement. Patient tolerated HD yesterday well. Patient denies fever, dizziness, headache, chest pain, shortness of breath, abdominal pain. 01/03/2025: No acute events overnight. Patient was seen and examined bedside. Today patient states he is doing okay. Patient's breathing continues to appear to improve. Plan for HD today. Patient tolerated HD yesterday well. Patient denies fever, dizziness, headache, chest pain, shortness of breath, abdominal pain. 01/04/2025: No acute events overnight. Patient was seen and examined bedside. Today patient states he is doing okay. Patient's breathing continues to appear to improve. No HD today. GRECIA louis. Patient denies fever, dizziness, headache, chest pain, shortness of breath, abdominal pain. 01/05/2025: Patient seen and examined at bedside lying comfortably in bed. No new complaints. States he is feeling well. Denies chest pain, SOB or fever K 3.6 BUN 47, Cr 4.3, Ca 8.4. Plan for next HD session tomorrow and encourage patient to ambulate with PT. 01/06/2025: Patient seen and examined at bedside lying comfortably in bed in HD unit. No new complaints. States he is feeling well. Denies chest pain, SOB or fever K 3.8 BUN 61, Cr 4.6, Ca 8.6. Patient receiving HD today, will need HD outpatient. 01/07/2025: No acute events overnight. Patient seen and examined at bedside. Denies new complaints/concerns. Denies chest pain, SOB or fever K 3.6 BUN 35, Cr 3.7, Ca 8.3. HD scheduled for tomorrow, will need HD outpatient. 01/08/2025: No acute events overnight. Patient seen and examined at bedside. Vitals and labs reviewed. Patient denies any complaints/concerns. Patient denies fever, chest pain, shortness of breath. HD plan for today. K 3.7, BUN 53, Cr 4.7, Ca 8.2. Exam Vital Signs Temp Pulse Resp BP Pulse Ox O2 Del Method O2 Flow Rate 98.0 F 62 18 130/64 95 Room Air 1 01/08/25 08:53 01/08/25 09:30 01/08/25 08:53 01/08/25 09:30 01/08/25 08:53 01/08/25 08:00 01/08/25 08:00 FiO2 32 01/08/25 08:00 Narrative Exam GENERAL: AOx3, no acute distress HEENT: NC/AT, mucous membranes moist, bilateral sclera anicteric CARDIOVASCULAR: regular rate and rhythm, S1/S2 present, no murmurs appreciated PULMONARY: lungs clear to auscultation ABDOMINAL: soft, non-tender, non-distended, no rebound/guarding, bowel sounds present EXTREMITIES: no peripheral edema SKIN: warm and dry, intact, no rashes, IJ Vas-Cath NEURO: CN II-XII grossly intact, no focal deficits, alert, following commands Objective Labs 01/08/25 07:15 01/08/25 07:15 Labs: Laboratory Results - last 24 hr 01/08/25 07:15 WBC 13.8 H RBC 3.31 L Hgb 9.7 L Hct 29.6 L MCV 89 MCH 29.3 MCHC 32.8 RDW Std Deviation 45.4 H Plt Count 288 Neut % (Auto) 70 Lymph % (Auto) 8 L [place] % (Auto) 12 Eos % (Auto) 8 Baso % (Auto) 0 Neut # (Auto) 9.7 H Lymph # (Auto) 1.1 [place] # (Auto) 1.7 H Eos # (Auto) 1.2 H Baso # (Auto) 0.0 Immature Gran # (Auto) 0.11 H Absolute Nucleated RBC 0.00 Immature Gran % 1 H Nucleated RBC % 0 Sodium 137 Potassium 3.7 Chloride 101 Carbon Dioxide 25.8 Anion Gap 10 BUN 53 H Creatinine 4.7 H* D Estim Creat Clear Calc 12.6 L eGFR 12 L* BUN/Creatinine Ratio 11 L Glucose 123 H Calculated Osmolality 289 Calcium 7.6 L Corrected Calcium 8.2 L Total Bilirubin 0.4 AST 32 ALT 61 H Alkaline Phosphatase 121 H Total Protein 5.8 Albumin 3.2 L Globulin 2.6 Albumin/Globulin Ratio 1.2 ABG Interpretation ABG results: 01/01/25 01/01/25 09:50 10:25 ABG pH 7.41 ABG pCO2 32 ABG pO2 76 L ABG HCO3 20 ABG O2 Saturation 96 ABG Base Excess -4 L VBG pH 7.39 VBG pCO2 33 L VBG pO2 49 VBG Base Excess -4 L Quality Measures Quality Measures VTE prophylaxis Advance care planning discussed with:: patient Assessment & Plan Assessment Current Active Medications: Generic Name Dose Route Start Last Admin Trade Name Freq PRN Reason Stop Dose Admin Acetaminophen 650 mg 01/01/25 09:40 01/08/25 04:24 Acetaminophen 325 Mg Tablet PO 01/31/25 09:39 650 mg Q6H PRN Administration Fever >100.4 or pain Albuterol/Ipratropium 3 ml 01/01/25 19:00 01/08/25 06:54 Albuterol/Ipratropium (Duoneb) Rt Yary 3 Ml Nebu INH 01/31/25 18:59 3 ml Q4HRRT NAHED Administration Amlodipine Besylate 10 mg 01/04/25 09:00 01/07/25 08:27 Amlodipine Besylate 5 Mg Tablet PO 02/03/25 08:59 10 mg QDAY NAHED Administration Aspirin 81 mg 01/02/25 09:00 01/07/25 08:27 Aspirin Ec 81 Mg Tabec PO 02/01/25 08:59 81 mg QDAY NAHED Administration Atorvastatin Calcium 80 mg 01/02/25 21:00 01/07/25 20:36 Atorvastatin Calcium 20 Mg Tablet PO 02/01/25 20:59 80 mg HS NAHED Administration Benzonatate 200 mg 01/06/25 17:05 01/08/25 04:24 Benzonatate 100 Mg Capsule PO 02/05/25 17:04 200 mg Q8HR PRN Administration COUGH Protocol Carvedilol 12.5 mg 01/01/25 17:30 01/07/25 16:46 Carvedilol 12.5 Mg Tablet PO 01/31/25 17:29 12.5 mg BIDWM NAHED Administration Dextrose 25 ml 01/01/25 14:11 Dextrose 50%-Water Inj 50 Ml Syringe IV 01/31/25 14:10 Q15MIN PRN BG 50-70 responsive npo pt Dextrose 50 ml 01/01/25 14:11 Dextrose 50%-Water Inj 50 Ml Syringe IV 01/31/25 14:10 Q15MIN PRN BG <50 OR BG <70 & pt unresponsive Docusate Sodium 200 mg 01/07/25 21:00 01/07/25 20:36 Docusate Sod 100 Mg Capsule PO 02/06/25 20:59 200 mg BID NAHED Administration Protocol Epoetin Roger 10,000 unit 01/08/25 12:00 Epoetin Roger-Epbx Inj 10,000 Unit/Ml Vial (Esrd) SC 01/08/25 12:01 X1 ONE Glucagon 1 mg 01/01/25 14:11 Glucagon Inj 1 Mg Vial IM Q15MIN PRN BG <70, and no IV access Heparin Sodium (Porcine) 3,100 unit 01/01/25 17:10 01/06/25 11:32 Heparin Sod Inj 1000 Unit/Ml Vial 10 Ml INDWELLCAT 01/15/25 17:09 3,100 unit X1 PRN Administration DIALYSIS Albumin Human 25 gm in 100 mls @ 100 mls/min 01/06/25 09:02 Albuminar-25 Ivpb IV PRN PRN DIALYSIS Insulin Human Lispro 0 unit 01/01/25 17:00 01/08/25 08:07 Insulin Lispro (Admelog) 1 Unit/0.01 Ml Unit SC 01/31/25 16:59 Not Given AC NAHED Protocol Losartan Potassium 50 mg 01/06/25 17:35 01/07/25 08:28 Losartan Potassium 25 Mg Tablet PO 02/05/25 17:34 50 mg QDAY NAHED Administration Ondansetron HCl 4 mg 01/01/25 09:40 Ondansetron Inj 2 Mg/Ml Inj 2 Ml IVP 01/31/25 09:39 Q6H PRN NAUSEA OR VOMITING Protocol Pantoprazole Sodium 40 mg 01/02/25 09:00 01/07/25 08:28 Pantoprazole 40 Mg Tablet PO 02/01/25 08:59 40 mg QDAY NAHED Administration Polyethylene Glycol 17 gm 01/07/25 12:15 01/07/25 12:26 Polyethylene Glycol 17 Gm Packet PO 02/06/25 12:14 17 gm QDAY NAHED Administration Sennosides 1 tab 01/01/25 09:40 01/07/25 10:58 Senna Tablet PO 01/31/25 09:39 1 tab QDAY PRN Administration constipation Protocol Sennosides 1 tab 01/07/25 21:00 01/07/25 20:36 Senna Tablet PO 02/06/25 20:59 1 tab BID NAHED Administration Protocol Tamsulosin HCl 0.8 mg 01/01/25 21:00 01/07/25 20:36 Tamsulosin Hcl 0.4 Mg Capsule PO 01/31/25 20:59 0.8 mg HS NAHED Administration Ticagrelor 90 mg 01/01/25 21:00 01/07/25 20:36 Ticagrelor 90 Mg Tablet PO 01/31/25 20:59 90 mg BID NAHED Administration Plan Alfredo Fall is an 84 year old male with history of CAD status post PCI to the LCx on 11/11/2024, residual CAD of the RCA severe and moderate LAD being managed medically, CKD stage V, hypertension, type 2 diabetes mellitus, diabetic nephropathy, hyperlipidemia, osteoarthritis, history of TIA versus stroke 2 years ago, BPH, mild chronic anemia secondary to CKD presents with shortness of breath. Nephrology consulted for FERDINAND on CKD. #FERDINAND on CKD stage V #Hypocalcemia 2/2 CKD #HFpEF (EF 40-45%) Patient has history of CKD V likely due to hypertensive nephropathy with baseline Cr around 4.0. This admission Cr is 5.9, GFR 9, BUN 100, potassium 5.2, sodium 139, corrected calcium 7.9, elevated BNP 1915. CXR showed some congestion with pneumonia. Patient had been refusing to start dialysis, but agreed on this admission. Appears that FERDINAND may be due to fluid overload status. States that he takes Lasix 80mg PO at home and is compliant with medications. TDC placed 01/03 Dialysis done 01/01, 01/02, 01/03 Hep A IgM (+); asymptomatic, curbsided Dr. Rodriguez: treat supportively. PPD negative. Plan: -HD today. -Will vannessa HD outpatient -On discharge, return to Dr. Parra -Monitor chemistry -Strict I/Os, monitor UOP -Renal dose med, avoid nephrotoxin #Normocytic anemia #Transaminitis #HTN #HLD #CAD s/p PCI #BPH #Nicotine dependence -management per primary care team Thank you for allowing us to take part in the care of Mr. Fall Patient plan of care was discussed with the attending physician, Dr. Judie Charles MD PGY-1 Attending Provider Attestation/Addendum Patient seen and examined with resident physician Dr. Charles. Note reviewed, agree with findings and recommendations. Currently seen in the emergency department. On BiPAP. Patient with hypoxic respiratory failure and significant azotemia. Long conversation with the patient-finally agreed for dialysis. Vas-Cath placed by Dr. Cohen. Patient did receive dialysis yesterday. 01/08/2025 patient so far received 5 dialysis sessions. On nasal cannula. Resting comfortably. PermCath was placed. Resumed Brilinta and aspirin. Spoke to primary team. PPD negative. Hepatitis A positive. spoke to Dr. Rodriguez-since patient asymptomatic, continue supportive therapy. outpatient dialysis arranged-under Dr Parra Patient currently seen on dialysis. Tolerating dialysis without any problems. Hemodialysis for 3 hours, 2K, ultrafiltration 2-3 L, Epogen 6000, no heparin ordered. Plan of care discussed with the dialysis nurse. Please see dialysis flowsheet for further details. Renal talamantes stable for discharge.
--- NOTE | 2025-01-08 09:47 | PC.NURSE ---
BPO LOW PT DENIES ALL S/S OF HYPOTENSION WILL ADMIN PRN ALBUMIN AND CONT. TO MONITOR
[2025-01-08] MEDS: ALBUMIN HUMAN 25% IVPB 25 GM/100 ML BTL IV (09:48)
--- NOTE | 2025-01-08 10:10 | PC.NURSE ---
MACHINIST MECHANIC ELEVATED POST ADMISSION OF PRN ALBUMIN AND WAS UNABLE TO BE DECREASED DESPITE ALL INTERVENTIONS, PT DENIES ALL COMPLAINTS. TX PAUSED PT RINSED BACK. MACHINE WILL BE RESTRUNG AND TX RESUMED TOLERATED WILL CONT. TO MONITOR.
--- NOTE | 2025-01-08 10:12 | PC.NURSE ---
TX RESUMED W/O COMPLICATIONS. WILL CONT. TO MONITOR
--- NOTE | 2025-01-08 11:16 | PC.SS ---
SS update: ADZING AND BORING MACHINE HELPER received update from bedside nurse that patient is currently in dialysis, has not had BM. Bedside nurse will update ADZING AND BORING MACHINE HELPER once patient has had BM.
--- NOTE | 2025-01-08 12:25 | PC.SS ---
SS update: FURNITURE DUSTER spoke to bedside nurse Dian, nurse stated patient has not had bowel movement, and patient is currently still receiving dialysis.
[2025-01-08] MEDS: HEPARIN SOD INJ 1000 UNIT/ML VIAL 10 ML 3100 UNIT INDWELLCAT (13:16)
[2025-01-08] MEDS: EPOETIN ALFA-EPBX INJ 10,000 UNIT/ML VIAL (ESRD) 10000 UNIT SC (13:31)
[2025-01-08] MEDS: ASPIRIN EC 81 MG TABEC PO (13:53)
[2025-01-08] MEDS: LACTULOSE SYRUP 20 GM/30 ML UDC 60 GM PO (13:53)
[2025-01-08] MEDS: POLYETHYLENE GLYCOL 17 GM PACKET PO (13:53)
[2025-01-08] MEDS: TICAGRELOR 90 MG TABLET PO (13:54)
[2025-01-08] MEDS: DOCUSATE SOD 100 MG CAPSULE 200 MG PO (13:54)
[2025-01-08] MEDS: PANTOPRAZOLE 40 MG TABLET PO (13:55)
[2025-01-08] MEDS: LOSARTAN POTASSIUM 25 MG TABLET 50 MG PO (14:06)
--- NOTE | 2025-01-08 14:39 | PC.SS ---
Rounding note: Pt. needs to have BM before he is d/c to [facility].
--- NOTE | 2025-01-08 14:50 | PC.SS ---
SS update: GRANITE WORKER completed PASSR file exchange with [facility].
--- NOTE | 2025-01-08 16:05 | PC.SS ---
ENVIRONMENTAL FIELD TECHNICIAN received update from bedside nurse stating patient has had BM, bedside nurse stated that patient will be ready by 5:00PM. ENVIRONMENTAL FIELD TECHNICIAN spoke to Syeda at [facility] stating patient is ready for d/c, Syeda confirmed. ENVIRONMENTAL FIELD TECHNICIAN spoke to next of kin Kevin Brown confirmed pickler helper time for 5:00PM to transport to [facility]. ENVIRONMENTAL FIELD TECHNICIAN made bedside contact with patient. Patient was alert and oriented. ENVIRONMENTAL FIELD TECHNICIAN informed patient he is ready to d/c to [facility], patient confirmed. ENVIRONMENTAL FIELD TECHNICIAN provided patient with chair times and location. ENVIRONMENTAL FIELD TECHNICIAN also provided patient with address and phone number for [facility]. ENVIRONMENTAL FIELD TECHNICIAN confirmed with patient that transportation for dialysis and [facility] will be provided by brother Kevin.
--- NOTE | 2025-01-13 05:25 | ESDS_ITS ---
<Statement entered by Keisha Schafer MD - 01/22/25 14:32> I reviewed above note and agree with findings and plans. I have also personally examined the patient with medicine team and went over assessment and plan with medical team including internal medicine physician assistant and resident physician. Planned Discharge Date 01/08/25 DS: Providers Provider Date of admission: 01/01/25 09:40 Primary care physician: Eduar Haines PA-C Admitting Provider: Genevieve Rogers DO Attending Provider on Admission: Genevieve Rogers DO Consults: 01/01/25 09:46 Consult to Cardiology Routine Comment: CHF, refusing dialysis Consulting Provider: Karlo Ann 01/01/25 14:34 Consult to Nephrology Routine Comment: Consulting Provider: Trever Dimas 01/04/25 08:10 Referral Physical Therapy Routine Comment: Physician Instructions: 01/04/25 08:33 Referral Discharge Planning Routine Comment: dialysis [facility]- [facility], dr. iraheta Attending Provider on DC: Keisha Schafer MD Discharging Provider: Zev Drake MD DS: Diagnosis Problem List Completed Was Problem List Reviewed/Reconciled?: Yes Hospital Course Hospital Course Hospital course: Mr. Fall is a 84M with history of NSTEMI, CAD s/p PCI to Left circumflex on 11/11/24, CKD stage IV, HTN, DM2, HLD, diabetic nephropathy, stroke with no residual deficit and osteoarthritis admitted for CHF exacerbation. He was seen recently on 12/17/24 for acute respiratory failure with hypoxia, and was told he would need dialysis, which pt refused at that time. In the ED, his initial BNP was significantly elevated. UA unremarkable. CXR showed mild heart failure and considered superimposed bilateral pneumonia. Pt was tachypenic with accessory muscle use. He was put on BiPAP, and received Ceftriaxone 1g and Azithromycine 500mg to cover his pneumonia. Methylprednisone 125mg and Lasix 40mg was also given to relieved his CHF exacerbation. Since day 2 of admission, pt no longer requires BiPAP, and saturates well with supplemental O2. A temporary dialysis cath was placed on 01/01, and transitioned to a perm cath on 01/03. Pt received multiple dialysis sessions during this admission, and will continue to do HD outpt. Cardiology recommended for pt to follow up with them for second PCI session in [place], and added losartan 50mg PO QD to his home medication regimen. Physical therapy evaluation recommended SNF placement, and pt agreed. Pt saturated at 99% on RA on last day of admission. Pt is medically and physically stable for discharge. Pt initial date for discharge is 01/07/30. Pt reported having constipation with no BM for the past couple days, enema given on 01/08 after his HD. Pt reported having regular bowel movement on 01/08, discharged today. 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 Please follow up with your supervisor electronic testing within 2 weeks. Please return to ED if you develop new or worsening symptoms. Case discussed with my attending Dr. Hanh Drake MD PGY-2 Status at Discharge Overall status at discharge: patient is progressing back to baseline Time Spent with Patient Time attestation: Total time spent providing and/or coordinating discharge services: Time spent: Greater than 30 minutes Exam Vital Signs Temp Pulse Resp BP Pulse Ox O2 Del Method O2 Flow Rate 97.0 F 63 17 144/64 H 94 L Nasal Cannula 2 01/08/25 16:00 01/08/25 16:00 01/08/25 16:00 01/08/25 16:00 01/08/25 16:00 01/08/25 16:00 01/08/25 16:00 FiO2 32 01/08/25 16:00 Narrative Exam General: NAD, Oriented x 3. Saturate 97% on RA. Perm cath R IJ. Skin: Good turgor, no rash, unusual bruising or prominent lesions Heart: No cardiomegaly or thrills; regular rate and rhythm, no murmur or gallop Lungs: CTAB. Abdomen: Bowel sounds normal, no tenderness, organomegaly, masses, or hernia Back: Spine normal without deformity or tenderness, no CVA tenderness Extremities: No amputations or deformities, cyanosis, edema or varicosities, peripheral pulses intact Musculoskeletal: No misalignment, asymmetry, crepitation, defects, tenderness, masses, effusions, decreased range of motion, instability, atrophy or abnormal strength or tone in the head, neck, spine, ribs, pelvis or extremities. Discharge Plan Plan Patient Disposition: Xfer Skilled Nsg Fac (SNF) Patient condition on transfer: Stable Care Plan Goals: The following medications have been STOPPED: -Lasix Please take all other medications as previously prescribed Please follow up with your primary doctor in 7-10 days Please continue to participate in dialysis as managed by your supervisor electronic testing. Please follow up with your supervisor electronic testing within 2 weeks. Please return to ED if you develop new or worsening symptoms. Prescriptions/Referrals Prescriptions/Med Rec: Continued tamsulosin 0.4 mg capsule 0.8 mg PO BID carvedilol [Coreg] 12.5 mg tablet 12.5 mg PO BID 30 Days Qty: 60 0RF Rx Instructions: Take one tablet by mouth twice a day ticagrelor [Brilinta] 90 mg tablet 90 mg PO BID 30 Days Qty: 60 0RF Rx Instructions: Take one tablet by mouth twice a day amlodipine 10 mg tablet 10 mg PO QDAY 30 Days Qty: 30 0RF Rx Instructions: Take one tablet by mouth twice a day atorvastatin 20 mg Tablet 80 mg PO HS Qty: 30 1RF aspirin [Ecotrin Low Strength] 81 mg Tablet,Delayed Release (Dr/Ec) 81 mg PO QDAY Qty: 30 1RF nitroglycerin 0.4 mg Tablet, Sublingual 0.4 mg SL Q5MIN PRN (Reason: Chest Pain) Qty: 30 0RF Discontinued furosemide [Lasix] 80 mg tablet 80 mg PO QDAY 30 Days Qty: 30 0RF Rx Instructions: Take one tablet by mouth every day Referrals: Eduar Haines PA-C [Primary Care Provider] - Patient/Caregiver Discharge Instructions Discharge Activity: activity as tolerated Education Materials: Exercise to Help Your Kidneys, Finding Support for Kidney Disease, Hemodialysis, Coping with Kidney Failure, Kidney Disease Potassium in Diet, Kidney Disease: Limiting Fluids Print Language: Italian Stand Alone Forms: Johanna Award Info., Patient Portal Info Letter Discharge Order Discharge Orders: Discharge (Routine); Ordered 01/08/25 Ordered By: Zev Drake Quality Discharge Quality Measures VTE prophylaxis
== END 2025-01-08 17:17 | disposition skilled nursing facility (03) | DRG 673 ==
LOC: SERX 08:42 → SERHOLD 10:11 → S3NX 14:50
PROVIDERS: Internal Medicine; Internal Medicine Cardiovascular Disease; Student in an Organized Health Care Education/Training Program; Admitting Provider Internal Medicine; Emergency Provider Emergency Medicine; PCP Student in an Organized Health Care Education/Training Program; Visit Provider Internal Medicine
DX: N17.9 Acute kidney failure, unspecified (principal); I50.23 Acute on chronic systolic (congestive) heart failure; J18.9 Pneumonia, unspecified organism; J96.01 Acute respiratory failure with hypoxia; J44.1 Chronic obstructive pulmonary disease with (acute) exacerbation; J44.0 Chronic obstructive pulmonary disease with (acute) lower respiratory infection; B15.9 Hepatitis A without hepatic coma; D62 Acute posthemorrhagic anemia; T82.838A Hemorrhage due to vascular prosthetic devices, implants and grafts, initial encounter; I13.2 Hypertensive heart and chronic kidney disease with heart failure and with stage 5 chronic kidney disease, or end stage renal disease; N18.6 End stage renal disease; E11.22 Type 2 diabetes mellitus with diabetic chronic kidney disease; I25.10 Atherosclerotic heart disease of native coronary artery without angina pectoris; N40.0 Benign prostatic hyperplasia without lower urinary tract symptoms; M19.90 Unspecified osteoarthritis, unspecified site; I25.2 Old myocardial infarction; E87.5 Hyperkalemia; E83.51 Hypocalcemia; D63.1 Anemia in chronic kidney disease; E78.00 Pure hypercholesterolemia, unspecified; Z66 Do not resuscitate; K59.00 Constipation, unspecified; Z95.5 Presence of coronary angioplasty implant and graft; Z99.2 Dependence on renal dialysis; Z87.891 Personal history of nicotine dependence; Z86.73 Personal history of transient ischemic attack (TIA), and cerebral infarction without residual deficits; Z88.5 Allergy status to narcotic agent; Z79.899 Other long term (current) drug therapy; Z79.82 Long term (current) use of aspirin; Z79.02 Long term (current) use of antithrombotics/antiplatelets; Y82.8 Other medical devices associated with adverse incidents; Y92.230 Patient room in hospital as the place of occurrence of the external cause; Y84.8 Other medical procedures as the cause of abnormal reaction of the patient, or of later complication, without mention of misadventure at the time of the procedure
CPT/HCPCS: 36415; 36600; 71045; 76937; 77001; 80053; 80061; 80074; 81001; 82803; 82947; 83036; 83735; 83880; 84100; 84484; 85014; 85018; 85025; 85610; 85730; 86580; 86703; 86706; 86850; 86900; 86901; 86923; 87081; 87400; 87811; 93225; 94640; 94660; 96365; 96375; 97163; 99285; A9270; C1769; C1894; J0456; J0696; J1171; J1642; J1643; J1815; J1938; J2919; J3010; J3475; J3490; J7050; P9016; P9047; Q5105

== ENCOUNTER 2025-02-04 09:09 | Emergency (ER) | payer OTHER, SELFPAY ==
[2025-02-04] VITALS (7 sets, daily range): BP systolic 133–155; BP diastolic 52–94; PULSE 54–130; RESP 16–19; TEMP 36.4–37; O2SAT 97–98; BMI 18.1
--- NOTE | 2025-02-04 09:32 | PD.EDRME ---
Rapid Medical Screening Exam RME Arrival date/time: 02/04/25 09:09 84-year-old male with medical history significant for CHF, ESRD on dialysis presents stating he was at dialysis today and they told him that his hemoglobin is low at 6.9 and to come to the ER for transfusion Chief Complaint: General Adult/Misc Complain Vital signs: Vital Signs Temperature 98.6 F 02/04/25 09:25 Pulse Rate 60 02/04/25 09:25 Respiratory Rate 18 02/04/25 09:25 Blood Pressure 133/62 H 02/04/25 09:25 Pulse Oximetry (%) 98 02/04/25 09:25 Oxygen Delivery Method Room Air 02/04/25 09:25
[2025-02-04 10:20] LABS: Basophils # (Auto) 0.1 Thou/mm3 (0.0-0.2); Basophils % (Auto) 1 % (0-2.5); Eosinophils # (Auto) 0.8 Thou/mm3 (0.0-0.5); Eosinophils % (Auto) 7 % (0-10); Hematocrit 24.9 % (41.0-53.0); Immature Granulocytes Auto 0.64 Thou/mm3 (0.00-0.00); Lymphocytes # (Auto) 1.4 Thou/mm3 (1.0-4.8); Lymphocytes % (Auto) 11 % (10-50); Mean Corpuscular HGB Conc 30.9 g/dl (31.0-37.0); Mean Corpuscular Hemoglobin 27.8 pg (25.0-35.0); Mean Corpuscular Volume 90 fL (80-100); Monocytes # (Auto) 1.0 Thou/mm3 (0.0-0.8); Monocytes % (Auto) 8 % (0-12); Neutrophils # (Auto) 8.1 Thou/mm3 (1.8-7.7); Neutrophils % (Auto) 67 % (37-80); Nucleated Red Blood Cell # 0.02 Thou/mm3 (0.00-0.00); Nucleated Red Blood Cell % 0 /100 WBC (0); Platelet Count 479 Thou/mm3 (140-440); RDW Standard Deviation 49.8 fL (35.1-43.9); Red Blood Count 2.77 Miln/mm3 (4.50-5.90); White Blood Count 12.1 Thou/mm3 (3.8-10.6)
[2025-02-04 10:33] LABS: INR 1.0 (0.9-1.3); Partial Thromboplastin Time 29.9 Seconds (22.0-36.0); Prothrombin Time 11.4 Seconds (9.0-12.2)
[2025-02-04 10:36] LABS: Alanine Aminotransferase 34 U/L (10-49); Albumin, Serum 3.6 gm/dL (3.4-4.8); Albumin/Globulin Ratio 1.2 (1.2-2.2); Alkaline Phosphatase 110 U/L (46-116); Anion Gap 13 (7-16); Aspartate Amino Transferase 25 U/L (0-34); BUN/Creatinine Ratio 9 Ratio (12-20); Bilirubin,Total 0.3 mg/dL (0.3-1.2); Blood Urea Nitrogen 45 mg/dL (9-23); Calcium 8.1 mg/dL (8.3-10.6); Calcium (Corrected) 8.4 mg/dL (8.5-10.1); Carbon Dioxide 23.8 mMol/L (20.0-31.0); Chloride 104 mMol/L (98-107); Creatinine (Component) 4.9 mg/dL (0.6-1.3); Estimated Creatinine Clearance 9.2 mL/min (>60); Globulin 2.9 gm/dL (2.3-3.5); Glucose 111 mg/dL (74-106); Osmolality,Calculated 293 (275-295); Potassium 4.1 mMol/L (3.4-5.1); Sodium 141 mMol/L (136-145); Total Protein 6.5 gm/dL (5.7-8.2); eGFR 11 See Note
[2025-02-04 10:49] LABS: Hemoglobin 7.7 g/dL (13.5-16.0)
[2025-02-04 15:19] LABS: Band Neutrophils (Manual) 1 % (0-6); Eosinophils (Manual) 5 % (0-4); Lymphocytes (Manual) 13 % (20-44); Metamyelocytes (Manual) 2 % (0-0); Monocytes (Manual) 5 % (2-9); Myelocytes (Manual) 1 % (0-0); Neutrophils (Manual) 73 % (50-70)
[2025-02-04 15:20] LABS: Anisocytosis 1+; Polychromasia 1+
--- NOTE | 2025-02-04 17:05 | PC.NURSE ---
PT'S BROTHER ASKED IF PT WAS GOING TO BE TRANSFUSED. I SPOKE W/ DR. RAMÍREZ AND SHE ASKED IF PT HAD BEEN DIALYSED TODAY. PT WAS NOT DIALYZED. INFORMED DR. RAMÍREZ AND SHE SAID SHE WILL ORDER ONE UNIT FOR HIM. I TOLD PT AND HIS BROTHER THAT HE WILL BE TRANSFUSED ONE UNIT AND THAT IT WILL TAKE AWHILE. THEY EXPRESSED UNDERSTANDING.
--- NOTE | 2025-02-04 17:35 | PD.EDRECHK ---
ED Recheck Abnl Lab Rx-RME/HPI General Chief Complaint: General Adult/Misc Complain Stated Complaint: BLOOD TRANSFUSION Time Seen by Provider: 02/04/25 16:33 Source: patient Arrival date/time: 02/04/25 09:09 84-year-old male with a history of CHF, end-stage renal disease on dialysis presents to the emergency room with a chief complaint of a low hemoglobin level. Patient states he was unable to get dialysis done today due to a hemoglobin level of 6.9 and was sent to the emergency room for an ER blood transfusion. Mode of arrival: ambulatory Limitations: no limitations RME / HPI RME / HPI narrative: 02/04/25 09:09 84-year-old male with medical history significant for CHF, ESRD on dialysis presents stating he was at dialysis today and they told him that his hemoglobin is low at 6.9 and to come to the ER for transfusion Related Data Home Medications ?Medication ?Instructions ?Recorded ?Confirmed tamsulosin 0.4 mg capsule 0.8 mg PO BID 12/15/24 01/04/25 Previous Rx's ?Medication ?Instructions ?Recorded aspirin 81 mg tablet,delayed 81 mg PO QDAY #30 tabs 11/13/24 release (Ecotrin Low Strength) atorvastatin 20 mg tablet 80 mg (4 x 20 mg) PO HS #30 tabs 11/13/24 nitroglycerin 0.4 mg sublingual 0.4 mg SL Q5MIN PRN Chest Pain #30 11/13/24 tablet tabs Allergies Allergy/AdvReac Type Severity Reaction Status Date / Time codeine Allergy Vomiting Verified 02/04/25 09:12 Review of Systems Review of Systems Systems Reviewed: All systems reviewed, normal except as documented Constitutional Constitutional: Reports system reviewed and no additional complaints, except as documented, Denies fatigue, Denies fever(s), Denies headache(s) and Denies weakness Eyes Eyes: Reports system reviewed and no additional complaints, except as documented, Denies blurry vision and Denies change in vision ENT Ears, Nose, Mouth, and Throat: Reports system reviewed and no additional complaints, except as documented, Denies otalgia, Denies headache(s), Denies nasal congestion, Denies throat swelling and Denies vertigo Cardiovascular Cardiovascular: Reports system reviewed and no additional complaints, except as documented, Denies chest pain, Denies dyspnea and Denies dyspnea on exertion Respiratory Respiratory: Reports system reviewed and no additional complaints, except as documented, Denies chest congestion, Denies cough, Denies dyspnea, Denies dyspnea on exertion and Denies wheezing Gastrointestinal Gastrointestinal: Reports system reviewed and no additional complaints, except as documented, Denies abdominal pain, Denies cramping, Denies nausea and Denies vomiting Genitourinary Genitourinary: Reports system reviewed and no additional complaints, except as documented, Denies dysuria and Denies hematuria Musculoskeletal Musculoskeletal: Reports system reviewed and no additional complaints, except as documented and Denies back pain Integumentary/Breasts Skin/Breast: Reports system reviewed and no additional complaints, except as documented and Denies wounds Neurologic Neurologic: Reports system reviewed and no additional complaints, except as documented, Denies confusion, Denies headache(s), Denies lack of coordination, Denies vertigo and Denies weakness Psychiatric Psychiatric: Reports system reviewed and no additional complaints, except as documented, Denies anxiety, Denies confusion, Denies depression, Denies paranoia, Denies suicidal ideation and Denies tactile hallucinations Endocrine Endocrine: Reports system reviewed and no additional complaints, except as documented and Denies fatigue Hematologic/Lymphatic Hematologic/Lymphatic: Reports system reviewed and no additional complaints, except as documented and Denies lymphadenopathy Allergic/Immunologic Allergic/Immunologic: Reports system reviewed and no additional complaints, except as documented, Denies throat swelling, Denies urticaria and Denies wheezing Past Medical History Past Medical History NEUROLOGIC: Positive Cerebrovascular Accident; Negative Neurological Disorders or Seizures CARDIAC: Positive Cardiac Disorders, Angina, Hypercholesterolemia, Congestive Heart Failure and Hypertension RESPIRATORY: Negative Chronic Obstructive Pulmonary Disease (COPD) GASTROINTESTINAL: Negative Gastrointestinal Disorders, Hepatitis, Colitis or Colorectal Cancer GENITOURINARY: Positive Renal Disease and Benign Prostatic Hyperplasia; Negative Genitourinary Disorders, Kidney Stones, Polycystic Kidney Disease, Neurogenic Bladder, Inguinal Hernia or Dialysis REPRODUCTIVE: Negative Breast Cancer MUSCULOSKELETAL: Positive Musculoskeletal Disorders and Arthritis ENT: Positive Cataracts, Macular Degeneration and Deafness ENDOCRINE: Positive Endocrine Disorders and Diabetes Mellitus Type 2; Negative Diabetes Mellitus Type 1 HEMATOLOGIC: Negative Blood Disorders OTHER HISTORY: Negative Hospitalization, Autoimmune Disease, Down Syndrome, Developmental Delay, Shingles, Falls, Blood Transfusions, Blood Transfusion Reaction, Anesthesia Reactions, Organ Transplant, MRSA, VRSA, Vancomycin-Resistant Enterococci, Human Immunodeficiency Virus (HIV), Chicken Pox, Measles, Mumps, Rubella (Syriac Measles), Pertussis, Clostridium Difficile, Cancer, Breast Cancer, Cervical Cancer, Colorectal Cancer or Lung Cancer Family History FAMILY HISTORY: Negative Family Psychiatric Problems, Family Respiratory Disorders, Family Cardiac Disorders, Family Gastrointestinal Problems, Family Cancer, Family Surgery or Family Anesthesia Reaction Surgical History SURGICAL: Positive Coronary Stent and Eye Surgery; Negative Cardiac Surgery, Open Heart Surgery, Endocrine Surgery, Ear Surgery, Tympanostomy Tube, Abdominal Surgery, Nephrectomy, Joint Replacement, Neurologic Surgery, Mastectomy, Vasectomy or Organ Transplant Social History SMOKING STATUS: Former smoker SECOND HAND EXPOSURE: No ED Exam General Limitations: Present no limitations General appearance: Present alert and in no apparent distress Head Head exam: Present atraumatic; Absent normocephalic or normal inspection Eye Eye exam: Present normal appearance, PERRL and EOMI ENT ENT exam: Present normal exam, normal oropharynx and mucous membranes moist Neck Neck exam: Present normal inspection, full ROM and trachea midline Chest Chest inspection: Present normal inspection and symmetric chest wall rise Respiratory Respiratory exam: Present normal lung sounds bilaterally Cardiovascular Cardiovascular exam: Present regular rate, normal rhythm and normal heart sounds Abdominal Exam Abdominal exam: Present soft and normal bowel sounds; Absent distention, tenderness, guarding or rebound Extremities Exam Extremities exam: Present normal inspection and full ROM Back Exam Back exam: Present normal inspection and full ROM Neurological Exam Neurological exam: Present alert, oriented X3 and CN II-XII intact Psychiatric Psychiatric exam: Present normal affect and normal mood Skin Skin exam: Present warm, dry, intact and normal color Course Quality Measures none Orders Category Date Time Status CBC Stat Lab 02/04/25 10:07 Completed Comprehensive Metabolic Panel Stat Lab 02/04/25 10:07 Completed Partial Thromboplastin Time Stat Lab 02/04/25 10:07 Completed Prothrombin Time with INR Stat Lab 02/04/25 10:07 Completed Red Blood Cells Stat Lab 02/04/25 10:07 Completed Type and Screen Stat Lab 02/04/25 10:07 Completed Vital Signs Vital signs: Vital Signs Temperature 98.6 F 02/04/25 09:25 Pulse Rate 60 02/04/25 09:25 Respiratory Rate 18 02/04/25 09:25 Blood Pressure 133/62 H 02/04/25 09:25 Pulse Oximetry (%) 98 02/04/25 09:25 Oxygen Delivery Method Room Air 02/04/25 09:25 Recheck / Abnormal Lab / Rx MDM Narrative MDM Narrative:: 84-year-old male with a history of CHF, end-stage renal disease on dialysis presents to the emergency room with a chief complaint of a low hemoglobin level. Patient states he was unable to get dialysis done today due to a hemoglobin level of 6.9 and was sent to the emergency room for an ER blood transfusion. Patient is hemodynamically stable and in no apparent distress Physical examination shows a normal GCS, clear bilateral lung sounds strong regular rhythm. Patient's hemoglobin is at 6.9. Patient was transfused 2 units and discharged. Patient has dialysis tomorrow in the morning. Patient was educated to follow-up with his dialysis manager of application development. Patient was discharged and educated to follow-up with primary care provider in the next 24 to 48 hours and return to the emergency room for any evidence of worsening signs or symptoms Patient data External records reviewed:: [facility] previous records Clinical information provided by:: patient Social determinants that could affect healthcare access:: none Patient has the following chronic illnesses:: End-stage renal disease How is presenting disease/condition affected by chronic disease/condition?: caused by Evaluation data The following diagnostics were reviewed and interpreted by me:: lab results and radiology exam(s) Lab and/or radiology exams considered but not ordered:: Labs and radiology exams considered and ordered Interpretation Summary: N/A Medications / Prescriptions Medications or Prescriptions considered but not ordered:: N/A Medication administrations:: N/A Consultations Consultation(s) initiated? (list below): No Diagnosis Recheck Differential Diagnosis: other (Encounter for transfusion of blood) Most likely diagnosis given after review of the tests above:: Encounter for transfusion of blood Admission Indicated Admission indicated?: not indicated Admission Request Was there a request for admission?: No Disposition Plan Disposition Plan: Discharge Discharge Attestation Discharge Attestation: The patient and all family members were given an opportunity to ask questions and understood the discharge instructions. Discharge instructions specifically effects, indications for sooner follow up or return to the emergency department, and the expected course of current diagnosis. Patient condition: Stable Discharge Plan Plan Patient Disposition: HOME (Self Care) Discharge Disposition comment: Stable Prescriptions/Referrals Prescriptions/Med Rec: No Action tamsulosin 0.4 mg capsule 0.8 mg PO BID atorvastatin 20 mg Tablet 80 mg PO HS Qty: 30 1RF aspirin [Ecotrin Low Strength] 81 mg Tablet,Delayed Release (Dr/Ec) 81 mg PO QDAY Qty: 30 1RF nitroglycerin 0.4 mg Tablet, Sublingual 0.4 mg SL Q5MIN PRN (Reason: Chest Pain) Qty: 30 0RF Referrals: Demian Brower MD [Primary Care Provider] - In 1 week Problem List Clinical Impression: Transfusion of blood during current hospitalization Patient/Caregiver Discharge Instructions Additional Instructions: Please follow-up with your primary care provider in the next 24 to 48 hours 2 units of blood were given to you. Please contact the dialysis center. For any evidence of worsening signs or symptoms return to the emergency room immediately Print Language: Slovenian Stand Alone Forms: Johanna Award Info., Patient Portal Info Letter PA/CAPPER MACHINE OPERATOR Supervising Physician PA/CAPPER MACHINE OPERATOR Supervising Physician: Dr. miller
[2025-02-05] VITALS (8 sets, daily range): BP systolic 150–160; BP diastolic 57–61; PULSE 56–60; RESP 13–18; TEMP 36.4–36.8; O2SAT 95–100
== END 2025-02-05 04:03 | disposition home or self-care (01) ==
PROVIDERS: Nurse Practitioner Primary Care; Emergency Provider Emergency Medicine; PCP Family Medicine
DX: I13.2 Hypertensive heart and chronic kidney disease with heart failure and with stage 5 chronic kidney disease, or end stage renal disease (principal); N18.6 End stage renal disease; D63.1 Anemia in chronic kidney disease; I50.9 Heart failure, unspecified; E11.22 Type 2 diabetes mellitus with diabetic chronic kidney disease; Z87.891 Personal history of nicotine dependence; Z99.2 Dependence on renal dialysis
CPT/HCPCS: 36415; 80053; 85025; 85610; 85730; 86850; 86900; 86901; 86923; 99284; P9016